=== PATIENT | male | born 1965 | race Caucasian/White ===

== ENCOUNTER → 2019-05-15 | Outpatient (CLI) | payer MEDICAID, SELFPAY ==
[2019-05-15 08:09] VITALS: BMI 19.3
[2019-05-15 12:27] LABS: Absolute Lymphocyte Count 0.98 X10^3/uL (0.83-4.51); Absolute Neutrophil Count 3.1 X10^3/uL (2.0-7.7); Basophil# 0.02 X10^3/uL; Basophil% 0.4 % (0-1); Eosinophil# 0.06 X10^3/uL; Eosinophils% 1.3 % (0-5); Hematocrit 39.9 % (40-54); Hemoglobin 13.2 g/dL (13.0-16.5); Lymphocyte # 0.98 X10^3/ul (4.0); Mean Corp Hgb Conc 33.1 g/dL (32-36); Mean Corpuscular Hgb 32.6 pg (27.0-32.0); Mean Corpuscular Volume 98.5 fL (80-94); Mean Platelet Vol. 10.6 fl (6.2-12.0); Monocyte# 0.28 X10^3/uL; Monocyte% 6.3 % (0-10); NRBC Flagged by Analyzer 0 % (0-5); Neutrophil % 69.6 % (47-70); Platelet Count 143 K/mm3 (150-450); RBC Distribution Width CV 13.3 % (11.6-14.6); RBC Distribution Width SD 48.8 fl (35.1-43.9); Red Blood Count 4.05 M/mm3 (4.6-6.2); White Blood Count 4.5 K/mm3 (4.4-11.0)
[2019-05-15 12:47] LABS: Vitamin B12 445 pg/mL (211-911)
[2019-05-15 12:49] LABS: ALB/GLOB Ratio 0.8 RATIO (0.9-2.4); AST(SGOT) 62 U/L (15-37); Alanine Aminotransfer ALT/SGPT 77 U/L (16-61); Alkaline Phosphatase 112 U/L (45-117); Anion Gap 9 (5-15); BUN 6 mg/dL (7-18); BUN/Creat Ratio 9.9 RATIO (10-20); Calcium,Total 9.3 mg/dL (8.5-10.1); Chloride 105 mmol/L (98-107); Cholesterol 208 mg/dL (200); EST Glomerular Filtration Rate 147 mL/min (>60); Est Glom Filt Rate - Afr Amer 178 mL/min (>60); Globulin 5.2 g/dL (2.2-4.2); Glucose 69 mg/dL (74-106); High Density Lipoprotein 79 mg/dL; PSA,Total - Annual Screen 1.07 ng/mL (0.00-4.00); Potassium 4.7 mmol/L (3.5-5.1); Protein, Total 9.2 g/dL (6.4-8.2); Sodium Level 138 mmol/L (136-145); Thyroid Stim Hormone (TSH) 2.61 uIU/mL (0.358-3.74); Triglycerides 89 mg/dL; Very Low Density Lipoprotein 18 mg/dL (5-40)
--- NOTE | 2019-05-15 13:59 | CT_ITS ---
STUDY: LOW DOSE CT LUNG CANCER SCREENING REASON FOR EXAM: Male, 54 years old. The patient smoked 2 packs per day for 43 years. RADIATION DOSAGE (If Supplied By Facility): CTDIvol = ( 2.01 ) mGy, DLP = ( 83.79 ) mGycm TECHNIQUE: No contrast was administered. Low dose technique was utilized (average mAS-38 and kVp 120). 1.25 mm axial source images with a slice interval of 1.25-mm were reconstructed in lung windows. 2.5 mm axial source images with a slice interval of 2.5-mm were reconstructed in lung windows. 5.0 mm axial source images with a slice interval of 5.0-mm were reconstructed in soft tissue windows. Nodule measured using lung windows on PACS and/or independent workstation with automated measurement of minimum and maximum diameter. Nodule measurement reported as average diameter rounded to the nearest whole number. Growth is defined as an increase ins size of greater than 1.5 mm. COMPARISON: None. NODULES: Calcified granuloma in the lateral aspect of the right lower lobe as seen on axial image #177. Blunting of the left costophrenic angle. Emphysema: Hyperinflation. Diffuse emphysematous changes worse in both upper lobes with areas of subpleural bullous changes more prominent in the right upper lobe. Endobronchial lesion: None Aorta: Atherosclerotic plaque formation of the descending thoracic aorta and aortic arch. Coronary arteries: Coronary artery calcification. Mediastinal nodes: Mildly enlarged mediastinal lymph nodes in the aortopulmonary window. Other chest and abdominal findings: Degenerative changes of the thoracic spine. CT/Low Dose CT Lung Screening IMPRESSION: Lung-RADS category 2 - Continue annual screening with LDCT in 12 months. IMPORTANT NOTES FOR USE: ACR Lung-RADS Version 1.0 Assessment Categories Release Date: November 26, 2013 Category: Coded 0-4 bases on nodule(s) with highest degree of suspicion. Negative screen is defined as categories 1 and 2; a positive screen is defined as categories 3 and 4. Category 3 and 4A nodules that are unchanged on interval CT should be coded as category 2, and individuals returned to screening in 12 months. Category 4X: Category 3 or 4 nodules with additional imaging findings that increase the suspicion of lung cancer, such as spiculation, GGN that doubles in size in 1 year, enlarged lymph notes, etc. Category Modifiers: S (significant finding unrelated to lung cancer) and C (prior history of treated lung cancer) may be added to the 0-4 Lung-RADS Electronically Signed: Esau Scott, at 14:55 EDT , Service support ,
== END | disposition home or self-care (01) ==
PROVIDERS: Family Provider Internal Medicine; PCP Internal Medicine; Referring Provider Nurse Practitioner Family; Visit Provider Nurse Practitioner Family
DX: Z00.00 Encounter for general adult medical examination without abnormal findings (principal); K70.9 Alcoholic liver disease, unspecified; F10.20 Alcohol dependence, uncomplicated; R00.0 Tachycardia, unspecified; F17.209 Nicotine dependence, unspecified, with unspecified nicotine-induced disorders; Z12.2 Encounter for screening for malignant neoplasm of respiratory organs
CPT/HCPCS: 36415; 80053; 80061; 82607; 84153; 84443; 85025; G0297; G0103

== ENCOUNTER → 2019-06-01 | Outpatient (CLI) | payer MEDICAID, SELFPAY ==
[2019-05-15 13:28] VITALS: BMI 19.2
--- NOTE | 2019-06-01 08:15 | US_ITS ---
STUDY: ABDOMINAL ULTRASOUND - RIGHT UPPER QUADRANT REASON FOR VISIT: Male, 54 years old elevated liver function tests. TECHNIQUE: Ultrasound evaluation of the right upper quadrant was performed with real-time and static martinez-scale imaging. TECHNICAL QUALITY: Adequate. COMPARISON: None. FINDINGS: Liver: The liver measures 15.8 cm. There is increased echogenicity consistent with fatty infiltration. The bile ducts are within normal limits. There is hepatic color flow. The direction of portal flow is hepatopetal. There is no demonstrated mass lesion. Gallbladder: Normal distended gallbladder. The gallbladder wall measures 2.4 mm. There is a negative sonographic Boyd's sign. There is no pericholecystic fluid. There are multiple echogenic structures within the gallbladder, consistent with multiple small gallstones. Sludge is also seen within the gallbladder lumen. Common Bile Duct (C.B.D.): The common bile duct measures 3.8 mm. Pancreas: Normal size of the head, body and tail of the pancreas. There is normal echogenicity of the pancreas. There is no demonstrated pancreatic mass or cyst. Right Kidney: Normal size of the right kidney. The right kidney measures 10.2 cm x 5.1 cm x 5.1 cm. Normal renal cortex. The right cortex measures 1.7 cm. There is no demonstrated renal mass or cyst. There is no right hydronephrosis. US/Abdomen Limited IMPRESSION: Fatty infiltration of the liver. Multiple tiny gallstones and sludge in the gallbladder lumen. Electronically Signed: Esau Scott, at 14:29 EDT , Service support ,
== END | disposition home or self-care (01) ==
LOC: US 08:13
PROVIDERS: Family Provider Internal Medicine; PCP Internal Medicine; Referring Provider Internal Medicine; Visit Provider Internal Medicine
DX: K70.9 Alcoholic liver disease, unspecified (principal); F10.20 Alcohol dependence, uncomplicated
CPT/HCPCS: 76705

== ENCOUNTER → 2020-01-02 | Outpatient (CLI) | payer MEDICAID, SELFPAY ==
[2020-01-02 14:44] VITALS: BMI 19.2
[2020-01-02 15:21] LABS: Bacteria 0 SEEN /hpf (None Seen); Mucous, Urine 0 SEEN /hpf (<or=2+); Squamous Epithelial Cells - UA 0 SEEN /hpf (0-5); White Blood Cells 0 SEEN /hpf (0-5)
[2020-01-02 16:49] LABS: Absolute Lymphocyte Count 0.53 X10^3/uL (0.83-4.51); Absolute Neutrophil Count 2.5 X10^3/uL (2.0-7.7); Basophil# 0.02 X10^3/uL; Basophil% 0.6 % (0-1); Eosinophil# 0.03 X10^3/uL; Eosinophils% 0.9 % (0-5); Hematocrit 29.1 % (40-54); Hemoglobin 9.3 g/dL (13.0-16.5); Lymphocyte # 0.53 X10^3/ul (4.0); Lymphocyte % 15.9 % (19-41); Mean Corpuscular Hgb 32.9 pg (27.0-32.0); Mean Corpuscular Volume 102.8 fL (80-94); Mean Platelet Vol. 9.6 fl (6.2-12.0); Monocyte# 0.24 X10^3/uL; Monocyte% 7.2 % (0-10); NRBC Flagged by Analyzer 0 % (0-5); Neutrophil # 2.46 X10^3/uL (2.7-7.7); Neutrophil % 73.9 % (47-70); POSITIVE DIFFERENTIAL YES; POSITIVE MORPHOLOGY YES; Platelet Count 164 K/mm3 (150-450); RBC Distribution Width CV 17.8 % (11.6-14.6); RBC Distribution Width SD 66.3 fl (35.1-43.9); Red Blood Count 2.83 M/mm3 (4.6-6.2); White Blood Count 3.3 K/mm3 (4.4-11.0)
[2020-01-02 16:54] LABS: Color, Urine Yellow (Yellow); Glucose, Dipstick Normal (Normal); Ketone-Dipstick Negative (Negative); Leukocyte Esterase-Dipstick Negative /ul (Negative); Nitrite-Dipstick Negative (Negative); Occult Blood-Urine Negative /ul (Negative); Protein-Dipstick 100 mg/dl (Negative); Specific Gravity, Urine 1.015 (1.002-1.030); Urine Bilirubin Dipstick Negative (Negative); Urine Clarity Clear (Clear); Urine Urobilinogen Normal (Normal)
[2020-01-02 17:00] LABS: ALB/GLOB Ratio 0.5 RATIO (0.9-2.4); AST(SGOT) 183 U/L (15-37); Alanine Aminotransfer ALT/SGPT 81 U/L (16-61); Albumin, Serum 2.9 g/dL (3.2-5.0); Alkaline Phosphatase 133 U/L (45-117); Anion Gap 9 (5-15); BUN 10 mg/dL (7-18); BUN/Creat Ratio 21.3 RATIO (10-20); Calcium,Total 8.6 mg/dL (8.5-10.1); Chloride 101 mmol/L (98-107); Creatinine, Serum 0.47 mg/dL (0.70-1.30); EST Glomerular Filtration Rate 197 mL/min (>60); Est Glom Filt Rate - Afr Amer 238 mL/min (>60); Globulin 5.4 g/dL (2.2-4.2); Glucose 79 mg/dL (74-106); Potassium 3.9 mmol/L (3.5-5.1); Protein, Total 8.3 g/dL (6.4-8.2); Sodium Level 137 mmol/L (136-145)
[2020-01-02 17:01] LABS: Differential Indicated SCAN CRITERIA MET
[2020-01-02 17:04] LABS: Red Blood Cells-Urine 0-5 SEEN /hpf (0-5)
[2020-01-02 17:24] LABS: BNP,B-Type NATRIURETIC PEPTIDE 12.5 pg/mL (0-100)
[2020-01-02 20:48] LABS: Anisocytosis 1+; Platelet Estimate ADEQUATE (ADEQ); Stomatocyte 1+; Target Cells RARE
[2020-01-03 12:21] LABS: Pathologist Review Reviewed
== END | disposition home or self-care (01) ==
LOC: BIMLAB 15:20
PROVIDERS: PCP Internal Medicine; Referring Provider Nurse Practitioner Family; Visit Provider Nurse Practitioner Family
DX: F10.20 Alcohol dependence, uncomplicated (principal); R06.01 Orthopnea; R60.0 Localized edema
CPT/HCPCS: 36415; 80053; 81001; 83880; 85025

== ENCOUNTER 2020-01-05 13:47 | Inpatient (IN) | payer MEDICAID, SELFPAY ==
[2020-01-02 14:44] VITALS: BMI 19.2
[2020-01-05] VITALS (7 sets, daily range): BP systolic 109–154; BP diastolic 80–88; PULSE 97–123; RESP 16–18; TEMP 36.5–37; O2SAT 93–98; BMI 20.2; BMI 19.3
--- NOTE | 2020-01-05 14:10 | EKG12_ITS ---
Test Reason : Blood Pressure : / mmHG Vent. Rate : 100 BPM Atrial Rate : 100 BPM P-R Int : 184 ms QRS Dur : 082 ms QT Int : 350 ms P-R-T Axes : 077 072 075 degrees QTc Int : 451 ms Normal sinus rhythm Septal infarct , age undetermined Abnormal ECG Confirmed by YESIKA REYES, GRISELDA ([id number]), movie editor ANI RUBIN ([id number]) on 01/07/2020 1:20:08 PM Referred By: LINDA Confirmed By:GRISELDA NAPOLES MD
--- NOTE | 2020-01-05 14:15 | ED.DCSUM_ITS ---
History of Present Illness <AbdiMarina cerna - Last Filed: 01/05/20 14:23> Informant: Patient Onset: Month(s) Context: Gradual Onset Timing: Continuous Current Severity: Severe Maximum Severity: Severe Worsened by: drinking Relieved by: nothing Associated Symptoms: none Narrative: 54-year-old male history of COPD and alcohol abuse presents to the emergency department requesting detox from alcohol. Patient drinks daily for the last 5 years. He normally drinks at least 525 ounce beers that are a percent alcohol. His last drink was about 2 hours ago. His last detox from alcohol was about 5 years ago. He denies drug use. He denies any chest pain or shortness of breath, he has been eating and drinking normally, no abdominal pain or vomiting, no melena or hematochezia or diarrhea. Prior similar symptoms: Yes Recent Illness/Hospitalization: No <Chapito Hooks - Last Filed: 01/05/20 15:54> Chief Complaint: Substance Abuse Past Medical History - Family History Maternal Family History: Family History (Last Reviewed 05/15/19 @ 13:24 by Sharon Lobato) Mother Cancer Alcohol abuse Father Alcohol abuse Paternal Family History: Family History (Last Reviewed 05/15/19 @ 13:24 by Sharon Lobato) Mother Cancer Alcohol abuse Father Alcohol abuse <AbdiMarina cerna - Last Filed: 01/05/20 14:23> Prior records reviewed: Yes Past Medical History: - - COPD, alcohol abuse Surgical History: no surgical history Lives: With Family Smoking Status: Current every day smoker Alcohol: Heavy Drugs: None - Family History Maternal Family History: Family History (Last Reviewed 05/15/19 @ 13:24 by Sharon Lobato) Mother Cancer Alcohol abuse Father Alcohol abuse Family History: Reports: Cancer Paternal Family History: Family History (Last Reviewed 05/15/19 @ 13:24 by Sharon Lobato) Mother Cancer Alcohol abuse Father Alcohol abuse Family History: Reports: No pertinent history <Chapito Hooks - Last Filed: 01/05/20 15:54> - Allergies and Home Meds Allergies/Adverse Reactions: Allergies erythromycin base Allergy (Unknown, Verified 01/05/20 13:48) Hives Primary Care Physician: Rickey Foley MD [Primary Care Provider] - Review of Systems All systems negative except as indicated General: Denies: Chills, Fever, Sweats Eyes: Denies: Visual changes - bilaterally, Diplopia ENT: Denies: Rhinorrhea, Sore throat Cardiovascular: Denies: Chest pain, Palpitations Respiratory: Reports: Dyspnea on exertion. Denies: Dyspnea, Cough, Sputum, Orthopnea, Paroxysmal nocturnal dyspnea Gastrointestinal: Denies: Abdominal pain, Nausea, Vomiting, Diarrhea, Melena, Hematochezia Genitourinary: Denies: Dysuria, Hematuria, Frequency Musculoskeletal: Denies: Back pain, Extremity Pain Skin: Denies: Rash, Wounds Neurological: Denies: Headache, Weakness, Numbness <Chapito Hooks - Last Filed: 01/05/20 15:54> Physical Exam Vital Signs/Narrative: Vital Signs Temp Pulse Resp BP Pulse Ox 01/05/20 13:48 98.1 F 123 H 16 154/88 H 95 <Marina Ross - Last Filed: 01/05/20 14:23> Vital Signs/Narrative: Vital Signs Temp Pulse Resp BP Pulse Ox 01/05/20 13:48 98.1 F 123 H 16 154/88 H 95 Inital Vital Signs reviewed: Yes General: Well nourished, Well developed, No Acute Distress Head: Normocephalic, Atraumatic Eyes: Perrl, EOMI ENT: Moist mucous membranes, No rhinorrhea Neck: Supple, Nontender Cardiovascular: Regular rhythm, No murmurs, Tachycardia Respiratory: No distress, Chest nontender, Diminished, Decreased Air Movement Abdomen: Soft, Nontender, Nondistended, Normal bowel sounds Back: Nontender, Normal Inspection Extremities: Nontender, No edema Skin: Normal color, No rash Neurological: Alert, Oriented x3, Cranial nerves II-XII grossly intact, Normal Strength, Normal Sensation Psychological: Normal affect, Normal Mood. Negative for: Depressed, Tearful, Agitated <Chapito Hooks - Last Filed: 01/05/20 15:54> Diagnostic/Tx/Re-eval - Medical Decision Making Dr. Ross dictating, patient seen with Chapito agree with history and physical as above patient is requesting detox for alcohol abuse just drank prior to arrival as he was going into what he describes withdrawal he has been detoxed before his other health conditions are stable no exposures to coronavirus head neck chest abdomen unremarkable he is awake alert willing all 4, we will obtain medical screening evaluation and discuss case with hospitalist to determine disposition see chart for full details <Marina Ross - Last Filed: 01/05/20 14:23> Chest X-Ray - ED: 1 View, Read by ED Physician, Read by Radiologist, No Acute Disease Laboratory Tests 01/05/20 01/05/20 01/05/20 Range/Units 15:05 15:05 14:30 WBC (4.4-11.0) K/mm3 RBC (4.6-6.2) M/mm3 Hgb (13.0-16.5) g/dL Hct (40-54) % MCV (80-94) fL MCH (27.0-32.0) pg MCHC (32-36) g/dL RDW Std Deviation (35.1-43.9) fl RDW Coeff of Violette (11.6-14.6) % Plt Count (150-450) K/mm3 MPV (6.2-12.0) fl PT (11.7-14.9) SECONDS INR Sodium (136-145) mmol/L Potassium (3.5-5.1) mmol/L Chloride (98-107) mmol/L Carbon Dioxide (21.0-32.0) mmol/L Anion Gap (5-15) BUN (7-18) mg/dL Creatinine (0.70-1.30) mg/dL Estim Creat Clear Calc ml/min Est GFR (MDRD) Af Amer (>60) mL/min Est GFR (MDRD) Non-Af (>60) mL/min BUN/Creatinine Ratio (10-20) RATIO Glucose (74-106) mg/dL Calcium (8.5-10.1) mg/dL Total Bilirubin (0.20-1.00) mg/dL Direct Bilirubin (0.00-0.30) mg/dL AST (15-37) U/L ALT (16-61) U/L Alkaline Phosphatase (45-117) U/L Troponin I (<0.045) ng/mL Total Protein (6.4-8.2) g/dL Albumin (3.2-5.0) g/dL Globulin (2.2-4.2) g/dL Urine Color Yellow (Yellow) Urine Clarity Sl. Cloudy (Clear) Urine pH 6.0 (5.0 - 8.0) Ur Specific [place] 1.010 (1.002-1.030) Urine Protein 30 H (Negative) mg/dl Urine Glucose (UA) Normal (Normal) mg/dl Urine Ketones Negative (Negative) mg/dl Urine Occult Blood Negative (Negative) /ul Urine Nitrite Negative (Negative) Urine Bilirubin Negative (Negative) mg/dL Urine Urobilinogen Normal (Normal) mg/dl Ur Leukocyte Esterase Negative (Negative) /ul Urine RBC 0 SEEN (0-5) /hpf Urine WBC 0 SEEN (0-5) /hpf Ur Squamous Epith Cells 0 SEEN (0-5) /hpf Urine Bacteria RARE (None Seen) /hpf Urine Mucus 0 SEEN (<or=2+) /hpf Urine Opiates Screen NEGATIVE (< 300 ng/mL) Urine Methadone Screen NEGATIVE (< 300 ng/mL) Ur Barbiturates Screen NEGATIVE (< 200 ng/mL) Ur Phencyclidine Scrn NEGATIVE (< 25 ng/mL) Ur Amphetamines Screen NEGATIVE (<1000 ng/mL) U Methamphetamin-MDMA NEGATIVE (< 500 ng/mL) U Benzodiazepines Scrn NEGATIVE (< 200 ng/mL) Urine Cocaine Screen NEGATIVE (< 300 ng/mL) U Cannabinoids Screen POSITIVE H (< 50 ng/mL) Ur Drug Screen Comment Ethyl Alcohol 327.0 H* mg/dL 01/05/20 01/05/20 01/05/20 Range/Units 14:30 14:30 14:30 WBC 6.4 (4.4-11.0) K/mm3 RBC 2.93 L (4.6-6.2) M/mm3 Hgb 9.6 L (13.0-16.5) g/dL Hct 29.6 L (40-54) % MCV 101.0 H (80-94) fL MCH 32.8 H (27.0-32.0) pg MCHC 32.4 (32-36) g/dL RDW Std Deviation 62.9 H (35.1-43.9) fl RDW Coeff of Violette 17.2 H (11.6-14.6) % Plt Count 130 L (150-450) K/mm3 MPV 9.7 (6.2-12.0) fl PT 12.8 (11.7-14.9) SECONDS INR 1.0 Sodium 136 (136-145) mmol/L Potassium 3.5 (3.5-5.1) mmol/L Chloride 102 (98-107) mmol/L Carbon Dioxide 23.0 (21.0-32.0) mmol/L Anion Gap 11 (5-15) BUN 6 L (7-18) mg/dL Creatinine 0.40 L (0.70-1.30) mg/dL Estim Creat Clear Calc 194.12 ml/min Est GFR (MDRD) Af Amer 289 (>60) mL/min Est GFR (MDRD) Non-Af 239 (>60) mL/min BUN/Creatinine Ratio 15.1 (10-20) RATIO Glucose 83 (74-106) mg/dL Calcium 8.4 L (8.5-10.1) mg/dL Total Bilirubin 0.40 (0.20-1.00) mg/dL Direct Bilirubin 0.20 (0.00-0.30) mg/dL AST 147 H (15-37) U/L ALT 79 H (16-61) U/L Alkaline Phosphatase 138 H (45-117) U/L Troponin I < 0.015 (<0.045) ng/mL Total Protein 8.1 (6.4-8.2) g/dL Albumin 2.9 L (3.2-5.0) g/dL Globulin 5.2 H (2.2-4.2) g/dL Urine Color (Yellow) Urine Clarity (Clear) Urine pH (5.0 - 8.0) Ur Specific [place] (1.002-1.030) Urine Protein (Negative) mg/dl Urine Glucose (UA) (Normal) mg/dl Urine Ketones (Negative) mg/dl Urine Occult Blood (Negative) /ul Urine Nitrite (Negative) Urine Bilirubin (Negative) mg/dL Urine Urobilinogen (Normal) mg/dl Ur Leukocyte Esterase (Negative) /ul Urine RBC (0-5) /hpf Urine WBC (0-5) /hpf Ur Squamous Epith Cells (0-5) /hpf Urine Bacteria (None Seen) /hpf Urine Mucus (<or=2+) /hpf Urine Opiates Screen (< 300 ng/mL) Urine Methadone Screen (< 300 ng/mL) Ur Barbiturates Screen (< 200 ng/mL) Ur Phencyclidine Scrn (< 25 ng/mL) Ur Amphetamines Screen (<1000 ng/mL) U Methamphetamin-MDMA (< 500 ng/mL) U Benzodiazepines Scrn (< 200 ng/mL) Urine Cocaine Screen (< 300 ng/mL) U Cannabinoids Screen (< 50 ng/mL) Ur Drug Screen Comment Ethyl Alcohol mg/dL - Rhythm Strip Rhythm Strip: Sinus Rhythm Rate: 100 Ectopy: None - EKG Initial EKG Interpretation: No Acute Injury Pattern, Sinus Tachycardia Prior: Unchanged - Medical Decision Making EKG was sinus tachycardia no signs of acute ischemia. Clinically the patient does not appear to be in acute withdrawal. His alcohol came back at 327. Drug screen positive for THC. CBC shows chronic anemia consistent with previous hemoglobin level. He remained stable at this time and is agreeable to detox admission. I spoke with the hospitalist Dr. Najera <Chapito Hooks - Last Filed: 01/05/20 15:54> ED Disposition <Marina Ross - Last Filed: 01/05/20 14:23> <Chapito Hooks - Last Filed: 01/05/20 15:54> - Plan for ED Patient: Disposition: Acute Care Hospital [facility] Diagnosis: Alcohol dependence, Chronic back pain, Tobacco abuse Referrals: Rickey Foley MD [Primary Care Provider] -
[2020-01-05] MEDS: 0.9% Normal Saline 1,000 ML 1000 ML IV (14:26)
--- NOTE | 2020-01-05 14:36 | RAD_ITS ---
STUDY: X-RAY CHEST REASON FOR EXAM: Male, 54 years old. PT PRESENTS FOR ALCOHOL DETOX. LAST DRINK and quot;5 MINUTES BEFORE I GOT HERE and quot;. TECHNIQUE: Single AP portable view of the chest. COMPARISON: 01/29/2014 FINDINGS: The lungs are clear and expanded. There is no demonstrated pleural abnormality. Normal size heart. Normal mediastinum and christi. Normal visualized pulmonary arteries. Normal visualized aortic arch and descending thoracic aorta. Normal visualized thoracic spine. Normal visualized ribs, clavicles, and shoulders. There is no demonstrated abnormality of the visualized soft tissue structures of the upper abdomen. RAD/Chest 1 View (Portable) IMPRESSION: Normal x-ray examination of the chest. Electronically Signed: Deandre Frazier MD at 15:42 EDT Tel , Service support ,
[2020-01-05 14:48] LABS: Hematocrit 29.6 % (40-54); Hemoglobin 9.6 g/dL (13.0-16.5); Mean Corp Hgb Conc 32.4 g/dL (32-36); Mean Corpuscular Hgb 32.8 pg (27.0-32.0); Mean Platelet Vol. 9.7 fl (6.2-12.0); Platelet Count 130 K/mm3 (150-450); RBC Distribution Width CV 17.2 % (11.6-14.6); RBC Distribution Width SD 62.9 fl (35.1-43.9); Red Blood Count 2.93 M/mm3 (4.6-6.2); White Blood Count 6.4 K/mm3 (4.4-11.0)
[2020-01-05 14:52] LABS: Prothrombin Time (Protime)PT. 12.8 SECONDS (11.7-14.9)
[2020-01-05 15:02] LABS: AST(SGOT) 147 U/L (15-37); Alanine Aminotransfer ALT/SGPT 79 U/L (16-61); Albumin, Serum 2.9 g/dL (3.2-5.0); Alkaline Phosphatase 138 U/L (45-117); Anion Gap 11 (5-15); BUN 6 mg/dL (7-18); BUN/Creat Ratio 15.1 RATIO (10-20); Calcium,Total 8.4 mg/dL (8.5-10.1); Chloride 102 mmol/L (98-107); EST Glomerular Filtration Rate 239 mL/min (>60); Est Glom Filt Rate - Afr Amer 289 mL/min (>60); Estimated Creatinine Clearance 194.12 ml/min; Globulin 5.2 g/dL (2.2-4.2); Glucose 83 mg/dL (74-106); Potassium 3.5 mmol/L (3.5-5.1); Protein, Total 8.1 g/dL (6.4-8.2); Sodium Level 136 mmol/L (136-145)
[2020-01-05 15:15] LABS: Mucous, Urine 0 SEEN /hpf (<or=2+); Red Blood Cells-Urine 0 SEEN /hpf (0-5); Squamous Epithelial Cells - UA 0 SEEN /hpf (0-5); White Blood Cells 0 SEEN /hpf (0-5)
[2020-01-05 15:20] LABS: Color, Urine Yellow (Yellow); Glucose, Dipstick Normal (Normal); Ketone-Dipstick Negative (Negative); Leukocyte Esterase-Dipstick Negative /ul (Negative); Nitrite-Dipstick Negative (Negative); Occult Blood-Urine Negative /ul (Negative); Protein-Dipstick 30 mg/dl (Negative); Urine Bilirubin Dipstick Negative (Negative); Urine Clarity Sl. Cloudy (Clear); Urine Urobilinogen Normal (Normal)
[2020-01-05 15:28] LABS: Bacteria RARE /hpf (None Seen)
[2020-01-05 15:36] LABS: Amphetamine Urine VISTA NEGATIVE (<1000 ng/mL); Barbiturate Urine VISTA NEGATIVE (< 200 ng/mL); Benzodiazepine Urine VISTA NEGATIVE (< 200 ng/mL); Cocaine Urine VISTA NEGATIVE (< 300 ng/mL); Ecstacy Urine VISTA NEGATIVE (< 500 ng/mL); Methadone Urine VISTA NEGATIVE (< 300 ng/mL); PCP Urine VISTA NEGATIVE (< 25 ng/mL); THC Urine VISTA POSITIVE (< 50 ng/mL); Vista UDS pH Range 7
--- NOTE | 2020-01-05 16:12 | HP.PCM_ITS ---
History of Present Illness Date of Admission: 01/05/20 The patient is a 54 year old M who presented to the ED with the request for EtOH detox. He states that he has been drinking since he was 12 yo and currently drinks about 5-6 24 oz beers a day that are 8%. His last drink was about 11-12 today. He states that he was trying to detox himself at home with Ultram but it has not been working. He has been to [facility] in the past and been detoxed with phenobarbital and that that worked well for him but admits that was several years ago. He also smokes 2 PPD. He states that his diet is overall poor and he has been drinking V8 and Ensure to try to improve his nutritional status. He states that he is starting to feel a bit shaky now. On exam B LE edema-mild was noted and Mr Isidoro admits that his legs have been swollen for a few weeks. He did see an [employer] with the last name Fantasma who, per the pt, told them that he may have had a mild heart attack. No w/u was performed per the pt. He is mildly tachycardic with a HR in the low 100 range, otherwise his VS are stable. He has a macrocytic anemia and mild thrombocytopenia (130). His LFT's are elevated as expected with AST 147 and ALT 79. Coags are WNL. Blood EtOH level is 327 and drug screen was + for THC. Past Medical History Past Medical History (Chronic Problems): Chronic Problems (Last Updated 05/15/19 @ 13:24 by Sharon Lobato) Tobacco abuse (Chronic) Chronic back pain (Chronic) History of traumatic head injury (Chronic) Vertigo (Chronic) Alcohol dependence (Chronic) Medical History: Medical History (Last Updated 05/15/19 @ 13:24 by Sharon Lobato) Alcohol abuse F10.10 Drug abuse F19.10 H/O: pneumonia Z87.01 History of fractured rib Z87.81 Liver disease K76.9 Neuropathy G62.9 Seasonal allergies J30.2 Allergies erythromycin base Allergy (Unknown, Verified 01/05/20 13:48) Hives Home Medications: Ambulatory Orders Medication Instructions Recorded thiamine HCl (vitamin B1) 100 mg 100 mg PO DAILY #90 tab 08/14/19 tablet albuterol sulfate 90 mcg/actuation 1 - 2 puff INHALATION Q6H PRN #8.5 01/02/20 aerosol inhaler g budesonide-formoterol HFA 160 2 puff INHALATION BID #10.2 g 01/02/20 mcg-4.5 mcg/actuation aerosol inhaler Surgical History: Surgical History (Last Reviewed 05/15/19 @ 13:24 by Sharon Lobato) H/O colonoscopy Z98.890 2017 Surgical History: no surgical history Psychiatric History: Anxiety Lives: With Family Smoking Status: Current every day smoker Alcohol: Heavy Drugs: None - *Family History Maternal Family History: Family History (Last Reviewed 05/15/19 @ 13:24 by Sharon oLbato) Mother Cancer Alcohol abuse Father Alcohol abuse History Items: Cancer Paternal Family History: Family History (Last Reviewed 05/15/19 @ 13:24 by Sharon Lobato) Mother Cancer Alcohol abuse Father Alcohol abuse History Items: No pertinent history Review of Systems Constitutional: Denies: Anorexia, Chills, Fever, Night Sweats, Malaise, Weakness, Weight Change, Fatigue Eyes: Denies: Blurred vision, Cataracts, Conjunctivae Inflammation, Double vision, Drainage, Eyelid Inflammation, Pain, Redness, Vision Change HEENT: Denies: Difficulty Hearing, Difficulty Swallowing, Dysphasia, Ear Pain, Eye Pain, Hard of Hearing, Head Aches, Hearing Changes, Nasal bleeding, Post Nasal Drip, Sinus Drainage, Sore Throat, Visual Changes Cardiovascular: Reports: Edema. Denies: Chest Pain, Chest Pressure, Chest Tightness, Heaviness, Light Headedness, Orthopnea, Palpitations, Paroxysmal Noc. Dyspnea, Syncope Respiratory: Reports: Shortness of Breath - intermittent and chronic for pt. Denies: Cough, Pleuritic Pain, Shortness of breath at rest, Shortness of breath upon exertion, Sputum production, Wheezing Gastrointestinal: Reports: Nausea - intermittent, Vomiting - intermittent. Denies: Abdominal Pain, Constipation, Diarrhea, Dyspepsia, Hematemesis, Hematochezia, Melena Genitourinary: Denies: Dysuria, Frequency, Hematuria, Hesitancy, Incontinence, Nocturia, Retention, Urgency Musculoskeletal: Denies: Arm Pain, Back Pain, Foot Pain, Hand Pain, Joint Pain, Joint stiffness, Joint swelling, Joint Tenderness, Leg Pain, Muscle pain, Neck Pain, Shoulder Pain Skin: Denies: Dryness, Jaundice, Lesions, Pruritis, Rash, Skin Changes, Wounds Neurological: Denies: Balance problems, Blurred vision, Double vision, Change in Speech, Slurred speech, Confusion, Difficulty swallowing, Focal weakness, Headaches, Incoordination, Numbness, Tingling, Tremor, Seizures Psychiatric: Reports: Anxiety. Denies: Depression, Homicidal Ideations, Suicidal Ideations Endocrine: Reports: Hx of Irradiation. Denies: Change in Body Habitus, Heat/ Cold Intolerance, Polydipsia, Polyuria, Hx of Thyroiditis Hematologic/ Lymphatic: Denies: Adenopathy, Anemia, Easy Bruising, Easy Bleeding, Petechiae, Purpura, Hx of blood clot, Hx of blood transfusion VTE Information - Inpt Only VTE Present on Admission: No VTE Mechan Device Prophylaxis: SCD's VTE Pharm Prophylaxis ordered?: No - Physical Exam Vitals/I&O's: Vital Signs Temp Pulse Resp BP Pulse Ox 97.8 F 97 18 114/80 97 01/05/20 16:05 01/05/20 16:05 01/05/20 16:05 01/05/20 16:05 01/05/20 16:05 Oxygen Delivery Method Room Air Weight: 65.771 kg Body Mass Index (BMI) 20.2 General: Alert, Oriented x3, Cooperative, No apparent distress, Well developed, - - very pleasant, thin WM who appears older than stated age, sitting up in bed HEENT: Atraumatic, PERRLA, EOMI, Normocephalic, EAC Clear Oral: Moist Mucosa, No Gingival or Mucosal Lesions/ Ulcerations, - - edentulous Neck: Supple, No JVD, Negative Carotid Bruits, Negative Hepatojugular Reflux, No Nodes, No Nuchal Rigidity, Trachea Midline, Thyroid Normal Size and Texture Lungs: Clear to auscultation, No rhonchi, No wheeze, No rales, - - diminished diffusely but CTA Cardiovascular: Regular Rhythm, Normal S1, Normal S2, No murmurs, No Ectopic Activity, No rub noted, No Gallop, Tachycardic - mild Abdomen: Bowel Sounds Present, Soft, Non Tender, Non-Distended, Hepatomegaly, Splenomegaly, No hernias noted Extremities: No clubbing, No cyanosis, Capillary Refill Less than 3 Seconds, Clubbing, Edema, - - varicosities B LE Skin: No rashes, No breakdown Musculoskeletal: No Tenderness to Palpation of Joints or Extremities, No Muscle Wasting, Arthritic Changes Lymphatic: No Cervical, Supraclavicular, or Inguinal Adenopathy Neurological: Cranial nerves II-XII grossly intact, Deep Tendon Reflexes 2+/4 and Symmetrical, Neuro grossly intact, Motor Exam 5/5 strength throughout Psych/Mental Status: Normal Affect, Appropriate, Alert and oriented to time, place, person, mood and affect Laboratory Results 01/05/20 14:30: WBC 6.4, RBC 2.93 L, Hgb 9.6 L, Hct 29.6 L, MCV 101.0 H, MCH 32.8 H, MCHC 32.4, RDW Std Deviation 62.9 H, RDW Coeff of Violette 17.2 H, Plt Count 130 L, MPV 9.7 01/05/20 14:30: PT 12.8, INR 1.0 01/05/20 14:30: Sodium 136, Potassium 3.5, Chloride 102, Carbon Dioxide 23.0, Anion Gap 11, BUN 6 L, Creatinine 0.40 L, Estim Creat Clear Calc 194.12, Est GFR (MDRD) Af Amer 289, Est GFR (MDRD) Non-Af 239, BUN/Creatinine Ratio 15.1, Glucose 83, Calcium 8.4 L, Total Bilirubin 0.40, Direct Bilirubin 0.20, AST 147 H, ALT 79 H, Alkaline Phosphatase 138 H, Troponin I < 0.015, Total Protein 8.1, Albumin 2.9 L, Globulin 5.2 H 01/05/20 14:30: Ethyl Alcohol 327.0 H* 01/05/20 15:05: Urine Color Yellow, Urine Clarity Sl. Cloudy, Urine pH 6.0, Ur Specific [place] 1.010, Urine Protein 30 H, Urine Glucose (UA) Normal, Urine Ketones Negative, Urine Occult Blood Negative, Urine Nitrite Negative, Urine Bilirubin Negative, Urine Urobilinogen Normal, Ur Leukocyte Esterase Negative, Urine RBC 0 SEEN, Urine WBC 0 SEEN, Ur Squamous Epith Cells 0 SEEN, Urine Bacteria RARE, Urine Mucus 0 SEEN 01/05/20 15:05: Urine Opiates Screen NEGATIVE, Urine Methadone Screen NEGATIVE, Ur Barbiturates Screen NEGATIVE, Ur Phencyclidine Scrn NEGATIVE, Ur Amphetamines Screen NEGATIVE, U Methamphetamin-MDMA NEGATIVE, U Benzodiazepines Scrn NEGATIVE, Urine Cocaine Screen NEGATIVE, U Cannabinoids Screen POSITIVE H, Ur Drug Screen Comment Assessment/Plan Acute EtOH Detox -Phenobarb taper with EtOH addiction order set -Thiamine 200mg/day x 3 days -folic acid -PRN ativan -monitor labs EtOH induced Hepatitis -mildly elevated LFT -monitor--> monica with the use of phenobarb B LE edema -no current CP or cardiac sx -EKG with no changes c/w old or new ischemia -check TSH -check ECHO Tobacco abuse -Nicotine Patch Macrocytic Anemia -supect related to EtOH tox to marrow -monitor for stability Thrombocytopenia -mild -suspect marrow toxicity -monitor for stability Malnutrition -reg diet -MVI -consult dietitian -supplements DVT prophylaxis -SCDs -pt allowed up ad [place] for now Inpatient E&M: [id number] Init Hosp L3
--- NOTE | 2020-01-05 16:52 | ECHOD_ITS ---
Reason For Study: SOB Procedure This was a 2D Doppler, Color Flow transthoracic echocardiogram. Exam performed portable in patient room. Left Ventricle Normal LV size. Left ventricular systolic function is normal. The estimated ejection fraction is 60 %. Normal diastology for age. No regional wall motion abnormalities noted. Right Ventricle Normal RV size. Normal systolic function. Atria Normal left atrium. Normal right atrium. Mitral Valve Normal mitral valve. Tricuspid Valve Normal tricuspid valve. Mild tricuspid valve insufficiency. Aortic Valve Normal aortic valve. Pulmonic Valve Normal pulmonic valve. Great Vessels Normal aortic root. The pulmonary artery is normal size. Normal inferior vena cava. Pericardium/Pleural No pericardial effusion. MMode/2D Measurements & Calculations LVIDd: 4.0 cm IVSd: 0.86 cm Ao root diam: 3.7 cm LVIDs: 2.5 cm LVPWd: 0.88 cm RVDd: 3.0 cm FS: 38.4 % LAV(MOD-bp): 46.4 ml LVAd ap4: 28.0 cm2 SV(MOD-sp4): 50.4 ml LAV(MOD-bp) Indexed: 25.5 ml/m2 EDV(MOD-sp4): 73.7 ml LAV(MOD-sp2): 53.5 ml EDV(sp4-el): 76.4 ml LAV(MOD-sp4): 39.3 ml LVAs ap4: 14.4 cm2 ESV(MOD-sp4): 23.2 ml ESV(sp4-el): 23.4 ml EF(MOD-sp4): 68.5 % EF(sp4-el): 69.4 % SV(sp4-el): 53.0 ml LA A4 area: 14.7 cm2 LA dimension(2D): 3.5 cm RA A4 area: 13.6 cm2 Doppler Measurements & Calculations MV E max godfrey: 83.9 cm/sec Lat Peak E' Godfrey: 13.7 cm/sec Med Peak E' Godfrey: 9.1 cm/sec MV A max godfrey: 72.5 cm/sec E/E' lat: 6.1 E/E' med: 9.2 MV E/A: 1.2 Ao V2 max: 133.8 cm/sec LV V1 max: 102.6 cm/sec PA V2 max: 110.6 cm/sec Ao max P.2 mmHg LV V1 max P.2 mmHg TR max godfrey: 233.5 cm/sec TR max P.8 mmHg Interpretation Summary Normal LV size. Left ventricular systolic function is normal. The estimated ejection fraction is 60 %. Normal diastology for age. Structurally normal valves. Ordering Physician: Sherry Najera Referring Physician: Rickey Foley Performed By: Lizette Magallon RDCS
[2020-01-05] MEDS: Phenobarbital 32.4 MG Tablet PO ×2 (17:32→20:24)
[2020-01-05] MEDS: Thiamine Hydrochloride 100 MG Tablet 200 MG PO (17:32)
[2020-01-05] MEDS: Folic Acid 1 MG Tablet PO (17:32)
[2020-01-05] MEDS: traZODone 100 MG Tablet PO (20:24)
[2020-01-05] MEDS: Gabapentin 300 MG Capsule PO (20:24)
[2020-01-05] MEDS: Ondansetron 8 MG Tablet PO (20:29)
[2020-01-06] VITALS (11 sets, daily range): BP systolic 114–142; BP diastolic 68–90; PULSE 74–109; RESP 16–18; TEMP 36.2–37.2; O2SAT 90–100
[2020-01-06] MEDS: Phenobarbital 32.4 MG Tablet PO ×6 (00:19→20:58)
[2020-01-06] MEDS: 0.9% Saline Lock 10 ML Syringe IV (04:17)
[2020-01-06 06:18] LABS: Absolute Lymphocyte Count 0.41 X10^3/uL (0.83-4.51); Absolute Neutrophil Count 3.7 X10^3/uL (2.0-7.7); Basophil# 0.01 X10^3/uL; Basophil% 0.2 % (0-1); Eosinophil# 0.01 X10^3/uL; Eosinophils% 0.2 % (0-5); Hemoglobin 9.2 g/dL (13.0-16.5); Lymphocyte # 0.41 X10^3/ul (4.0); Lymphocyte % 9.2 % (19-41); Mean Corp Hgb Conc 32.9 g/dL (32-36); Mean Corpuscular Hgb 33.1 pg (27.0-32.0); Mean Corpuscular Volume 100.7 fL (80-94); Monocyte# 0.33 X10^3/uL; Monocyte% 7.4 % (0-10); NRBC Flagged by Analyzer 0 % (0-5); Neutrophil # 3.67 X10^3/uL (2.7-7.7); Neutrophil % 81.9 % (47-70); POSITIVE DIFFERENTIAL YES; Platelet Count 126 K/mm3 (150-450); RBC Distribution Width CV 16.9 % (11.6-14.6); Red Blood Count 2.78 M/mm3 (4.6-6.2); White Blood Count 4.5 K/mm3 (4.4-11.0)
[2020-01-06 06:38] LABS: ALB/GLOB Ratio 0.6 RATIO (0.9-2.4); AST(SGOT) 106 U/L (15-37); Alanine Aminotransfer ALT/SGPT 61 U/L (16-61); Albumin, Serum 2.5 g/dL (3.2-5.0); Alkaline Phosphatase 121 U/L (45-117); Anion Gap 7 (5-15); BUN 7 mg/dL (7-18); BUN/Creat Ratio 15.4 RATIO (10-20); Calcium,Total 8.4 mg/dL (8.5-10.1); Chloride 100 mmol/L (98-107); Creatinine, Serum 0.46 mg/dL (0.70-1.30); EST Glomerular Filtration Rate 204 mL/min (>60); Est Glom Filt Rate - Afr Amer 247 mL/min (>60); Estimated Creatinine Clearance 166.47 ml/min; Globulin 4.5 g/dL (2.2-4.2); Glucose 105 mg/dL (74-106); Magnesium 1.5 mg/dL (1.6-2.6); Potassium 3.5 mmol/L (3.5-5.1); Sodium Level 135 mmol/L (136-145); Thyroid Stim Hormone (TSH) 2.86 uIU/mL (0.358-3.74)
[2020-01-06 06:41] LABS: Differential Indicated SCAN CRITERIA MET
[2020-01-06] MEDS: Ipratropium/Albuterol Sulfate 3 ML AMPUL.NEB INHALATION ×3 (06:43→19:34)
--- NOTE | 2020-01-06 07:23 | PN_ITS ---
Reason for Visit: Acute alcohol withdrawal Subjective: Patient is a 54-year-old gentleman with history of chronic alcohol use who pre sented to the emergency department intoxicated with request to undergo medical stabilization. Objective: GENERAL: cooperative HEENT: Atraumatic; EYES; Anicteric, Normal Conjunctiva NECK; supple, normal thyroid, RESPIRATORY: Diminished to auscultation CARDIOVASCULAR: Regular S1 S2, GI: soft, normoactive bowel sounds, : No Renal angle tenderness; EXTREMITIES: No edema, no clubbing, MUSCULOSKELETAL: no muscle waisting NEURO: Awake; no lateralizing signs. SKIN: No Rash PSYCH; Flat affect Vitals/I&O's: Vital Signs Temp Pulse Resp BP Pulse Ox 97.8 F 103 H 16 132/90 H 94 01/06/20 04:16 01/06/20 04:16 01/06/20 04:16 01/06/20 04:16 01/06/20 04:16 Oxygen Delivery Method Room Air Weight: 64.864 kg Body Mass Index (BMI) 19.3 Intake and Output for Last 24 Hours 01/04/20 01/05/20 01/06/20 23:59 23:59 23:59 Intake Total 1790 / 1790 350 / 350 Output Total 500 / 500 Balance 1290 / 1290 350 / 350 Laboratory Results 01/05/20 14:30: WBC 6.4, RBC 2.93 L, Hgb 9.6 L, Hct 29.6 L, MCV 101.0 H, MCH 32.8 H, MCHC 32.4, RDW Std Deviation 62.9 H, RDW Coeff of Violette 17.2 H, Plt Count 130 L, MPV 9.7 01/05/20 14:30: PT 12.8, INR 1.0 01/05/20 14:30: Sodium 136, Potassium 3.5, Chloride 102, Carbon Dioxide 23.0, Anion Gap 11, BUN 6 L, Creatinine 0.40 L, Estim Creat Clear Calc 194.12, Est GFR (MDRD) Af Amer 289, Est GFR (MDRD) Non-Af 239, BUN/Creatinine Ratio 15.1, Glucose 83, Calcium 8.4 L, Total Bilirubin 0.40, Direct Bilirubin 0.20, AST 147 H, ALT 79 H, Alkaline Phosphatase 138 H, Troponin I < 0.015, Total Protein 8.1, Albumin 2.9 L, Globulin 5.2 H 01/05/20 14:30: Ethyl Alcohol 327.0 H* 01/05/20 15:05: Urine Color Yellow, Urine Clarity Sl. Cloudy, Urine pH 6.0, Ur Specific [place] 1.010, Urine Protein 30 H, Urine Glucose (UA) Normal, Urine Ketones Negative, Urine Occult Blood Negative, Urine Nitrite Negative, Urine Bilirubin Negative, Urine Urobilinogen Normal, Ur Leukocyte Esterase Negative, Urine RBC 0 SEEN, Urine WBC 0 SEEN, Ur Squamous Epith Cells 0 SEEN, Urine Bacteria RARE, Urine Mucus 0 SEEN 01/05/20 15:05: Urine Opiates Screen NEGATIVE, Urine Methadone Screen NEGATIVE, Ur Barbiturates Screen NEGATIVE, Ur Phencyclidine Scrn NEGATIVE, Ur Amphetamines Screen NEGATIVE, U Methamphetamin-MDMA NEGATIVE, U Benzodiazepines Scrn NEGATIVE, Urine Cocaine Screen NEGATIVE, U Cannabinoids Screen POSITIVE H, Ur Drug Screen Comment 01/06/20 05:13: WBC 4.5, RBC 2.78 L, Hgb 9.2 L, Hct 28.0 L, MCV 100.7 H, MCH 33.1 H, MCHC 32.9, RDW Std Deviation 62.0 H, RDW Coeff of Violette 16.9 H, Plt Count 126 L, MPV 10.0, Immature Gran % (Auto) 1.100 H, Neut % (Auto) 81.9 H, Lymph % (Auto) 9.2 L, [place] % (Auto) 7.4, Eos % (Auto) 0.2, Baso % (Auto) 0.2, Absolute Neuts (auto) 3.7, Absolute Lymphs (auto) 0.41 L, Nucleated RBC % 0, Differential Comment COMMENT 01/06/20 05:13: Sodium 135 L, Potassium 3.5, Chloride 100, Carbon Dioxide 28.0, Anion Gap 7, BUN 7, Creatinine 0.46 L, Estim Creat Clear Calc 166.47, Est GFR (MDRD) Af Amer 247, Est GFR (MDRD) Non-Af 204, BUN/Creatinine Ratio 15.4, Glucose 105, Calcium 8.4 L, Magnesium 1.5 L, Total Bilirubin 0.70, AST 106 H, ALT 61, Alkaline Phosphatase 121 H, Total Protein 7.0, Albumin 2.5 L, Globulin 4.5 H, Albumin/Globulin Ratio 0.6 L, TSH 2.86 Current Medications Acetaminophen (Tylenol) 500 mg PO Q4H PRN PRN PRN Reason: Temp > 100.4 F Al Hydroxide/Mg Hydroxide (Mylanta Ii) 30 ml PO Q6H PRN PRN PRN Reason: dyspesia Albuterol Sulfate (Ventolin Aerosols) 2.5 mg INHALATION Q2H PRN PRN PRN Reason: dyspnea, wheezing Albuterol/Ipratropium (Duoneb) 3 ml INHALATION Q6HWA.RT [facility] Last Admin: 01/06/20 06:43 Dose: 3 ml Documented by: Bisacodyl (Dulcolax) 10 mg RECTAL DAILY PRN PRN Reason: Constipation Dextrose (D50w Syringe) 0 gm IV X1 PRN; Protocol PRN Reason: Hypoglycemia Dicyclomine HCl (Bentyl) 20 mg PO Q6H PRN PRN PRN Reason: abdominal discomfort Folic Acid (Folic Acid) 1 mg PO DAILY@0800 [facility] Last Admin: 01/05/20 17:32 Dose: 1 mg Documented by: Gabapentin (Neurontin) 300 mg PO Q8H PRN PRN PRN Reason: moderate to severe anxiety Last Admin: 01/05/20 20:24 Dose: 300 mg Documented by: Glucagon () 1 mg IM .X1 PRN PRN Reason: Hypoglycemia Hydroxyzine Pamoate (Vistaril Pamoate Capsule) 50 mg PO Q4H PRN PRN PRN Reason: mild anxiety Ibuprofen (Motrin) 600 mg PO Q8H PRN PRN PRN Reason: Pain Score 1-10/10 Loperamide HCl (Imodium) 2 mg PO Q4H PRN PRN PRN Reason: LOOSE STOOLS Lorazepam (Ativan) 2 mg PO Q2H PRN PRN; Protocol PRN Reason: CIWA score > 8 but <15 Lorazepam (Ativan) 2 mg PO UD PRN; Protocol PRN Reason: CIWA score >/=15. Lorazepam (Ativan) 2 mg IV Q2H PRN PRN; Protocol PRN Reason: CIWA score > 8 but <15 Lorazepam (Ativan) 2 mg IV UD PRN; Protocol PRN Reason: CIWA score >/=15. Methocarbamol (Methocarbamol) 750 mg PO 4X/DAY PRN PRN Reason: MUSCLE SPASM Nicotine (Nicoderm Cq (Pbkc)) 21 mg TRANSDERM. DAILY JIM Ondansetron HCl (Zofran) 8 mg PO Q8H PRN PRN PRN Reason: NAUSEA Last Admin: 01/05/20 20:29 Dose: 8 mg Documented by: Phenobarbital (Phenobarbital) 97.2 mg PO Q4H JIM; Taper Stop: 01/10/20 00:59 Last Admin: 01/06/20 04:17 Dose: 97.2 mg Documented by: Senna (Senokot) 2 tablet PO QHS PRN PRN PRN Reason: Constipation Sodium Chloride () 10 - 40 ml IV UD PRN PRN Reason: SALINE FLUSH Last Admin: 01/06/20 04:17 Dose: 10 ml Documented by: Thiamine HCl (Vitamin B1) 200 mg PO DAILYCM JIM Stop: 01/07/20 23:59 Last Admin: 01/05/20 17:32 Dose: 200 mg Documented by: Trazodone HCl (Desyrel) 100 mg PO QHS PRN PRN Reason: INSOMNIA Last Admin: 01/05/20 20:24 Dose: 100 mg Documented by: STROKE Vital Signs/Narrative: Vital Signs Temp Pulse Resp BP Pulse Ox 01/06/20 04:16 97.8 F 103 H 16 132/90 H 94 Medical Necessity - Tobacco Use Smoking Status: Current every day smoker Tobacco Use: Cigarettes Assessment/Plan Patient is a 54-year-old gentleman admitted with acute alcohol intoxication with request to undergo detox 1. Acute alcohol withdrawal ?Admitted to regular nursing floor currently being managed with medical stabilization/detox using phenobarbital 2. Alcohol induced hepatitis ?Monitoring hepatic function 3. Tobacco dependence - Counseled on cessation, offered nicotine patch for tobacco cravings 4. Anemia ?Macrocytic suspected to be secondary to patient alcohol use also requested for B12 levels 5. Mild thrombocytopenia -secondary to patient's alcohol use monitoring, 6. Mild malnutrition -consult dietitian -supplements 7. DVT prophylaxis -low risk Inpatient E&M: 80247 Subs Hosp L2
[2020-01-06] MEDS: Folic Acid 1 MG Tablet PO (08:17)
[2020-01-06] MEDS: Thiamine Hydrochloride 100 MG Tablet 200 MG PO (08:17)
--- NOTE | 2020-01-06 09:22 | PCM.CONS.GEN ---
Problem List (1) Tinea unguium Status: Chronic (2) Toe pain, right Status: Chronic (3) Toe pain, left Status: Chronic (4) Other hereditary and idiopathic neuropathies Status: Chronic Reason for Consult Date of Consultation: 01/06/20 Reason for Consultation: long thick toenails History of Present Illness: The patient is a 54 year old M was seen bedside. He was admitted for alcohol detox. He relates he has neuropathy with rest paresthesias, burning, tingling. He denies claudication. He denies history of ulcerations. I saw him for long thick toenails. He does not feel safe trimming these on his own and he asks for help today. His nail pain is rated as 7/10. He denies trauma. Past Medical History Past Medical History (Chronic Problems): Chronic Problems (Last Updated 05/15/19 @ 13:24 by Sharon Lobato) Tinea unguium (Chronic) Toe pain, right (Chronic) Toe pain, left (Chronic) Other hereditary and idiopathic neuropathies (Chronic) Tobacco abuse (Chronic) Chronic back pain (Chronic) History of traumatic head injury (Chronic) Vertigo (Chronic) Alcohol dependence (Chronic) Medical History: Medical History (Last Updated 05/15/19 @ 13:24 by Sharon Lobato) Alcohol abuse F10.10 Drug abuse F19.10 H/O: pneumonia Z87.01 History of fractured rib Z87.81 Liver disease K76.9 Neuropathy G62.9 Seasonal allergies J30.2 Allergies erythromycin base Allergy (Unknown, Verified 01/05/20 13:48) Hives Home Medications: Ambulatory Orders Medication Instructions Recorded albuterol sulfate 90 mcg/actuation 1 - 2 puff INHALATION Q6H PRN #8.5 01/02/20 aerosol inhaler g budesonide-formoterol HFA 160 2 puff INHALATION BID #10.2 g 01/02/20 mcg-4.5 mcg/actuation aerosol inhaler Thiamine HCl [Vitamin B-1] 100 mg PO DAILY 01/05/20 Surgical History: Surgical History (Last Reviewed 05/15/19 @ 13:24 by Sharon Lobato) H/O colonoscopy Z98.890 2017 Surgical History: no surgical history Psychiatric History: Anxiety Lives: With Family Smoking Status: Current every day smoker Tobacco Use: Cigarettes Alcohol: Heavy Drugs: None - *Family History Maternal Family History: Family History (Last Reviewed 05/15/19 @ 13:24 by Sharon Lobato) Mother Cancer Alcohol abuse Father Alcohol abuse History Items: Cancer Paternal Family History: Family History (Last Reviewed 05/15/19 @ 13:24 by Sharon Lobato) Mother Cancer Alcohol abuse Father Alcohol abuse History Items: No pertinent history Review of Systems Constitutional: Denies: Chills, Fever Cardiovascular: Denies: Claudication Respiratory: Denies: Shortness of Breath Musculoskeletal: Reports: Foot Pain - toenails. Denies: Leg Pain Skin: Reports: - - nail changes, chronic. Denies: Skin Changes, Wounds Neurological: Reports: Numbness - Physical Exam Vitals/I&O's: Vital Signs Temp Pulse Resp BP Pulse Ox 97.8 F 104 H 18 132/90 H 90 01/06/20 04:16 01/06/20 06:43 01/06/20 06:43 01/06/20 04:16 01/06/20 06:43 Oxygen Delivery Method Room Air Weight: 64.864 kg Body Mass Index (BMI) 19.3 Intake and Output for Last 24 Hours 01/04/20 01/05/20 01/06/20 23:59 23:59 23:59 Intake Total 1790 / 1790 350 / 350 Output Total 500 / 500 Balance 1290 / 1290 350 / 350 General: Alert, Oriented x3, Cooperative HEENT: Atraumatic Extremities: No cyanosis, Capillary Refill Less than 3 Seconds - All digits bilateral lower extremities, No Calf Tenderness - Negative Becca and Haney sign bilateral, Edema - Mild bilateral lower extremity, Peripheral Pulses Normal - 2 out of 4 PT AND DP pulses bilateral, - - Active range of motion digits and ankles normal bilateral lower extremities. Mild contraction of lesser digits bilateral Skin: - - No skin discontinuity, erythema, streaking, maceration, or signs of infection bilateral lower extremities. nails bilateral 1,2,3,4,5 long, thick, dystrophic with subungual debris with pain noted with compression Musculoskeletal: No Tenderness to Palpation of Joints or Extremities, Muscle Wasting Neurological: - - Epicritic sensation is intact to light touch to bilateral lower extremities equal to all dermatomes Psych/Mental Status: Normal Affect, Appropriate Laboratory Results 01/05/20 14:30: WBC 6.4, RBC 2.93 L, Hgb 9.6 L, Hct 29.6 L, MCV 101.0 H, MCH 32.8 H, MCHC 32.4, RDW Std Deviation 62.9 H, RDW Coeff of Violette 17.2 H, Plt Count 130 L, MPV 9.7 01/05/20 14:30: PT 12.8, INR 1.0 01/05/20 14:30: Sodium 136, Potassium 3.5, Chloride 102, Carbon Dioxide 23.0, Anion Gap 11, BUN 6 L, Creatinine 0.40 L, Estim Creat Clear Calc 194.12, Est GFR (MDRD) Af Amer 289, Est GFR (MDRD) Non-Af 239, BUN/Creatinine Ratio 15.1, Glucose 83, Calcium 8.4 L, Total Bilirubin 0.40, Direct Bilirubin 0.20, AST 147 H, ALT 79 H, Alkaline Phosphatase 138 H, Troponin I < 0.015, Total Protein 8.1, Albumin 2.9 L, Globulin 5.2 H 01/05/20 14:30: Ethyl Alcohol 327.0 H* 01/05/20 15:05: Urine Color Yellow, Urine Clarity Sl. Cloudy, Urine pH 6.0, Ur Specific [place] 1.010, Urine Protein 30 H, Urine Glucose (UA) Normal, Urine Ketones Negative, Urine Occult Blood Negative, Urine Nitrite Negative, Urine Bilirubin Negative, Urine Urobilinogen Normal, Ur Leukocyte Esterase Negative, Urine RBC 0 SEEN, Urine WBC 0 SEEN, Ur Squamous Epith Cells 0 SEEN, Urine Bacteria RARE, Urine Mucus 0 SEEN 01/05/20 15:05: Urine Opiates Screen NEGATIVE, Urine Methadone Screen NEGATIVE, Ur Barbiturates Screen NEGATIVE, Ur Phencyclidine Scrn NEGATIVE, Ur Amphetamines Screen NEGATIVE, U Methamphetamin-MDMA NEGATIVE, U Benzodiazepines Scrn NEGATIVE, Urine Cocaine Screen NEGATIVE, U Cannabinoids Screen POSITIVE H, Ur Drug Screen Comment 01/06/20 05:13: WBC 4.5, RBC 2.78 L, Hgb 9.2 L, Hct 28.0 L, MCV 100.7 H, MCH 33.1 H, MCHC 32.9, RDW Std Deviation 62.0 H, RDW Coeff of Violette 16.9 H, Plt Count 126 L, MPV 10.0, Immature Gran % (Auto) 1.100 H, Neut % (Auto) 81.9 H, Lymph % (Auto) 9.2 L, [place] % (Auto) 7.4, Eos % (Auto) 0.2, Baso % (Auto) 0.2, Absolute Neuts (auto) 3.7, Absolute Lymphs (auto) 0.41 L, Nucleated RBC % 0, Differential Comment COMMENT 01/06/20 05:13: Sodium 135 L, Potassium 3.5, Chloride 100, Carbon Dioxide 28.0, Anion Gap 7, BUN 7, Creatinine 0.46 L, Estim Creat Clear Calc 166.47, Est GFR (MDRD) Af Amer 247, Est GFR (MDRD) Non-Af 204, BUN/Creatinine Ratio 15.4, Glucose 105, Calcium 8.4 L, Magnesium 1.5 L, Total Bilirubin 0.70, AST 106 H, ALT 61, Alkaline Phosphatase 121 H, Total Protein 7.0, Albumin 2.5 L, Globulin 4.5 H, Albumin/Globulin Ratio 0.6 L, TSH 2.86 Current Medications Acetaminophen (Tylenol) 500 mg PO Q4H PRN PRN PRN Reason: Temp > 100.4 F Al Hydroxide/Mg Hydroxide (Mylanta Ii) 30 ml PO Q6H PRN PRN PRN Reason: dyspesia Albuterol Sulfate (Ventolin Aerosols) 2.5 mg INHALATION Q2H PRN PRN PRN Reason: dyspnea, wheezing Albuterol/Ipratropium (Duoneb) 3 ml INHALATION Q6HWA.RT [facility] Last Admin: 01/06/20 06:43 Dose: 3 ml Documented by: Bisacodyl (Dulcolax) 10 mg RECTAL DAILY PRN PRN Reason: Constipation Dextrose (D50w Syringe) 0 gm IV X1 PRN; Protocol PRN Reason: Hypoglycemia Dicyclomine HCl (Bentyl) 20 mg PO Q6H PRN PRN PRN Reason: abdominal discomfort Folic Acid (Folic Acid) 1 mg PO DAILY@0800 [facility] Last Admin: 01/06/20 08:17 Dose: 1 mg Documented by: Gabapentin (Neurontin) 300 mg PO Q8H PRN PRN PRN Reason: moderate to severe anxiety Last Admin: 01/05/20 20:24 Dose: 300 mg Documented by: Glucagon () 1 mg IM .X1 PRN PRN Reason: Hypoglycemia Hydroxyzine Pamoate (Vistaril Pamoate Capsule) 50 mg PO Q4H PRN PRN PRN Reason: mild anxiety Ibuprofen (Motrin) 600 mg PO Q8H PRN PRN PRN Reason: Pain Score 1-10/10 Loperamide HCl (Imodium) 2 mg PO Q4H PRN PRN PRN Reason: LOOSE STOOLS Lorazepam (Ativan) 2 mg PO Q2H PRN PRN; Protocol PRN Reason: CIWA score > 8 but <15 Lorazepam (Ativan) 2 mg PO UD PRN; Protocol PRN Reason: CIWA score >/=15. Lorazepam (Ativan) 2 mg IV Q2H PRN PRN; Protocol PRN Reason: CIWA score > 8 but <15 Lorazepam (Ativan) 2 mg IV UD PRN; Protocol PRN Reason: CIWA score >/=15. Methocarbamol (Methocarbamol) 750 mg PO 4X/DAY PRN PRN Reason: MUSCLE SPASM Nicotine (Nicoderm Cq (Pbkc)) 21 mg TRANSDERM. DAILY JIM Ondansetron HCl (Zofran) 8 mg PO Q8H PRN PRN PRN Reason: NAUSEA Last Admin: 01/05/20 20:29 Dose: 8 mg Documented by: Phenobarbital (Phenobarbital) 97.2 mg PO Q4H JIM; Taper Stop: 01/10/20 00:59 Last Admin: 01/06/20 08:25 Dose: 97.2 mg Documented by: Senna (Senokot) 2 tablet PO QHS PRN PRN PRN Reason: Constipation Sodium Chloride () 10 - 40 ml IV UD PRN PRN Reason: SALINE FLUSH Last Admin: 01/06/20 04:17 Dose: 10 ml Documented by: Thiamine HCl (Vitamin B1) 200 mg PO DAILYCM JIM Stop: 01/07/20 23:59 Last Admin: 01/06/20 08:17 Dose: 200 mg Documented by: Trazodone HCl (Desyrel) 100 mg PO QHS PRN PRN Reason: INSOMNIA Last Admin: 01/05/20 20:24 Dose: 100 mg Documented by: Assessment/Plan Tinea unguium Right and left toe pain neuropathy Admitted for alcohol detox I reviewed his case. He is afebrile, tachycardic, otherwise vital signs are stable. Nail nippers were used to debride the nails in length and thickness after verbal consent was obtained; 1, 2, 3, 4, 5 bilateral. This was performed without incident. Etiology of nail thickening was briefly reviewed and he elects proceed with palliative care only at this time. This was performed to reduce pressure or skin breakdown and to relieve pressure. He tolerated this well. He was reassured no wounds or signs of infection are noted. To elevate the limbs for his noted bilateral mild edema. He was advised to check his feet daily look for any openings, color changes, or drainage. He was advised to wear protective and supportive shoes. He was advised to maintain good foot hygiene. Medical management is noted. To follow-up with the foot and ankle center after discharge if needed. Thank you for the consultation. Please do not hesitate to call if you have any questions. Lamar Gann DPM, FACFAS [facility] [phone]
[2020-01-07] VITALS (10 sets, daily range): BP systolic 107–122; BP diastolic 72–83; PULSE 88–102; RESP 15–18; TEMP 36.5–36.7; O2SAT 94–99
[2020-01-07] MEDS: Phenobarbital 32.4 MG Tablet PO ×6 (01:02→21:14)
[2020-01-07] MEDS: Ondansetron 8 MG Tablet PO (01:15)
[2020-01-07] MEDS: Ipratropium/Albuterol Sulfate 3 ML AMPUL.NEB INHALATION ×3 (06:57→19:03)
--- NOTE | 2020-01-07 07:33 | PCM.PN.HOSP ---
Reason for Visit: Follow-up on acute alcohol withdrawal Subjective: Patient was seen and examined. He denied any new complains. No acute events. Vitals/I&O's: Vital Signs Temp Pulse Resp BP Pulse Ox 98.0 F 88 18 122/83 H 94 01/07/20 03:00 01/07/20 06:57 01/07/20 06:57 01/07/20 03:00 01/07/20 06:57 Oxygen Delivery Method Room Air Weight: 64.2 kg Body Mass Index (BMI) 19.3 Intake and Output for Last 24 Hours 01/05/20 01/06/20 01/07/20 23:59 23:59 23:59 Intake Total 1790 / 1790 2000 / 2000 300 / 300 Output Total 500 / 500 560 / 560 225 / 225 Balance 1290 / 1290 1440 / 1440 75 / 75 General: Alert, Oriented x3, Cooperative, No apparent distress HEENT: Atraumatic, PERRLA, EOMI, Normocephalic Oral: Moist Mucosa Neck: Supple Lungs: Clear to auscultation, Normal air movement Cardiovascular: Regular rate, Regular Rhythm, Normal S1, Normal S2, No murmurs Abdomen: Bowel Sounds Present, Soft, Non Tender, Non-Distended, No Hepato-splenomegaly Extremities: No edema Skin: No rashes Musculoskeletal: No Tenderness to Palpation of Joints or Extremities Lymphatic: No Cervical, Supraclavicular, or Inguinal Adenopathy Neurological: Cranial nerves II-XII grossly intact, Neuro grossly intact Psych/Mental Status: Normal Affect, Appropriate Current Medications Acetaminophen (Tylenol) 500 mg PO Q4H PRN PRN PRN Reason: Temp > 100.4 F Al Hydroxide/Mg Hydroxide (Mylanta Ii) 30 ml PO Q6H PRN PRN PRN Reason: dyspesia Albuterol Sulfate (Ventolin Aerosols) 2.5 mg INHALATION Q2H PRN PRN PRN Reason: dyspnea, wheezing Albuterol/Ipratropium (Duoneb) 3 ml INHALATION Q6HWA.RT JIM Last Admin: 01/07/20 06:57 Dose: 3 ml Documented by: Bisacodyl (Dulcolax) 10 mg RECTAL DAILY PRN PRN Reason: Constipation Dextrose (D50w Syringe) 0 gm IV X1 PRN; Protocol PRN Reason: Hypoglycemia Dicyclomine HCl (Bentyl) 20 mg PO Q6H PRN PRN PRN Reason: abdominal discomfort Folic Acid (Folic Acid) 1 mg PO DAILY@0800 [facility] Last Admin: 01/06/20 08:17 Dose: 1 mg Documented by: Gabapentin (Neurontin) 300 mg PO Q8H PRN PRN PRN Reason: moderate to severe anxiety Last Admin: 01/05/20 20:24 Dose: 300 mg Documented by: Glucagon () 1 mg IM .X1 PRN PRN Reason: Hypoglycemia Hydroxyzine Pamoate (Vistaril Pamoate Capsule) 50 mg PO Q4H PRN PRN PRN Reason: mild anxiety Ibuprofen (Motrin) 600 mg PO Q8H PRN PRN PRN Reason: Pain Score 1-10/10 Loperamide HCl (Imodium) 2 mg PO Q4H PRN PRN PRN Reason: LOOSE STOOLS Lorazepam (Ativan) 2 mg PO Q2H PRN PRN; Protocol PRN Reason: CIWA score > 8 but <15 Lorazepam (Ativan) 2 mg PO UD PRN; Protocol PRN Reason: CIWA score >/=15. Lorazepam (Ativan) 2 mg IV Q2H PRN PRN; Protocol PRN Reason: CIWA score > 8 but <15 Lorazepam (Ativan) 2 mg IV UD PRN; Protocol PRN Reason: CIWA score >/=15. Methocarbamol (Methocarbamol) 750 mg PO 4X/DAY PRN PRN Reason: MUSCLE SPASM Nicotine (Nicoderm Cq (Pbkc)) 21 mg TRANSDERM. DAILY [facility] Last Admin: 01/06/20 10:29 Dose: 21 mg Documented by: Ondansetron HCl (Zofran Odt) 8 mg PO Q8H PRN PRN PRN Reason: NAUSEA Phenobarbital (Phenobarbital) 64.8 mg PO Q4H [facility]; Taper Stop: 01/10/20 00:59 Last Admin: 01/07/20 05:08 Dose: 64.8 mg Documented by: Senna (Senokot) 2 tablet PO QHS PRN PRN PRN Reason: Constipation Sodium Chloride () 10 - 40 ml IV UD PRN PRN Reason: SALINE FLUSH Last Admin: 01/06/20 04:17 Dose: 10 ml Documented by: Thiamine HCl (Vitamin B1) 200 mg PO DAILYCM JIM Stop: 01/07/20 23:59 Last Admin: 01/06/20 08:17 Dose: 200 mg Documented by: Trazodone HCl (Desyrel) 100 mg PO QHS PRN PRN Reason: INSOMNIA Last Admin: 01/05/20 20:24 Dose: 100 mg Documented by: STROKE Vital Signs/Narrative: Vital Signs Pulse Resp Pulse Ox 01/07/20 06:57 88 18 94 Medical Necessity - Tobacco Use Smoking Status: Current every day smoker Tobacco Use: Cigarettes Assessment/Plan 1. Acute alcohol withdrawal, CIWA score this morning is 0 Continue on alcohol withdrawal protocol 2. Probable alcohol induced hepatitis, liver function tests appears improved Repeat blood work in a.m. 3. Macrocytic anemia, stable hemoglobin at 9.2 Repeat blood work in a.m., check vitamin B12 and folic acid levels 4. Nicotine dependence, on replacement 5. DVT PPx- low risk; early ambulation encouraged. Inpatient E&M: 19215 Subs Hosp L2
[2020-01-07] MEDS: Thiamine Hydrochloride 100 MG Tablet 200 MG PO (08:15)
[2020-01-07] MEDS: Folic Acid 1 MG Tablet PO (08:15)
--- NOTE | 2020-01-07 08:52 | CASEMGMT ---
Social Work Note Pt is RAMP pt. SW placed a call to Kate at [facility] and provided referral. Kate states she will be at [facility] today to meet with pt. Citlali De La Fuente [employer]GER [employer], [employer]
[2020-01-07] MEDS: Budesonide Respules 0.5 MG/2 ML AMPUL.NEB. INHALATION (19:03)
[2020-01-08] VITALS (8 sets, daily range): BP systolic 102–129; BP diastolic 60–87; PULSE 72–107; RESP 16; TEMP 36.4–36.7; O2SAT 96–99
[2020-01-08] MEDS: Phenobarbital 32.4 MG Tablet PO ×4 (01:05→18:29)
[2020-01-08] MEDS: traZODone 100 MG Tablet PO (01:05)
[2020-01-08 05:37] LABS: ALB/GLOB Ratio 0.5 RATIO (0.9-2.4); AST(SGOT) 123 U/L (15-37); Alanine Aminotransfer ALT/SGPT 74 U/L (16-61); Albumin, Serum 2.6 g/dL (3.2-5.0); Alkaline Phosphatase 130 U/L (45-117); Anion Gap 7 (5-15); BUN 7 mg/dL (7-18); BUN/Creat Ratio 19.7 RATIO (10-20); Calcium,Total 8.6 mg/dL (8.5-10.1); Chloride 99 mmol/L (98-107); Creatinine, Serum 0.36 mg/dL (0.70-1.30); EST Glomerular Filtration Rate 272 mL/min (>60); Est Glom Filt Rate - Afr Amer 329 mL/min (>60); Estimated Creatinine Clearance 208.89 ml/min; Globulin 4.9 g/dL (2.2-4.2); Glucose 84 mg/dL (74-106); Potassium 3.9 mmol/L (3.5-5.1); Protein, Total 7.5 g/dL (6.4-8.2); Sodium Level 133 mmol/L (136-145)
[2020-01-08] MEDS: Budesonide Respules 0.5 MG/2 ML AMPUL.NEB. INHALATION ×2 (06:52→19:12)
[2020-01-08] MEDS: Ipratropium/Albuterol Sulfate 3 ML AMPUL.NEB INHALATION ×3 (06:52→19:12)
--- NOTE | 2020-01-08 07:10 | PCM.PN.HOSP ---
Reason for Visit: Follow-up on acute alcohol withdrawal Subjective: Patient was seen and examined. He denied any complains. No events overnight. Objective: Physical exam: General: Alert, Oriented x3, Cooperative, No apparent distress HEENT: Atraumatic, PERRLA, EOMI, Normocephalic Oral: Moist Mucosa Neck: Supple Lungs: Clear to auscultation, Normal air movement Cardiovascular: Regular rate, Regular Rhythm, Normal S1, Normal S2, No murmurs Abdomen: Bowel Sounds Present, Soft, Non Tender, Non-Distended, No Hepato-splenomegaly Extremities: No edema Skin: No rashes Musculoskeletal: No Tenderness to Palpation of Joints or Extremities Lymphatic: No Cervical, Supraclavicular, or Inguinal Adenopathy Neurological: Cranial nerves II-XII grossly intact, Neuro grossly intact Psych/Mental Status: Normal Affect, Appropriate Vitals/I&O's: Vital Signs Temp Pulse Resp BP Pulse Ox 98.0 F 72 16 129/87 H 99 01/08/20 03:00 01/08/20 03:00 01/08/20 03:00 01/08/20 03:00 01/08/20 03:00 Oxygen Delivery Method Room Air Weight: 63.7 kg Body Mass Index (BMI) 19.3 Intake and Output for Last 24 Hours 01/06/20 01/07/20 01/08/20 23:59 23:59 23:59 Intake Total 1999 / 1999 740 / 740 240 / 240 Output Total 560 / 560 450 / 450 450 / 450 Balance 1440 / 1440 290 / 290 -210 / -210 Laboratory Results 01/08/20 04:50: Sodium 133 L, Potassium 3.9, Chloride 99, Carbon Dioxide 27.0, Anion Gap 7, BUN 7, Creatinine 0.36 L, Estim Creat Clear Calc 208.89, Est GFR (MDRD) Af Amer 329, Est GFR (MDRD) Non-Af 272, BUN/Creatinine Ratio 19.7, Glucose 84, Calcium 8.6, Total Bilirubin 0.60, AST 123 H, ALT 74 H, Alkaline Phosphatase 130 H, Total Protein 7.5, Albumin 2.6 L, Globulin 4.9 H, Albumin/Globulin Ratio 0.5 L, Folate 18.50 01/08/20 04:50: Vitamin B12 Pending Current Medications Acetaminophen (Tylenol) 500 mg PO Q6H PRN PRN PRN Reason: Temp > 100.4 F Al Hydroxide/Mg Hydroxide (Mylanta Ii) 30 ml PO Q6H PRN PRN PRN Reason: dyspesia Albuterol Sulfate (Ventolin Aerosols) 2.5 mg INHALATION Q2H PRN PRN PRN Reason: dyspnea, wheezing Albuterol/Ipratropium (Duoneb) 3 ml INHALATION Q6HWA.RT [facility] Last Admin: 01/08/20 06:52 Dose: 3 ml Documented by: Bisacodyl (Dulcolax) 10 mg RECTAL DAILY PRN PRN Reason: Constipation Budesonide (Pulmicort Aerosol) 0.5 mg INHALATION Q12H.RT [facility] Last Admin: 01/08/20 06:52 Dose: 0.5 mg Documented by: Dextrose (D50w Syringe) 0 gm IV X1 PRN; Protocol PRN Reason: Hypoglycemia Dicyclomine HCl (Bentyl) 20 mg PO Q6H PRN PRN PRN Reason: abdominal discomfort Folic Acid (Folic Acid) 1 mg PO DAILY@0800 [facility] Last Admin: 01/07/20 08:15 Dose: 1 mg Documented by: Gabapentin (Neurontin) 300 mg PO Q8H PRN PRN PRN Reason: moderate to severe anxiety Last Admin: 01/05/20 20:24 Dose: 300 mg Documented by: Glucagon () 1 mg IM .X1 PRN PRN Reason: Hypoglycemia Hydroxyzine Pamoate (Vistaril Pamoate Capsule) 50 mg PO Q4H PRN PRN PRN Reason: mild anxiety Ibuprofen (Motrin) 600 mg PO Q8H PRN PRN PRN Reason: Pain Score 1-10/10 Loperamide HCl (Imodium) 2 mg PO Q4H PRN PRN PRN Reason: LOOSE STOOLS Lorazepam (Ativan) 2 mg PO Q2H PRN PRN; Protocol PRN Reason: CIWA score > 8 but <15 Lorazepam (Ativan) 2 mg PO UD PRN; Protocol PRN Reason: CIWA score >/=15. Lorazepam (Ativan) 2 mg IV Q2H PRN PRN; Protocol PRN Reason: CIWA score > 8 but <15 Lorazepam (Ativan) 2 mg IV UD PRN; Protocol PRN Reason: CIWA score >/=15. Methocarbamol (Methocarbamol) 750 mg PO 4X/DAY PRN PRN Reason: MUSCLE SPASM Nicotine (Nicoderm Cq (Pbkc)) 21 mg TRANSDERM. DAILY [facility]IM Last Admin: 01/07/20 08:15 Dose: 21 mg Documented by: Ondansetron HCl (Zofran Odt) 8 mg PO Q8H PRN PRN PRN Reason: NAUSEA Phenobarbital (Phenobarbital) 64.8 mg PO Q6H JIM; Taper Stop: 01/10/20 00:59 Last Admin: 01/08/20 06:21 Dose: 64.8 mg Documented by: Senna (Senokot) 2 tablet PO QHS PRN PRN PRN Reason: Constipation Sodium Chloride () 10 - 40 ml IV UD PRN PRN Reason: SALINE FLUSH Last Admin: 01/06/20 04:17 Dose: 10 ml Documented by: Trazodone HCl (Desyrel) 100 mg PO QHS PRN PRN Reason: INSOMNIA Last Admin: 01/08/20 01:05 Dose: 100 mg Documented by: Medical Necessity - Tobacco Use Smoking Status: Current every day smoker Tobacco Use: Cigarettes Assessment/Plan 1. Acute alcohol withdrawal, CIWA score remains 0 Continue on alcohol withdrawal protocol 2. Probable alcohol induced hepatitis, liver function tests appears improved Repeat blood work shows stable but elevated liver enzymes CT scan of the abdomen and pelvis 2019 showed fatty liver. Patient needs to follow-up in the outpatient very closely for further work-up and management of liver cirrhosis Advised to quit alcohol. 3. Macrocytic anemia, stable hemoglobin at 9.2 Vitamin B12 and folic acid levels are normal, TSH is normal. 4. Nicotine dependence, on replacement 5. DVT PPx- low risk; early ambulation encouraged. Inpatient E&M: 38941 Subs Hosp L2
[2020-01-08] MEDS: Folic Acid 1 MG Tablet PO (08:12)
[2020-01-08 09:21] LABS: Vitamin B12 559 pg/mL (211-911)
--- NOTE | 2020-01-08 13:02 | CHAPLAIN ---
Type of Pastoral Visit _x__ Initial Visit ___ Follow-up Visit ___ On-call Visit ___ General Patient Visit ___ Spiritual Assessment ___ Family Conference ___ Bereavement ___ Rapid Response ___ Code Blue ___ Other (describe below) Pastoral Care Referral From _x__ Patient ___ Family ___ Nurse ___ Physician ___ Thermodynamics Professor ___ Biomathematician ___ Other (describe below) Sacrament/Intervention _x__ Active listening ___ Anointing ___ Caodaism ___ Bereavement ___ Communion ___ Shanna exploration ___ ___ Life review _x__ Prayer ___ Reconciliation ___ Sacrament of Sick _x__ Supportive presence ___ Wedding ___ Other (describe below) Pastoral Comments patient will not be discharged today and was disappointed; pt says that he will proceed with out-patient support from [facility] and does have friends that will support his sobriety; pt states he is not rastafari but asks for a small prayer for me; pt is talkative and he states he is bored with nothing to do; pt open to future visits
--- NOTE | 2020-01-08 15:05 | CASEMGMT ---
Social Work Note IDANIA placed a call to Kate at [facility] requesting documents be faxed. Kate state she faxed documents earlier. IDANIA updated Kate that no documents are on fax machine. Kate states she will re fax documents. Kate states pt has outpatient appointment scheduled for at 5:00pm. Citlali De La Fuente BUSINESS OWNER/ENGINEER, SOCIAL WELFARE RESEARCH WORKER
[2020-01-09] MEDS: Phenobarbital 32.4 MG Tablet PO ×3 (00:32→10:50)
[2020-01-09] MEDS: traZODone 100 MG Tablet PO (00:32)
[2020-01-09 00:36] VITALS: BP 116/80; PULSE 97; RESP 16; TEMP 36.8; O2SAT 99
[2020-01-09] MEDS: Budesonide Respules 0.5 MG/2 ML AMPUL.NEB. INHALATION (06:38)
[2020-01-09 06:39] VITALS: PULSE 85; RESP 16
[2020-01-09] MEDS: Ipratropium/Albuterol Sulfate 3 ML AMPUL.NEB INHALATION (06:39)
[2020-01-09 07:00] VITALS: BP 113/79; PULSE 103; RESP 18; TEMP 36.6; O2SAT 94
[2020-01-09] MEDS: Folic Acid 1 MG Tablet PO (08:02)
--- NOTE | 2020-01-09 08:11 | PCM.DC ---
- Discharge Diagnoses Current Active Problems: Current Active and Chronic Problems (Last Updated 05/15/19 @ 13:24 by Sharon Lobato) Tinea unguium (Chronic) Toe pain, right (Chronic) Toe pain, left (Chronic) Other hereditary and idiopathic neuropathies (Chronic) Tobacco abuse (Chronic) Chronic back pain (Chronic) Alcohol dependence (Chronic) Reason(s) for Visit for Discharge Instructions: Alcohol withdrawal You will use the following diet at home:: Regular Your food should be the consistency of: Regular Your liquids should be the consistency of: Regular/Thin Discharge Activity: Return to Normal Activity Additional Instructions: You are strongly advised to quit drinking alcohol and stop smoking. Follow-up with your primary care doctor within 2 weeks on your liver function. Allergies/Adverse Reactions: Allergies erythromycin base Allergy (Unknown, Verified 01/05/20 13:48) Hives Medications to take at Discharge albuterol sulfate 90 mcg/actuation aerosol inhaler 1 - 2 puff INHALATION Q6H PRN #8.5 g 01/02/20 budesonide-formoterol HFA 160 mcg-4.5 mcg/actuation aerosol inhaler 2 puff INHALATION BID #10.2 g 01/02/20 Thiamine HCl [Vitamin B-1] 100 mg PO DAILY 01/05/20 Folic Acid 1 mg PO DAILY@0800 30 Days #30 tab 01/09/20 Nicotine [Nicoderm Cq] 21 mg TRANSDERM. DAILY 30 Days #30 patch 01/09/20 The following prescriptions were given: Folic Acid 1 mg PO DAILY@0800 30 Days #30 tab Transmission Status: Pending to [facility]30 Nicotine [Nicoderm Cq] 21 mg TRANSDERM. DAILY 30 Days #30 patch Transmission Status: Pending to [facility] Primary Care Physician: Rickey Foley MD [Primary Care Provider] - Please follow up with your Primary Care Physician in: within 2 weeks Test Results: Test results from this visit will be discussed in further detail at your follow-up appointment, if applicable. Proposed Discharge Date: 01/09/20
--- NOTE | 2020-01-09 08:13 | DS.PCM_ITS ---
Discharge Date and Diagnosis Date of Admission: 01/05/20 Date of Discharge: 01/09/20 - Primary Discharge Diagnosis Acute Problems: Acute alcohol withdrawal Probable alcohol induced hepatitis Normocytic anemia Nicotine dependence - Secondary Discharge Diagnosis Chronic Problems: Chronic Problems (Last Updated 05/15/19 @ 13:24 by Sharon Lobato) Tinea unguium (Chronic) Toe pain, right (Chronic) Toe pain, left (Chronic) Other hereditary and idiopathic neuropathies (Chronic) Tobacco abuse (Chronic) Chronic back pain (Chronic) History of traumatic head injury (Chronic) Vertigo (Chronic) Alcohol dependence (Chronic) Hospital Course and Treatment Imaging Results: Clinical Impression(s) from Imaging Studies Chest X-Ray 01/05/20 14:36 IMPRESSION: Normal x-ray examination of the chest. Electronically Signed: Deandre Frazier MD at 15:42 EDT Tel , Service support , None Operations: None Procedures: None Summary of Care Provided: The patient is a 54 year old M past medical history of nicotine and alcohol dependence, presented for medical stabilization. Patient admits to drinking several beers a day. His last drink was on the day of admission. About 12 beers. His vitals were stable at admission. His liver enzyme was slightly elevated. He was admitted for medical stabilization with phenobarbital. Patient did well. He subsequently was discharged follow-up with [facility]. Subjective: On the day of admission, patient was seen and examined. He felt improved. Denied any new complaint. Objective: Physical exam: General: Alert, Oriented x3, Cooperative, No apparent distress HEENT: Atraumatic, PERRLA, EOMI, Normocephalic Oral: Moist Mucosa Neck: Supple Lungs: Clear to auscultation, Normal air movement Cardiovascular: Regular rate, Regular Rhythm, Normal S1, Normal S2, No murmurs Abdomen: Bowel Sounds Present, Soft, Non Tender, Non-Distended, No Hepato- splenomegaly Extremities: No edema Skin: No rashes Musculoskeletal: No Tenderness to Palpation of Joints or Extremities Lymphatic: No Cervical, Supraclavicular, or Inguinal Adenopathy Neurological: Cranial nerves II-XII grossly intact, Neuro grossly intact Psych/Mental Status: Normal Affect, Appropriate - Physical Exam Vitals/I&O's: Vital Signs Temp Pulse Resp BP Pulse Ox 98 F 103 H 18 113/79 94 01/09/20 07:00 01/09/20 07:00 01/09/20 07:00 01/09/20 07:00 01/09/20 07:00 Oxygen Delivery Method Room Air Weight: 64.1 kg Body Mass Index (BMI) 19.3 Intake and Output for Last 24 Hours 01/07/20 01/08/20 01/09/20 23:59 23:59 23:59 Intake Total 740 / 740 720 / 720 200 / 200 Output Total 450 / 450 450 / 450 225 / 225 Balance 290 / 290 270 / 270 -25 / -25 Laboratory Results 01/08/20 04:50: Vitamin B12 559 Current Medications Acetaminophen (Tylenol) 500 mg PO Q6H PRN PRN PRN Reason: Temp > 100.4 F Al Hydroxide/Mg Hydroxide (Mylanta Ii) 30 ml PO Q6H PRN PRN PRN Reason: dyspesia Albuterol Sulfate (Ventolin Aerosols) 2.5 mg INHALATION Q2H PRN PRN PRN Reason: dyspnea, wheezing Albuterol/Ipratropium (Duoneb) 3 ml INHALATION Q6HWA.RT [facility] Last Admin: 01/09/20 06:39 Dose: 3 ml Documented by: Bisacodyl (Dulcolax) 10 mg RECTAL DAILY PRN PRN Reason: Constipation Budesonide (Pulmicort Aerosol) 0.5 mg INHALATION Q12H.RT [facility] Last Admin: 01/09/20 06:38 Dose: 0.5 mg Documented by: Dextrose (D50w Syringe) 0 gm IV X1 PRN; Protocol PRN Reason: Hypoglycemia Dicyclomine HCl (Bentyl) 20 mg PO Q6H PRN PRN PRN Reason: abdominal discomfort Folic Acid (Folic Acid) 1 mg PO DAILY@0800 [facility] Last Admin: 01/09/20 08:02 Dose: 1 mg Documented by: Gabapentin (Neurontin) 300 mg PO Q8H PRN PRN PRN Reason: moderate to severe anxiety Last Admin: 01/05/20 20:24 Dose: 300 mg Documented by: Glucagon () 1 mg IM .X1 PRN PRN Reason: Hypoglycemia Hydroxyzine Pamoate (Vistaril Pamoate Capsule) 50 mg PO Q4H PRN PRN PRN Reason: mild anxiety Ibuprofen (Motrin) 600 mg PO Q8H PRN PRN PRN Reason: Pain Score 1-10/10 Loperamide HCl (Imodium) 2 mg PO Q4H PRN PRN PRN Reason: LOOSE STOOLS Lorazepam (Ativan) 2 mg PO Q2H PRN PRN; Protocol PRN Reason: CIWA score > 8 but <15 Lorazepam (Ativan) 2 mg PO UD PRN; Protocol PRN Reason: CIWA score >/=15. Lorazepam (Ativan) 2 mg IV Q2H PRN PRN; Protocol PRN Reason: CIWA score > 8 but <15 Lorazepam (Ativan) 2 mg IV UD PRN; Protocol PRN Reason: CIWA score >/=15. Methocarbamol (Methocarbamol) 750 mg PO 4X/DAY PRN PRN Reason: MUSCLE SPASM Nicotine (Nicoderm Cq (Pbkc)) 21 mg TRANSDERM. DAILY [facility] Last Admin: 01/09/20 08:02 Dose: 21 mg Documented by: Ondansetron HCl (Zofran Odt) 8 mg PO Q8H PRN PRN PRN Reason: NAUSEA Phenobarbital (Phenobarbital) 32.4 mg PO Q6H JIM; Taper Stop: 01/10/20 00:59 Last Admin: 01/09/20 06:58 Dose: 32.4 mg Documented by: Senna (Senokot) 2 tablet PO QHS PRN PRN PRN Reason: Constipation Sodium Chloride () 10 - 40 ml IV UD PRN PRN Reason: SALINE FLUSH Last Admin: 01/06/20 04:17 Dose: 10 ml Documented by: Trazodone HCl (Desyrel) 100 mg PO QHS PRN PRN Reason: INSOMNIA Last Admin: 01/09/20 00:32 Dose: 100 mg Documented by: Discharge Diet: No Restrictions Discharge Activity: Return to Normal Activity Home Medications: Medications to take at Discharge albuterol sulfate 90 mcg/actuation aerosol inhaler 1 - 2 puff INHALATION Q6H PRN #8.5 g 01/02/20 budesonide-formoterol HFA 160 mcg-4.5 mcg/actuation aerosol inhaler 2 puff INHALATION BID #10.2 g 06/03/20 Thiamine HCl [Vitamin B-1] 100 mg PO DAILY 01/05/20 Folic Acid 1 mg PO DAILY@0800 30 Days #30 tab 01/09/20 Nicotine [Nicoderm Cq] 21 mg TRANSDERM. DAILY 30 Days #30 patch 01/09/20 Following Prescrptions Were Given to Patient: Folic Acid 1 mg PO DAILY@0800 30 Days #30 tab Transmission Status: Received by [facility]30 Nicotine [Nicoderm Cq] 21 mg TRANSDERM. DAILY 30 Days #30 patch Transmission Status: Received by [facility] #30 Primary Care Physician: Rickey Foley MD [Primary Care Provider] - Please follow up with your Primary Care Physician in: within 2 weeks Disposition: Home Minutes spent on discharge:: 40 Patient Condition:: Stable Medical Necessity - Tobacco Use Smoking Status: Current every day smoker Tobacco Use: Cigarettes Meaningful Use Info Meaningful Use Diagnoses (Choose all that apply): None applicable Inpatient E&M: 85074 [facility] Hosp
--- NOTE | 2020-01-09 08:52 | CASEMGMT ---
Social Work Note SW received copies of pt's assessment completed by Adeline. Copies placed on pt's chart. Pt has outpatient appointment scheduled for tomorrow at 5:00pm with Adeline. Citlali De La Fuente MSW, CATH LAB TECHNOLOGIST
[2020-01-09 10:20] VITALS: BP 103/79; PULSE 105; RESP 16; TEMP 36.8; O2SAT 100
== END 2020-01-09 10:55 | disposition home or self-care (01) | DRG 775 ==
LOC: ED 15:54 → MS3 16:24
PROVIDERS: Admitting Provider Internal Medicine; Emergency Provider Physician Assistant Medical; PCP Internal Medicine; Visit Provider Internal Medicine
DX: F10.229 Alcohol dependence with intoxication, unspecified (principal); F10.239 Alcohol dependence with withdrawal, unspecified; Y90.8 Blood alcohol level of 240 mg/100 ml or more; K70.10 Alcoholic hepatitis without ascites; D53.9 Nutritional anemia, unspecified; E44.1 Mild protein-calorie malnutrition; Z68.1 Body mass index [BMI] 19.9 or less, adult; J44.9 Chronic obstructive pulmonary disease, unspecified; R60.0 Localized edema; B35.1 Tinea unguium; G62.9 Polyneuropathy, unspecified; M54.9 Dorsalgia, unspecified; G89.29 Other chronic pain; F17.210 Nicotine dependence, cigarettes, uncomplicated; Z79.899 Other long term (current) drug therapy; Z87.01 Personal history of pneumonia (recurrent)
CPT/HCPCS: 36415; 71045; 80048; 80053; 80076; 80307; 80320; 81001; 82607; 82746; 83735; 83880; 84443; 84484; 85025; 85027; 85610; 93005; 93306; 94640; 97110; 97162; 97530; 97802; 99251; 99285; J7030; A4216; G0463; G0480

== ENCOUNTER → 2020-01-18 09:57 | Outpatient (CLI) | payer MEDICAID, SELFPAY ==
[2020-01-18 09:30] VITALS: BMI 19.3
[2020-01-18 09:59] LABS: Bacteria 0 SEEN /hpf (None Seen); Mucous, Urine 0 SEEN /hpf (<or=2+); Red Blood Cells-Urine 0 SEEN /hpf (0-5); White Blood Cells 0 SEEN /hpf (0-5)
[2020-01-18 12:19] LABS: Color, Urine Yellow (Yellow); Glucose, Dipstick Normal (Normal); Ketone-Dipstick Negative (Negative); Leukocyte Esterase-Dipstick Negative /ul (Negative); Nitrite-Dipstick Negative (Negative); Occult Blood-Urine Negative /ul (Negative); Protein-Dipstick Negative (Negative); Specific Gravity, Urine 1.015 (1.002-1.030); Urine Bilirubin Dipstick Negative (Negative); Urine Clarity Sl. Cloudy (Clear); Urine Urobilinogen Normal (Normal); Urine pH 6.5 (5.0 - 8.0)
[2020-01-18 12:28] LABS: Squamous Epithelial Cells - UA 0-5 SEEN /hpf (0-5)
== END ==
LOC: BIMLAB 09:58 → LABSPEC 10:07
PROVIDERS: PCP Internal Medicine; Referring Provider Internal Medicine; Visit Provider Internal Medicine
DX: N40.0 Benign prostatic hyperplasia without lower urinary tract symptoms (principal)
CPT/HCPCS: 81001

== ENCOUNTER → 2020-02-11 | Outpatient (CLI) | payer MEDICAID, SELFPAY ==
[2020-01-18 09:30] VITALS: BMI 19.3
--- NOTE | 2020-02-12 13:58 | PFT ---
INTRODUCTION: The patient is a 54-year-old male that presents for pulmonary function studies secondary to a diagnosis of shortness of breath. Respiratory therapy reports good patient effort. Bronchodilators were used during testing. INTERPRETATION: Forced expiration spirometry demonstrates the presence of a mild large airways obstructive ventilatory defect. There was no significant response to aerosolized bronchodilators. Spirograms are of good quality and do not plateau indicating slow emptying of the lungs. Body plethysmography was performed and reveals an elevated TLC and RV, indicative of underlying hyperinflation and air trapping. Diffusing capacity by single breath CO is disproportionately reduced at 44% of predicted. IMPRESSION: Irreversible mild large airways obstructive ventilatory defect with associated hyperinflation, air trapping and disproportionate reduction in diffusing capacity.
== END | disposition home or self-care (01) ==
LOC: PSN 12:41
PROVIDERS: PCP Internal Medicine; Referring Provider Internal Medicine; Visit Provider Internal Medicine
DX: R06.02 Shortness of breath (principal)
CPT/HCPCS: 94060; 94726; 94729

== ENCOUNTER → 2020-05-16 | Outpatient (CLI) | payer MEDICAID, SELFPAY ==
[2020-05-16 10:03] VITALS: BMI 20.3
[2020-05-16 12:26] LABS: Absolute Lymphocyte Count 0.58 X10^3/uL (0.83-4.51); Absolute Neutrophil Count 3.1 X10^3/uL (2.0-7.7); Basophil# 0.01 X10^3/uL; Basophil% 0.2 % (0-1); Eosinophil# 0.02 X10^3/uL; Eosinophils% 0.5 % (0-5); Hematocrit 35.2 % (40-54); Hemoglobin 11.4 g/dL (13.0-16.5); Lymphocyte # 0.58 X10^3/ul (4.0); Lymphocyte % 13.9 % (19-41); Mean Corp Hgb Conc 32.4 g/dL (32-36); Mean Corpuscular Hgb 27.7 pg (27.0-32.0); Mean Corpuscular Volume 85.6 fL (80-94); Mean Platelet Vol. 10.1 fl (6.2-12.0); Monocyte# 0.44 X10^3/uL; Monocyte% 10.6 % (0-10); NRBC Flagged by Analyzer 0 % (0-5); Neutrophil # 3.09 X10^3/uL (2.7-7.7); Neutrophil % 74.1 % (47-70); POSITIVE DIFFERENTIAL YES; Platelet Count 101 K/mm3 (150-450); RBC Distribution Width SD 58.3 fl (35.1-43.9); Red Blood Count 4.11 M/mm3 (4.6-6.2); White Blood Count 4.2 K/mm3 (4.4-11.0)
[2020-05-16 12:30] LABS: Differential Indicated SCAN CRITERIA MET
[2020-05-16 12:50] LABS: Hypochromasia RARE; Platelet Estimate SLT DEC (ADEQ)
[2020-05-16 12:55] LABS: ALB/GLOB Ratio 0.7 RATIO (0.9-2.4); AST(SGOT) 96 U/L (15-37); Alanine Aminotransfer ALT/SGPT 45 U/L (16-61); Albumin, Serum 3.9 g/dL (3.2-5.0); Alkaline Phosphatase 107 U/L (45-117); Anion Gap 10 (5-15); BUN 4 mg/dL (7-18); BUN/Creat Ratio 4.7 RATIO (10-20); Calcium,Total 9.4 mg/dL (8.5-10.1); Chloride 98 mmol/L (98-107); Creatinine, Serum 0.85 mg/dL (0.70-1.30); EST Glomerular Filtration Rate 99 mL/min (>60); Est Glom Filt Rate - Afr Amer 120 mL/min (>60); Globulin 5.4 g/dL (2.2-4.2); Glucose 85 mg/dL (74-106); Magnesium 1.3 mg/dL (1.6-2.6); Potassium 3.9 mmol/L (3.5-5.1); Protein, Total 9.3 g/dL (6.4-8.2); Sodium Level 134 mmol/L (136-145)
[2020-05-19 14:20] LABS: Pathologist Review Reviewed
== END | disposition home or self-care (01) ==
LOC: BIMLAB 10:19
PROVIDERS: PCP Internal Medicine; Referring Provider Internal Medicine; Visit Provider Internal Medicine
DX: J44.9 Chronic obstructive pulmonary disease, unspecified (principal); F10.20 Alcohol dependence, uncomplicated
CPT/HCPCS: 36415; 80053; 83735; 85025

== ENCOUNTER → 2020-07-18 10:23 | Outpatient (CLI) | payer MEDICAID, SELFPAY ==
[2020-07-18 10:04] VITALS: BMI 21.2
[2020-07-18 12:44] LABS: ALB/GLOB Ratio 0.6 RATIO (0.9-2.4); AST(SGOT) 119 U/L (15-37); Alanine Aminotransfer ALT/SGPT 60 U/L (16-61); Albumin, Serum 3.2 g/dL (3.2-5.0); Alkaline Phosphatase 157 U/L (45-117); Anion Gap 5 (5-15); BUN 8 mg/dL (7-18); BUN/Creat Ratio 14.8 RATIO (10-20); Calcium,Total 8.5 mg/dL (8.5-10.1); Chloride 102 mmol/L (98-107); Creatinine, Serum 0.54 mg/dL (0.70-1.30); EST Glomerular Filtration Rate 167 mL/min (>60); Est Glom Filt Rate - Afr Amer 202 mL/min (>60); Globulin 5.1 g/dL (2.2-4.2); Glucose 78 mg/dL (74-106); Magnesium 1.7 mg/dL (1.6-2.6); Potassium 4.3 mmol/L (3.5-5.1); Protein, Total 8.3 g/dL (6.4-8.2); Sodium Level 135 mmol/L (136-145)
== END ==
PROVIDERS: PCP Internal Medicine; Referring Provider Internal Medicine; Visit Provider Internal Medicine
DX: I10 Essential (primary) hypertension (principal); F10.20 Alcohol dependence, uncomplicated
CPT/HCPCS: 36415; 80053; 83735

== ENCOUNTER → 2020-07-31 07:40 | Outpatient (CLI) | payer MEDICAID, SELFPAY ==
[2020-07-18 10:04] VITALS: BMI 21.2
--- NOTE | 2020-07-31 07:43 | VDLE_ITS ---
Reason For Study: Swelling Procedure LEFT This is a venous duplex using B-mode, color GSV is normal. flow and spectral Doppler. CFV is compressible, spontaneous, phasic, Exam performed in department. competent, and demonstrates normal A preliminary report was called and/or faxed augmentation. to [facility]. FV is compressible, spontaneous, phasic, competent and demonstrates normal augmentation. POP V is compressible, spontaneous, phasic, competent and demonstrates normal augmentation. T/P Trunk is compressible. PTV is compressible. LT PerV is compressible. Interpretation Summary There is no evidence of left lower extremity deep vein thrombosis. Left great saphenous vein appears patent and compressible segmentally. Ordering Physician: Rickey Foley Referring Physician: Rickey Foley Performed By: Citlali Aguilar RVT
== END ==
PROVIDERS: PCP Internal Medicine; Referring Provider Internal Medicine; Visit Provider Internal Medicine
DX: M79.89 Other specified soft tissue disorders (principal)
CPT/HCPCS: 93971

== ENCOUNTER 2020-08-12 20:51 | Emergency (ER) | payer MEDICAID, SELFPAY ==
[2020-07-18 10:04] VITALS: BMI 21.2
[2020-08-12 20:52] VITALS: BP 148/105; PULSE 126; RESP 18; TEMP 36.8; O2SAT 95; BMI 22.9
--- NOTE | 2020-08-12 21:13 | EKG12_ITS ---
Test Reason : DYSRHYTHMIA Blood Pressure : / mmHG Vent. Rate : 105 BPM Atrial Rate : 105 BPM P-R Int : 168 ms QRS Dur : 084 ms QT Int : 354 ms P-R-T Axes : 070 068 077 degrees QTc Int : 467 ms Sinus tachycardia Septal infarct (cited on or before 06-JUN-2012) Abnormal ECG Confirmed by DEANGELO REYES, GLEN ([id number]), web content editor DYLAN FARIAS ([id number]) on 08/18/2020 10:58:50 AM Referred By: Confirmed By:BONITA BRIGHT MD
[2020-08-12 21:27] LABS: Absolute Lymphocyte Count 0.74 X10^3/uL (0.83-4.51); Absolute Neutrophil Count 7.1 X10^3/uL (2.0-7.7); Basophil# 0.04 X10^3/uL; Basophil% 0.4 % (0-1); Eosinophils% 7.5 % (0-5); Hematocrit 30.5 % (40-54); Hemoglobin 9.6 g/dL (13.0-16.5); Lymphocyte # 0.74 X10^3/ul (4.0); Mean Corp Hgb Conc 31.5 g/dL (32-36); Mean Corpuscular Hgb 26.1 pg (27.0-32.0); Mean Corpuscular Volume 82.9 fL (80-94); Mean Platelet Vol. 9.8 fl (6.2-12.0); Monocyte# 0.66 X10^3/uL; Monocyte% 7.1 % (0-10); NRBC Flagged by Analyzer 0 % (0-5); Neutrophil # 7.09 X10^3/uL (2.7-7.7); Neutrophil % 76.2 % (47-70); POSITIVE MORPHOLOGY YES; Platelet Count 120 K/mm3 (150-450); RBC Distribution Width CV 21.2 % (11.6-14.6); RBC Distribution Width SD 63.5 fl (35.1-43.9); Red Blood Count 3.68 M/mm3 (4.6-6.2); White Blood Count 9.3 K/mm3 (4.4-11.0)
[2020-08-12 21:32] LABS: Differential Indicated SCAN CRITERIA MET
[2020-08-12 21:36] LABS: Prothrombin Time (Protime)PT. 12.5 SECONDS (11.7-14.9)
[2020-08-12 21:41] LABS: ALB/GLOB Ratio 0.6 RATIO (0.9-2.4); AST(SGOT) 88 U/L (15-37); Alanine Aminotransfer ALT/SGPT 41 U/L (16-61); Albumin, Serum 3.4 g/dL (3.2-5.0); Alkaline Phosphatase 130 U/L (45-117); Anion Gap 16 (5-15); BUN 6 mg/dL (7-18); BUN/Creat Ratio 9.5 RATIO (10-20); Calcium,Total 8.1 mg/dL (8.5-10.1); Chloride 99 mmol/L (98-107); Creatinine, Serum 0.63 mg/dL (0.70-1.30); EST Glomerular Filtration Rate 139 mL/min (>60); Est Glom Filt Rate - Afr Amer 168 mL/min (>60); Estimated Creatinine Clearance 142.22 ml/min; Globulin 5.4 g/dL (2.2-4.2); Glucose 88 mg/dL (74-106); Lipase 92 U/L (73-393); Potassium 3.6 mmol/L (3.5-5.1); Protein, Total 8.8 g/dL (6.4-8.2); Sodium Level 134 mmol/L (136-145)
--- NOTE | 2020-08-12 21:45 | RAD_ITS ---
STUDY: X-RAY CHEST REASON FOR EXAM: Male, 55 years old. CHEST PAIN FOR A COUPLE MONTHS, HX SMOKING, SUICIDAL. TECHNIQUE: PA and lateral views of the chest. COMPARISON: Chest x-ray dated JANUARY 05, 2020 FINDINGS: Small calcified granuloma reidentified in the right lower lobe. There is hyperinflation of the lungs consistent with chronic obstructive lung disease (COPD). No focal consolidation is seen. There is no demonstrated pleural abnormality. Normal size heart. Normal mediastinum and christi. Normal visualized pulmonary arteries. There is atherosclerotic calcification of the aortic arch with tortuosity. Stable visualized osseous structures. There is no demonstrated abnormality of the visualized soft tissue structures of the upper abdomen. RAD/Chest PA and Lateral IMPRESSION: COPD/emphysema Electronically Signed: Montana Chin MD at 22:38 EST , Service support ,
[2020-08-12 21:51] VITALS: BP 113/82; PULSE 104; RESP 21; O2SAT 94
[2020-08-12 21:56] LABS: Anisocytosis 1+; Differential Comment SCANNED
--- NOTE | 2020-08-12 22:17 | ED.VIS.GEN ---
History of Present Illness Chief Complaint: Suicidal Informant: Patient Onset: - - Patient states he felt depressed and spoke with youth care worker. He no longer has suicidal thoughts. He does admit to drinking heavily, 2/5 of whiskey. Context: Sudden Onset Timing: Intermittent Quality: Depression without suicidal ideation Location: Residents Current Severity: - - Complaints of shortness of breath and discomfort. Unable to quantitate. Worsened by: Nothing Relieved by: Nothing Associated Symptoms: No upper respiratory symptoms Narrative: Patient is a 55-year-old male who admits he is an alcoholic and drinks between 1/5 and a half a gallon of whiskey per day. He states he drank heavily this evening. He admits he is depressed. He states he thought of harming himself. He spoke to the crisis person. He states he feels better after speaking with that person. He presently has no suicidal thoughts or suicidal ideation. His only present complaint is shortness of breath. He also describes a vague discomfort which he cannot quantitate or qualitate or locate. He denies fever or chills. He denies ocular, visual or auditory symptoms. He denies rhinorrhea, congestion or postnasal drainage. He denies loss of taste or smell. He denies throat discomfort. He does admit to smoking 1 to 2 packs/day. He denies history of VTE. He denies black or maroon-colored stool. He denies change in color of his urine. Prior similar symptoms: Yes Recent Illness/Hospitalization: No - Past Medical History (1) Alcohol dependence Status: Chronic (2) COPD (chronic obstructive pulmonary disease) Status: Chronic (3) Chronic back pain Status: Chronic (4) History of traumatic head injury Status: Chronic (5) Hypertension Status: Chronic (6) Tobacco abuse Status: Chronic Past Medical History - Allergies and Home Meds Allergies/Adverse Reactions: Allergies erythromycin base Allergy (Unknown, Verified 08/12/20 20:56) Hives Primary Care Physician: Rickey Foley MD [Primary Care Provider] - Prior records reviewed: Yes Surgical History: no surgical history Lives: Alone Smoking Status: Current every day smoker Alcohol: Heavy Drugs: None - Family History Maternal Family History: Family History (Last Reviewed 07/18/20 @ 10:03 by Deana Garcia) Mother Cancer Alcohol abuse Father Alcohol abuse Family History: Reports: Cancer Paternal Family History: Family History (Last Reviewed 07/18/20 @ 10:03 by Deana Garcia) Mother Cancer Alcohol abuse Father Alcohol abuse Family History: Reports: No pertinent history Review of Systems General: Denies: Chills, Fever, Malaise, Subjective, Sweats Eyes: Denies: Visual changes - bilaterally, Blurred Vision - bilaterally ENT: Denies: Bilateral ear pain, Rhinorrhea, Sore throat Cardiovascular: Reports: Chest pain - Patient states he has discomfort and makes a [id number] over his lower chest and upper abdomen.. Denies: Palpitations, Heart racing Respiratory: Reports: Dyspnea, Cough - Patient reports she has a chronic cough due to smoking.. Denies: Sputum, Dyspnea on exertion, Orthopnea, Paroxysmal nocturnal dyspnea Gastrointestinal: Reports: Abdominal pain, Nausea. Denies: Vomiting, Diarrhea, Constipation, Melena, Hematochezia Genitourinary: Denies: Dysuria, Hematuria, Frequency Musculoskeletal: Denies: Myalgias, Arthralgias, Neck pain, Back pain Skin: Denies: Rash, Wounds Neurological: Denies: Headache, Weakness Psych: Reports: Depression Endocrine: Denies: Polyuria, Polydipsia Hematologic: Denies: Easy bruising, Easy bleeding Allergy: Denies: Uticaria Physical Exam Vital Signs/Narrative: Vital Signs Temp Pulse Resp BP Pulse Ox 08/12/20 20:52 98.2 F 126 H 18 148/105 H 95 Inital Vital Signs reviewed: Yes General: Well nourished, Well developed Head: Normocephalic, Atraumatic. Negative for: Trauma, Tenderness Eyes: Perrl, EOMI. Negative for: Pale conjunctiva, Scleral icterus ENT: No rhinorrhea, TM's clear Neck: Supple, Nontender, No lymphadenopathy, No JVD Cardiovascular: Regular rhythm, No murmurs, Normal S1, Normal S2, Tachycardia Respiratory: No distress, CTA bilaterally, Chest nontender Abdomen: Soft, Nondistended, Normal bowel sounds, No masses, Tender - Patient has mild discomfort epigastric area.. Negative for: Nontender, Hepatomegaly, Splenomegaly Rectal: Deferred Back: Nontender, Normal Inspection Extremities: Nontender, No edema, - - Patient has significant clubbing of his fingers. Skin: Normal color, No rash Neurological: Oriented x3, Cranial nerves II-XII grossly intact, Normal Strength, Normal Sensation, Normal DTR - There is no clonus or Babinski sign., Normal Gait - His gait was not assessed because clinically he is inebriated.. Negative for: Alert - Patient is awake but not alert. He is slow with regards to mentation. Suspect this is due to alcohol intoxication. Psychological: Depressed Diagnostic/Tx/Re-eval Chest X-Ray - ED: 2 View, Normal, Heart, Mediastinum, Bony Structures, No Acute Disease, Chronic Changes 08/12/20 21:45 Chest PA and Lateral [RAD] Stat Laboratory Results 08/12/20 08/12/20 08/12/20 21:00 21:00 21:00 WBC 9.3 RBC 3.68 L Hgb 9.6 L Hct 30.5 L MCV 82.9 MCH 26.1 L MCHC 31.5 L RDW Std Deviation 63.5 H RDW Coeff of Violette 21.2 H Plt Count 120 L MPV 9.8 Immature Gran % (Auto) 0.800 Neut % (Auto) 76.2 H Lymph % (Auto) 8.0 L Ripley % (Auto) 7.1 Eos % (Auto) 7.5 H Baso % (Auto) 0.4 Absolute Neuts (auto) 7.1 Absolute Lymphs (auto) 0.74 L Nucleated RBC % 0 Differential Comment SCANNED Anisocytosis 1+ PT 12.5 INR 1.0 Sodium 134 L Potassium 3.6 Chloride 99 Carbon Dioxide 19.0 L Anion Gap 16 H BUN 6 L Creatinine 0.63 L Estim Creat Clear Calc 142.22 Est GFR (MDRD) Af Amer 168 Est GFR (MDRD) Non-Af 139 BUN/Creatinine Ratio 9.5 L Glucose 88 Calcium 8.1 L Total Bilirubin 0.60 AST 88 H ALT 41 Alkaline Phosphatase 130 H Troponin I < 0.015 Total Protein 8.8 H Albumin 3.4 Globulin 5.4 H Albumin/Globulin Ratio 0.6 L Lipase 92 Ethyl Alcohol 08/12/20 21:00 WBC RBC Hgb Hct MCV MCH MCHC RDW Std Deviation RDW Coeff of Violette Plt Count MPV Immature Gran % (Auto) Neut % (Auto) Lymph % (Auto) Ripley % (Auto) Eos % (Auto) Baso % (Auto) Absolute Neuts (auto) Absolute Lymphs (auto) Nucleated RBC % Differential Comment Anisocytosis PT INR Sodium Potassium Chloride Carbon Dioxide Anion Gap BUN Creatinine Estim Creat Clear Calc Est GFR (MDRD) Af Amer Est GFR (MDRD) Non-Af BUN/Creatinine Ratio Glucose Calcium Total Bilirubin AST ALT Alkaline Phosphatase Troponin I Total Protein Albumin Globulin Albumin/Globulin Ratio Lipase Ethyl Alcohol 432.0 H* Patient is intoxicated with an alcohol level of 432. Blood work is remarkable for mild anemia. He does not have liver dysfunction i.e. INR is normal. Electrolytes are unremarkable. Chest x-ray was interpreted by me as negative for any acute findings. Suspect his clubbing is due to chronic lung condition. Since patient does not have a reliable friend and is clinically intoxicated and legally intoxicated he will be observed overnight. ED Disposition - Plan for ED Patient: Disposition: Home or Assisted Living Diagnosis: Depression, Alcohol intoxication in alcoholism with blood level over 0.3, Altered mental status, Clubbing of nails, Tobacco abuse, COPD (chronic obstructive pulmonary disease) Instructions: ED Depression, ED Alcohol Intoxication Referrals: Rickey Foley MD [Primary Care Provider] - 3-5 Days
[2020-08-12 23:00] VITALS: RESP 16
[2020-08-13] VITALS: RESP 16
[2020-08-13 02:00] VITALS: RESP 14
[2020-08-13 04:00] VITALS: BP 131/82; PULSE 109; RESP 18; O2SAT 97
[2020-08-13] MEDS: Ondansetron ODT 4 MG Tablet 8 MG PO (04:51)
[2020-08-13 05:00] VITALS: RESP 16
[2020-08-13 06:00] VITALS: RESP 17
[2020-08-13 06:31] VITALS: PULSE 99; RESP 17; O2SAT 97
== END 2020-08-13 07:06 | disposition home or self-care (01) ==
PROVIDERS: Emergency Provider Emergency Medicine; PCP Internal Medicine
DX: F32.9 Major depressive disorder, single episode, unspecified (principal); F10.229 Alcohol dependence with intoxication, unspecified; J44.9 Chronic obstructive pulmonary disease, unspecified; R41.82 Altered mental status, unspecified; R68.3 Clubbing of fingers; F17.210 Nicotine dependence, cigarettes, uncomplicated; I10 Essential (primary) hypertension; Z79.899 Other long term (current) drug therapy; Z79.51 Long term (current) use of inhaled steroids; Y90.8 Blood alcohol level of 240 mg/100 ml or more
CPT/HCPCS: 71046; 80053; 82077; 83690; 84484; 85025; 85610; 93005; 99285

== ENCOUNTER → 2020-08-19 12:19 | Outpatient (CLI) | payer MEDICAID, SELFPAY ==
[2020-05-16 10:03] VITALS: BMI 20.3
[2020-08-12 20:52] VITALS: BMI 22.9
--- NOTE | 2020-08-19 12:20 | CT_ITS ---
STUDY: LOW DOSE CT LUNG CANCER SCREENING REASON FOR EXAM: Male, 55 years old. LUNG CANCER SCREENING -- 2PPD X43 YEARS -- SHORT OF BREATH,COPD,EMPHYSEMA RADIATION DOSAGE (If Supplied By Facility): CTDIvol = ( 2.55 ) mGy, DLP = ( 90.60 ) mGycm TECHNIQUE: No contrast was administered. Low dose technique was utilized (average mAS-38 and kVp 120). 1.25 mm axial source images with a slice interval of 1.25-mm were reconstructed in lung windows. 2.5 mm axial source images with a slice interval of 2.5-mm were reconstructed in lung windows. 5.0 mm axial source images with a slice interval of 5.0-mm were reconstructed in soft tissue windows. Nodule measured using lung windows on PACS and/or independent workstation with automated measurement of minimum and maximum diameter. Nodule measurement reported as average diameter rounded to the nearest whole number. Growth is defined as an increase ins size of greater than 1.5 mm. COMPARISON: Comparison is made with prior study dated 05/15/2019. NODULES: No suspicious nodules are seen. Emphysema: Hyperinflation. Diffuse emphysematous changes worse in the upper lobes with areas of subpleural bullous changes more prominent in the right upper lobe. Stable minimal scarring in the midportion of the right upper lobe. Stable calcified granuloma in the lateral aspect of the right lower lobe. Endobronchial lesion: None Aorta: Atherosclerotic plaque of the aortic arch and descending thoracic aorta. Coronary arteries: Coronary artery calcification. Mediastinal nodes: Stable benign-appearing mediastinal lymph nodes. Other chest and abdominal findings: CT/Low Dose CT Lung Screening IMPRESSION: Lung-RADS category 2 - Continue annual screening with LDCT in 12 months. IMPORTANT NOTES FOR USE: ACR Lung-RADS Version 1.0 Assessment Categories Release Date: November 26, 2013 Category: Coded 0-4 bases on nodule(s) with highest degree of suspicion. Negative screen is defined as categories 1 and 2; a positive screen is defined as categories 3 and 4. Category 3 and 4A nodules that are unchanged on interval CT should be coded as category 2, and individuals returned to screening in 12 months. Category 4X: Category 3 or 4 nodules with additional imaging findings that increase the suspicion of lung cancer, such as spiculation, GGN that doubles in size in 1 year, enlarged lymph notes, etc. Category Modifiers: S (significant finding unrelated to lung cancer) and C (prior history of treated lung cancer) may be added to the 0-4 Lung-RADS Electronically Signed: Esau Scott MD at 12:56 EST , Service support ,
== END ==
PROVIDERS: PCP Internal Medicine; Referring Provider Nurse Practitioner Family; Visit Provider Nurse Practitioner Family
DX: F17.200 Nicotine dependence, unspecified, uncomplicated (principal); Z12.2 Encounter for screening for malignant neoplasm of respiratory organs
CPT/HCPCS: 71271

== ENCOUNTER 2020-10-30 13:13 | Inpatient (IN) | payer MEDICAID, SELFPAY ==
[2020-10-30] VITALS (16 sets, daily range): BP systolic 96–116; BP diastolic 62–82; PULSE 98–124; RESP 15–28; TEMP 36.2–37.3; O2SAT 87–100; BMI 20.3; BMI 23.8
--- NOTE | 2020-10-30 13:33 | EKG12_ITS ---
Test Reason : DETOX Blood Pressure : / mmHG Vent. Rate : 118 BPM Atrial Rate : 118 BPM P-R Int : 170 ms QRS Dur : 070 ms QT Int : 336 ms P-R-T Axes : 073 065 082 degrees QTc Int : 470 ms Sinus tachycardia Septal infarct , age undetermined Nonspecific ST abnormality Abnormal ECG Confirmed by PRISCA REYES, MARY ([id number]), tape editor ANI RUBIN ([id number]) on 10/31/2020 12:52:50 PM Referred By: JENIFER Confirmed By:MARY COPE MD
--- NOTE | 2020-10-30 13:55 | RAD_ITS ---
STUDY: X-RAY CHEST REASON FOR EXAM: Male, 55 years old. Cough, SOB TECHNIQUE: Single AP portable view of the chest. COMPARISON: Comparison is made with prior study dated 04/12/2021. FINDINGS: The lungs are clear and expanded. There is no demonstrated pleural abnormality. Normal size heart. Normal mediastinum and christi. Normal visualized pulmonary arteries. Normal visualized aortic arch and descending thoracic aorta. There are diffuse degenerative changes of the visualized thoracic spine. Normal visualized ribs, clavicles, and shoulders. There is no demonstrated abnormality of the visualized soft tissue structures of the upper abdomen. RAD/Chest 1 View (Portable) IMPRESSION: Normal x-ray examination of the chest. Electronically Signed: Esau Scott MD at 14:48 EDT , Service support ,
--- NOTE | 2020-10-30 14:00 | ED.DCSUM_ITS ---
History of Present Illness Chief Complaint: Substance Abuse Informant: Patient Narrative: Patient is a 55-year-old male with a past medical history of hypertension and alcoholism. He has been drinking half a gallon of vodka per day for the past few years. He is requesting to detox from this. Last time he drank was this morning. He has gone through withdrawal before in the past. Typically gets shaking, nausea when he goes through withdrawal. Denies any previous seizures with this. He denies any substance abuse with this except for marijuana. He does smoke 3 packs of cigarettes per day. Patient also complaining of bilateral lower extremity edema. This is been going on for the past 3 months. He does not ever lie down because his legs hurt too much and cannot get back up. He does use a scooter to get around because of the pain. He does have shortness of breath and occasional cough. He denies any chest pain currently but does sometimes get chest pains. No abdominal pain. No nausea/vomiting. No change in bowel movements. Patient also complaining of suicidal ideation. This been going on for the past 6 months. He does have a plan with overdosing on sleeping pills. He has never acted on this. He denies any ingestion. He was just evicted from his house and they have been throwing away all of his possessions. He feels like he is losing everything. Past Medical History - Allergies and Home Meds Allergies/Adverse Reactions: Allergies erythromycin base Allergy (Unknown, Verified 10/30/20 13:17) Hives Prior records reviewed: Yes Surgical History: no surgical history Smoking Status: Current every day smoker - Family History Maternal Family History: Family History (Last Reviewed 08/19/20 @ 12:07 by Yen Hart NP, [employer] SPECIALIST-C) Mother Cancer Alcohol abuse Father Alcohol abuse Family History: Reports: Cancer Paternal Family History: Family History (Last Reviewed 08/19/20 @ 12:07 by Yen Hart NP, [employer] SPECIALIST-C) Mother Cancer Alcohol abuse Father Alcohol abuse Family History: Reports: No pertinent history Review of Systems All systems negative except as indicated General: Denies: Chills, Fever, Sweats Eyes: Denies: Visual changes - bilaterally, Diplopia ENT: Denies: Rhinorrhea, Sore throat Cardiovascular: Reports: Chest pain. Denies: Palpitations Respiratory: Reports: Dyspnea, Cough Gastrointestinal: Reports: Melena. Denies: Abdominal pain, Nausea, Vomiting, Diarrhea Genitourinary: Denies: Dysuria, Hematuria, Frequency Musculoskeletal: Reports: Swelling, Extremity Pain. Denies: Back pain Skin: Reports: Wounds. Denies: Rash Neurological: Denies: Headache, Weakness, Numbness Physical Exam Vital Signs/Narrative: Vital Signs Temp Pulse Resp BP Pulse Ox 10/30/20 13:13 99 F 119 H 18 115/78 99 Inital Vital Signs reviewed: Yes General: Well nourished, Well developed, Unkempt, No Acute Distress Head: Normocephalic, Atraumatic Eyes: Perrl, EOMI ENT: Moist mucous membranes, No rhinorrhea Neck: Supple, Nontender Cardiovascular: Regular rhythm, No murmurs, Tachycardia Respiratory: No distress, CTA bilaterally, Chest nontender Abdomen: Soft, Nontender, Nondistended, Normal bowel sounds Back: Nontender, Normal Inspection Extremities: Nontender, Edema - 3+ pitting edema bilateral up to knees., Calf Tenderness - Bilateral Skin: Normal color, No rash Neurological: Alert, Oriented x3, Cranial nerves II-XII grossly intact, Normal Strength, Normal Sensation Psychological: Normal affect, Normal Mood Diagnostic/Tx/Re-eval Chest X-Ray - ED: 1 View - Single view portable x-ray interpreted by myself. Clear lung farias bilaterally. Normal mediastinum. Normal cardiac silhouette. No acute cardiopulmonary abnormality. Agree with radiologist interpretation. - EKG Initial EKG Interpretation: - - Rate of 118 bpm in sinus tachycardia. Normal intervals. Normal axis. Nonspecific ST changes but no significant ST elevations or depressions. No T wave abnormalities. - Medical Decision Making Patient presents to the ED to request to detox from alcohol as well as suicidal ideations. He is complaining of lower extremity swelling. He does have significant lower extremity pitting edema bilaterally. He has never had this worked up before. On arrival to the ED is mildly tachycardic but otherwise normal vital signs. Not hypoxic on room air. Will do cardiac work-up as well as substance abuse work-up. Patient was found to be severely anemic and will be transfused 2 units of packed red blood cells. He is given a dose of IV Protonix. General surgery did come down to the bedside and evaluated the patient does feel comfortable admitting him to this hospital. His potassium and magnesium replaced. He is given a dose of thiamine as well as a multivitamin. General surgery requested that the patient be on clear liquids and remain on Protonix. He was found to be intoxicated at this time. Will bring into the hospital for further evaluation of his multiple issues including his suicidal ideation, GI bleed, lower extremity edema, anemia, and electrolyte abnormalities. Patient is agreeable with staying in the hospital at this time. - Critical Care Time Critical care time (excluding procedures): 30-74 minutes, Discussing w/Patient &/or Family/Sleeping Car Conductor, Discussing w/Consultants, Arranging Admission or Transfer, Performing Direct Patient Care at Bedside ED Disposition - Plan for ED Patient: Disposition: Acute Care Hospital [facility] Diagnosis: Alcohol intoxication, Hypokalemia, Tobacco abuse, GI bleed, Blood loss anemia, Suicidal ideations
[2020-10-30 14:17] LABS: Absolute Lymphocyte Count 0.48 X10^3/uL (0.83-4.51); Absolute Neutrophil Count 6.2 X10^3/uL (2.0-7.7); Basophil# 0.02 X10^3/uL; Basophil% 0.3 % (0-1); Eosinophil# 0.01 X10^3/uL; Eosinophils% 0.1 % (0-5); Hematocrit 18.3 % (40-54); Lymphocyte # 0.48 X10^3/ul (4.0); Lymphocyte % 6.8 % (19-41); Mean Corp Hgb Conc 27.9 g/dL (32-36); Mean Corpuscular Hgb 28.3 pg (27.0-32.0); Mean Corpuscular Volume 101.7 fL (80-94); Mean Platelet Vol. 9.7 fl (6.2-12.0); Monocyte# 0.33 X10^3/uL; Monocyte% 4.6 % (0-10); NRBC Flagged by Analyzer 0 % (0-5); Neutrophil # 6.16 X10^3/uL (2.7-7.7); Neutrophil % 86.8 % (47-70); POSITIVE COUNT YES; POSITIVE DIFFERENTIAL YES; POSITIVE MORPHOLOGY YES; Platelet Count 112 K/mm3 (150-450); RBC Distribution Width CV 18.8 % (11.6-14.6); RBC Distribution Width SD 69.1 fl (35.1-43.9); White Blood Count 7.1 K/mm3 (4.4-11.0)
[2020-10-30 14:20] LABS: Differential Indicated SCAN CRITERIA MET; Hemoglobin 5.1 g/dL (13.0-16.5)
[2020-10-30 14:33] LABS: ALB/GLOB Ratio 0.5 RATIO (0.9-2.4); AST(SGOT) 164 U/L (15-37); Alanine Aminotransfer ALT/SGPT 38 U/L (16-61); Albumin, Serum 2.6 g/dL (3.2-5.0); Alkaline Phosphatase 180 U/L (45-117); Anion Gap 12 (5-15); BUN 5 mg/dL (7-18); BUN/Creat Ratio 11.4 RATIO (10-20); Calcium,Total 7.4 mg/dL (8.5-10.1); Chloride 99 mmol/L (98-107); Creatinine, Serum 0.44 mg/dL (0.70-1.30); EST Glomerular Filtration Rate 212 mL/min (>60); Est Glom Filt Rate - Afr Amer 256 mL/min (>60); Estimated Creatinine Clearance 180.41 ml/min; Globulin 5.3 g/dL (2.2-4.2); Glucose 90 mg/dL (74-106); Potassium 2.9 mmol/L (3.5-5.1); Protein, Total 7.9 g/dL (6.4-8.2); Sodium Level 135 mmol/L (136-145)
[2020-10-30 14:40] LABS: BNP,B-Type NATRIURETIC PEPTIDE 102.2 pg/mL (0-100)
[2020-10-30 14:52] LABS: International Normalized Ratio 1.1
[2020-10-30 14:53] LABS: Partial Thromboplast Time 31.8 Seconds (24.1-36.2)
[2020-10-30 14:58] LABS: Anisocytosis 1+
[2020-10-30 15:04] LABS: Magnesium 1.1 mg/dL (1.6-2.6)
[2020-10-30 15:05] LABS: Phosphorus 3.1 mg/dL (2.5-4.9)
[2020-10-30] MEDS: Potassium Chloride Oral Tablet 20 MEQ 40 MEQ PO (15:41)
--- NOTE | 2020-10-30 16:01 | NURSING ---
PCU ETOH, GI BLEED ASHELFAH
--- NOTE | 2020-10-30 16:13 | PCM.HP.STD ---
Problem List (1) Suicide ideation Status: Acute (2) Impending alcohol withdrawal Status: Acute (3) Alcohol intoxication Status: Acute (4) Hypokalemia Status: Acute (5) Acute on chronic blood loss anemia Status: Chronic (6) Hypertension Status: Chronic (7) Tachycardia Status: Chronic (8) COPD (chronic obstructive pulmonary disease) Status: Chronic (9) Chronic back pain Status: Chronic (10) Alcohol dependence Status: Chronic History of Present Illness Date of Admission: 10/30/20 Chief Complaint: Weakness, alcoholism. The patient is a 55 year old M with past medical history as mentioned above presented to the emergency room because of weakness and alcoholism and requesting medical stabilization. Patient complained of weakness mainly on both legs associated with difficulty ambulating and he mentioned that lately, he has not been able even to stand up. He reported exertional shortness of breath, aggravated by activity and relieved with rest. He denied chest pain, palpitation, dizziness or lightheadedness. He denied syncope or presyncope. He mentioned that he has been drinking half a gallon of vodka every day for several years. He went into detox program around 1 year ago but he relapsed after 3 months. He did admit smoking marijuana occasionally. He reported black stool that has been going on for several months. He mentioned that his urine also looks black according to the patient. Denied abdominal pain, heartburn, nausea or vomiting. He denied hemoptysis, hematemesis, hematochezia. Currently, he has no place to live. He stated that he has been thinking about suicide over the last several months. Mentioned that he was planning on overdosing on sleeping pills. He had a history of hypertension and he is supposed to be on propanolol but he is not taking it. He had a history of COPD, has been on albuterol and Symbicort. In the emergency department, patient was afebrile, slightly tachycardic, blood pressure stable, pulse ox was 99% on room air. Routine blood work was remarkable for hemoglobin of 5.1 g/dL, platelet count of 112,000, potassium was 2.9, magnesium is 1.1. LFT revealed bilirubin of 1.1, AST of 164, ALT of 38 and alk phos is 180. Troponin was negative. EKG revealed sinus tachycardia, otherwise unremarkable. Blood alcohol level was 382. Chest x-ray showed no acute findings. Patient is being admitted for acute on chronic blood loss anemia, electrolyte abnormalities, alcohol intoxication with impending withdrawal and suicidal ideations. Past Medical History Past Medical History (Chronic Problems): Chronic Problems (Last Reviewed 08/19/20 @ 12:07 by Yen Hart NP, [employer] G[employer] SUPERVISOR-C) Acute on chronic blood loss anemia (Chronic) Tinea unguium (Chronic) Other hereditary and idiopathic neuropathies (Chronic) Hypertension (Chronic) Tachycardia (Chronic) COPD (chronic obstructive pulmonary disease) (Chronic) Tobacco abuse (Chronic) Chronic back pain (Chronic) History of traumatic head injury (Chronic) Alcohol dependence (Chronic) Medical History: Medical History (Last Reviewed 08/19/20 @ 12:07 by Yen Hart NP, [employer] SUPERVISOR-C) Alcohol abuse F10.10 Drug abuse F19.10 H/O: pneumonia Z87.01 History of fractured rib Z87.81 Liver disease K76.9 Neuropathy G62.9 Seasonal allergies J30.2 Allergies erythromycin base Allergy (Unknown, Verified 10/30/20 13:17) Hives Home Medications: Ambulatory Orders Medication Instructions Recorded albuterol sulfate 90 mcg/actuation 1 - 2 puff INHALATION Q6H PRN #8.5 07/18/20 aerosol inhaler g melatonin 5 mg capsule 5 mg PO QHS #90 cap 07/18/20 gabapentin 100 mg capsule 100 mg PO TID PRN #90 cap 09/19/20 Budesonide/Formoterol Fumarate 6 gm IH DAILY 10/30/20 [Symbicort 160-4.5 Mcg Inhaler] Propranolol HCl [Propranolol HCl 20 mg PO BID 10/30/20 ER] Surgical History: Surgical History (Last Reviewed 08/19/20 @ 12:07 by Yen Hart NP, [employer] SUPERVISOR-C) H/O colonoscopy Z98.890 2016 Surgical History: no surgical history Psychiatric History: No pertinent psych hx Lives: Homeless Smoking Status: Current every day smoker Tobacco Use: Cigarettes Alcohol: Heavy Drugs: Marijuana - *Family History Maternal Family History: Family History (Last Reviewed 08/19/20 @ 12:07 by Yen Hart NP, [employer] SUPERVISOR-C) Mother Cancer Alcohol abuse Father Alcohol abuse History Items: Cancer Paternal Family History: Family History (Last Reviewed 08/19/20 @ 12:07 by Yen Hart NP, [employer] SUPERVISOR-C) Mother Cancer Alcohol abuse Father Alcohol abuse History Items: No pertinent history Review of Systems Constitutional: Reports: Weakness, Fatigue. Denies: Anorexia, Chills, Fever Eyes: Denies: Blurred vision, Double vision, Drainage HEENT: Denies: Difficulty Hearing, Ear Pain, Eye Pain, Nasal Congestion, Sore Throat Cardiovascular: Denies: Chest Pain, Chest Pressure, Edema, Heaviness, Light Headedness, Palpitations, Syncope Respiratory: Reports: Shortness of breath upon exertion. Denies: Cough, Pleuritic Pain, Sputum production, Wheezing Gastrointestinal: Reports: Melena. Denies: Abdominal Pain, Constipation, Diarrhea, Hematochezia, Nausea, Vomiting Genitourinary: Reports: - - Dark-colored urine.. Denies: Dysuria, Frequency Musculoskeletal: Denies: Arm Pain, Back Pain, Foot Pain Skin: Denies: Dryness, Rash Neurological: Denies: Balance problems, Double vision, Slurred speech, Confusion, Focal weakness, Headaches Psychiatric: Denies: Anxiety, Depression Endocrine: Denies: Change in Body Habitus, Polydipsia, Polyuria VTE Information - Inpt Only VTE Present on Admission: No VTE Mechan Device Prophylaxis: SCD's VTE Pharm Prophylaxis ordered?: No Patient Problems: Active and Suspected Problems (Last Reviewed 08/19/20 @ 12:07 by Yen Hart NP, [employer] SUPERVISOR-C) Suicide ideation (Acute) Impending alcohol withdrawal (Acute) Alcohol intoxication (Acute) Hypokalemia (Acute) - Physical Exam Vitals/I&O's: Vital Signs Temp Pulse Resp BP Pulse Ox 97.9 F 112 H 15 100/73 100 10/30/20 15:54 10/30/20 15:54 10/30/20 15:54 10/30/20 15:54 10/30/20 15:54 Oxygen Delivery Method Room Air Weight: 150 lb Body Mass Index (BMI) 20.3 Intake and Output for Last 24 Hours 10/28/20 10/29/20 10/30/20 23:59 23:59 23:59 Intake Total Balance General: Alert, Oriented x3, Cooperative, No apparent distress HEENT: Atraumatic, PERRLA, EOMI Oral: Moist Mucosa, No Gingival or Mucosal Lesions/ Ulcerations Neck: Supple, No JVD, Negative Carotid Bruits, Trachea Midline, Thyroid Normal Size and Texture Lungs: Clear to auscultation, No rhonchi, No wheeze, No rales, Diminished Cardiovascular: Regular rate, Regular Rhythm, Normal S1, Normal S2, PMI Normal, Tachycardic Abdomen: Bowel Sounds Present, Soft, Non Tender, Non-Distended, No Hepato-splenomegaly Extremities: No clubbing, No cyanosis, Edema - ++ Edema. Skin: No rashes, No breakdown Lymphatic: No Cervical, Supraclavicular, or Inguinal Adenopathy Neurological: Cranial nerves II-XII grossly intact, Motor Exam 5/5 strength throughout Psych/Mental Status: Normal Affect, Appropriate, Suicidal, Alert and oriented to time, place, person, mood and affect Microbiology Past 72 Hours 10/30/20 14:17 Mucosa - Nose SARS-CoV-2 Antigen (Rapid) - Final Laboratory Results 10/30/20 14:05: WBC 7.1, RBC 1.80 L, Hgb 5.1 L*, Hct 18.3 L, MCV 101.7 H, MCH 28.3, MCHC 27.9 L, RDW Std Deviation 69.1 H, RDW Coeff of [place]te 18.8 H, Plt Count 112 L, MPV 9.7, Immature Gran % (Auto) 1.400 H, Neut % (Auto) 86.8 H, Lymph % (Auto) 6.8 L, [place] % (Auto) 4.6, Eos % (Auto) 0.1, Baso % (Auto) 0.3, Absolute Neuts (auto) 6.2, Absolute Lymphs (auto) 0.48 L, Nucleated RBC % 0, Differential Comment COMMENT, Diff Path Review May foll, Anisocytosis 1+ 10/30/20 14:05: Sodium 135 L, Potassium 2.9 L, Chloride 99, Carbon Dioxide 24.0, Anion Gap 12, BUN 5 L, Creatinine 0.44 L, Estim Creat Clear Calc 180.41, Est GFR (MDRD) Af Amer 256, Est GFR (MDRD) Non-Af 212, BUN/Creatinine Ratio 11.4, Glucose 90, Calcium 7.4 L, Total Bilirubin 1.10 H, AST 164 H, ALT 38, Alkaline Phosphatase 180 H, Troponin I < 0.015, Total Protein 7.9, Albumin 2.6 L, Globulin 5.3 H, Albumin/Globulin Ratio 0.5 L 10/30/20 14:05: Ethyl Alcohol 382.0 H* 10/30/20 14:05: B-Natriuretic Peptide 102.2 H 10/30/20 14:05: PT 14.0, INR 1.1, APTT 31.8 10/30/20 14:05: Magnesium 1.1 L 10/30/20 14:05: Phosphorus 3.1 10/30/20 14:30: Blood Type O POSITIVE, Antibody Screen NEGATIVE, Crossmatch See Detail Clinical Impression(s) from Imaging Studies Chest X-Ray 10/30/20 13:55 IMPRESSION: Normal x-ray examination of the chest. Electronically Signed: Esau Scott MD at 14:48 EDT , Service support , Current Medications Magnesium Sulfate 2 gm/ Sodium (Chloride) 104 mls @ 52 mls/hr IV X1 ONE Stop: 10/30/20 17:39 Assessment/Plan All Active Problems (Last Reviewed 08/19/20 @ 12:07 by Yen Hart PIPEL[employer] GANG SUPERVISOR, [employer] SUPERVISOR-C) Suicide ideation (Acute) Impending alcohol withdrawal (Acute) Alcohol intoxication (Acute) Hypokalemia (Acute) This is a 55 years old male patient presented to the emergency room because of weakness and difficulty ambulating as well as alcoholism requesting medical stabilization, found to have acute on chronic blood loss anemia, hypokalemia, hypomagnesemia and he had suicidal ideations. #1 acute on chronic blood loss anemia: Likely due to GI bleed, patient is having melena. Other differential diagnosis may include esophageal varices. Patient had upper EGD on September, that showed erosive esophagitis, no evidence of varices and antral ulcerations. Patient denied hemoptysis or hematemesis, no hematochezia. His baseline hemoglobin has been around 9 to 11 g/dL recently, admission hemoglobin is 5.1 g/dL. He does have chronic thrombocytopenia, platelet count is at baseline. INR and pro time are normal. Plan: Admit to PCU, cardiac monitoring, transfused total of 2 units of packed RBCs, repeat H&H 1 hour after blood transfusion, general surgery consult, IV Protonix drip, repeat CBC and CMP tomorrow morning, PT OT evaluation and treatment. #2 acute alcohol desiccation/impending withdrawal: Patient has been drinking half of a gallon of vodka every day. He is afraid of severe withdrawal symptoms, he had a history of admission to ICU because of severe withdrawal from alcohol. Plan: Initiate alcohol withdrawal protocol with tapering Ativan, folic acid and thiamine supplements, as needed Bentyl, Neurontin, Vistaril, Imodium, Zofran and trazodone. #3 hypokalemia/hypomagnesemia: Likely due to chronic liver disease. Plan to replace potassium with IV potassium chloride and magnesium with IV magnesium sulfate. Repeat BMP and serum magnesium tomorrow morning. Serum phosphorus was normal. #4 suicidal ideations: Patient admitted having suicidal ideations, was planning to overdose on sleeping pills. Plan for suicide precautions, mental health crisis consult. #5 elevated LFT: Likely due to chronic liver disease. Plan as above. #6 COPD: Stable, on room air. Chest x-ray without acute findings. Plan for DuoNeb every 6 hours. #7 hypertension/chronic tachycardia: Patient supposed to be on propanolol but he is not taking it. Plan to resume propranolol twice daily. #8 alcohol abuse: Plan as above. #9 tobacco abuse: NicoDerm patch. #10 DVT prophylaxis: SCDs. This note was generated with [employer] dictation software. It may contain incorrect words, spelling, and punctuation that were not noted in checking the note before signing. Inpatient E&M: 87063 Init Hosp L3
--- NOTE | 2020-10-30 16:48 | CON.PCM_ITS ---
Problem List (1) Alcohol intoxication Status: Acute Qualifiers: Complication of substance-induced condition: uncomplicated Qualified Code(s): F10.920 - Alcohol use, unspecified with intoxication, uncomplicated (2) Acute on chronic blood loss anemia Status: Chronic Reason for Consult Date of Consultation: 10/30/20 History of Present Illness: The patient is a 55 year old M here with alcohol intoxication as well as suicidal ideation. The patient reports for the last week he has been having melanotic stools. This happened once in the past and he had an EGD in 2014 which showed 2 antral ulcers. The patient notes no nausea or vomiting or abdominal pain. The patient has been drinking heavily as well as smoking. Past Medical History Past Medical History (Chronic Problems): Chronic Problems (Last Reviewed 08/19/20 @ 12:07 by Yen Hart NP, [employer] FAB-C) Acute on chronic blood loss anemia (Chronic) Tinea unguium (Chronic) Other hereditary and idiopathic neuropathies (Chronic) Hypertension (Chronic) Tachycardia (Chronic) COPD (chronic obstructive pulmonary disease) (Chronic) Tobacco abuse (Chronic) Chronic back pain (Chronic) History of traumatic head injury (Chronic) Alcohol dependence (Chronic) Medical History: Medical History (Last Reviewed 08/19/20 @ 12:07 by Yen Hart NP, [employer] FAB-C) Alcohol abuse F10.10 Drug abuse F19.10 H/O: pneumonia Z87.01 History of fractured rib Z87.81 Liver disease K76.9 Neuropathy G62.9 Seasonal allergies J30.2 Allergies erythromycin base Allergy (Unknown, Verified 10/30/20 13:17) Hives Home Medications: Ambulatory Orders Medication Instructions Recorded albuterol sulfate 90 mcg/actuation 1 - 2 puff INHALATION Q6H PRN #8.5 07/18/20 aerosol inhaler g melatonin 5 mg capsule 5 mg PO QHS #90 cap 07/18/20 gabapentin 100 mg capsule 100 mg PO TID PRN #90 cap 09/19/20 Budesonide/Formoterol Fumarate 6 gm IH DAILY 10/30/20 [Symbicort 160-4.5 Mcg Inhaler] Propranolol HCl [Propranolol HCl 20 mg PO BID 10/30/20 ER] Surgical History: Surgical History (Last Reviewed 08/19/20 @ 12:07 by Yen Hart NP, [employer] F[employer]-C) H/O colonoscopy Z98.890 2016 Surgical History: no surgical history Psychiatric History: No pertinent psych hx Lives: Homeless Smoking Status: Current every day smoker Tobacco Use: Cigarettes Alcohol: Heavy Drugs: Marijuana - *Family History Maternal Family History: Family History (Last Reviewed 08/19/20 @ 12:07 by Yen Hart NP, [employer] F[employer]-C) Mother Cancer Alcohol abuse Father Alcohol abuse History Items: Cancer Paternal Family History: Family History (Last Reviewed 08/19/20 @ 12:07 by Yen Hart NP, [employer] F[employer]-C) Mother Cancer Alcohol abuse Father Alcohol abuse History Items: No pertinent history Review of Systems Constitutional: Denies: Anorexia, Fever HEENT: Denies: Difficulty Swallowing Cardiovascular: Denies: Chest Pain Respiratory: Denies: Cough, Shortness of Breath Gastrointestinal: Reports: Melena. Denies: Abdominal Pain, Hematemesis, Hematochezia, Nausea, Vomiting Genitourinary: Denies: Dysuria Musculoskeletal: Reports: Leg Pain Skin: Denies: Jaundice Psychiatric: Reports: Depression, Suicidal Ideations Hematologic/ Lymphatic: Reports: Anemia Patient Problems: Active and Suspected Problems (Last Reviewed 08/19/20 @ 12:07 by Yen Hart NP, [employer]-C) Suicide ideation (Acute) Impending alcohol withdrawal (Acute) Alcohol intoxication (Acute) Hypokalemia (Acute) - Physical Exam Vitals/I&O's: Vital Signs Temp Pulse Resp BP Pulse Ox 97.2 F L 108 H 18 97/69 97 10/30/20 16:29 10/30/20 16:29 10/30/20 16:29 10/30/20 16:29 10/30/20 16:29 Oxygen Delivery Method Room Air Weight: 150 lb Body Mass Index (BMI) 20.3 Intake and Output for Last 24 Hours 10/28/20 10/29/20 10/30/20 23:59 23:59 23:59 Intake Total / Balance 86 General: Alert, Oriented x3 Neck: No JVD Lungs: Normal air movement Cardiovascular: Regular rate, Regular Rhythm Abdomen: Soft, Non Tender, Non-Distended Extremities: No clubbing Musculoskeletal: No Muscle Wasting Neurological: Cranial nerves II-XII grossly intact Microbiology Past 72 Hours 10/30/20 14:17 Mucosa - Nose SARS-CoV-2 Antigen (Rapid) - Final Laboratory Results 10/30/20 14:05: WBC 7.1, RBC 1.80 L, Hgb 5.1 L*, Hct 18.3 L, MCV 101.7 H, MCH 28.3, MCHC 27.9 L, RDW Std Deviation 69.1 H, RDW Coeff of [place] 18.8 H, Plt Count 112 L, MPV 9.7, Immature Gran % (Auto) 1.400 H, Neut % (Auto) 86.8 H, Lymph % (Auto) 6.8 L, [place] % (Auto) 4.6, Eos % (Auto) 0.1, Baso % (Auto) 0.3, Absolute Neuts (auto) 6.2, Absolute Lymphs (auto) 0.48 L, Nucleated RBC % 0, Differential Comment COMMENT, Diff Path Review May foll, Anisocytosis 1+ 10/30/20 14:05: Sodium 135 L, Potassium 2.9 L, Chloride 99, Carbon Dioxide 24.0, Anion Gap 12, BUN 5 L, Creatinine 0.44 L, Estim Creat Clear Calc 180.41, Est GFR (MDRD) Af Amer 256, Est GFR (MDRD) Non-Af 212, BUN/Creatinine Ratio 11.4, Glucose 90, Calcium 7.4 L, Total Bilirubin 1.10 H, AST 164 H, ALT 38, Alkaline Phosphatase 180 H, Troponin I < 0.015, Total Protein 7.9, Albumin 2.6 L, Nimo bulin 5.3 H, Albumin/Globulin Ratio 0.5 L 10/30/20 14:05: Ethyl Alcohol 382.0 H* 10/30/20 14:05: B-Natriuretic Peptide 102.2 H 10/30/20 14:05: PT 14.0, INR 1.1, APTT 31.8 10/30/20 14:05: Magnesium 1.1 L 10/30/20 14:05: Phosphorus 3.1 10/30/20 14:30: Blood Type O POSITIVE, Antibody Screen NEGATIVE, Crossmatch See Detail Current Medications Magnesium Sulfate 2 gm/ Sodium (Chloride) 104 mls @ 52 mls/hr IV X1 ONE Stop: 10/30/20 17:39 Last Admin: 10/30/20 16:34 Dose: 52 mls/hr Documented by: Assessment/Plan All Active Problems (Last Reviewed 08/19/20 @ 12:07 by Yen Hart NP, [employer] F[employer]-C) Suicide ideation (Acute) Impending alcohol withdrawal (Acute) Alcohol intoxication (Acute) Hypokalemia (Acute) 55-year-old male with anemia and possible upper GI bleed 1. Patient is being admitted for alcohol withdrawal as well as GI bleed. He has been transfused. Recheck hemoglobin as well as other labs in the morning. I recommend keeping him on clears in case an urgent EGD as needed. The patient's coagulation panel is normal and his liver enzymes are only slightly elevated so I do not believe he has cirrhosis. If the patient stabilizes by tomorrow I may perform an EGD or he may have to wait until next week once withdrawal symptoms dissipate. Patient has been started on a PPI. Chapito Kim MD Pager: [facility] [address] [place] [address], [address] [place] [address] Office:
[2020-10-30] MEDS: Lactated Ringers 1,000 ML 75 ML IV (18:04)
[2020-10-30] MEDS: Multivitamins,Therapeutic Tablet 1 TABLET PO (18:25)
[2020-10-30] MEDS: LORazepam 1 MG Tablet 0.5 MG PO ×2 (18:25→22:06)
[2020-10-30] MEDS: Potassium Chloride 10mEq/100mL 10 MEQ/100 ML IV.SOLN. 100 MEQ IV BOLUS ×3 (18:53→22:06)
[2020-10-30 19:04] LABS: Bacteria 0 SEEN /hpf (None Seen); Mucous, Urine 0 SEEN /hpf (<or=2+); Red Blood Cells-Urine 0 SEEN /hpf (0-5); Squamous Epithelial Cells - UA 0 SEEN /hpf (0-5); White Blood Cells 0 SEEN /hpf (0-5)
[2020-10-30 19:06] LABS: Color, Urine Yellow (Yellow); Glucose, Dipstick Normal (Normal); Ketone-Dipstick 5 mg/dl (Negative); Leukocyte Esterase-Dipstick 25 /ul (Negative); Nitrite-Dipstick Negative (Negative); Occult Blood-Urine Negative /ul (Negative); Protein-Dipstick 30 mg/dl (Negative); Specific Gravity, Urine 1.015 (1.002-1.030); Urine Urobilinogen 12 mg/dl (Normal); Urine pH 6.5 (5.0 - 8.0)
[2020-10-30 19:08] LABS: Urine Bilirubin Dipstick 3 mg/dL (Negative)
[2020-10-30 19:13] LABS: Urine Clarity Clear (Clear)
[2020-10-30] MEDS: Ipratropium/Albuterol Sulfate 3 ML AMPUL.NEB INHALATION (19:40)
--- NOTE | 2020-10-30 19:40 | CPS ---
Added Oxygen at 2 lpm via nasal cannula
[2020-10-30 19:53] LABS: Amphetamine Urine VISTA NEGATIVE (<1000 ng/mL); Barbiturate Urine VISTA NEGATIVE (< 200 ng/mL); Benzodiazepine Urine VISTA NEGATIVE (< 200 ng/mL); Cocaine Urine VISTA NEGATIVE (< 300 ng/mL); Ecstacy Urine VISTA NEGATIVE (< 500 ng/mL); Methadone Urine VISTA NEGATIVE (< 300 ng/mL); PCP Urine VISTA NEGATIVE (< 25 ng/mL); THC Urine VISTA POSITIVE (< 50 ng/mL); Vista UDS pH Range 6
[2020-10-30] MEDS: Propranolol LA 60 MG Capsule 20 MG PO (22:06)
[2020-10-31] VITALS (34 sets, daily range): BP systolic 102–128; BP diastolic 64–82; PULSE 88–106; RESP 18–40; TEMP 36.6–37.8; O2SAT 92–98
[2020-10-31] MEDS: Ipratropium/Albuterol Sulfate 3 ML AMPUL.NEB INHALATION ×3 (01:14→19:15)
[2020-10-31] MEDS: LORazepam 1 MG Tablet 0.5 MG PO ×5 (02:04→21:44)
[2020-10-31 06:10] LABS: Absolute Lymphocyte Count 0.38 X10^3/uL (0.83-4.51); Absolute Neutrophil Count 4.7 X10^3/uL (2.0-7.7); Basophil# 0.01 X10^3/uL; Basophil% 0.2 % (0-1); Eosinophil# 0.03 X10^3/uL; Eosinophils% 0.5 % (0-5); Hematocrit 22.3 % (40-54); Hemoglobin 6.8 g/dL (13.0-16.5); Lymphocyte # 0.38 X10^3/ul (4.0); Mean Corp Hgb Conc 30.5 g/dL (32-36); Mean Corpuscular Hgb 29.1 pg (27.0-32.0); Mean Corpuscular Volume 95.3 fL (80-94); Mean Platelet Vol. 10.1 fl (6.2-12.0); Monocyte# 0.28 X10^3/uL; Monocyte% 5.1 % (0-10); NRBC Flagged by Analyzer 0 % (0-5); Neutrophil # 4.71 X10^3/uL (2.7-7.7); Neutrophil % 86.3 % (47-70); POSITIVE COUNT YES; POSITIVE DIFFERENTIAL YES; Platelet Count 81 K/mm3 (150-450); RBC Distribution Width CV 18.2 % (11.6-14.6); RBC Distribution Width SD 62.1 fl (35.1-43.9); Red Blood Count 2.34 M/mm3 (4.6-6.2); White Blood Count 5.5 K/mm3 (4.4-11.0)
[2020-10-31 06:14] LABS: Differential Indicated SCAN CRITERIA MET
[2020-10-31 06:35] LABS: Anisocytosis 1+; Differential Comment SCANNED
[2020-10-31 06:37] LABS: Hypochromasia 1+; Platelet Estimate SLT DEC (ADEQ)
--- NOTE | 2020-10-31 06:38 | PN.SURG_ITS ---
Patient Problems: Active and Suspected Problems (Last Reviewed 08/19/20 @ 12:07 by Yen Hart EDITORIAL CLERK, EDITORIAL CLERK-C) Alcohol intoxication (Acute) Hypokalemia (Acute) Tobacco abuse (Acute) GI bleed (Acute) Blood loss anemia (Acute) Suicidal ideations (Acute) Suicide ideation (Acute) Impending alcohol withdrawal (Acute) Alcohol intoxication (Acute) Hypokalemia (Acute) Subjective: Patient had 2 black bowel movements overnight. He denies any abdominal pain or nausea or vomiting. - Physical Exam Vitals/I&O's: Vital Signs Temp Pulse Resp BP Pulse Ox 98.3 F 104 H 25 H 119/82 H 94 10/31/20 06:00 10/31/20 06:00 10/31/20 06:00 10/31/20 06:00 10/31/20 06:00 Oxygen Flow Rate (L/min) 4 Oxygen Delivery Method Nasal Cannula Weight: 170 lb 10.205 oz Body Mass Index (BMI) 23.8 Intake and Output for Last 24 Hours 10/29/20 10/30/20 10/31/20 23:59 23:59 23:59 Intake Total 894.67 / 1294.67 488.33 / 488.33 Output Total 800 / 800 Balance 94.67 / 494.67 488.33 / 488.33 General: Alert, Oriented x3 Neck: No JVD Lungs: Normal air movement Abdomen: Soft, Non Tender Microbiology Past 72 Hours 10/30/20 14:17 Mucosa - Nose SARS-CoV-2 Antigen (Rapid) - Final Laboratory Results 10/30/20 14:05: WBC 7.1, RBC 1.80 L, Hgb 5.1 L*, Hct 18.3 L, MCV 101.7 H, MCH 28.3, MCHC 27.9 L, RDW Std Deviation 69.1 H, RDW Coeff of [place] 18.8 H, Plt Count 112 L, MPV 9.7, Immature Gran % (Auto) 1.400 H, Neut % (Auto) 86.8 H, Lymph % (Auto) 6.8 L, [place] % (Auto) 4.6, Eos % (Auto) 0.1, Baso % (Auto) 0.3, Absolute Neuts (auto) 6.2, Absolute Lymphs (auto) 0.48 L, Nucleated RBC % 0, Differential Comment COMMENT, Diff Path Review May foll, Anisocytosis 1+ 10/30/20 14:05: Sodium 135 L, Potassium 2.9 L, Chloride 99, Carbon Dioxide 24.0, Anion Gap 12, BUN 5 L, Creatinine 0.44 L, Estim Creat Clear Calc 180.41, Est GFR (MDRD) Af Amer 256, Est GFR (MDRD) Non-Af 212, BUN/Creatinine Ratio 11.4, Glucose 90, Calcium 7.4 L, Total Bilirubin 1.10 H, AST 164 H, ALT 38, Alkaline Phosphatase 180 H, Troponin I < 0.015, Total Protein 7.9, Albumin 2.6 L, Globulin 5.3 H, Albumin/Globulin Ratio 0.5 L 10/30/20 14:05: Ethyl Alcohol 382.0 H* 10/30/20 14:05: B-Natriuretic Peptide 102.2 H 10/30/20 14:05: PT 14.0, INR 1.1, APTT 31.8 10/30/20 14:05: Magnesium 1.1 L 10/30/20 14:05: Phosphorus 3.1 10/30/20 14:30: Blood Type O POSITIVE, Antibody Screen NEGATIVE, Crossmatch See Detail 10/30/20 14:30: Crossmatch See Detail 10/30/20 18:45: Urine Opiates Screen NEGATIVE, Urine Methadone Screen NEGATIVE, Ur Barbiturates Screen NEGATIVE, Ur Phencyclidine Scrn NEGATIVE, Ur Amphetamines Screen NEGATIVE, U Methamphetamin-MDMA NEGATIVE, U Benzodiazepines Scrn NE GATIVE, Urine Cocaine Screen NEGATIVE, U Cannabinoids Screen POSITIVE H, Ur Drug Screen Comment 10/30/20 18:45: Urine Color Yellow, Urine Clarity Clear, Urine pH 6.5, Ur Specific [place] 1.015, Urine Protein 30 H, Urine Glucose (UA) Normal, Urine Ketones 5 H, Urine Occult Blood Negative, Urine Nitrite Negative, Urine Bilirubin 3 H, Urine Urobilinogen 12 H, Ur Leukocyte Esterase 25 H, Urine RBC 0 SEEN, Urine WBC 0 SEEN, Ur Squamous Epith Cells 0 SEEN, Urine Bacteria 0 SEEN, Urine Mucus 0 SEEN 10/31/20 05:20: WBC 5.5, RBC 2.34 L, Hgb 6.8 L, Hct 22.3 L, MCV 95.3 H D, MCH 29.1, MCHC 30.5 L D, RDW Std Deviation 62.1 H, RDW Coeff of [place] 18.2 H, Plt Count 81 L, MPV 10.1, Immature Gran % (Auto) 0.900, Neut % (Auto) 86.3 H, Lymph % (Auto) 7.0 L, [place] % (Auto) 5.1, Eos % (Auto) 0.5, Baso % (Auto) 0.2, Absolute Neuts (auto) 4.7, Absolute Lymphs (auto) 0.38 L, Nucleated RBC % 0, Differential Comment SCANNED, Platelet Estimate SLT DEC, Hypochromasia 1+, Anisocytosis 1+ 10/31/20 05:20: Sodium Pending, Potassium Pending, Chloride Pending, Carbon Dioxide Pending, Anion Gap Pending, BUN Pending, Creatinine Pending, Est GFR (MDRD) Af Amer Pending, Est GFR (MDRD) Non-Af Pending, BUN/Creatinine Ratio Pending, Glucose Pending, Calcium Pending, Magnesium Pending, Total Bilirubin Pending, AST Pending, ALT Pending, Alkaline Phosphatase Pending, Total Protein Pending, Albumin Pending Current Medications Acetaminophen (Acetaminophen 325 Mg Tablet) 650 mg PO Q6H PRN PRN PRN Reason: Pain Score 1-10/Temp > 100.7 F Albuterol/Ipratropium (Ipratropium/Albuterol Sulfate 3 Ml Ampul.Neb) 3 ml INHALATION Q6H.RT [facility] Last Admin: 10/31/20 01:14 Dose: 3 ml Documented by: Dicyclomine HCl (Dicyclomine 10 Mg Capsule) 20 mg PO Q6H PRN PRN PRN Reason: abdominal discomfort Folic Acid (Folic Acid 1 Mg Tablet) 1 mg PO DAILY@0800 [facility] Gabapentin (Gabapentin 300 Mg Capsule) 300 mg PO Q8H PRN PRN PRN Reason: moderate to severe anxiety Hydroxyzine Pamoate (Hydroxyzine Aditi 25 Mg Capsule) 50 mg PO Q4H PRN PRN PRN Reason: mild anxiety Pantoprazole Sodium 80 mg/ (Sodium Chloride) 100 mls @ 10 mls/hr CONT INF Q10H [facility] Last Admin: 10/31/20 03:46 Dose: 10 mls/hr Documented by: Sodium Chloride () 500 mls @ 15 mls/hr IV PRN PRN PRN Reason: Blood Transfusion Sodium Chloride () 250 mls @ 15 mls/hr IV .[id number] PRN PRN Reason: Saline Flush Last Infusion: 10/30/20 18:51 Dose: 0 mls/hr Documented by: Sodium Chloride () 250 mls @ 15 mls/hr IV .[id number] PRN PRN Reason: Additional IVPB Infusion Loperamide HCl (Loperamide 2 Mg Capsule) 2 mg PO Q4H PRN PRN PRN Reason: LOOSE STOOLS Lorazepam (Lorazepam 1 Mg Tablet) 2 mg PO Q4H [facility]; Taper Stop: 11/04/20 01:59 Last Admin: 10/31/20 06:30 Dose: 2 mg Documented by: Nicotine (Nicotine 21 Mg Patch) 21 mg TD DAILY [facility] Nutritional Formula (Lactose Free) (Ensure Clear 120 Ml Liquid) 120 ml PO TIDCM [facility] Ondansetron HCl (Ondansetron 4 Mg/2 Ml Vial) 4 mg IV Q8H PRN PRN PRN Reason: NAUSEA/VOMITING Ondansetron HCl (Ondansetron 8 Mg Tablet) 8 mg PO Q8H PRN PRN PRN Reason: NAUSEA Propranolol HCl (Propranolol La 60 Mg Capsule) 20 mg PO BID [facility] Last Admin: 10/30/20 22:06 Dose: 20 mg Documented by: Sodium Chloride (0.9% Saline Lock 10 Ml Syringe) 10 - 40 ml IV UD PRN PRN Reason: SALINE FLUSH Thiamine HCl (Thiamine Hydrochloride 100 Mg Tablet) 100 mg PO DAILYCM [facility] Trazodone HCl (Trazodone 100 Mg Tablet) 100 mg PO QHS PRN PRN Reason: INSOMNIA Zolpidem Tartrate (Zolpidem Tartrate 5 Mg Tablet) 5 mg PO QHS PRN PRN PRN Reason: INSOMNIA Medical Necessity - Tobacco Use Smoking Status: Current every day smoker Tobacco Use: Cigarettes Assessment/Plan All Active Problems (Last Reviewed 08/19/20 @ 12:07 by Yen Hart EDITORIAL CLERK, EDITORIAL CLERK-C) Alcohol intoxication (Acute) Hypokalemia (Acute) Tobacco abuse (Acute) GI bleed (Acute) Blood loss anemia (Acute) Suicidal ideations (Acute) Suicide ideation (Acute) Impending alcohol withdrawal (Acute) Alcohol intoxication (Acute) Hypokalemia (Acute) 55-year-old male with GI bleeding 1. Patient had 2 melanotic stools overnight and after receiving 3 units of blood his hemoglobin only went up by 1 g. I will plan for EGD today. The patient appears calm despite alcohol dependence treatment. The scope was discussed with him in detail and he agreed to proceed. I explained endoscopy in detail to the patient. I explained the risks including but not limited to stroke or heart attack with anesthesia, perforation of the GI tract, bleeding, infection. I explained that any of these could necessitate further emergency surgery. The patient understands and all questions were answered sufficiently. The patient wishes to proceed with procedure. Chapito Kim MD Pager: [facility] [address] [place] [address] [address] [place] [address] Office:
[2020-10-31 06:49] LABS: ALB/GLOB Ratio 0.5 RATIO (0.9-2.4); AST(SGOT) 128 U/L (15-37); Alanine Aminotransfer ALT/SGPT 29 U/L (16-61); Alkaline Phosphatase 146 U/L (45-117); Anion Gap 16 (5-15); BUN 3 mg/dL (7-18); BUN/Creat Ratio 9.7 RATIO (10-20); Chloride 103 mmol/L (98-107); Creatinine, Serum 0.31 mg/dL (0.70-1.30); EST Glomerular Filtration Rate 319 mL/min (>60); Est Glom Filt Rate - Afr Amer 386 mL/min (>60); Estimated Creatinine Clearance 283.39 ml/min; Globulin 4.2 g/dL (2.2-4.2); Glucose 65 mg/dL (74-106); Magnesium 1.1 mg/dL (1.6-2.6); Potassium 3.4 mmol/L (3.5-5.1); Protein, Total 6.2 g/dL (6.4-8.2); Sodium Level 136 mmol/L (136-145)
--- NOTE | 2020-10-31 09:59 | PN_ITS ---
Patient Problems: Active and Suspected Problems (Last Reviewed 08/19/20 @ 12:07 by Yen Hart SIDE SHOW ENTERTAINER, SIDE SHOW ENTERTAINER-C) Alcohol intoxication (Acute) Hypokalemia (Acute) Tobacco abuse (Acute) GI bleed (Acute) Blood loss anemia (Acute) Suicidal ideations (Acute) Suicide ideation (Acute) Impending alcohol withdrawal (Acute) Alcohol intoxication (Acute) Hypokalemia (Acute) Subjective: Was transfused 3 units and his hemoglobin went from 5.1-6.8, continues to have melanotic stools Vitals/I&O's: Vital Signs Temp Pulse Resp BP Pulse Ox 98.1 F 101 H 24 H 113/76 95 10/31/20 09:54 10/31/20 09:54 10/31/20 09:54 10/31/20 09:54 10/31/20 09:54 Oxygen Flow Rate (L/min) 4 Oxygen Delivery Method Nasal Cannula Weight: 170 lb 10.205 oz Body Mass Index (BMI) 23.8 Intake and Output for Last 24 Hours 10/29/20 10/30/20 10/31/20 23:59 23:59 23:59 Intake Total 894.67 / 1294.67 608.33 / 608.33 Output Total 800 / 800 100 / 100 Balance 94.67 / 494.67 508.33 / 508.33 General: Alert, Oriented x3, Cooperative, No apparent distress HEENT: Atraumatic, PERRLA, EOMI, Normocephalic Oral: Dry Mucosa Neck: Supple, No JVD Lungs: Clear to auscultation, Normal air movement, No rhonchi, No wheeze, No rales Cardiovascular: Regular rate, Regular Rhythm, Normal S1, Normal S2, No murmurs Abdomen: Soft, Non Tender, Non-Distended, No Hepato-splenomegaly Extremities: Capillary Refill Less than 3 Seconds, Edema Skin: No rashes, No breakdown Neurological: Neuro grossly intact, Sensory exam intact to light touch and pain Psych/Mental Status: Normal Affect, Appropriate Microbiology Past 72 Hours 10/30/20 14:17 Mucosa - Nose SARS-CoV-2 Antigen (Rapid) - Final Laboratory Results 10/30/20 14:05: WBC 7.1, RBC 1.80 L, Hgb 5.1 L*, Hct 18.3 L, MCV 101.7 H, MCH 28.3, MCHC 27.9 L, RDW Std Deviation 69.1 H, RDW Coeff of [place] 18.8 H, Plt Count 112 L, MPV 9.7, Immature Gran % (Auto) 1.400 H, Neut % (Auto) 86.8 H, Lymph % (Auto) 6.8 L, [place] % (Auto) 4.6, Eos % (Auto) 0.1, Baso % (Auto) 0.3, Absolute Neuts (auto) 6.2, Absolute Lymphs (auto) 0.48 L, Nucleated RBC % 0, Differential Comment COMMENT, Diff Path Review May foll, Anisocytosis 1+ 10/30/20 14:05: Sodium 135 L, Potassium 2.9 L, Chloride 99, Carbon Dioxide 24.0, Anion Gap 12, BUN 5 L, Creatinine 0.44 L, Estim Creat Clear Calc 180.41, Est GFR (MDRD) Af Amer 256, Est GFR (MDRD) Non-Af 212, BUN/Creatinine Ratio 11.4, Glucose 90, Calcium 7.4 L, Total Bilirubin 1.10 H, AST 164 H, ALT 38, Alkaline Phosphatase 180 H, Troponin I < 0.015, Total Protein 7.9, Albumin 2.6 L, Globulin 5.3 H, Albumin/Globulin Ratio 0.5 L 10/30/20 14:05: Ethyl Alcohol 382.0 H* 10/30/20 14:05: B-Natriuretic Peptide 102.2 H 10/30/20 14:05: PT 14.0, INR 1.1, APTT 31.8 10/30/20 14:05: Magnesium 1.1 L 10/30/20 14:05: Phosphorus 3.1 10/30/20 14:30: Blood Type O POSITIVE, Antibody Screen NEGATIVE, Crossmatch See Detail 10/30/20 14:30: Crossmatch See Detail 10/30/20 14:30: Crossmatch See Detail 10/30/20 18:45: Urine Opiates Screen NEGATIVE, Urine Methadone Screen NEGATIVE, Ur Barbiturates Screen NEGATIVE, Ur Phencyclidine Scrn NEGATIVE, Ur Amphetamines Screen NEGATIVE, U Methamphetamin-MDMA NEGATIVE, U Benzodiazepines Scrn NEGATIVE, Urine Cocaine Screen NEGATIVE, U Cannabinoids Screen POSITIVE H, Ur Drug Screen Comment 10/30/20 18:45: Urine Color Yellow, Urine Clarity Clear, Urine pH 6.5, Ur Specific [place] 1.015, Urine Protein 30 H, Urine Glucose (UA) Normal, Urine Ketones 5 H, Urine Occult Blood Negative, Urine Nitrite Negative, Urine Bilirubin 3 H, Urine Urobilinogen 12 H, Ur Leukocyte Esterase 25 H, Urine RBC 0 SEEN, Urine WBC 0 SEEN, Ur Squamous Epith Cells 0 SEEN, Urine Bacteria 0 SEEN, Urine Mucus 0 SEEN 10/31/20 05:20: WBC 5.5, RBC 2.34 L, Hgb 6.8 L, Hct 22.3 L, MCV 95.3 H D, MCH 29.1, MCHC 30.5 L D, RDW Std Deviation 62.1 H, RDW Coeff of [place] 18.2 H, Plt Count 81 L, MPV 10.1, Immature Gran % (Auto) 0.900, Neut % (Auto) 86.3 H, Lymph % (Auto) 7.0 L, [place] % (Auto) 5.1, Eos % (Auto) 0.5, Baso % (Auto) 0.2, Absolute Neuts (auto) 4.7, Absolute Lymphs (auto) 0.38 L, Nucleated RBC % 0, Differential Comment SCANNED, Platelet Estimate SLT DEC, Hypochromasia 1+, Anisocytosis 1+ 10/31/20 05:20: Sodium 136, Potassium 3.4 L, Chloride 103, Carbon Dioxide 17.0 L , Anion Gap 16 H, BUN 3 L, Creatinine 0.31 L, Estim Creat Clear Calc 283.39, Est GFR (MDRD) Af Amer 386, Est GFR (MDRD) Non-Af 319, BUN/Creatinine Ratio 9.7 L, Glucose 65 L, Calcium 7.0 L, Magnesium 1.1 L, Total Bilirubin 1.50 H, AST 128 H, ALT 29, Alkaline Phosphatase 146 H, Total Protein 6.2 L, Albumin 2.0 L, Globulin 4.2, Albumin/Globulin Ratio 0.5 L Current Medications Acetaminophen (Acetaminophen 325 Mg Tablet) 650 mg PO Q6H PRN PRN PRN Reason: Pain Score 1-10/Temp > 100.7 F Albuterol/Ipratropium (Ipratropium/Albuterol Sulfate 3 Ml Ampul.Neb) 3 ml INHALATION Q6H.RT [facility] Last Admin: 10/31/20 06:53 Dose: 3 ml Documented by: Dicyclomine HCl (Dicyclomine 10 Mg Capsule) 20 mg PO Q6H PRN PRN PRN Reason: abdominal discomfort Folic Acid (Folic Acid 1 Mg Tablet) 1 mg PO DAILY@0800 [facility] Gabapentin (Gabapentin 300 Mg Capsule) 300 mg PO Q8H PRN PRN PRN Reason: moderate to severe anxiety Hydroxyzine Pamoate (Hydroxyzine Aditi 25 Mg Capsule) 50 mg PO Q4H PRN PRN PRN Reason: mild anxiety Pantoprazole Sodium 80 mg/ (Sodium Chloride) 100 mls @ 10 mls/hr CONT INF Q10H [facility] Last Admin: 10/31/20 03:46 Dose: 10 mls/hr Documented by: Sodium Chloride () 500 mls @ 15 mls/hr IV PRN PRN PRN Reason: Blood Transfusion Sodium Chloride () 250 mls @ 15 mls/hr IV .[id number] PRN PRN Reason: Saline Flush Last Infusion: 10/30/20 18:51 Dose: 0 mls/hr Documented by: Sodium Chloride () 250 mls @ 15 mls/hr IV .[id number] PRN PRN Reason: Additional IVPB Infusion Loperamide HCl (Loperamide 2 Mg Capsule) 2 mg PO Q4H PRN PRN PRN Reason: LOOSE STOOLS Lorazepam (Lorazepam 1 Mg Tablet) 2 mg PO Q4H [facility]; Taper Stop: 11/04/20 01:59 Last Admin: 10/31/20 06:30 Dose: 2 mg Documented by: Nicotine (Nicotine 21 Mg Patch) 21 mg TD DAILY [facility] Nutritional Formula (Lactose Free) (Ensure Clear 120 Ml Liquid) 120 ml PO TIDCM [facility] Ondansetron HCl (Ondansetron 4 Mg/2 Ml Vial) 4 mg IV Q8H PRN PRN PRN Reason: NAUSEA/VOMITING Ondansetron HCl (Ondansetron 8 Mg Tablet) 8 mg PO Q8H PRN PRN PRN Reason: NAUSEA Propranolol HCl (Propranolol La 60 Mg Capsule) 20 mg PO BID [facility] Last Admin: 10/30/20 22:06 Dose: 20 mg Documented by: Sodium Chloride (0.9% Saline Lock 10 Ml Syringe) 10 - 40 ml IV UD PRN PRN Reason: SALINE FLUSH Thiamine HCl (Thiamine Hydrochloride 100 Mg Tablet) 100 mg PO DAILYCM [facility] Trazodone HCl (Trazodone 100 Mg Tablet) 100 mg PO QHS PRN PRN Reason: INSOMNIA Zolpidem Tartrate (Zolpidem Tartrate 5 Mg Tablet) 5 mg PO QHS PRN PRN PRN Reason: INSOMNIA STROKE Vital Signs/Narrative: Vital Signs Temp Pulse Resp BP Pulse Ox 10/31/20 09:54 98.1 F 101 H 24 H 113/76 95 10/31/20 09:11 98.7 F 98 18 104/70 96 10/31/20 08:56 98.1 F 96 24 H 113/75 98 10/31/20 06:58 102 H 23 H 96 10/31/20 06:33 100 10/31/20 06:00 98.3 F 104 H 25 H 119/82 H 94 Medical Necessity - Tobacco Use Smoking Status: Current every day smoker Tobacco Use: Cigarettes Assessment/Plan All Active Problems (Last Reviewed 08/19/20 @ 12:07 by Yen Hart SIDE SHOW ENTERTAINER, SIDE SHOW ENTERTAINER-C) Alcohol intoxication (Acute) Hypokalemia (Acute) Tobacco abuse (Acute) GI bleed (Acute) Blood loss anemia (Acute) Suicidal ideations (Acute) Suicide ideation (Acute) Impending alcohol withdrawal (Acute) Alcohol intoxication (Acute) Hypokalemia (Acute) 1. Acute on chronic blood loss anemia secondary to likely upper GI bleed -He is having melanotic stools overnight and his hemoglobin increased from 5.1- 6.8 after 3 units -We will give another 2 units today daily -Appreciate general surgery assistance 2. Alcohol withdrawal/suicidal ideation/elevated LFTs -Continue with alcohol withdrawal protocol -The 180 as an outpatient -On admission he was having suicidal ideation with a plan to overdose on sleeping pills, crisis for possible inpatient management -We will monitor his liver function, do appear to be improving likely secondary to alcohol use 3. HTN/chronic tachycardia -He is supposed to be on propranolol twice a day but he has not really been taking it -We will resume 4. Hypokalemia and severe hypomagnesemia -Potassium has improved to 3.3 however magnesium is still at 1.1, will 5. COPD/tobacco abuse -Not currently in exacerbation -Plan for DuoNebs every 6 hours as needed -Continue with nicotine patch, discussed cessation DVT: SCDs Inpatient E&M: 28967 Subs Hosp L2
--- NOTE | 2020-10-31 10:14 | NURSING ---
CIWA 0 at this time pt very drowsy. pt currently NPO for EGD pt will be leaving unit at 1100. Will hold Ativan at this time and reassess after EGD completed. Sitter at bedside. Will continue to monitor.
--- NOTE | 2020-10-31 11:23 | NURSING ---
transferred pt off unit to .
[2020-10-31 11:24] LABS: Pathologist Review Reviewed
--- NOTE | 2020-10-31 11:59 | OP.CCLET_ITS ---
10/31/2020 Rickey Foley MD [address] [place] [address] [place] [address] Re : Upper GI endoscopy procedure for Efrain Quiñonez Dear Dr. Foley This procedure was performed on Saturday, October 31, 2020. My impressions and recommendations are as follows: Impressions : - Normal esophagus. - Normal stomach. No blood or stigmata of bleeding. No verices. - Normal examined duodenum. - No specimens collected. Recommendations : - Return patient to hospital [facility] for ongoing care. - Clear liquid diet. - Continue present medications. My findings are described in the full procedure note, which is enclosed. If I can be of further assistance, please feel free to contact me at Doctor phone number(s): , Work: . Sincerely, Chapito Kim MD 10/31/2020 11:58:51 AM This report has been signed electronically.
--- NOTE | 2020-10-31 11:59 | OP.EGD_ITS ---
Patient Name: Efrain Quiñonez Procedure Date: 10/31/2020 10:53 AM Date of : 1965 Age: 55 Procedure: Upper GI endoscopy Indications: Iron deficiency anemia secondary to chronic blood loss, Melena Providers: Chapito Kim MD Medicines: Monitored Anesthesia Care Patient Profile: This is a 55 year old male. Refer to note in patient chart for documentation of history and physical. Complications: No immediate complications. Estimated blood loss: None. Procedure: Pre-Anesthesia Assessment: - Prior to the procedure, a History and Physical was performed, and patient medications and allergies were reviewed. The patient's tolerance of previous anesthesia was also reviewed. The risks and benefits of the procedure and the sedation options and risks were discussed with the patient. All questions were answered, and informed consent was obtained. Prior Anticoagulants: The patient has taken no previous anticoagulant or antiplatelet agents. After reviewing the risks and benefits, the patient was deemed in satisfactory condition to undergo the procedure. After obtaining informed consent, the endoscope was passed under direct vision. Throughout the procedure, the patient's blood pressure, pulse, and oxygen saturations were monitored continuously. The gastroscope was introduced through the mouth, and advanced to the fourth part of duodenum. The upper GI endoscopy was accomplished without difficulty. The patient tolerated the procedure well. Scope In: 11:51:08 AM Scope Out: 11:54:49 AM Total Procedure Duration Time 0 hours 3 minutes 41 seconds Findings: The esophagus was normal. The stomach was normal. The examined duodenum was normal. Impression: - Normal esophagus. - Normal stomach. No blood or stigmata of bleeding. No verices. - Normal examined duodenum. - No specimens collected. Recommendation: - Return patient to hospital [facility] for ongoing care. - Clear liquid diet. - Continue present medications. Procedure Code(s): --- Professional --- 21471, Esophagogastroduodenoscopy, flexible, transoral; diagnostic, including collection of specimen(s) by brushing or washing, when performed (separate procedure) Diagnosis Code(s): --- Professional --- D50.0, Iron deficiency anemia secondary to blood loss (chronic) K92.1, Melena (includes Hematochezia) CPT copyright 2017 [employer]. All rights reserved. The codes documented in this report are preliminary and upon cable installation manager review may be revised to meet current compliance requirements. Chapito Kim MD 10/31/2020 11:58:51 AM This report has been signed electronically. Number of Addenda: 0 Note Initiated On: 10/31/2020 10:53 AM
[2020-10-31] MEDS: Magnesium Sulfate 4gm/100mL 4 GM/100 ML IV.SOLN. IV (13:22)
[2020-10-31] MEDS: Folic Acid 1 MG Tablet PO (13:23)
[2020-10-31] MEDS: Thiamine Hydrochloride 100 MG Tablet PO (13:23)
[2020-10-31] MEDS: Ensure Clear 120 ML Liquid PO ×2 (13:28→17:15)
--- NOTE | 2020-10-31 13:30 | PCM.PN.BLA ---
Progress Note discussed EGD results with hospitalist and patient. plan for colonoscopy tuesday. Bowel prep Tuesday. Chapito Kim MD STROKE Vital Signs/Narrative: Vital Signs Temp Pulse Resp BP Pulse Ox 10/31/20 12:30 98.7 F 106 H 24 H 121/73 H 93 10/31/20 12:27 98.2 F 91 26 H 116/75 97 10/31/20 12:20 98 36 H 102/64 97 10/31/20 12:15 99 30 H 113/66 96 10/31/20 12:10 102 H 40 H 107/69 97 10/31/20 12:03 100.1 F H 101 H 38 H 124/81 H 94 10/31/20 11:31 97.8 F 101 H 18 115/76 94 10/31/20 11:10 98.3 F 102 H 26 H 109/73 97 10/31/20 09:54 98.1 F 101 H 24 H 113/76 95
--- NOTE | 2020-10-31 15:45 | NURSING ---
Bedside report received from Linda Diamond RN. This RN is taking over pt care at this time.
--- NOTE | 2020-10-31 16:39 | CASEMGMT ---
Social Work Received referral for pt having sitter due to suicidal ideations and if pt remains harm to self or others. Reviewed chart. Met with patient. Introduced self and role. Explained this worker here to learn more about pt. Offered for pt to tell this worker about self. Pt immediately very open about alcohol and drug use. Explained he has been using for many years - had his first drink at 12 years old. He graduated from strong beer to vodka and drinks 1/2 gallon of vodka/day, smokes 3 packs of cigarettes/day, and smokes marijuana daily. Inquired about daily routine. Pt reports waking up at 3 am, takes a few shots, naps from 8-10 am. I've always had trouble sleeping. Inquired about taking anything to help him sleep. Pt reports taking Melatonin 5 mg and takes about 5 pills with vodka, but doesn't help sleep. No other prescription sleeping meds. Inquired about home environment, job, living arrangements, transportation, income, social support. 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 Pat hired another live-in caregiver who drove, since the two of them did not. He would assist with cleaning, cooking, and doing errands. Pt primarily got around on a motorized scooter. He stated he lives two blocks away from a store which is where he got his alcohol and Pat supplied the marijuana. Pt stated he had some friends that would stop by to socialize, smoke weed and drink - but didn't drink nearly as much as him. He receives $300/mo in food stamps. However, pt states his food intake was very slim. 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 Completed [place] Suicide Assessment. Discussed goals with pt. Pt reports to seeing himself live another 10 years, wanting to change his lifestyle, get healthier, and walk again. Pt states he went to [facility] prior and could walk but has since declined. His goal is to live - he is done with his lifestyle, but wants to live. He has had thoughts of taking sleeping pills to overdose, but does not have access to sleeping pills, has not sought any out, nor has acted on that plan or any other plan to harm self. Discussed alcohol/drug rehab and therapy rehab. Pt states he would like to detox in an inpatient tx center, and agreeable to SNF stay after to get stronger. Discussed housing options. Pt stated he applied to [facility] about 3 years ago and recently followed up. [facility] stated they would be mailing him a housing voucher, but the mail goes to his caregiver's residence. He stated the landlord is nice and will keep his mail for him. Explained if he goes to a SNF, the SW can follow up with [facility] and assist him with getting housing at [place]. Pt agreeable to referral to [facility]. Pt agreeable to all goals and very appreciative of this worker's assistance. Pt denies any current thoughts of suicide or self harm. SW assessment concludes pt is no longer a harm to self or others and 1:1 sitter can be discontinued. Nursing updated. Referral made to Treatment Navigator at [facility]. Racquel Fowler, LAVERNE AGUILAR
[2020-10-31] MEDS: Propranolol 10 MG Tablet 20 MG PO (21:43)
[2020-10-31] MEDS: Menthol/Lanolin/Calamine/Znox 113 GM Tube 1 APPLIC TOPICAL (21:43)
[2020-10-31] MEDS: Ondansetron 4 MG/2 ML Vial IV (21:44)
[2020-10-31] MEDS: 0.9% Saline Lock 10 ML Syringe IV (21:45)
[2020-11-01] VITALS (21 sets, daily range): BP systolic 95–125; BP diastolic 64–94; PULSE 11–112; RESP 17–28; TEMP 36.2–38.1; O2SAT 82–100
[2020-11-01] MEDS: Ipratropium/Albuterol Sulfate 3 ML AMPUL.NEB INHALATION ×5 (01:20→23:44)
[2020-11-01] MEDS: LORazepam 1 MG Tablet 0.5 MG PO ×6 (02:18→21:08)
[2020-11-01 05:56] LABS: Absolute Lymphocyte Count 0.42 X10^3/uL (0.83-4.51); Absolute Neutrophil Count 5.1 X10^3/uL (2.0-7.7); Basophil# 0.02 X10^3/uL; Basophil% 0.3 % (0-1); Eosinophil# 0.08 X10^3/uL; Eosinophils% 1.3 % (0-5); Hematocrit 27.9 % (40-54); Hemoglobin 8.8 g/dL (13.0-16.5); Lymphocyte # 0.42 X10^3/ul (4.0); Mean Corp Hgb Conc 31.5 g/dL (32-36); Mean Corpuscular Hgb 29.8 pg (27.0-32.0); Mean Corpuscular Volume 94.6 fL (80-94); Mean Platelet Vol. 10.3 fl (6.2-12.0); Monocyte# 0.35 X10^3/uL; Monocyte% 5.8 % (0-10); NRBC Flagged by Analyzer 0.3 % (0-5); Neutrophil # 5.08 X10^3/uL (2.7-7.7); Neutrophil % 84.8 % (47-70); POSITIVE COUNT YES; POSITIVE DIFFERENTIAL YES; Platelet Count 76 K/mm3 (150-450); RBC Distribution Width CV 18.2 % (11.6-14.6); RBC Distribution Width SD 60.6 fl (35.1-43.9); Red Blood Count 2.95 M/mm3 (4.6-6.2)
[2020-11-01 06:00] LABS: Differential Indicated SCAN CRITERIA MET
[2020-11-01 06:29] LABS: ALB/GLOB Ratio 0.5 RATIO (0.9-2.4); AST(SGOT) 137 U/L (15-37); Alanine Aminotransfer ALT/SGPT 27 U/L (16-61); Albumin, Serum 2.1 g/dL (3.2-5.0); Alkaline Phosphatase 152 U/L (45-117); Anion Gap 8 (5-15); BUN 5 mg/dL (7-18); BUN/Creat Ratio 14.1 RATIO (10-20); Calcium,Total 7.4 mg/dL (8.5-10.1); Chloride 100 mmol/L (98-107); Creatinine, Serum 0.36 mg/dL (0.70-1.30); EST Glomerular Filtration Rate 271 mL/min (>60); Est Glom Filt Rate - Afr Amer 328 mL/min (>60); Estimated Creatinine Clearance 244.03 ml/min; Globulin 4.4 g/dL (2.2-4.2); Glucose 76 mg/dL (74-106); Potassium 3.1 mmol/L (3.5-5.1); Protein, Total 6.5 g/dL (6.4-8.2); Sodium Level 134 mmol/L (136-145)
[2020-11-01] MEDS: Menthol/Lanolin/Calamine/Znox 113 GM Tube 1 APPLIC TOPICAL ×3 (06:31→21:08)
[2020-11-01 06:37] LABS: Differential Comment SCANNED; Platelet Estimate MOD DEC (ADEQ)
[2020-11-01 08:21] LABS: Magnesium 1.2 mg/dL (1.6-2.6)
[2020-11-01] MEDS: 0.9% Saline Lock 10 ML Syringe IV ×2 (08:34→20:17)
[2020-11-01] MEDS: Thiamine Hydrochloride 100 MG Tablet PO (08:34)
[2020-11-01] MEDS: Folic Acid 1 MG Tablet PO (08:34)
[2020-11-01] MEDS: Pantoprazole Sodium 40 MG Tablet PO (08:34)
[2020-11-01] MEDS: Propranolol 10 MG Tablet 20 MG PO ×2 (08:34→21:08)
--- NOTE | 2020-11-01 08:41 | PN.SURG_ITS ---
Patient Problems: Active and Suspected Problems (Last Reviewed 08/19/20 @ 12:07 by Yen Hart BOTTOM FINISHER, BOTTOM FINISHER-C) Alcohol intoxication (Acute) Hypokalemia (Acute) Tobacco abuse (Acute) GI bleed (Acute) Blood loss anemia (Acute) Suicidal ideations (Acute) Suicide ideation (Acute) Impending alcohol withdrawal (Acute) Alcohol intoxication (Acute) Hypokalemia (Acute) Subjective: Patient's hemoglobin is 8.8. Patient denies any bowel movement since coming into the hospital. Patient's EGD was negative planning for colonoscopy on Tuesday. Patient will prep on Tuesday. - Physical Exam Vitals/I&O's: Vital Signs Temp Pulse Resp BP Pulse Ox 97.8 F 97 20 H 120/81 H 93 11/01/20 08:00 11/01/20 08:00 11/01/20 08:00 11/01/20 08:00 11/01/20 08:00 Oxygen Flow Rate (L/min) 4 Oxygen Delivery Method Nasal Cannula Weight: 170 lb 10.205 oz Body Mass Index (BMI) 23.8 Intake and Output for Last 24 Hours 10/30/20 10/31/20 11/01/20 23:59 23:59 23:59 Intake Total 894.67 / 1294.67 2183.66 / 2183.66 Output Total 800 / 800 102 / 102 Balance 94.67 / 494.67 2081.66 / 2081.66 General: Alert, Oriented x3, Cooperative, No apparent distress Lungs: Normal air movement Cardiovascular: Regular rate Abdomen: Soft Extremities: No clubbing, No cyanosis, No edema Neurological: Cranial nerves II-XII grossly intact Psych/Mental Status: Normal Affect Microbiology Past 72 Hours 10/30/20 14:17 Mucosa - Nose SARS-CoV-2 Antigen (Rapid) - Final Laboratory Results 10/30/20 14:05: Diff Path Review Reviewed 10/30/20 14:30: Crossmatch See Detail 11/01/20 05:24: WBC 6.0, RBC 2.95 L, Hgb 8.8 L, Hct 27.9 L, MCV 94.6 H, MCH 29.8, MCHC 31.5 L, RDW Std Deviation 60.6 H, RDW Coeff of Violette 18.2 H, Plt Count 76 L, MPV 10.3, Immature Gran % (Auto) 0.800, Neut % (Auto) 84.8 H, Lymph % (Auto) 7.0 L, [place] % (Auto) 5.8, Eos % (Auto) 1.3, Baso % (Auto) 0.3, Absolute Neuts (auto) 5.1, Absolute Lymphs (auto) 0.42 L, Nucleated RBC % 0.3, Differential Comment SCANNED, Platelet Estimate MOD 11/01/20 05:24: Sodium 134 L, Potassium 3.1 L, Chloride 100, Carbon Dioxide 26.0, Anion Gap 8, BUN 5 L, Creatinine 0.36 L, Estim Creat Clear Calc 244.03, Est GFR (MDRD) Af Amer 328, Est GFR (MDRD) Non-Af 271, BUN/Creatinine Ratio 14.1, Glucose 76, Calcium 7.4 L, Total Bilirubin 1.80 H, AST 137 H, ALT 27, Alkaline Phosphatase 152 H, Total Protein 6.5, Albumin 2.1 L, Globulin 4.4 H, Albumin/Globulin Ratio 0.5 L 11/01/20 05:24: Magnesium 1.2 L Current Medications Acetaminophen (Acetaminophen 325 Mg Tablet) 650 mg PO Q6H PRN PRN PRN Reason: Pain Score 1-10/Temp > 100.7 F Albuterol/Ipratropium (Ipratropium/Albuterol Sulfate 3 Ml Ampul.Neb) 3 ml INHALATION Q6H.RT [facility] Last Admin: 11/01/20 07:14 Dose: 3 ml Documented by: Bisacodyl (Bisacodyl 5 Mg Tablet) 20 mg PO 1400 ONE Stop: 11/02/20 14:01 Calamine/Phenol (Menthol/Lanolin/Calamine/Znox 113 Gm Tube) 1 applic TOPICAL TID [facility]; Protocol Last Admin: 11/01/20 06:31 Dose: 1 applic Documented by: Dicyclomine HCl (Dicyclomine 10 Mg Capsule) 20 mg PO Q6H PRN PRN PRN Reason: abdominal discomfort Folic Acid (Folic Acid 1 Mg Tablet) 1 mg PO DAILY@0800 [facility] Last Admin: 11/01/20 08:34 Dose: 1 mg Documented by: Gabapentin (Gabapentin 300 Mg Capsule) 300 mg PO Q8H PRN PRN PRN Reason: moderate to severe anxiety Hydroxyzine Pamoate (Hydroxyzine Aditi 25 Mg Capsule) 50 mg PO Q4H PRN PRN PRN Reason: mild anxiety Sodium Chloride () 500 mls @ 15 mls/hr IV PRN PRN PRN Reason: Blood Transfusion Sodium Chloride () 250 mls @ 15 mls/hr IV .[id number] PRN PRN Reason: Saline Flush Last Infusion: 10/30/20 18:51 Dose: 0 mls/hr Documented by: Sodium Chloride () 250 mls @ 15 mls/hr IV .[id number] PRN PRN Reason: Additional IVPB Infusion Loperamide HCl (Loperamide 2 Mg Capsule) 2 mg PO Q4H PRN PRN PRN Reason: LOOSE STOOLS Lorazepam (Lorazepam 1 Mg Tablet) 1 mg PO Q4H [facility]; Taper Stop: 11/04/20 01:59 Last Admin: 11/01/20 06:30 Dose: 1 mg Documented by: Nicotine (Nicotine 21 Mg Patch) 21 mg TD DAILY [facility] Last Admin: 11/01/20 08:35 Dose: 21 mg Documented by: Nutritional Formula (Lactose Free) (Ensure Clear 120 Ml Liquid) 120 ml PO TIDCM [facility] Last Admin: 10/31/20 17:15 Dose: 120 ml Documented by: Ondansetron HCl (Ondansetron 4 Mg/2 Ml Vial) 4 mg IV Q8H PRN PRN PRN Reason: NAUSEA/VOMITING Last Admin: 10/31/20 21:44 Dose: 4 mg Documented by: Ondansetron HCl (Ondansetron 8 Mg Tablet) 8 mg PO Q8H PRN PRN PRN Reason: NAUSEA Pantoprazole Sodium (Pantoprazole Sodium 40 Mg Tablet) 40 mg PO DAILY [facility] Last Admin: 11/01/20 08:34 Dose: 40 mg Documented by: Polyethylene Glycol (Polyethylene Glycol 3350 Bowel Prep) 0 bottle PO D AILY@1600 ONE Stop: 11/02/20 16:01 Propranolol HCl (Propranolol 10 Mg Tablet) 20 mg PO BID [facility] Last Admin: 11/01/20 08:34 Dose: 20 mg Documented by: Sodium Chloride (0.9% Saline Lock 10 Ml Syringe) 10 - 40 ml IV UD PRN PRN Reason: SALINE FLUSH Last Admin: 11/01/20 08:34 Dose: 20 ml Documented by: Thiamine HCl (Thiamine Hydrochloride 100 Mg Tablet) [facility] Last Admin: 11/01/20 08:34 Dose: 100 mg Documented by: Trazodone HCl (Trazodone 100 Mg Tablet) 100 mg PO QHS PRN PRN Reason: INSOMNIA Zolpidem Tartrate (Zolpidem Tartrate 5 Mg Tablet) 5 mg PO QHS PRN PRN PRN Reason: INSOMNIA Medical Necessity - Tobacco Use Smoking Status: Current every day smoker Tobacco Use: Cigarettes Assessment/Plan All Active Problems (Last Reviewed 08/19/20 @ 12:07 by Yen Hart BOTTOM FINISHER, BOTTOM FINISHER-C) Alcohol intoxication (Acute) Hypokalemia (Acute) Tobacco abuse (Acute) GI bleed (Acute) Blood loss anemia (Acute) Suicidal ideations (Acute) Suicide ideation (Acute) Impending alcohol withdrawal (Acute) Alcohol intoxication (Acute) Hypokalemia (Acute) 55-year-old male with anemia and melena, status post EGD?negative, plan colonoscopy Tuesday. Patient on clear on Tuesday for bowel prep. Patient is scheduled for colonoscopy with Dr. Kmi on Tuesday at noon. Mecca hWite M.D. Pager: [phone] [facility] [address] [place] [address], [facility], [address] [place] [address] Office: [phone] Inpatient E&M: [id number] [facility] L2
[2020-11-01] MEDS: Potassium Chloride Oral Tablet 20 MEQ 60 MEQ PO (10:14)
--- NOTE | 2020-11-01 11:02 | PN_ITS ---
Patient Problems: Active and Suspected Problems (Last Reviewed 08/19/20 @ 12:07 by Yen Hart DIRECTOR OF KNOWLEDGE MANAGEMENT, DIRECTOR OF KNOWLEDGE MANAGEMENT-C) Alcohol intoxication (Acute) Hypokalemia (Acute) Tobacco abuse (Acute) GI bleed (Acute) Blood loss anemia (Acute) Suicidal ideations (Acute) Suicide ideation (Acute) Impending alcohol withdrawal (Acute) Alcohol intoxication (Acute) Hypokalemia (Acute) Subjective: Feeling better today after the transfusions. His hemoglobin is stable at 8.8, will recheck in the morning. No issues overnight. Vitals/I&O's: Vital Signs Temp Pulse Resp BP Pulse Ox 97.8 F 97 20 H 120/81 H 93 11/01/20 08:00 11/01/20 08:00 11/01/20 08:00 11/01/20 08:00 11/01/20 08:00 Oxygen Flow Rate (L/min) 4 Oxygen Delivery Method Nasal Cannula Weight: 170 lb 10.205 oz Body Mass Index (BMI) 23.8 Intake and Output for Last 24 Hours 10/30/20 10/31/20 11/01/20 23:59 23:59 23:59 Intake Total 894.67 / 1294.67 2183.66 / 2183.66 Output Total 800 / 800 102 / 102 Balance 94.67 / 494.67 2081.66 / 2081.66 General: Alert, Oriented x3, Cooperative, No apparent distress HEENT: Atraumatic, PERRLA, EOMI, Normocephalic Oral: Dry Mucosa Neck: Supple, No JVD Lungs: Clear to auscultation, Normal air movement, No rhonchi, No wheeze, No rales Cardiovascular: Regular rate, Regular Rhythm, Normal S1, Normal S2, No murmurs Abdomen: Soft, Non Tender, Non-Distended, No Hepato-splenomegaly Extremities: Capillary Refill Less than 3 Seconds, Edema Skin: No rashes, No breakdown Neurological: Neuro grossly intact, Sensory exam intact to light touch and pain Psych/Mental Status: Normal Affect, Appropriate Microbiology Past 72 Hours 10/30/20 14:17 Mucosa - Nose SARS-CoV-2 Antigen (Rapid) - Final Laboratory Results 10/30/20 14:05: Diff Path Review Reviewed 10/30/20 14:30: Crossmatch See Detail 11/01/20 05:24: WBC 6.0, RBC 2.95 L, Hgb 8.8 L, Hct 27.9 L, MCV 94.6 H, MCH 29.8, MCHC 31.5 L, RDW Std Deviation 60.6 H, RDW Coeff of Violette 18.2 H, Plt Count 76 L, MPV 10.3, Immature Gran % (Auto) 0.800, Neut % (Auto) 84.8 H, Lymph % (Auto) 7.0 L, [place] % (Auto) 5.8, Eos % (Auto) 1.3, Baso % (Auto) 0.3, Absolute Neuts (auto) 5.1, Absolute Lymphs (auto) 0.42 L, Nucleated RBC % 0.3, Differential Comment SCANNED, Platelet Estimate MOD 11/01/20 05:24: Sodium 134 L, Potassium 3.1 L, Chloride 100, Carbon Dioxide 26.0, Anion Gap 8, BUN 5 L, Creatinine 0.36 L, Estim Creat Clear Calc 244.03, Est GFR (MDRD) Af Amer 328, Est GFR (MDRD) Non-Af 271, BUN/Creatinine Ratio 14.1, Glucose 76, Calcium 7.4 L, Total Bilirubin 1.80 H, AST 137 H, ALT 27, Alkaline Phosphatase 152 H, Total Protein 6.5, Albumin 2.1 L, Globulin 4.4 H, Albumin/Globulin Ratio 0.5 L 11/01/20 05:24: Magnesium 1.2 L Current Medications Acetaminophen (Acetaminophen 325 Mg Tablet) 650 mg PO Q6H PRN PRN PRN Reason: Pain Score 1-10/Temp > 100.7 F Albuterol/Ipratropium (Ipratropium/Albuterol Sulfate 3 Ml Ampul.Neb) 3 ml INHALATION Q6H.RT [facility] Last Admin: 11/01/20 07:14 Dose: 3 ml Documented by: Bisacodyl (Bisacodyl 5 Mg Tablet) 20 mg PO 1400 ONE Stop: 11/02/20 14:01 Calamine/Phenol (Menthol/Lanolin/Calamine/Znox 113 Gm Tube) 1 applic TOPICAL TID [facility]; Protocol Last Admin: 11/01/20 06:31 Dose: 1 applic Documented by: Dicyclomine HCl (Dicyclomine 10 Mg Capsule) 20 mg PO Q6H PRN PRN PRN Reason: abdominal discomfort Folic Acid (Folic Acid 1 Mg Tablet) 1 mg PO DAILY@0800 [facility] Last Admin: 11/01/20 08:34 Dose: 1 mg Documented by: Gabapentin (Gabapentin 300 Mg Capsule) 300 mg PO Q8H PRN PRN PRN Reason: moderate to severe anxiety Hydroxyzine Pamoate (Hydroxyzine Aditi 25 Mg Capsule) 50 mg PO Q4H PRN PRN PRN Reason: mild anxiety Sodium Chloride () 500 mls @ 15 mls/hr IV PRN PRN PRN Reason: Blood Transfusion Sodium Chloride () 250 mls @ 15 mls/hr IV .[id number] PRN PRN Reason: Saline Flush Last Infusion: 10/30/20 18:51 Dose: 0 mls/hr Documented by: Sodium Chloride () 250 mls @ 15 mls/hr IV .[id number] PRN PRN Reason: Additional IVPB Infusion Magnesium Sulfate () 4 gm in 100 mls @ 25 mls/hr IV X1 ONE Stop: 11/01/20 14:29 Loperamide HCl (Loperamide 2 Mg Capsule) 2 mg PO Q4H PRN PRN PRN Reason: LOOSE STOOLS Lorazepam (Lorazepam 1 Mg Tablet) 1 mg PO Q4H [facility]; Taper Stop: 11/04/20 01:59 Last Admin: 11/01/20 10:13 Dose: 1 mg Documented by: Nicotine (Nicotine 21 Mg Patch) 21 mg TD DAILY [facility] Last Admin: 11/01/20 08:35 Dose: 21 mg Documented by: Nutritional Formula (Lactose Free) (Ensure Clear 120 Ml Liquid) 120 ml PO TIDCM [facility] Last Admin: 11/01/20 08:42 Dose: Not Given Documented by: Ondansetron HCl (Ondansetron 4 Mg/2 Ml Vial) 4 mg IV Q8H PRN PRN PRN Reason: NAUSEA/VOMITING Last Admin: 10/31/20 21:44 Dose: 4 mg Documented by: Ondansetron HCl (Ondansetron 8 Mg Tablet) 8 mg PO Q8H PRN PRN PRN Reason: NAUSEA Pantoprazole Sodium (Pantoprazole Sodium 40 Mg Tablet) 40 mg PO DAILY [facility] Last Admin: 11/01/20 08:34 Dose: 40 mg Documented by: Polyethylene Glycol (Polyethylene Glycol 3350 Bowel Prep) 0 bottle PO DAILY@1600 ONE Stop: 11/02/20 16:01 Propranolol HCl (Propranolol 10 Mg Tablet) 20 mg PO BID [facility] Last Admin: 11/01/20 08:34 Dose: 20 mg Documented by: Sodium Chloride (0.9% Saline Lock 10 Ml Syringe) 10 - 40 ml IV UD PRN PRN Reason: SALINE FLUSH Last Admin: 11/01/20 08:34 Dose: 20 ml Documented by: Thiamine HCl (Thiamine Hydrochloride 100 Mg Tablet) 100 mg PO DAILYCM [facility] Last Admin: 11/01/20 08:34 Dose: 100 mg Documented by: Trazodone HCl (Trazodone 100 Mg Tablet) 100 mg PO QHS PRN PRN Reason: INSOMNIA Zolpidem Tartrate (Zolpidem Tartrate 5 Mg Tablet) 5 mg PO QHS PRN PRN PRN Reason: INSOMNIA STROKE Vital Signs/Narrative: Vital Signs Temp Pulse Resp BP Pulse Ox 11/01/20 08:00 97.8 F 97 20 H 120/81 H 93 11/01/20 07:14 101 H 18 95 Medical Necessity - Tobacco Use Smoking Status: Current every day smoker Tobacco Use: Cigarettes Assessment/Plan All Active Problems (Last Reviewed 08/19/20 @ 12:07 by Yen Hart DIRECTOR OF KNOWLEDGE MANAGEMENT, DIRECTOR OF KNOWLEDGE MANAGEMENT-C) Alcohol intoxication (Acute) Hypokalemia (Acute) Tobacco abuse (Acute) GI bleed (Acute) Blood loss anemia (Acute) Suicidal ideations (Acute) Suicide ideation (Acute) Impending alcohol withdrawal (Acute) Alcohol intoxication (Acute) Hypokalemia (Acute) 1. Acute on chronic blood loss anemia secondary to likely upper GI bleed -EGD was unremarkable we will plan for colonoscopy on Tuesday -He was transfused a total of 5 units PRBCs and is currently 8.8 -Appreciate general surgery assistance 2. Alcohol withdrawal/suicidal ideation/elevated LFTs -Continue with alcohol withdrawal protocol -The 180 as an outpatient -On admission he was having suicidal ideation with a plan to overdose on sleeping pills, however now that his withdrawal has improved crisis felt that he was safe as he is now denying any suicidal ideation -We will monitor his liver function, do appear to be improving likely secondary to alcohol use 3. HTN/chronic tachycardia -He is supposed to be on propranolol twice a day but he has not really been taking it -We will resume 4. Hypokalemia and severe hypomagnesemia -We will continue to monitor and replace as necessary 5. COPD/tobacco abuse -Not currently in exacerbation -Plan for DuoNebs every 6 hours as needed -Continue with nicotine patch, discussed cessation DVT: SCDs Inpatient E&M: [id number] Subs Hosp L2
[2020-11-01] MEDS: Magnesium Sulfate 4gm/100mL 4 GM/100 ML IV.SOLN. IV (11:32)
[2020-11-01] MEDS: Acetaminophen 325 MG Tablet 650 MG PO (19:46)
--- NOTE | 2020-11-01 19:58 | PCM.HOSP.N ---
Hospitalist Note I was called for the patient being hypoxic sats were 82% on room air. The patient also had a low-grade temp at 100.6 and was tachypneic. Chest x-ray was ordered. He was started on Unasyn. Per the nurse he smokes 3 packs/day and has been given scheduled aerosols. We will continue those. He was given 120 mg of Solu-Medrol IV push and started on 40 mg every 8 hours starting tomorrow morning. Sats were 97% on 6 L. Wean oxygen to keep sats greater than 92%.
[2020-11-01] MEDS: MethylPREDNISolone 125 MG/2 ML Vial IV (20:15)
[2020-11-02] VITALS (14 sets, daily range): BP systolic 115–122; BP diastolic 84–94; PULSE 86–104; RESP 18–25; TEMP 36.3–36.8; O2SAT 92–99
[2020-11-02] MEDS: LORazepam 1 MG Tablet 0.5 MG PO ×4 (02:17→19:56)
--- NOTE | 2020-11-02 05:05 | RAD_ITS ---
HISTORY: SOB EXAM: XR Chest 1 View: COMPARISON: October 30, 2020 FINDINGS: # of images incl. paperwork: 2 Multifocal bilateral airspace disease with some interstitial thickening is more severe. Benign calcified granuloma within the right lower hemithorax is unchanged. Heart is not enlarged. No acute osseous pathology perceived. Pulmonary vascularity is slightly indistinct. Likely left pleural effusion. RAD/Chest 1 View (Portable) IMPRESSION: Bilateral airspace disease consistent with pneumonia. Left pleural effusion and likely some minimal left basilar atelectasis is new or greater. In the setting of a global pandemic of Covid 19, this may represent Covid 19 pneumonia.. at 0659 Reported and signed by: Hira Mata MD Electronically Signed: Hira Mata MD at 6:58 EDT Tel , Service support ,
[2020-11-02 05:14] LABS: Absolute Lymphocyte Count 0.21 X10^3/uL (0.83-4.51); Absolute Neutrophil Count 5.7 X10^3/uL (2.0-7.7); Basophil# 0.01 X10^3/uL; Basophil% 0.2 % (0-1); Hemoglobin 9.8 g/dL (13.0-16.5); Lymphocyte # 0.21 X10^3/ul (4.0); Lymphocyte % 3.5 % (19-41); Mean Corp Hgb Conc 31.6 g/dL (32-36); Mean Corpuscular Volume 94.8 fL (80-94); Mean Platelet Vol. 11.6 fl (6.2-12.0); Monocyte# 0.07 X10^3/uL; Monocyte% 1.2 % (0-10); NRBC Flagged by Analyzer 0 % (0-5); Neutrophil # 5.69 X10^3/uL (2.7-7.7); Neutrophil % 94.3 % (47-70); POSITIVE COUNT YES; POSITIVE DIFFERENTIAL YES; Platelet Count 84 K/mm3 (150-450); RBC Distribution Width CV 17.8 % (11.6-14.6); RBC Distribution Width SD 59.7 fl (35.1-43.9); Red Blood Count 3.27 M/mm3 (4.6-6.2)
[2020-11-02 05:16] LABS: Differential Indicated SCAN CRITERIA MET
[2020-11-02 05:30] LABS: Anion Gap 11 (5-15); BUN 6 mg/dL (7-18); BUN/Creat Ratio 20.1 RATIO (10-20); Calcium,Total 7.7 mg/dL (8.5-10.1); Chloride 99 mmol/L (98-107); EST Glomerular Filtration Rate 332 mL/min (>60); Est Glom Filt Rate - Afr Amer 401 mL/min (>60); Estimated Creatinine Clearance 292.83 ml/min; Glucose 142 mg/dL (74-106); Magnesium 1.4 mg/dL (1.6-2.6); Phosphorus 4.2 mg/dL (2.5-4.9); Potassium 3.5 mmol/L (3.5-5.1); Sodium Level 133 mmol/L (136-145)
[2020-11-02] MEDS: 0.9% Saline Lock 10 ML Syringe IV (06:19)
[2020-11-02] MEDS: Ipratropium/Albuterol Sulfate 3 ML AMPUL.NEB INHALATION ×3 (07:22→19:21)
--- NOTE | 2020-11-02 08:42 | PCM.PN.SRG ---
Patient Problems: Active and Suspected Problems (Last Reviewed 08/19/20 @ 12:07 by Yen Hart TYING IN MACHINE OPERATOR, TYING IN MACHINE OPERATOR-C) Alcohol intoxication (Acute) Hypokalemia (Acute) Tobacco abuse (Acute) GI bleed (Acute) Blood loss anemia (Acute) Suicidal ideations (Acute) Suicide ideation (Acute) Impending alcohol withdrawal (Acute) Alcohol intoxication (Acute) Hypokalemia (Acute) Subjective: Patient had a ingram bowel movement, hemoglobins stable actually higher. Plan for colonoscopy tomorrow - Physical Exam Vitals/I&O's: Vital Signs Temp Pulse Resp BP Pulse Ox 98.2 F 94 22 H 118/85 H 92 11/02/20 06:00 11/02/20 07:22 11/02/20 07:22 11/02/20 06:00 11/02/20 07:22 Oxygen Flow Rate (L/min) 2 Oxygen Delivery Method Nasal Cannula Weight: 170 lb 10.205 oz Body Mass Index (BMI) 23.8 Intake and Output for Last 24 Hours 10/31/20 11/01/20 11/02/20 23:59 23:59 23:59 Intake Total 2183.66 / 2183.66 770 / 770 Output Total 102 / 102 450 / 450 Balance 2081.66 / 2081.66 320 / 320 General: Alert, Oriented x3, Cooperative, No apparent distress HEENT: Atraumatic Lungs: Normal air movement Cardiovascular: Regular rate Abdomen: Soft Microbiology Past 72 Hours 11/01/20 21:15 Urine, Clean Catch Legionella Antigen - Final 11/01/20 21:15 Urine, Random Streptococcus pneumoniae Antigen (M - Final 10/30/20 14:17 Mucosa - Nose SARS-CoV-2 Antigen (Rapid) - Final Laboratory Results 11/02/20 04:53: WBC 6.0, RBC 3.27 L, Hgb 9.8 L, Hct 31.0 L, MCV 94.8 H, MCH 30.0, MCHC 31.6 L, RDW Std Deviation 59.7 H, RDW Coeff of Violette 17.8 H, Plt Count 84 L, MPV 11.6, Immature Gran % (Auto) 0.800, Neut % (Auto) 94.3 H, Lymph % (Auto) 3.5 L, Mineral % (Auto) 1.2, Eos % (Auto) 0.0, Baso % (Auto) 0.2, Absolute Neuts (auto) 5.7, Absolute Lymphs (auto) 0.21 L, Nucleated RBC % 0 11/02/20 04:53: Sodium 133 L, Potassium 3.5, Chloride 99, Carbon Dioxide 23.0, Anion Gap 11, BUN 6 L, Creatinine 0.30 L, Estim Creat Clear Calc 292.83, Est GFR (MDRD) Af Amer 401, Est GFR (MDRD) Non-Af 332, BUN/Creatinine Ratio 20.1 H, Glucose 142 H, Calcium 7.7 L, Phosphorus 4.2, Magnesium 1.4 L Current Medications Acetaminophen (Acetaminophen 325 Mg Tablet) 650 mg PO Q6H PRN PRN PRN Reason: Pain Score 1-10/Temp > 100.7 F Last Admin: 11/01/20 19:46 Dose: 650 mg Documented by: Albuterol/Ipratropium (Ipratropium/Albuterol Sulfate 3 Ml Ampul.Neb) 3 ml INHALATION Q6H.RT REPLACED BY [facility] Last Admin: 11/01/20 23:44 Dose: 3 ml Documented by: Bisacodyl (Bisacodyl 5 Mg Tablet) 20 mg PO 1400 ONE Stop: 11/02/20 14:01 Calamine/Phenol (Menthol/Lanolin/Calamine/Znox 113 Gm Tube) 1 applic TOPICAL TID REPLACED BY [facility]; Protocol Last Admin: 11/02/20 06:36 Dose: Not Given Documented by: Dicyclomine HCl (Dicyclomine 10 Mg Capsule) 20 mg PO Q6H PRN PRN PRN Reason: abdominal discomfort Folic Acid (Folic Acid 1 Mg Tablet) 1 mg PO DAILY@0800 REPLACED BY [facility] Last Admin: 11/01/20 08:34 Dose: 1 mg Documented by: Gabapentin (Gabapentin 300 Mg Capsule) 300 mg PO Q8H PRN PRN PRN Reason: moderate to severe anxiety Hydroxyzine Pamoate (Hydroxyzine Aditi 25 Mg Capsule) 50 mg PO Q4H PRN PRN PRN Reason: mild anxiety Sodium Chloride () 500 mls @ 15 mls/hr IV PRN PRN PRN Reason: Blood Transfusion Sodium Chloride () 250 mls @ 15 mls/hr IV .[id number] PRN PRN Reason: Saline Flush Last Infusion: 10/30/20 18:51 Dose: 0 mls/hr Documented by: Sodium Chloride () 250 mls @ 15 mls/hr IV .[id number] PRN PRN Reason: Additional IVPB Infusion Magnesium Sulfate () 4 gm in 100 mls @ 25 mls/hr IV X1 ONE Stop: 11/02/20 11:59 Loperamide HCl (Loperamide 2 Mg Capsule) 2 mg PO Q4H PRN PRN PRN Reason: LOOSE STOOLS Lorazepam (Lorazepam 1 Mg Tablet) 1 mg PO Q6H REPLACED BY [facility]; Taper Stop: 11/04/20 01:59 Last Admin: 11/02/20 02:17 Dose: 1 mg Documented by: Methylprednisolone (Methylprednisolone 40 Mg/Ml Vial) 40 mg IV Q8 REPLACED BY [facility] Last Admin: 11/02/20 06:19 Dose: 40 mg Documented by: Nicotine (Nicotine 21 Mg Patch) 21 mg TD DAILY REPLACED BY [facility] Last Admin: 11/01/20 08:35 Dose: 21 mg Documented by: Nutritional Formula (Lactose Free) (Ensure Clear 120 Ml Liquid) 120 ml PO TIDCM REPLACED BY [facility] Last Admin: 11/01/20 16:31 Dose: Not Given Documented by: Ondansetron HCl (Ondansetron 4 Mg/2 Ml Vial) 4 mg IV Q8H PRN PRN PRN Reason: NAUSEA/VOMITING Last Admin: 10/31/20 21:44 Dose: 4 mg Documented by: Ondansetron HCl (Ondansetron 8 Mg Tablet) 8 mg PO Q8H PRN PRN PRN Reason: NAUSEA Pantoprazole Sodium (Pantoprazole Sodium 40 Mg Tablet) 40 mg PO DAILY REPLACED BY [facility] Last Admin: 11/01/20 08:34 Dose: 40 mg Documented by: Polyethylene Glycol (Polyethylene Glycol 3350 Bowel Prep) 0 bottle PO DAILY@1600 ONE Stop: 11/02/20 16:01 Propranolol HCl (Propranolol 10 Mg Tablet) 20 mg PO BID REPLACED BY [facility] Last Admin: 11/01/20 21:08 Dose: 20 mg Documented by: Sodium Chloride (0.9% Saline Lock 10 Ml Syringe) 10 - 40 ml IV UD PRN PRN Reason: SALINE FLUSH Last Admin: 11/02/20 06:19 Dose: 10 ml Documented by: Thiamine HCl (Thiamine Hydrochloride 100 Mg Tablet) 100 mg PO DAILYCM REPLACED BY [facility] Last Admin: 11/01/20 08:34 Dose: 100 mg Documented by: Trazodone HCl (Trazodone 100 Mg Tablet) 100 mg PO QHS PRN PRN Reason: INSOMNIA Zolpidem Tartrate (Zolpidem Tartrate 5 Mg Tablet) 5 mg PO QHS PRN PRN PRN Reason: INSOMNIA Medical Necessity - Tobacco Use Smoking Status: Current every day smoker Tobacco Use: Cigarettes Assessment/Plan All Active Problems (Last Reviewed 08/19/20 @ 12:07 by Yen Hart TYING IN MACHINE OPERATOR, TYING IN MACHINE OPERATOR-C) Alcohol intoxication (Acute) Hypokalemia (Acute) Tobacco abuse (Acute) GI bleed (Acute) Blood loss anemia (Acute) Suicidal ideations (Acute) Suicide ideation (Acute) Impending alcohol withdrawal (Acute) Alcohol intoxication (Acute) Hypokalemia (Acute) 55-year-old male with anemia and melena, status post EGD?negative, plan colonoscopy Tuesday. Bowel prep today. Patient is scheduled for colonoscopy with Dr. Kim on Tuesday at noon. Mecca White M.D. Pager: [phone] [facility] [address] [place] [address], [facility], [address] [place] [address] Office: [phone] Inpatient E&M: [id number] [facility] Hosp L2
--- NOTE | 2020-11-02 09:08 | PN_ITS ---
Patient Problems: Active and Suspected Problems (Last Reviewed 08/19/20 @ 12:07 by Yen Hart WOOD BOATBUILDER APPRENTICE, WOOD BOATBUILDER APPRENTICE-C) Alcohol intoxication (Acute) Hypokalemia (Acute) Tobacco abuse (Acute) GI bleed (Acute) Blood loss anemia (Acute) Suicidal ideations (Acute) Suicide ideation (Acute) Impending alcohol withdrawal (Acute) Alcohol intoxication (Acute) Hypokalemia (Acute) Subjective: Had an episode of hypoxia last night that was felt to be a COPD issue versus possible aspiration. Chest x-ray did not demonstrate a consolidation and he was started on steroids. He is back down to 2 L nasal cannula this morning. Vitals/I&O's: Vital Signs Temp Pulse Resp BP Pulse Ox 98.2 F 94 22 H 118/85 H 95 11/02/20 06:00 11/02/20 07:22 11/02/20 07:22 11/02/20 06:00 11/02/20 07:57 Oxygen Flow Rate (L/min) 2 Oxygen Delivery Method Nasal Cannula Weight: 170 lb 10.205 oz Body Mass Index (BMI) 23.8 Intake and Output for Last 24 Hours 10/31/20 11/01/20 11/02/20 23:59 23:59 23:59 Intake Total 2183.66 / 2183.66 770 / 770 / Output Total 102 / 102 450 / 450 Balance 2081.66 / 2081.66 320 / 320 General: Alert, Oriented x3, Cooperative, No apparent distress HEENT: Atraumatic, PERRLA, EOMI, Normocephalic Oral: Dry Mucosa Neck: Supple, No JVD Lungs: Clear to auscultation, Normal air movement, No rhonchi, No wheeze, No rales Cardiovascular: Regular rate, Regular Rhythm, Normal S1, Normal S2, No murmurs Abdomen: Soft, Non Tender, Non-Distended, No Hepato-splenomegaly Extremities: Capillary Refill Less than 3 Seconds, Edema Skin: No rashes, No breakdown Neurological: Neuro grossly intact, Sensory exam intact to light touch and pain Psych/Mental Status: Normal Affect, Appropriate Microbiology Past 72 Hours 11/01/20 21:15 Urine, Clean Catch Legionella Antigen - Final 11/01/20 21:15 Urine, Random Streptococcus pneumoniae Antigen (M - Final 10/30/20 14:17 Mucosa - Nose SARS-CoV-2 Antigen (Rapid) - Final Laboratory Results 11/02/20 04:53: WBC 6.0, RBC 3.27 L, Hgb 9.8 L, Hct 31.0 L, MCV 94.8 H, MCH 30.0, MCHC 31.6 L, RDW Std Deviation 59.7 H, RDW Coeff of Violette 17.8 H, Plt Count 84 L, MPV 11.6, Immature Gran % (Auto) 0.800, Neut % (Auto) 94.3 H, Lymph % (Auto) 3.5 L, Baxter % (Auto) 1.2, Eos % (Auto) 0.0, Baso % (Auto) 0.2, Absolute Neuts (auto) 5.7, Absolute Lymphs (auto) 0.21 L, Nucleated RBC % 0 11/02/20 04:53: Sodium 133 L, Potassium 3.5, Chloride 99, Carbon Dioxide 23.0, Anion Gap 11, BUN 6 L, Creatinine 0.30 L, Estim Creat Clear Calc 292.83, Est GFR (MDRD) Af Amer 401, Est GFR (MDRD) Non-Af 332, BUN/Creatinine Ratio 20.1 H, Glucose 142 H, Calcium 7.7 L, Phosphorus 4.2, Magnesium 1.4 L Current Medications Acetaminophen (Acetaminophen 325 Mg Tablet) 650 mg PO Q6H PRN PRN PRN Reason: Pain Score 1-10/Temp > 100.7 F Last Admin: 11/01/20 19:46 Dose: 650 mg Documented by: Albuterol/Ipratropium (Ipratropium/Albuterol Sulfate 3 Ml Ampul.Neb) 3 ml INHALATION Q6H.RT JIM Last Admin: 11/02/20 07:22 Dose: 3 ml Documented by: Bisacodyl (Bisacodyl 5 Mg Tablet) 20 mg PO 1400 ONE Stop: 11/02/20 14:01 Calamine/Phenol (Menthol/Lanolin/Calamine/Znox 113 Gm Tube) 1 applic TOPICAL TID JIM; Protocol Last Admin: 11/02/20 06:36 Dose: Not Given Documented by: Dicyclomine HCl (Dicyclomine 10 Mg Capsule) 20 mg PO Q6H PRN PRN PRN Reason: abdominal discomfort Folic Acid (Folic Acid 1 Mg Tablet) 1 mg PO DAILY@0800 [facility] Last Admin: 11/01/20 08:34 Dose: 1 mg Documented by: Gabapentin (Gabapentin 300 Mg Capsule) 300 mg PO Q8H PRN PRN PRN Reason: moderate to severe anxiety Hydroxyzine Pamoate (Hydroxyzine Aditi 25 Mg Capsule) 50 mg PO Q4H PRN PRN PRN Reason: mild anxiety Sodium Chloride () 500 mls @ 15 mls/hr IV PRN PRN PRN Reason: Blood Transfusion Sodium Chloride () 250 mls @ 15 mls/hr IV .[id number] PRN PRN Reason: Saline Flush Last Infusion: 10/30/20 18:51 Dose: 0 mls/hr Documented by: Sodium Chloride () 250 mls @ 15 mls/hr IV .[id number] PRN PRN Reason: Additional IVPB Infusion Magnesium Sulfate () 4 gm in 100 mls @ 25 mls/hr IV X1 ONE Stop: 11/02/20 11:59 Loperamide HCl (Loperamide 2 Mg Capsule) 2 mg PO Q4H PRN PRN PRN Reason: LOOSE STOOLS Lorazepam (Lorazepam 1 Mg Tablet) 1 mg PO Q6H [facility]; Taper Stop: 11/04/20 01:59 Last Admin: 11/02/20 02:17 Dose: 1 mg Documented by: Methylprednisolone (Methylprednisolone 40 Mg/Ml Vial) 40 mg IV Q8 [facility] Last Admin: 11/02/20 06:19 Dose: 40 mg Documented by: Nicotine (Nicotine 21 Mg Patch) 21 mg TD DAILY [facility] Last Admin: 11/01/20 08:35 Dose: 21 mg Documented by: Nutritional Formula (Lactose Free) (Ensure Clear 120 Ml Liquid) 120 ml PO TIDCM [facility] Last Admin: 11/01/20 16:31 Dose: Not Given Documented by: Ondansetron HCl (Ondansetron 4 Mg/2 Ml Vial) 4 mg IV Q8H PRN PRN PRN Reason: NAUSEA/VOMITING Last Admin: 10/31/20 21:44 Dose: 4 mg Documented by: Ondansetron HCl (Ondansetron 8 Mg Tablet) 8 mg PO Q8H PRN PRN PRN Reason: NAUSEA Pantoprazole Sodium (Pantoprazole Sodium 40 Mg Tablet) 40 mg PO DAILY [facility] Last Admin: 11/01/20 08:34 Dose: 40 mg Documented by: Polyethylene Glycol (Polyethylene Glycol 3350 Bowel Prep) 0 bottle PO DAILY@1600 ONE Stop: 11/02/20 16:01 Propranolol HCl (Propranolol 10 Mg Tablet) 20 mg PO BID [facility] Last Admin: 11/01/20 21:08 Dose: 20 mg Documented by: Sodium Chloride (0.9% Saline Lock 10 Ml Syringe) 10 - 40 ml IV UD PRN PRN Reason: SALINE FLUSH Last Admin: 11/02/20 06:19 Dose: 10 ml Documented by: Thiamine HCl (Thiamine Hydrochloride 100 Mg Tablet) 100 mg PO DAILYCM [facility] Last Admin: 11/01/20 08:34 Dose: 100 mg Documented by: Trazodone HCl (Trazodone 100 Mg Tablet) 100 mg PO QHS PRN PRN Reason: INSOMNIA Zolpidem Tartrate (Zolpidem Tartrate 5 Mg Tablet) 5 mg PO QHS PRN PRN PRN Reason: INSOMNIA STROKE Vital Signs/Narrative: Vital Signs Temp Pulse Resp BP Pulse Ox 11/02/20 07:57 95 11/02/20 07:22 94 22 H 92 11/02/20 07:00 87 11/02/20 06:00 98.2 F 86 24 H 118/85 H 97 Medical Necessity - Tobacco Use Smoking Status: Current every day smoker Tobacco Use: Cigarettes Assessment/Plan All Active Problems (Last Reviewed 08/19/20 @ 12:07 by Yen Hart WOOD BOATBUILDER APPRENTICE, WOOD BOATBUILDER APPRENTICE-C) Alcohol intoxication (Acute) Hypokalemia (Acute) Tobacco abuse (Acute) GI bleed (Acute) Blood loss anemia (Acute) Suicidal ideations (Acute) Suicide ideation (Acute) Impending alcohol withdrawal (Acute) Alcohol intoxication (Acute) Hypokalemia (Acute) 1. Acute on chronic blood loss anemia secondary to likely upper GI bleed -EGD was unremarkable we will plan for colonoscopy on Tuesday -He was transfused a total of 5 units PRBCs and is currently 9.8 -Appreciate general surgery assistance -He had a ingram stool today 2. Alcohol withdrawal/suicidal ideation/elevated LFTs -Continue with alcohol withdrawal protocol -The 180 as an outpatient -On admission he was having suicidal ideation with a plan to overdose on sleeping pills, however now that his withdrawal has improved crisis felt that he was safe as he is now denying any suicidal ideation -We will monitor his liver function, do appear to be improving likely secondary to alcohol use 3. HTN/chronic tachycardia -He is supposed to be on propranolol twice a day but he has not really been taking it -We will resume 4. Hypokalemia and severe hypomagnesemia -We will continue to monitor and replace as necessary 5. COPD/tobacco abuse -He did have an episode of acute worsening hypoxia yesterday thought to be either aspiration or the onset of COPD exacerbation. He was given a dose of high-dose steroids and today he is back to 2 L nasal cannula. Will place him on prednisone 40 mg p.o. daily -Plan for DuoNebs every 6 hours as needed -Continue with nicotine patch, discussed cessation DVT: SCDs Inpatient E&M: [id number] Subs Hosp L2
[2020-11-02] MEDS: Propranolol 10 MG Tablet 20 MG PO ×2 (09:48→21:29)
[2020-11-02] MEDS: Magnesium Sulfate 4gm/100mL 4 GM/100 ML IV.SOLN. IV (09:48)
[2020-11-02] MEDS: Folic Acid 1 MG Tablet PO (09:48)
[2020-11-02] MEDS: Pantoprazole Sodium 40 MG Tablet PO (09:48)
[2020-11-02] MEDS: Thiamine Hydrochloride 100 MG Tablet PO (09:48)
[2020-11-02] MEDS: Acetaminophen 325 MG Tablet 650 MG PO (09:49)
[2020-11-02] MEDS: Bisacodyl 5 MG Tablet 20 MG PO (14:23)
[2020-11-02] MEDS: Menthol/Lanolin/Calamine/Znox 113 GM Tube 1 APPLIC TOPICAL (14:23)
[2020-11-02] MEDS: Polyethylene Glycol 3350 BOWEL PREP PO (16:03)
[2020-11-03] VITALS (21 sets, daily range): BP systolic 100–123; BP diastolic 76–92; PULSE 88–109; RESP 16–20; TEMP 36.2–37.1; O2SAT 88–98; BMI 23.8
--- NOTE | 2020-11-03 | COLBX_PTH ---
PATIENT: MATTY WAGNER LOC: [facility] U#:[id number] AGE/SX: 55/M ROOM: [facility] RE10/30/[address]: Dr. Olu Esteban MD : [id number] BED: 1 DIS: 11/05/2020 SPEC #: [id number] RECD: 11/03/20 12:56 STATUS: RK WILLIS #: [id number] ELKE: 11/03/20 00:[address]: Chapito Kim DEPT: SURGICAL PATHOLOGY RECD BY: José Miguel Hopkins ENTERED: 11/04/20 07:47 SP TYPE: COLON BX OTHR DR: MD Dr. Rickey Patricia MD Dr. Ghasem E Ashelfah, MD Dr. Prakash Chand, MD Tissues: Sigmoid colon biopsy Procedures: Surgery Specimen Level IV Comments: @ Ordering doctor for SUIV edited from to @ toro QUIROGA at 11/04/20928 @ Submitting doctor edited from to @ by KIMBER at 11/04/20928 HEADER OPERATION: Colonoscopy (MAC) PRE-OP DIAGNOSIS: GI bleed, anemia TISSUE SUBMITTED: Sigmoid colon polyps x2 MICROSCOPIC DIAGNOSIS Sigmoid colon polyps, biopsy: Fragments of hyperplastic polyp. AM:[email or web address] 11/05/2020 MICROSCOPIC DESCRIPTION Slides are reviewed. GROSS DESCRIPTION Received in fixative is one container labeled with the patient's name and designated sigmoid colon polyp x2. The specimen consists of a piece of ingram-pink polyp measuring 0.5 x 0.4 x 0.3 cm. The specimen is totally submitted in one cassette. Only one polyp is noted in the specimen. / SJ:katarzyna 11/04/20 TC:5 [facility]: [id number]
[2020-11-03] MEDS: Ipratropium/Albuterol Sulfate 3 ML AMPUL.NEB INHALATION ×3 (00:31→19:29)
[2020-11-03] MEDS: LORazepam 1 MG Tablet 0.5 MG PO ×4 (02:40→20:02)
--- NOTE | 2020-11-03 05:55 | EKG12_ITS ---
Test Reason : PRE-OP Blood Pressure : / mmHG Vent. Rate : 104 BPM Atrial Rate : 104 BPM P-R Int : 154 ms QRS Dur : 080 ms QT Int : 402 ms P-R-T Axes : 061 049 083 degrees QTc Int : 528 ms Sinus tachycardia with Premature atrial complexes Septal infarct (cited on or before 06-JUN-2012) T wave abnormality, consider anterior ischemia Prolonged QT Abnormal ECG When compared with ECG of 30-OCT-2020 13:44, Premature atrial complexes are now Present T wave inversion now evident in Anterior leads Nonspecific T wave abnormality, improved in Lateral leads Confirmed by YESIKA REYES, GRISELDA ([id number]), publication editor DYLAN FARIAS ([id number]) on 11/07/2020 3:07:33 PM Referred By: DIETER Confirmed By:GRISELDA NAPOLES MD
[2020-11-03 06:10] LABS: Absolute Lymphocyte Count 0.46 X10^3/uL (0.83-4.51); Absolute Neutrophil Count 5.1 X10^3/uL (2.0-7.7); Basophil# 0.01 X10^3/uL; Basophil% 0.2 % (0-1); Eosinophil# 0.02 X10^3/uL; Eosinophils% 0.3 % (0-5); Hematocrit 29.3 % (40-54); Hemoglobin 9.3 g/dL (13.0-16.5); Lymphocyte # 0.46 X10^3/ul (4.0); Lymphocyte % 7.6 % (19-41); Mean Corp Hgb Conc 31.7 g/dL (32-36); Mean Corpuscular Volume 94.5 fL (80-94); Mean Platelet Vol. 11.2 fl (6.2-12.0); Monocyte# 0.39 X10^3/uL; Monocyte% 6.5 % (0-10); NRBC Flagged by Analyzer 0 % (0-5); Neutrophil # 5.11 X10^3/uL (2.7-7.7); Neutrophil % 84.9 % (47-70); POSITIVE DIFFERENTIAL YES; Platelet Count 102 K/mm3 (150-450); RBC Distribution Width CV 18.2 % (11.6-14.6); RBC Distribution Width SD 59.4 fl (35.1-43.9)
[2020-11-03 06:12] LABS: Differential Indicated SCAN CRITERIA MET
[2020-11-03 06:18] LABS: International Normalized Ratio 1.2; Prothrombin Time (Protime)PT. 14.7 SECONDS (11.7-14.9)
[2020-11-03 06:19] LABS: Partial Thromboplast Time 30.3 Seconds (24.1-36.2)
[2020-11-03 06:48] LABS: ALB/GLOB Ratio 0.5 RATIO (0.9-2.4); AST(SGOT) 84 U/L (15-37); Alanine Aminotransfer ALT/SGPT 26 U/L (16-61); Albumin, Serum 2.1 g/dL (3.2-5.0); Alkaline Phosphatase 130 U/L (45-117); Anion Gap 9 (5-15); BUN 5 mg/dL (7-18); BUN/Creat Ratio 13.4 RATIO (10-20); Bilirubin, Direct 0.87 mg/dL (0.00-0.30); Calcium,Total 7.8 mg/dL (8.5-10.1); Chloride 101 mmol/L (98-107); Creatinine, Serum 0.37 mg/dL (0.70-1.30); EST Glomerular Filtration Rate 256 mL/min (>60); Est Glom Filt Rate - Afr Amer 310 mL/min (>60); Estimated Creatinine Clearance 237.43 ml/min; Globulin 4.3 g/dL (2.2-4.2); Glucose 94 mg/dL (74-106); Potassium 2.7 mmol/L (3.5-5.1); Protein, Total 6.4 g/dL (6.4-8.2); Sodium Level 135 mmol/L (136-145)
[2020-11-03 07:18] LABS: Magnesium 1.1 mg/dL (1.6-2.6)
--- NOTE | 2020-11-03 07:53 | PN_ITS ---
Patient Problems: Active and Suspected Problems (Last Reviewed 08/19/20 @ 12:07 by Yen Hart HUMAN FACTORS ADVISOR LEAD, HUMAN FACTORS ADVISOR LEAD-C) Alcohol intoxication (Acute) Hypokalemia (Acute) Tobacco abuse (Acute) GI bleed (Acute) Blood loss anemia (Acute) Suicidal ideations (Acute) Suicide ideation (Acute) Impending alcohol withdrawal (Acute) Alcohol intoxication (Acute) Hypokalemia (Acute) Reason for Visit: Patient admitted for anemia. Plan for colonoscopy today Objective: History of chronic alcohol use with alcoholic hepatitis. Patient had one-time black tarry stool but he stopped after that. H&H 9.3. K2.7.. EGD reported normal therefore colonoscopy is scheduled. General: Alert, Oriented x3, Cooperative HEENT: Atraumatic, PERRLA, EOMI, Normocephalic Oral: No Gingival or Mucosal Lesions/ Ulcerations Neck: Supple, No JVD, Negative Carotid Bruits Lungs: Air entry diminished in bilateral lung bases. No crepitation/rhonchi Cardiovascular: Regular rate, Regular Rhythm, Normal S1, Normal S2, No murmurs Abdomen: Scaphoid abdomen. Bowel Sounds Present, Soft, Non Tender, Non- Distended : No renal angle tenderness. No suprapubic tenderness. Extremities: No edema, Capillary Refill Less than 3 Seconds Skin: No rashes, No breakdown Musculoskeletal: Moderate muscle atrophy of extremities. No Tenderness to Palpation of Joints or Extremities Neurological: Cranial nerves II-XII grossly intact, Deep Tendon Reflexes 2+/4 and Symmetrical, Neuro grossly intact Psych/Mental Status: Normal Affect, Appropriate. Vitals/I&O's: Vital Signs Temp Pulse Resp BP Pulse Ox 97.7 F L 100 18 112/81 H 95 11/03/20 04:16 11/03/20 07:00 11/03/20 04:16 11/03/20 04:16 11/03/20 04:16 Oxygen Flow Rate (L/min) 2 Oxygen Delivery Method Nasal Cannula Weight: 170 lb 10.205 oz Body Mass Index (BMI) 23.8 Intake and Output for Last 24 Hours 11/01/20 11/02/20 11/03/20 23:59 23:59 23:59 Intake Total 770 / 770 1625 / 1625 0 / 0 Output Total 450 / 450 200 / 200 350 / 350 Balance 320 / 320 1425 / 1425 -350 / -350 Microbiology Past 72 Hours 11/01/20 21:02 Sputum, Expectorated/Coughed Gram Stain - Final 11/01/20 21:15 Urine, Clean Catch Legionella Antigen - Final 11/01/20 21:15 Urine, Random Streptococcus pneumoniae Antigen (M - Final Laboratory Results 11/03/20 05:56: WBC 6.0, RBC 3.10 L, Hgb 9.3 L, Hct 29.3 L, MCV 94.5 H, MCH 30.0, MCHC 31.7 L, RDW Std Deviation 59.4 H, RDW Coeff of Violette 18.2 H, Plt Count 102 L, MPV 11.2, Immature Gran % (Auto) 0.500, Neut % (Auto) 84.9 H, Lymph % (Auto) 7.6 L, Towner % (Auto) 6.5, Eos % (Auto) 0.3, Baso % (Auto) 0.2, Absolute Neuts (auto) 5.1, Absolute Lymphs (auto) 0.46 L, Nucleated RBC % 0 11/03/20 05:56: Sodium 135 L, Potassium 2.7 L*, Chloride 101, Carbon Dioxide 25.0, Anion Gap 9, BUN 5 L, Creatinine 0.37 L, Estim Creat Clear Calc 237.43, Est GFR (MDRD) Af Amer 310, Est GFR (MDRD) Non-Af 256, BUN/Creatinine Ratio 13.4, Glucose 94, Calcium 7.8 L, Total Bilirubin 1.30 H, Direct Bilirubin 0.87 H , AST 84 H, ALT 26, Alkaline Phosphatase 130 H, Total Protein 6.4, Albumin 2.1 L , Globulin 4.3 H, Albumin/Globulin Ratio 0.5 L 11/03/20 05:56: PT 14.7, INR 1.2, APTT 30.3 11/03/20 05:56: Magnesium 1.1 L Current Medications Acetaminophen (Acetaminophen 325 Mg Tablet) 650 mg PO Q6H PRN PRN PRN Reason: Pain Score 1-10/Temp > 100.7 F Last Admin: 11/02/20 09:49 Dose: 650 mg Documented by: Albuterol/Ipratropium (Ipratropium/Albuterol Sulfate 3 Ml Ampul.Neb) 3 ml INHALATION Q6H.RT JIM Last Admin: 11/03/20 06:49 Dose: 3 ml Documented by: Calamine/Phenol (Menthol/Lanolin/Calamine/Znox 113 Gm Tube) 1 applic TOPICAL TID [facility]; Protocol Last Admin: 11/03/20 05:01 Dose: Not Given Documented by: Dicyclomine HCl (Dicyclomine 10 Mg Capsule) 20 mg PO Q6H PRN PRN PRN Reason: abdominal discomfort Folic Acid (Folic Acid 1 Mg Tablet) 1 mg PO DAILY@0800 [facility] Last Admin: 11/02/20 09:48 Dose: 1 mg Documented by: Gabapentin (Gabapentin 300 Mg Capsule) 300 mg PO Q8H PRN PRN PRN Reason: moderate to severe anxiety Hydroxyzine Pamoate (Hydroxyzine Aditi 25 Mg Capsule) 50 mg PO Q4H PRN PRN PRN Reason: mild anxiety Sodium Chloride () 500 mls @ 15 mls/hr IV PRN PRN PRN Reason: Blood Transfusion Sodium Chloride () 250 mls @ 15 mls/hr IV .[id number] PRN PRN Reason: Saline Flush Last Infusion: 10/30/20 18:51 Dose: 0 mls/hr Documented by: Sodium Chloride () 250 mls @ 15 mls/hr IV .[id number] PRN PRN Reason: Additional IVPB Infusion Potassium Chloride () 10 meq in 100 mls @ 100 mls/hr IV BOLUS Q1H [facility] Stop: 11/03/20 11:59 Potassium Chloride 40 meq/ (Sodium Chloride) 1,020 mls @ 75 mls/hr IV .[id number] [facility] Magnesium Sulfate () 4 gm in 100 mls @ 25 mls/hr IV X1 ONE Stop: 11/03/20 11:51 Loperamide HCl (Loperamide 2 Mg Capsule) 2 mg PO Q4H PRN PRN PRN Reason: LOOSE STOOLS Lorazepam (Lorazepam 1 Mg Tablet) 0.5 mg PO Q6H [facility]; Taper Stop: 11/04/20 01:59 Last Admin: 11/03/20 02:40 Dose: 0.5 mg Documented by: Nicotine (Nicotine 21 Mg Patch) 21 mg TD DAILY [facility] Last Admin: 11/02/20 09:49 Dose: 21 mg Documented by: Nutritional Formula (Lactose Free) (Ensure Clear 120 Ml Liquid) 120 ml PO TIDCM [facility] Last Admin: 11/02/20 16:12 Dose: Not Given Documented by: Ondansetron HCl (Ondansetron 4 Mg/2 Ml Vial) 4 mg IV Q8H PRN PRN PRN Reason: NAUSEA/VOMITING Last Admin: 10/31/20 21:44 Dose: 4 mg Documented by: Ondansetron HCl (Ondansetron 8 Mg Tablet) 8 mg PO Q8H PRN PRN PRN Reason: NAUSEA Pantoprazole Sodium (Pantoprazole Sodium 40 Mg Tablet) 40 mg PO DAILY [facility] Last Admin: 11/02/20 09:48 Dose: 40 mg Documented by: Prednisone (Prednisone 20 Mg Tablet) 40 mg PO DAILY@0800 [facility] Propranolol HCl (Propranolol 10 Mg Tablet) 20 mg PO BID [facility] Last Admin: 11/02/20 21:29 Dose: 20 mg Documented by: Sodium Chloride (0.9% Saline Lock 10 Ml Syringe) 10 - 40 ml IV UD PRN PRN Reason: SALINE FLUSH Last Admin: 11/02/20 06:19 Dose: 10 ml Documented by: Thiamine HCl ([facility] Hydrochloride 100 Mg Tablet) [facility] Last Admin: 11/02/20 09:48 Dose: 100 mg Documented by: Trazodone HCl (Trazodone 100 Mg Tablet) 100 mg PO QHS PRN PRN Reason: INSOMNIA Zolpidem Tartrate (Zolpidem Tartrate 5 Mg Tablet) 5 mg PO QHS PRN PRN PRN Reason: INSOMNIA STROKE Vital Signs/Narrative: Vital Signs Temp Pulse Resp BP Pulse Ox 11/03/20 07:00 100 11/03/20 04:16 97.7 F L 100 18 112/81 H 95 Medical Necessity - Tobacco Use Smoking Status: Current every day smoker Tobacco Use: Cigarettes Assessment/Plan All Active Problems (Last Reviewed 08/19/20 @ 12:07 by Yen Hart HUMAN FACTORS ADVISOR LEAD, HUMAN FACTORS ADVISOR LEAD-C) Alcohol intoxication (Acute) Hypokalemia (Acute) Tobacco abuse (Acute) GI bleed (Acute) Blood loss anemia (Acute) Suicidal ideations (Acute) Suicide ideation (Acute) Impending alcohol withdrawal (Acute) Alcohol intoxication (Acute) Hypokalemia (Acute) 1. Acute on chronic blood loss anemia secondary to likely transient upper GI bleed which might have been stopped: EGD unremarkable. Colonoscopy reported 3 small polyps in the rectum and in the sigmoid colon removed. Exam was normal otherwise. -He was transfused a total of 5 units PRBCs and is currently 9.8. Discussed with the surgeon. At one time black tarry stool before admission and 1 probably yesterday as per documentation. 2. Acute alcohol withdrawal/suicidal ideation with history of chronic alcohol use and dependence and tolerance: Patient on alcohol withdrawal protocol. Follow-up on ADD as an outpatient. Patient denies any suicidal ideation although he had at time of admission. Patient had history of alcoholic fatty liver which is progressed to alcoholic hepatitis. AST 84, ALT 26, improving. Total bili improved from 1.8-1.3. Alkaline phosphatase 130. Right upper quadrant sonogram ordered. Last abdominal ultrasound in June 2019 reported as fatty infiltration of liver with multiple tiny gallstones and sludge in the gallbladder lumen. 3. Hypertension and chronic tachycardia is due to chronic alcohol use: Pressure and heart rate are better controlled although heart rate is still in the low 1 00s. Propranolol was increased to 40 mg twice daily with holding parameters 4. Severe hypokalemia and severe hypomagnesemia: Potassium 2.7 and magnesium 1.3: Getting replaced. 5. COPD exacerbation most probably due to gram-negative rods, possible Haemophilus and alpha hemolytic Streptococcus bilateral lateral pneumonia left pleural effusion: Started on IV ceftriaxone. Patient had chest x-ray shows bilateral infiltrates individually reviewed which has worsened since previous chest x-ray on 10/30. On bronchodilator and prednisone. Nicotine patch. Sputum culture shows alpha hemolytic Streptococcus and gram-negative dmitriy possible Haemophilus species. Rapid antigen SARS-CoV-2 and urinary antigens are negative. DVT: SCDs Total time of the visit including total time spent in counseling or coordination of care, (more than 50% of the total time, spent in obtaining medical information from nurses and other ancillary care providers,explaining to the patient about labs, imaging, diagnosis and management), question with consultants, review of labs and imaging is 30 minutes. Microbiology Past 72 Hours 11/01/20 21:02 Sputum, Expectorated/Coughed Gram Stain - Final 11/01/20 21:02 Sputum, Expectorated/Coughed Respiratory Culture - Preliminary Alpha Hemolytic Streptococcus GNR PossibleHaemophilus sp. 11/01/20 21:15 Urine, Clean Catch Legionella Antigen - Final 11/01/20 21:15 Urine, Random Streptococcus pneumoniae Antigen (M - Final Laboratory Results 11/03/20 05:56: WBC 6.0, RBC 3.10 L, Hgb 9.3 L, Hct 29.3 L, MCV 94.5 H, MCH 30.0, MCHC 31.7 L, RDW Std Deviation 59.4 H, RDW Coeff of Violette 18.2 H, Plt Count 102 L, MPV 11.2, Immature Gran % (Auto) 0.500, Neut % (Auto) 84.9 H, Lymph % (Auto) 7.6 L, Towner % (Auto) 6.5, Eos % (Auto) 0.3, Baso % (Auto) 0.2, Absolute Neuts (auto) 5.1, Absolute Lymphs (auto) 0.46 L, Nucleated RBC % 0 11/03/20 05:56: Sodium 135 L, Potassium 2.7 L*, Chloride 101, Carbon Dioxide 25.0, Anion Gap 9, BUN 5 L, Creatinine 0.37 L, Estim Creat Clear Calc 237.43, Est GFR (MDRD) Af Amer 310, Est GFR (MDRD) Non-Af 256, BUN/Creatinine Ratio 13.4, Glucose 94, Calcium 7.8 L, Total Bilirubin 1.30 H, Direct Bilirubin 0.87 H , AST 84 H, ALT 26, Alkaline Phosphatase 130 H, Total Protein 6.4, Albumin 2.1 L , Globulin 4.3 H, Albumin/Globulin Ratio 0.5 L 11/03/20 05:56: PT 14.7, INR 1.2, APTT 30.3 11/03/20 05:56: Magnesium 1.1 L Inpatient E&M: [id number] Subs Hosp L3
[2020-11-03] MEDS: Potassium Chloride 10mEq/100mL 10 MEQ/100 ML IV.SOLN. 100 MEQ IV BOLUS ×4 (08:00→13:13)
[2020-11-03] MEDS: Potassium Chloride 40 MEQ in 0.9% Normal Saline 1,000 ML 75 MEQ IV ×2 (08:44→22:55)
[2020-11-03] MEDS: Magnesium Sulfate 4gm/100mL 4 GM/100 ML IV.SOLN. IV (08:54)
--- NOTE | 2020-11-03 09:49 | CASEMGMT ---
SW met with patient. Introduced self and role at [facility]. SW asked patient if he was still considering going to a retirement facility. He said he does because he wants to learn to walk again. SW provided a list of SNF providers including quality and resource use data and consistent with the patient?s preferred geographic region, medical needs, and insurance network. SW explained to him that he needs to pick at least 3 choices. SW told him SW will then make referrals. Drea MAE
--- NOTE | 2020-11-03 12:20 | OP.CCLET_ITS ---
11/03/2020 Rickey Foley MD [address] [place] [address] [place] [address] Re : Colonoscopy procedure for Efrain Quiñonez Dear Dr. Foley This procedure was performed on Tuesday, November 03, 2020. My impressions and recommendations are as follows: Impressions : - Three small polyps in the rectum and in the sigmoid colon, removed with a hot snare. Resected and retrieved. - The examination was otherwise normal on direct and retroflexion views. Recommendations : - [facility]. - Resume previous diet. - Continue present medications. - Await pathology results. - Repeat colonoscopy in 5 years for surveillance of multiple polyps. My findings are described in the full procedure note, which is enclosed. If I can be of further assistance, please feel free to contact me at Doctor phone number(s): , Work: . Sincerely, Chapito Kim MD 11/03/2020 12:20:12 PM This report has been signed electronically.
--- NOTE | 2020-11-03 12:20 | OP.COLON_ITS ---
Patient Name: Efrain Quiñonez Procedure Date: 11/03/2020 11:33 AM Date of : 1965 Age: 55 Procedure: Colonoscopy Indications: Acute post hemorrhagic anemia Providers: Chapito Kim MD Medicines: Monitored Anesthesia Care Patient Profile: This is a 55 year old male. Refer to note in patient chart for documentation of history and physical. Last Colonoscopy: several years ago. Complications: No immediate complications. Procedure: Pre-Anesthesia Assessment: - Prior to the procedure, a History and Physical was performed, and patient medications and allergies were reviewed. The patient's tolerance of previous anesthesia was also reviewed. The risks and benefits of the procedure and the sedation options and risks were discussed with the patient. All questions were answered, and informed consent was obtained. Prior Anticoagulants: The patient has taken no previous anticoagulant or antiplatelet agents. After reviewing the risks and benefits, the patient was deemed in satisfactory condition to undergo the procedure. After I obtained informed consent, the scope was passed under direct vision. Throughout the procedure, the patient's blood pressure, pulse, and oxygen saturations were monitored continuously. The Colonoscope was introduced through the anus and advanced to the cecum, identified by appendiceal orifice and ileocecal valve. The colonoscopy was performed without difficulty. The patient tolerated the procedure well. The quality of the bowel preparation was good. Scope In: 11:56:56 AM Scope Withdrawal Time 0 hours 14 minutes 37 seconds Scope Out: 12:17:45 PM Total Procedure Duration Time 0 hours 20 minutes 49 seconds Findings: Three polyps were found in the rectum and sigmoid colon. The polyps were small in size. These polyps were removed with a hot snare. Resection and retrieval were complete. The exam was otherwise without abnormality on direct and retroflexion views. Impression: - Three small polyps in the rectum and in the sigmoid colon, removed with a hot snare. Resected and retrieved. - The examination was otherwise normal on direct and retroflexion views. Recommendation: - Return patient to [facility] for ongoing care. - Resume previous diet. - Continue present medications. - Await pathology results. - Repeat colonoscopy in 5 years for surveillance of multiple polyps. Procedure Code(s): --- Professional --- 43374, Colonoscopy, flexible; with removal of tumor(s), polyp(s), or other lesion(s) by snare technique Diagnosis Code(s): --- Professional --- K62.1, Rectal polyp D12.5, Benign neoplasm of sigmoid colon D62, Acute posthemorrhagic anemia CPT copyright 2017 [employer] [place] [employer]. All rights reserved. The codes documented in this report are preliminary and upon financial counselor review may be revised to meet current compliance requirements. Chapito Kim MD 11/03/2020 12:20:12 PM This report has been signed electronically. Number of Addenda: 0 Note Initiated On: 11/03/2020 11:33 AM
--- NOTE | 2020-11-03 12:23 | PN_ITS ---
Progress Note I performed a colonoscopy on the patient this morning. There is no stigmata of bleeding or old blood. There were no large masses. The patient did have 3 very small polyps which were removed. I will resume regular diet for the patient. Chapito Kim MD Pager: [facility] [address] [place] [address], [address] [place] [address] Office: [facility] Vital Signs/Narrative: Vital Signs Pulse 11/03/20 11:00 109 H
--- NOTE | 2020-11-03 12:23 | PCM.PN.BLA ---
Progress Note I performed a colonoscopy on the patient this morning. There is no stigmata of bleeding or old blood. There were no large masses. The patient did have 3 very small polyps which were removed. I will resume regular diet for the patient. Chapito Kim MD Pager: [facility] [address] [place] [address], [address] [place] [address] Office: [facility] Vital Signs/Narrative: Vital Signs Pulse 11/03/20 11:00 109 H
[2020-11-03] MEDS: Folic Acid 1 MG Tablet PO (13:23)
[2020-11-03] MEDS: Thiamine Hydrochloride 100 MG Tablet PO (13:23)
[2020-11-03] MEDS: Propranolol 10 MG Tablet 20 MG PO (13:23)
[2020-11-03] MEDS: Pantoprazole Sodium 40 MG Tablet PO (13:24)
[2020-11-03] MEDS: predniSONE 20 MG Tablet 40 MG PO (13:24)
[2020-11-03] MEDS: Gabapentin 300 MG Capsule PO ×2 (13:24→17:15)
[2020-11-03] MEDS: Ceftriaxone 1 GM/50 ML BAG IV (14:42)
[2020-11-03] MEDS: Acetaminophen 325 MG Tablet 650 MG PO (14:50)
[2020-11-03] MEDS: Menthol/Lanolin/Calamine/Znox 113 GM Tube 1 APPLIC TOPICAL (14:51)
[2020-11-03] MEDS: 0.9% Saline Lock 10 ML Syringe IV (21:58)
[2020-11-03] MEDS: Propranolol 40 MG Tablet PO (22:02)
[2020-11-04] VITALS (16 sets, daily range): BP systolic 108–124; BP diastolic 73–87; PULSE 79–97; RESP 15–20; TEMP 36.6–36.9; O2SAT 94–98
[2020-11-04] MEDS: Ipratropium/Albuterol Sulfate 3 ML AMPUL.NEB INHALATION ×4 (00:30→19:12)
--- NOTE | 2020-11-04 07:00 | US_ITS ---
STUDY: ABDOMINAL ULTRASOUND - RIGHT UPPER QUADRANT REASON FOR VISIT: Male, 55 years old abnormal LFTs, alcoholic hepatitis TECHNIQUE: Ultrasound evaluation of the right upper quadrant was performed with real-time and static martinez-scale imaging. TECHNICAL QUALITY: Adequate. COMPARISON: None. FINDINGS: Liver: The liver measures 19.4 cm. There is increased echogenicity consistent with fatty infiltration. The bile ducts are within normal limits. There is hepatic color flow. The direction of portal flow is hepatopetal. There is no demonstrated mass lesion. Gallbladder: There is a contracted gallbladder. The gallbladder wall measures 4.0 mm. There is a negative sonographic Boyd''s sign. There is no pericholecystic fluid. There are multiple echogenic structures within the gallbladder, consistent with multiple gallstones. Common Bile Duct (C.B.D.): The common bile duct measures 2.9 mm. Pancreas: Normal size of the head, body and tail of the pancreas. There is increased echogenicity of the pancreas. There is no demonstrated pancreatic mass or cyst. Right Kidney: Normal size of the right kidney. The right kidney measures 10.7 x 4.8 x 5.5 cm. Normal renal cortex. The right cortex measures 1.8 cm. There is no demonstrated renal mass or cyst. There is no right hydronephrosis. US/Abdomen Limited IMPRESSION: Hepatomegaly with diffuse fatty infiltration of the liver, no discrete lesion Cholelithiasis with a contracted thickened gallbladder wall. However, there is no biliary dilatation, pericholecystic fluid, and the tearer notes a negative BOYD sign. Findings are equivocal for cholecystitis, consider HIDA scan for further evaluation if the lab results and clinical exam are not also suggestive of cholecystitis Electronically Signed: Raj Cruz MD at 8:08 EDT , Service support ,
[2020-11-04] MEDS: 0.9% Saline Lock 10 ML Syringe IV (07:06)
[2020-11-04 07:10] LABS: Anion Gap 7 (5-15); BUN 6 mg/dL (7-18); BUN/Creat Ratio 17.8 RATIO (10-20); Calcium,Total 7.9 mg/dL (8.5-10.1); Chloride 105 mmol/L (98-107); Creatinine, Serum 0.34 mg/dL (0.70-1.30); EST Glomerular Filtration Rate 288 mL/min (>60); Est Glom Filt Rate - Afr Amer 348 mL/min (>60); Estimated Creatinine Clearance 258.38 ml/min; Glucose 90 mg/dL (74-106); Potassium 3.7 mmol/L (3.5-5.1); Sodium Level 135 mmol/L (136-145)
[2020-11-04] MEDS: Propranolol 40 MG Tablet PO ×2 (07:55→21:04)
[2020-11-04] MEDS: Thiamine Hydrochloride 100 MG Tablet PO (07:55)
[2020-11-04] MEDS: Folic Acid 1 MG Tablet PO (07:55)
[2020-11-04] MEDS: predniSONE 20 MG Tablet 40 MG PO (07:56)
[2020-11-04] MEDS: Gabapentin 300 MG Capsule PO ×3 (07:56→16:40)
[2020-11-04] MEDS: Pantoprazole Sodium 40 MG Tablet PO (07:56)
--- NOTE | 2020-11-04 08:25 | NURSING ---
[facility] elke [facility] left her contact information for patient for when he is ready to be involved with their program.
[2020-11-04] MEDS: Ceftriaxone 1 GM/50 ML BAG IV (09:47)
--- NOTE | 2020-11-04 10:02 | CASEMGMT ---
IDANIA spoke with patient this am. He marked his top 3 choices on the list of SNFs SW gave him. His choices in order of preference are: [facility], [facility], and [facility]. SW asked him what his plans were for when he leaves the assisted. He said he would like to go to inpatient substance abuse treatment and he was talking with [facility]. IDANIA told him DIANIA will work on referrals and let him know. IDANIA faxed referrals to [facility] and [facility]. IDANIA left a message for [facility] and spoke with Amanda at [facility]. Await return calls. Drea Horne CLINICAL LABORATORY SCIENTIST CARMELITA
--- NOTE | 2020-11-04 11:24 | CASEMGMT ---
SW spoke with Amanda from [facility] and they can accept patient. Awaiting to see if [place] can take patient as this was patient's first choice. Drea Horne MAT WORKER CARMELITA
[2020-11-04 11:43] LABS: M R Staph aureus DNA By PCR Negative (Negative); Probe Check PASS; Specimen Processing Control PASS
--- NOTE | 2020-11-04 13:03 | CASEMGMT ---
[facility] called and said they are not able to accept patient. IDANIA spoke with Amanda at [facility] and she will start the pre-cert. IDANIA let patient know above. IDANIA told him he will stay in the hospital until his insurance approves. Plan: d/c to [facility] pending pre-cert. Drea MAE
[2020-11-04] MEDS: Potassium Chloride 40 MEQ in 0.9% Normal Saline 1,000 ML 75 MEQ IV (13:34)
--- NOTE | 2020-11-04 15:22 | PCM.PN.HOSP ---
Patient Problems: Active and Suspected Problems (Last Reviewed 08/19/20 @ 12:[address] JUVENILE COURT JUDGE, JUVENILE COURT JUDGE-C) Alcohol intoxication (Acute) Hypokalemia (Acute) Tobacco abuse (Acute) GI bleed (Acute) Blood loss anemia (Acute) Suicidal ideations (Acute) Suicide ideation (Acute) Impending alcohol withdrawal (Acute) Alcohol intoxication (Acute) Hypokalemia (Acute) Reason for Visit: Follow-up for anemia, alcoholic hepatitis and COPD exacerbation from pneumonia. Objective: Seen and examined. No fever. Patient does not have any particular complaint feels weak. Shortness of breath improving. General: Alert, Oriented x3, Cooperative HEENT: Atraumatic, PERRLA, EOMI, Normocephalic Oral: No Gingival or Mucosal Lesions/ Ulcerations Neck: Supple, No JVD, Negative Carotid Bruits Lungs: Air entry diminished in bilateral lung bases. Occasional right basal crepitation. Cardiovascular: Regular rate, Regular Rhythm, Normal S1, Normal S2, No murmurs Abdomen: Scaphoid abdomen. Bowel Sounds Present, Soft, Non Tender, Non-Distended : No renal angle tenderness. No suprapubic tenderness. Extremities: No edema, Capillary Refill Less than 3 Seconds Skin: No rashes, No breakdown Musculoskeletal: Moderate muscle atrophy of extremities. No Tenderness to Palpation of Joints or Extremities Neurological: Cranial nerves II-XII grossly intact, Deep Tendon Reflexes 2+/4 and Symmetrical, Neuro grossly intact Psych/Mental Status: Normal Affect, Appropriate. Vitals/I&O's: Vital Signs Temp Pulse Resp BP Pulse Ox 98.4 F 91 18 122/79 H 96 11/04/20 14:25 11/04/20 14:25 11/04/20 14:25 11/04/20 14:25 11/04/20 14:25 Oxygen Flow Rate (L/min) 1 Oxygen Delivery Method Room Air Weight: 170 lb 10.205 oz Body Mass Index (BMI) 23.8 Intake and Output for Last 24 Hours 11/02/20 11/03/20 11/04/20 23:59 23:59 23:59 Intake Total 1625 / 1625 1997.33 / 1997.33 1070 / 1070 Output Total 200 / 200 800 / 800 700 / 700 Balance 1425 / 1425 1198.33 / 1198.33 370 / 370 Microbiology Past 72 Hours 11/01/20 21:02 Sputum, Expectorated/Coughed Gram Stain - Final 11/01/20 21:02 Sputum, Expectorated/Coughed Respiratory Culture - Preliminary Streptococcus pneumoniae Haemophilus influenzae Staphylococcus aureus Presumptive C albicans 11/01/20 21:15 Urine, Clean Catch Legionella Antigen - Final 11/01/20 21:15 Urine, Random Streptococcus pneumoniae Antigen (M - Final Laboratory Results 11/04/20 06:20: Sodium 135 L, Potassium 3.7, Chloride 105, Carbon Dioxide 23.0, Anion Gap 7, BUN 6 L, Creatinine 0.34 L, Estim Creat Clear Calc 258.38, Est GFR (MDRD) Af Amer 348, Est GFR (MDRD) Non-Af 288, BUN/Creatinine Ratio 17.8, Glucose 90, Calcium 7.9 L 11/04/20 10:10: MRSA (PCR) Negative Current Medications Acetaminophen (Acetaminophen 325 Mg Tablet) 650 mg PO Q6H PRN PRN PRN Reason: Pain Score 1-10/Temp > 100.7 F Last Admin: 11/03/20 14:50 Dose: 650 mg Documented by: Albuterol/Ipratropium (Ipratropium/Albuterol Sulfate 3 Ml Ampul.Neb) 3 ml INHALATION Q6H.RT [facility] Last Admin: 11/04/20 14:05 Dose: 3 ml Documented by: Calamine/Phenol (Menthol/Lanolin/Calamine/Znox 113 Gm Tube) 1 applic TOPICAL TID [facility]; Protocol Last Admin: 11/04/20 13:29 Dose: Not Given Documented by: Dicyclomine HCl (Dicyclomine 10 Mg Capsule) 20 mg PO Q6H PRN PRN PRN Reason: abdominal discomfort Folic Acid (Folic Acid 1 Mg Tablet) 1 mg PO DAILY@0800 [facility] Last Admin: 11/04/20 07:55 Dose: 1 mg Documented by: Gabapentin (Gabapentin 300 Mg Capsule) 300 mg PO TIDCM [facility] Last Admin: 11/04/20 12:46 Dose: 300 mg Documented by: Hydroxyzine Pamoate (Hydroxyzine Aditi 25 Mg Capsule) 50 mg PO Q4H PRN PRN PRN Reason: mild anxiety Sodium Chloride () 500 mls @ 15 mls/hr IV PRN PRN PRN Reason: Blood Transfusion Sodium Chloride () 250 mls @ 15 mls/hr IV .[id number] PRN PRN Reason: Saline Flush Last Infusion: 10/30/20 18:51 Dose: 0 mls/hr Documented by: Sodium Chloride () 250 mls @ 15 mls/hr IV .[id number] PRN PRN Reason: Additional IVPB Infusion Potassium Chloride 40 meq/ (Sodium Chloride) 1,020 mls @ 75 mls/hr IV .[id number] [facility] Last Admin: 11/04/20 13:34 Dose: 75 mls/hr Documented by: Ceftriaxone Sodium (Rocephin) 1 gm in 50 mls @ 100 mls/hr IV Q24 [facility] Last Infusion: 11/04/20 10:20 Dose: Infused Documented by: Loperamide HCl (Loperamide 2 Mg Capsule) 2 mg PO Q4H PRN PRN PRN Reason: LOOSE STOOLS Nicotine (Nicotine 21 Mg Patch) 21 mg TD DAILY [facility] Last Admin: 11/04/20 07:57 Dose: 21 mg Documented by: Nutritional Formula (Lactose Free) (Ensure Clear 120 Ml Liquid) 120 ml PO TIDCM [facility] Last Admin: 11/04/20 12:46 Dose: Not Given Documented by: Ondansetron HCl (Ondansetron 4 Mg/2 Ml Vial) 4 mg IV Q8H PRN PRN PRN Reason: NAUSEA/VOMITING Last Admin: 10/31/20 21:44 Dose: 4 mg Documented by: Ondansetron HCl (Ondansetron 8 Mg Tablet) 8 mg PO Q8H PRN PRN PRN Reason: NAUSEA Pantoprazole Sodium (Pantoprazole Sodium 40 Mg Tablet) 40 mg PO DAILY [facility] Last Admin: 11/04/20 07:56 Dose: 40 mg Documented by: Prednisone (Prednisone 20 Mg Tablet) 40 mg PO DAILY@0800 [facility] Last Admin: 11/04/20 07:56 Dose: 40 mg Documented by: Propranolol HCl (Propranolol 40 Mg Tablet) 40 mg PO BID [facility] Last Admin: 11/04/20 07:55 Dose: 40 mg Documented by: Sodium Chloride (0.9% Saline Lock 10 Ml Syringe) 10 - 40 ml IV UD PRN PRN Reason: SALINE FLUSH Last Admin: 11/04/20 07:06 Dose: 10 ml Documented by: Thiamine HCl (Thiamine Hydrochloride 100 Mg Tablet) [facility] Last Admin: 11/04/20 07:55 Dose: 100 mg Documented by: Trazodone HCl (Trazodone 100 Mg Tablet) 100 mg PO QHS PRN PRN Reason: INSOMNIA Zolpidem Tartrate (Zolpidem Tartrate 5 Mg Tablet) 5 mg PO QHS PRN PRN PRN Reason: INSOMNIA STROKE Vital Signs/Narrative: Vital Signs Temp Pulse Resp BP Pulse Ox 11/04/20 14:25 98.4 F 91 18 122/79 H 96 11/04/20 14:03 82 19 H 11/04/20 12:00 92 Medical Necessity - Tobacco Use Smoking Status: Current every day smoker Tobacco Use: Cigarettes Assessment/Plan All Active Problems (Last Reviewed 08/19/20 @ 12:07 by Yen Hart NP, JUVENILE COURT JUDGE-C) Alcohol intoxication (Acute) Hypokalemia (Acute) Tobacco abuse (Acute) GI bleed (Acute) Blood loss anemia (Acute) Suicidal ideations (Acute) Suicide ideation (Acute) Impending alcohol withdrawal (Acute) Alcohol intoxication (Acute) Hypokalemia (Acute) 1. Acute on chronic blood loss anemia secondary to likely transient upper GI bleed which might have been stopped: EGD unremarkable. Colonoscopy reported 3 small polyps in the rectum and in the sigmoid colon removed. Exam was normal otherwise. -He was transfused a total of 5 units PRBCs and is currently 9.8. Discussed with the surgeon. At one time black tarry stool before admission and 1 probably yesterday as per documentation. H&H is stable. Monitor CBC daily. 2. Acute alcohol withdrawal/suicidal ideation with history of chronic alcohol use and dependence and tolerance: Patient on alcohol withdrawal protocol. Follow-up on ADD as an outpatient. Patient denies any suicidal ideation although he had at time of admission. Patient had history of alcoholic fatty liver which is progressed to alcoholic hepatitis. AST 84, ALT 26, improving. Total bili improved from 1.8-1.3. Alkaline phosphatase 130. Right upper quadrant sonogram ordered. Last abdominal ultrasound in June 2019 reported as fatty infiltration of liver with multiple tiny gallstones and sludge in the gallbladder lumen. Right upper quadrant sonogram was done report was similar to June 2019 with additional findings of contracted thickened GB wall with no biliary dilatation, PC fluid or CBD dilatation. Patient does not have fever/right upper quadrant pain. Gallbladder sludge and multiple stones may be from alcoholic hepatitis. 3. Hypertension and chronic tachycardia is due to chronic alcohol use: Pressure and heart rate are better controlled although heart rate is still in the low 100s. Heart rate is controlled with increased propranolol 40 mg twice daily. 4. Severe hypokalemia and severe hypomagnesemia: Potassium 2.7 and magnesium 1.3: Getting replaced. 5. COPD exacerbation most probably due to Haemophilus and Streptococcus pneumoniae bilateral lateral pneumonia left pleural effusion: Started on IV ceftriaxone. Patient had chest x-ray shows bilateral infiltrates individually reviewed which has worsened since previous chest x-ray on 10/30. On bronchodilator and prednisone. Nicotine patch. His sputum culture shows 3+ strep pneumoniae, 3+ Haemophilus influenzae,, rare staph aureus and rare present to current albicans. MRSA nasal screen is negative. rapid antigen SARS-CoV-2 and urinary antigens are negative. As there is rare growth of staph and patient does not have fever chills or leukocytosis, MRSA nasal screen negative and seems to be improving ceftriaxone, therefore will not add extra staph coverage to increase antibiotic burden. DVT: SCDs Waiting for precertification. Microbiology Past 72 Hours 11/01/20 21:02 Sputum, Expectorated/Coughed Gram Stain - Final 11/01/20 21:02 Sputum, Expectorated/Coughed Respiratory Culture - Preliminary Alpha Hemolytic Streptococcus GNR PossibleHaemophilus sp. 11/01/20 21:15 Urine, Clean Catch Legionella Antigen - Final 11/01/20 21:15 Urine, Random Streptococcus pneumoniae Antigen (M - Final Laboratory Results 11/03/20 05:56: WBC 6.0, RBC 3.10 L, Hgb 9.3 L, Hct 29.3 L, MCV 94.5 H, MCH 30.0, MCHC 31.7 L, RDW Std Deviation 59.4 H, RDW Coeff of Violette 18.2 H, Plt Count 102 L, MPV 11.2, Immature Gran % (Auto) 0.500, Neut % (Auto) 84.9 H, Lymph % (Auto) 7.6 L, Isabela % (Auto) 6.5, Eos % (Auto) 0.3, Baso % (Auto) 0.2, Absolute Neuts (auto) 5.1, Absolute Lymphs (auto) 0.46 L, Nucleated RBC % 0 11/03/20 05:56: Sodium 135 L, Potassium 2.7 L*, Chloride 101, Carbon Dioxide 25.0, Anion Gap 9, BUN 5 L, Creatinine 0.37 L, Estim Creat Clear Calc 237.43, Est GFR (MDRD) Af Amer 310, Est GFR (MDRD) Non-Af 256, BUN/Creatinine Ratio 13.4, Glucose 94, Calcium 7.8 L, Total Bilirubin 1.30 H, Direct Bilirubin 0.87 H, AST 84 H, ALT 26, Alkaline Phosphatase 130 H, Total Protein 6.4, Albumin 2.1 L, Globulin 4.3 H, Albumin/Globulin Ratio 0.5 L 11/03/20 05:56: PT 14.7, INR 1.2, APTT 30.3 11/03/20 05:56: Magnesium 1.1 L Clinical Impression(s) from Imaging Studies Chest X-Ray 10/30/20 13:55 IMPRESSION: Normal x-ray examination of the chest. Electronically Signed: Esau Scott MD at 14:48 EDT , Service support , Chest X-Ray 11/02/20 05:05 IMPRESSION: Bilateral airspace disease consistent with pneumonia. Left pleural effusion and likely some minimal left basilar atelectasis is new or greater. In the setting of a global pandemic of Covid 19, this may represent Covid 19 pneumonia.. at 0659 Reported and signed by: Hira Mata MD Electronically Signed: Hira Mata MD at 6:58 EDT Tel , Service support , Abdomen Ultrasound 11/04/20 07:00 IMPRESSION: Hepatomegaly with diffuse fatty infiltration of the liver, no discrete lesion Cholelithiasis with a contracted thickened gallbladder wall. However, there is no biliary dilatation, pericholecystic fluid, and the senior product designer notes a negative PATRICK sign. Findings are equivocal for cholecystitis, consider HIDA scan for further evaluation if the lab results and clinical exam are not also suggestive of cholecystitis Inpatient E&M: 36851 Subs Hosp L2
--- NOTE | 2020-11-04 15:49 | NURSING ---
Student nurse documentation reviewed.
[2020-11-04] MEDS: Potassium Chloride Oral Tablet 20 MEQ 40 MEQ PO (16:40)
[2020-11-05] VITALS (11 sets, daily range): BP systolic 118–123; BP diastolic 83–85; PULSE 88–104; RESP 16–18; TEMP 36.8–37; O2SAT 92–99
[2020-11-05] MEDS: Ipratropium/Albuterol Sulfate 3 ML AMPUL.NEB INHALATION ×3 (00:16→13:30)
[2020-11-05 05:20] LABS: Absolute Lymphocyte Count 0.55 X10^3/uL (0.83-4.51); Absolute Neutrophil Count 5.8 X10^3/uL (2.0-7.7); Basophil# 0.02 X10^3/uL; Basophil% 0.3 % (0-1); Eosinophil# 0.02 X10^3/uL; Eosinophils% 0.3 % (0-5); Hematocrit 32.1 % (40-54); Hemoglobin 9.8 g/dL (13.0-16.5); Lymphocyte # 0.55 X10^3/ul (4.0); Lymphocyte % 7.9 % (19-41); Mean Corp Hgb Conc 30.5 g/dL (32-36); Mean Corpuscular Volume 98.2 fL (80-94); Mean Platelet Vol. 10.7 fl (6.2-12.0); Monocyte# 0.56 X10^3/uL; NRBC Flagged by Analyzer 0 % (0-5); Neutrophil # 5.78 X10^3/uL (2.7-7.7); Neutrophil % 82.5 % (47-70); POSITIVE DIFFERENTIAL YES; POSITIVE MORPHOLOGY YES; Platelet Count 143 K/mm3 (150-450); RBC Distribution Width CV 18.8 % (11.6-14.6); RBC Distribution Width SD 66.4 fl (35.1-43.9); Red Blood Count 3.27 M/mm3 (4.6-6.2)
[2020-11-05 05:23] LABS: Differential Indicated SCAN CRITERIA MET
[2020-11-05 05:35] LABS: Anion Gap 5 (5-15); BUN 8 mg/dL (7-18); BUN/Creat Ratio 17.1 RATIO (10-20); Calcium,Total 8.2 mg/dL (8.5-10.1); Chloride 103 mmol/L (98-107); Creatinine, Serum 0.47 mg/dL (0.70-1.30); EST Glomerular Filtration Rate 197 mL/min (>60); Est Glom Filt Rate - Afr Amer 238 mL/min (>60); Estimated Creatinine Clearance 186.91 ml/min; Glucose 98 mg/dL (74-106); Magnesium 1.1 mg/dL (1.6-2.6); Potassium 3.9 mmol/L (3.5-5.1); Sodium Level 134 mmol/L (136-145)
[2020-11-05] MEDS: Gabapentin 300 MG Capsule PO ×2 (08:29→11:40)
[2020-11-05] MEDS: Folic Acid 1 MG Tablet PO (08:29)
[2020-11-05] MEDS: predniSONE 20 MG Tablet 40 MG PO (08:29)
[2020-11-05] MEDS: Thiamine Hydrochloride 100 MG Tablet PO (08:29)
[2020-11-05] MEDS: Propranolol 40 MG Tablet PO (08:30)
[2020-11-05] MEDS: Pantoprazole Sodium 40 MG Tablet PO (08:31)
[2020-11-05] MEDS: Potassium Chloride Oral Tablet 20 MEQ 40 MEQ PO (08:33)
--- NOTE | 2020-11-05 09:40 | TREXTCAR_ITS ---
- Diet 11/04/20 10:47 Diet: Regular - No Added Salt Is pt able to select menu?: Yes - Routine Orders/Code Status Suppository Type: Dulcolax 10mg Suppository Frequency: Daily PRN Routine Lab Work: CBC - CBC in 1 week, BMP - In 1 week, - - Magnesium in 1 week - Wound(s) BLE Wound Type: Scratches and scabs - Therapies Weight Bearing: Weight bearing as tolerated Extremity Affected:: Bilateral Lower Physical Therapy: Eval and Treat Occupational Therapy: Eval and Treat - Allergies/Procedures Done in Hospital Allergies/Adverse Reactions: Allergies erythromycin base Allergy (Unknown, Verified 10/30/20 13:17) Hives - Type of Care/Length of Stay Estimated LOS: Convalescent Care Less Than 30 days Type of Care Needed: Skilled Rehab Potential: Good Prognosis: Good - Additional Orders/Day of Discharge Day of Discharge: 11/05/20 - Dietary and Speech Recommendations Dietitian Recommendations/Changes: Advance diet as medically able to Transitional with goal diet of regular as tolerated. Will continue ensure clear w/ medpass as ordered for now and adjust as diet advanced to solids post- colonoscopy. - Follow Up Care Primary Care Physician: Rickey Foley MD [Primary Care Provider] - Please follow up with your Primary Care Physician in: In 2 weeks Please Follow Up With: Deniz Alvarado, DO When: in 4 weeks for COPD?
--- NOTE | 2020-11-05 09:42 | DS.PCM_ITS ---
Discharge Date and Diagnosis - Problem List Patient Problems: Active and Suspected Problems (Last Reviewed 08/19/20 @ 12:07 by Yen Hart NP, [employer]) Alcohol intoxication (Acute) Hypokalemia (Acute) Tobacco abuse (Acute) GI bleed (Acute) Blood loss anemia (Acute) Suicidal ideations (Acute) Suicide ideation (Acute) Impending alcohol withdrawal (Acute) Alcohol intoxication (Acute) Hypokalemia (Acute) Date of Admission: 10/30/20 - Primary Discharge Diagnosis Acute Problems: Active Problems (Last Reviewed 08/19/20 @ 12:07 by Yen Hart NP, [employer]) Alcohol intoxication (Acute) Hypokalemia (Acute) Tobacco abuse (Acute) GI bleed (Acute) Blood loss anemia (Acute) Suicidal ideations (Acute) Suicide ideation (Acute) Impending alcohol withdrawal (Acute) Alcohol intoxication (Acute) Hypokalemia (Acute) - Secondary Discharge Diagnosis Chronic Problems: Chronic Problems (Last Reviewed 08/19/20 @ 12:07 by Yen Hart NP, [employer]) Acute on chronic blood loss anemia (Chronic) Tinea unguium (Chronic) Other hereditary and idiopathic neuropathies (Chronic) Hypertension (Chronic) Tachycardia (Chronic) COPD (chronic obstructive pulmonary disease) (Chronic) Tobacco abuse (Chronic) Chronic back pain (Chronic) History of traumatic head injury (Chronic) Alcohol dependence (Chronic) Hospital Course and Treatment Operations: None Summary of Care Provided: The patient is a 55 year old M admitted with weakness, acute alcohol withdrawal with history of chronic alcohol use for medical stabilization. 1. Acute on chronic blood loss anemia secondary to likely transient upper GI bleed which might have been stopped: EGD unremarkable. Colonoscopy reported 3 small polyps in the rectum and in the sigmoid colon removed. Exam was normal otherwise. -He was transfused a total of 5 units PRBCs and is currently 9.8. Discussed with the surgeon. At one time black tarry stool before admission and 1 probably yesterday as per documentation. H&H is stable. 2. Acute alcohol withdrawal/suicidal ideation with history of chronic alcohol use and dependence and tolerance: Patient on alcohol withdrawal protocol. Follow-up on ADD as an outpatient. Patient denies any suicidal ideation although he had at time of admission. Patient had history of alcoholic fatty liver which is progressed to alcoholic hepatitis. AST 84, ALT 26, improving. Total bili improved from 1.8-1.3. Alkaline phosphatase 130. Right upper quadrant sonogram ordered. Last abdominal ultrasound in June 2019 reported as fatty infiltration of liver with multiple tiny gallstones and sludge in the gallbladder lumen. Right upper quadrant sonogram was done report was similar to June 2019 with additional findings of contracted thickened GB wall with no biliary dilatation, PC fluid or CBD dilatation. Patient does not have fever/right upper quadrant pain. Gallbladder sludge and multiple stones may be from alcoholic hepatitis. 3. Hypertension and chronic tachycardia is due to chronic alcohol use: Pressure and heart rate are better controlled although heart rate is still in the low 100s. Heart rate is controlled with increased propranolol 40 mg twice daily. 4. Severe hypokalemia and severe hypomagnesemia: Potassium 2.7 and magnesium 1.3: Patient discharged home magnesium oxide and potassium supplement. 5. COPD exacerbation most probably due to Haemophilus and Streptococcus pneumoniae bilateral lateral pneumonia left pleural effusion: Started on IV ceftriaxone. Patient had chest x-ray shows bilateral infiltrates individually reviewed which has worsened since previous chest x-ray on 10/30. On bronchodilator and prednisone. Nicotine patch. His sputum culture shows 3+ strep pneumoniae, 3+ Haemophilus influenzae,, rare staph aureus and rare present to current albicans. MRSA nasal screen is negative. rapid antigen SARS-CoV-2 and urinary antigens are negative. As there is rare growth of staph and patient does not have fever chills or leukocytosis, MRSA nasal screen negative and seems to be improving ceftriaxone, therefore will not add extra staph coverage to increase antibiotic burden. Patient is discharged on Levaquin to complete a total of 7 days of antibiotic DVT: SCDs Discharge medication reconciliation done. Discharge follow-up instructions completed. Discharge process discussed with the patient and all questions were answered to patient's satisfaction. Dictation sent to the patient's pharmacy. Total time spent, exact 35 minutes on discharge meds reconciliation, examination, coordination of care with nurses and ancillary staff, review of imaging and blood test and discussion with the patient on follow-up instructions Patient Problems: Active and Suspected Problems (Last Reviewed 08/19/20 @ 12:07 by Yen Hart NP, [employer]) Alcohol intoxication (Acute) Hypokalemia (Acute) Tobacco abuse (Acute) GI bleed (Acute) Blood loss anemia (Acute) Suicidal ideations (Acute) Suicide ideation (Acute) Impending alcohol withdrawal (Acute) Alcohol intoxication (Acute) Hypokalemia (Acute) Objective: Shortness of breath improved. Patient is still is low magnesium. Sodium improved. No acute symptoms of withdrawal. General: Alert, Oriented x3, Cooperative HEENT: Atraumatic, PERRLA, EOMI, Normocephalic Oral: No Gingival or Mucosal Lesions/ Ulcerations Neck: Supple, No JVD, Negative Carotid Bruits Lungs: Air entry diminished in bilateral lung bases. Occasional right basal crepitation. Cardiovascular: Regular rate, Regular Rhythm, Normal S1, Normal S2, No murmurs Abdomen: Scaphoid abdomen. Bowel Sounds Present, Soft, Non Tender, Non- Distended : No renal angle tenderness. No suprapubic tenderness. Extremities: No edema, Capillary Refill Less than 3 Seconds Skin: No rashes, No breakdown Musculoskeletal: Moderate muscle atrophy of extremities. No Tenderness to Palpation of Joints or Extremities Neurological: Cranial nerves II-XII grossly intact, Deep Tendon Reflexes 2+/4 and Symmetrical, Neuro grossly intact Psych/Mental Status: Normal Affect, Appropriate. - Physical Exam Vitals/I&O's: Vital Signs Temp Pulse Resp BP Pulse Ox 98.6 F 104 H 18 118/83 H 92 11/05/20 08:30 11/05/20 08:30 11/05/20 08:30 11/05/20 08:30 11/05/20 08:30 Oxygen Flow Rate (L/min) 2 Oxygen Delivery Method Nasal Cannula Weight: 170 lb 10.205 oz Body Mass Index (BMI) 23.8 Intake and Output for Last 24 Hours 11/03/20 11/04/20 11/05/20 23:59 23:59 23:59 Intake Total 1997.33 / 1997.33 1070 / 1470 1420 / 1420 Output Total 800 / 800 700 / 925 475 / 475 Balance 1198.33 / 1198.33 370 / 545 945 / 945 Microbiology Past 72 Hours 11/01/20 21:02 Sputum, Expectorated/Coughed Gram Stain - Final 11/01/20 21:02 Sputum, Expectorated/Coughed Respiratory Culture - Final Streptococcus pneumoniae Haemophilus influenzae Staphylococcus aureus Presumptive C albicans Laboratory Results 11/04/20 10:10: MRSA (PCR) Negative 11/05/20 05:04: WBC 7.0, RBC 3.27 L, Hgb 9.8 L, Hct 32.1 L, MCV 98.2 H, MCH 30.0, MCHC 30.5 L, RDW Std Deviation 66.4 H, RDW Coeff of Violette 18.8 H, Plt Count 143 L, MPV 10.7, Immature Gran % (Auto) 1.000 H, Neut % (Auto) 82.5 H, Lymph % (Auto) 7.9 L, [place] % (Auto) 8.0, Eos % (Auto) 0.3, Baso % (Auto) 0.3, Absolute Neuts (auto) 5.8, Absolute Lymphs (auto) 0.55 L, Nucleated RBC % 0 11/05/20 05:04: Sodium 134 L, Potassium 3.9, Chloride 103, Carbon Dioxide 26.0, Anion Gap 5, BUN 8, Creatinine 0.47 L, Estim Creat Clear Calc 186.91, Est GFR (MDRD) Af Amer 238, Est GFR (MDRD) Non-Af 197, BUN/Creatinine Ratio 17.1, Glucose 98, Calcium 8.2 L, Magnesium 1.1 L Current Medications Acetaminophen (Acetaminophen 325 Mg Tablet) 650 mg PO Q6H PRN PRN PRN Reason: Pain Score 1-10/Temp > 100.7 F Last Admin: 11/03/20 14:50 Dose: 650 mg Documented by: Albuterol/Ipratropium (Ipratropium/Albuterol Sulfate 3 Ml Ampul.Neb) 3 ml INHALATION Q6H.RT [facility] Last Admin: 11/05/20 07:36 Dose: 3 ml Documented by: Calamine/Phenol (Menthol/Lanolin/Calamine/Znox 113 Gm Tube) 1 applic TOPICAL TI D [facility]; Protocol Last Admin: 11/05/20 04:59 Dose: Not Given Documented by: Dicyclomine HCl (Dicyclomine 10 Mg Capsule) 20 mg PO Q6H PRN PRN PRN Reason: abdominal discomfort Folic Acid (Folic Acid 1 Mg Tablet) 1 mg PO DAILY@0800 [facility] Last Admin: 11/05/20 08:29 Dose: 1 mg Documented by: Gabapentin (Gabapentin 300 Mg Capsule) 300 mg PO TIDCM [facility] Last Admin: 11/05/20 08:29 Dose: 300 mg Documented by: Hydroxyzine Pamoate (Hydroxyzine Aditi 25 Mg Capsule) 50 mg PO Q4H PRN PRN PRN Reason: mild anxiety Sodium Chloride () 250 mls @ 15 mls/hr IV .[id number] PRN PRN Reason: Additional IVPB Infusion Ceftriaxone Sodium (Rocephin) 1 gm in 50 mls @ 100 mls/hr IV Q24 [facility] Last Infusion: 11/04/20 10:20 Dose: Infused Documented by: Magnesium Sulfate () 4 gm in 100 mls @ 25 mls/hr IV X1 ONE Stop: 11/05/20 12:59 Loperamide HCl (Loperamide 2 Mg Capsule) 2 mg PO Q4H PRN PRN PRN Reason: LOOSE STOOLS Nicotine (Nicotine 21 Mg Patch) 21 mg TD DAILY [facility] Last Admin: 11/05/20 08:30 Dose: 21 mg Documented by: Nutritional Formula (Lactose Free) (Ensure Clear 120 Ml Liquid) 120 ml PO TIDCM [facility] Last Admin: 11/05/20 08:29 Dose: Not Given Documented by: Ondansetron HCl (Ondansetron 4 Mg/2 Ml Vial) 4 mg IV Q8H PRN PRN PRN Reason: NAUSEA/VOMITING Last Admin: 10/31/20 21:44 Dose: 4 mg Documented by: Ondansetron HCl (Ondansetron 8 Mg Tablet) 8 mg PO Q8H PRN PRN PRN Reason: NAUSEA Pantoprazole Sodium (Pantoprazole Sodium 40 Mg Tablet) 40 mg PO DAILY [facility] Last Admin: 11/05/20 08:31 Dose: 40 mg Documented by: Potassium Chloride (Potassium Chloride Oral Tablet 20 Meq) [facility] Stop: 11/06/20 15:32 Last Admin: 11/05/20 08:33 Dose: 40 meq Documented by: Propranolol HCl (Propranolol 40 Mg Tablet) 40 mg PO BID [facility] Last Admin: 11/05/20 08:30 Dose: 40 mg Documented by: Sodium Chloride (0.9% Saline Lock 10 Ml Syringe) 10 - 40 ml IV UD PRN PRN Reason: SALINE FLUSH Last Admin: 11/04/20 07:06 Dose: 10 ml Documented by: Thiamine HCl (Thiamine Hydrochloride 100 Mg Tablet) [facility] Last Admin: 11/05/20 08:29 Dose: 100 mg Documented by: Trazodone HCl (Trazodone 100 Mg Tablet) 100 mg PO QHS PRN PRN Reason: INSOMNIA Zolpidem Tartrate (Zolpidem Tartrate 5 Mg Tablet) 5 mg PO QHS PRN PRN PRN Reason: INSOMNIA Home Medications: Medications to take at Discharge albuterol sulfate 90 mcg/actuation aerosol inhaler 1 - 2 puff INHALATION Q6H PRN #8.5 g 07/18/20 melatonin 5 mg capsule 5 mg PO QHS #90 cap 07/18/20 gabapentin 100 mg capsule 100 mg PO TID PRN #90 cap 09/19/20 Budesonide/Formoterol Fumarate [Symbicort 160-4.5 Mcg Inhaler] 6 gm IH DAILY 10/30/20 Folic Acid 1 mg PO DAILY@0800 #0 tablet 11/05/20 Levofloxacin [Levaquin] 500 mg PO DAILY #5 tablet 11/05/20 Magnesium Oxide 400 mg PO TID #30 tablet 11/05/20 Nicotine [Nicoderm Cq] 21 mg TD DAILY patch 11/05/20 Pantoprazole Sodium [Protonix] 40 mg PO DAILY tablet 11/05/20 Propranolol HCl [Inderal (Beta Mariluz)] 40 mg PO BID tablet 11/05/20 Thiamine Hydrochloride [Vitamin B1] 100 mg PO DAILYCM tablet 11/05/20 Following Prescriptions Were Given to Patient: Levofloxacin [Levaquin] 500 mg PO DAILY #5 tablet Transmission Status: Received by [email or web address] #[email or web address] Magnesium Oxide 400 mg PO TID #30 tablet Transmission Status: Received by [email or web address] #[id number] Primary Care Physician: Rickey Foley MD [Primary Care Provider] - Please follow up with your Primary Care Physician in: In 2 weeks Medical Necessity - Tobacco Use Smoking Status: Current every day smoker Tobacco Use: Cigarettes Meaningful Use Info Meaningful Use Diagnoses (Choose all that apply): None applicable Inpatient E&M: 28813 [facility]
[2020-11-05] MEDS: Ceftriaxone 1 GM/50 ML BAG IV (09:49)
[2020-11-05] MEDS: Magnesium Sulfate 4gm/100mL 4 GM/100 ML IV.SOLN. IV (10:48)
--- NOTE | 2020-11-05 13:02 | CASEMGMT ---
IDANIA received a call from Amanda with [facility] and she received pre-cert. IDANIA notified RN, patient, and medical office secretary. Patient has Magnesium hanging so he cannot go until at least 330p. IDANIA called [facility] and asked if they could transport patient using his motorized wheelchair. IDANIA was told they cannot do this. IDANIA called Amanda and asked if they could either fruit or nut picker patient around 330/4 or if they could at some point come and fruit or nut picker his power wheelchair. She said she would check on this and get back with Social Work. Drea Horne ASSISTANT DIRECTOR OF SECURITY CARMELITA
--- NOTE | 2020-11-05 13:46 | CASEMGMT ---
Amanda from [facility] called back and said they can spanish moss picker patient's wheelchair in the next 15-20 min. However, the meals on wheels driver will not be able to transport patient as she has other appts. SW let charge aide know this and a staff member will take his wheelchair to the main entrance. SW also spoke with patient and let him know that [facility] is picking up his wheelchair and SW will arrange transportation for him to get to [facility]. SW arranged for patient to get picked up at 1600 via wc van. SW notified patient, RN, medical secretary, and Amanda at [facility]. Convalescent was completed on . Orders were faxed to [facility]. Plan: d/c to [facility] under skilled level of care on a convalescent stay. [facility] transported patient's power wheelchair to [facility]. [facility]icians then transported patient via wc to [facility]. (Physicians said they could not transport patient via his power wheelchair). Drea MAE
--- NOTE | 2020-11-05 15:36 | NURSING ---
tracey from [facility] called and report given with no questions. pt dc'd via wc with all belongings
== END 2020-11-05 15:31 | disposition skilled nursing facility (03) | DRG 663 ==
LOC: ED 14:07 → PCU 16:20
PROVIDERS: Anesthesiology; Family Medicine; Hospitalist; Surgery; Admitting Provider Hospitalist; Emergency Provider Emergency Medicine; PCP Internal Medicine; Visit Provider Internal Medicine
PROC: 0DJ08ZZ Inspection of Upper Intestinal Tract, Via Natural or Artificial Opening Endoscopic (ICD-10-PCS; CPT 43235; principal; 2020-10-31 11:55)
PROC: 0DJD8ZZ Inspection of Lower Intestinal Tract, Via Natural or Artificial Opening Endoscopic (ICD-10-PCS; CPT 45378; principal; 2020-11-03 11:55)
DX: D62 Acute posthemorrhagic anemia (principal); F10.239 Alcohol dependence with withdrawal, unspecified; R45.851 Suicidal ideations; J44.0 Chronic obstructive pulmonary disease with (acute) lower respiratory infection; J44.1 Chronic obstructive pulmonary disease with (acute) exacerbation; J15.4 Pneumonia due to other streptococci; J15.8 Pneumonia due to other specified bacteria; K92.2 Gastrointestinal hemorrhage, unspecified; E83.42 Hypomagnesemia; E87.6 Hypokalemia; I10 Essential (primary) hypertension; R00.0 Tachycardia, unspecified; F17.210 Nicotine dependence, cigarettes, uncomplicated; Z79.51 Long term (current) use of inhaled steroids; Z79.899 Other long term (current) drug therapy; Y90.8 Blood alcohol level of 240 mg/100 ml or more; F10.229 Alcohol dependence with intoxication, unspecified; Z59.0 Homelessness; R09.02 Hypoxemia; K70.10 Alcoholic hepatitis without ascites; K70.0 Alcoholic fatty liver
CPT/HCPCS: 36415; 71045; 76705; 80048; 80053; 80307; 81001; 82077; 82248; 83735; 83880; 84100; 84484; 85025; 85610; 85730; 86850; 86900; 86901; 86920; 86922; 87070; 87077; 87186; 87205; 87426; 87449; 87641; 88305; 93005; 94640; 97110; 97162; 97166; 97530; 97535; 97802; 99285; 99406; J7030; J7040; J7050; J7120; P9016; A4216; J2405; J3475; J3490

== ENCOUNTER → 2021-01-19 15:20 | Outpatient (CLI) | payer MEDICAID, SELFPAY ==
[2021-01-19 14:57] VITALS: BMI 23.8
[2021-01-19 17:16] LABS: Absolute Lymphocyte Count 0.97 X10^3/uL (0.83-4.51); Absolute Neutrophil Count 3.3 X10^3/uL (2.0-7.7); Basophil# 0.01 X10^3/uL; Basophil% 0.2 % (0-1); Eosinophil# 0.04 X10^3/uL; Eosinophils% 0.8 % (0-5); Hematocrit 30.5 % (40-54); Hemoglobin 9.3 g/dL (13.0-16.5); Lymphocyte # 0.97 X10^3/ul (0.83-4.51); Lymphocyte % 20.2 % (19-41); Mean Corp Hgb Conc 30.5 g/dL (32-36); Mean Corpuscular Hgb 26.1 pg (27.0-32.0); Mean Corpuscular Volume 85.4 fL (80-94); Mean Platelet Vol. 11.6 fl (6.2-12.0); Monocyte# 0.45 X10^3/uL; Monocyte% 9.4 % (0-10); NRBC Flagged by Analyzer 0 % (0-5); Neutrophil # 3.31 X10^3/uL (2.7-7.7); Platelet Count 202 K/mm3 (150-450); RBC Distribution Width CV 14.6 % (11.6-14.6); RBC Distribution Width SD 45.4 fl (35.1-43.9); Red Blood Count 3.57 M/mm3 (4.6-6.2); White Blood Count 4.8 K/mm3 (4.4-11.0)
[2021-01-19 17:33] LABS: ALB/GLOB Ratio 0.7 RATIO (0.9-2.4); AST(SGOT) 23 U/L (15-37); Alanine Aminotransfer ALT/SGPT 24 U/L (16-61); Albumin, Serum 3.4 g/dL (3.2-5.0); Alkaline Phosphatase 104 U/L (45-117); Anion Gap 8 (5-15); BUN 10 mg/dL (7-18); BUN/Creat Ratio 13.3 RATIO (10-20); Chloride 107 mmol/L (98-107); Creatinine, Serum 0.75 mg/dL (0.70-1.30); EST Glomerular Filtration Rate 114 mL/min (>60); Est Glom Filt Rate - Afr Amer 137 mL/min (>60); Globulin 4.8 g/dL (2.2-4.2); Glucose 92 mg/dL (74-106); Potassium 3.7 mmol/L (3.5-5.1); Protein, Total 8.2 g/dL (6.4-8.2); Sodium Level 140 mmol/L (136-145)
[2021-01-19 17:36] LABS: Vitamin B12 382 pg/mL (211-911)
[2021-01-20 09:54] LABS: Ferritin 11 ng/mL (26-388); Iron 31 ug/dL (65-175); Iron Binding Capacity,Total 460 ug/dL (250-450); Magnesium 1.3 mg/dL (1.6-2.6)
== END ==
PROVIDERS: PCP Internal Medicine; Visit Provider Internal Medicine
DX: I10 Essential (primary) hypertension (principal); D64.9 Anemia, unspecified; F10.10 Alcohol abuse, uncomplicated; G62.9 Polyneuropathy, unspecified
CPT/HCPCS: 36415; 80053; 82607; 82728; 83540; 83550; 83735; 85025

== ENCOUNTER → 2021-03-13 | Outpatient (CLI) | payer MEDICAID, SELFPAY ==
[2021-03-13 13:56] VITALS: BMI 22.4
[2021-03-13 15:16] LABS: Absolute Lymphocyte Count 0.98 X10^3/uL (0.83-4.51); Basophil# 0.01 X10^3/uL; Basophil% 0.3 % (0-1); Eosinophil# 0.02 X10^3/uL; Eosinophils% 0.6 % (0-5); Hematocrit 36.7 % (40-54); Hemoglobin 11.6 g/dL (13.0-16.5); Lymphocyte # 0.98 X10^3/ul (0.83-4.51); Lymphocyte % 28.9 % (19-41); Mean Corp Hgb Conc 31.6 g/dL (32-36); Mean Corpuscular Hgb 26.6 pg (27.0-32.0); Mean Corpuscular Volume 84.2 fL (80-94); Mean Platelet Vol. 10.8 fl (6.2-12.0); Monocyte# 0.34 X10^3/uL; NRBC Flagged by Analyzer 0 % (0-5); Neutrophil # 2.03 X10^3/uL (2.7-7.7); Neutrophil % 59.9 % (47-70); Platelet Count 179 K/mm3 (150-450); RBC Distribution Width CV 18.7 % (11.6-14.6); RBC Distribution Width SD 57.2 fl (35.1-43.9); Red Blood Count 4.36 M/mm3 (4.6-6.2); White Blood Count 3.4 K/mm3 (4.4-11.0)
[2021-03-13 16:05] LABS: ALB/GLOB Ratio 0.7 RATIO (0.9-2.4); AST(SGOT) 15 U/L (15-37); Alanine Aminotransfer ALT/SGPT 16 U/L (16-61); Albumin, Serum 3.5 g/dL (3.2-5.0); Alkaline Phosphatase 111 U/L (45-117); Anion Gap 6 (5-15); BUN 6 mg/dL (7-18); BUN/Creat Ratio 9.7 RATIO (10-20); Calcium,Total 9.2 mg/dL (8.5-10.1); Chloride 102 mmol/L (98-107); Creatinine, Serum 0.62 mg/dL (0.70-1.30); EST Glomerular Filtration Rate 142 mL/min (>60); Est Glom Filt Rate - Afr Amer 172 mL/min (>60); Ferritin 39 ng/mL (26-388); Globulin 4.8 g/dL (2.2-4.2); Glucose 72 mg/dL (74-106); Iron 58 ug/dL (65-175); Iron Binding Capacity,Total 346 ug/dL (250-450); Magnesium 1.7 mg/dL (1.6-2.6); PERCENT IRON SATURATION 16.8 % (15.0-55.0); Potassium 3.6 mmol/L (3.5-5.1); Protein, Total 8.3 g/dL (6.4-8.2); Sodium Level 136 mmol/L (136-145)
[2021-03-13 16:07] LABS: Vitamin B12 238 pg/mL (211-911)
[2021-03-21 15:29] LABS: Vitamin B1, Thiamine 98.5 nmol/L (66.5-200.0)
== END | disposition home or self-care (01) ==
LOC: BIMLAB 14:29
PROVIDERS: PCP Internal Medicine; Referring Provider Physician Assistant; Visit Provider Physician Assistant
DX: D64.9 Anemia, unspecified (principal); E87.6 Hypokalemia; F10.10 Alcohol abuse, uncomplicated; G62.9 Polyneuropathy, unspecified; R29.898 Other symptoms and signs involving the musculoskeletal system
CPT/HCPCS: 36415; 80053; 82607; 82728; 83540; 83550; 83735; 84425; 85025

== ENCOUNTER → 2021-03-16 13:43 | Outpatient (CLI) | payer MEDICAID, SELFPAY ==
[2021-03-13 13:56] VITALS: BMI 22.4
--- NOTE | 2021-03-16 13:45 | RAD_ITS ---
STUDY: X-RAY - LUMBAR SPINE REASON FOR EXAM: Male, 55 years old. Radiating low back pain TECHNIQUE: 5 view(s) of the lumbar spine were obtained. COMPARISON: None FINDINGS: There is straightening of the normal lumbar lordosis. There is no substantial scoliosis. There is a normal alignment of the vertebrae. There is multilevel endplate spondylosis of the lumbar vertebrae. There is multi-level degenerative disc disease with multi-level disc space narrowing. There is no demonstrated fracture. There is atherosclerotic calcification of the abdominal aorta without a demonstrated aneurysm. RAD/L/S Spine Min 4 Views IMPRESSION: Degenerative changes of the spine, as detailed above. Electronically Signed: Raj Cruz MD at 14:40 EDT , Service support ,
== END ==
PROVIDERS: PCP Internal Medicine; Referring Provider Chiropractor; Visit Provider Chiropractor
DX: M54.16 Radiculopathy, lumbar region (principal)
CPT/HCPCS: 72110

== ENCOUNTER → 2021-04-30 14:14 | Outpatient (CLI) | payer MEDICAID, SELFPAY ==
--- NOTE | 2021-04-30 14:16 | RAD_ITS ---
STUDY: X-RAY - LEFT SHOULDER REASON FOR EXAM: Male, 56 years old. Left shoulder pain for 2 months. Pain on internal rotation and extension. TECHNIQUE: 4 view(s) of the shoulder. COMPARISON: None. FINDINGS: Normal glenohumeral articulation. There is minimal degenerative arthrosis of the acromioclavicular joint without inferior osseous spur formation. There is a curved undersurface of the acromion consistent with a Type II morphology. There is no acute fracture, dislocation or destructive osseous pathology. Normal humeral head and visualized proximal humerus. The soft tissue structures are unremarkable. Normal visualized pulmonary apex. RAD/Shoulder min 2 Views IMPRESSION: Minimal degenerative changes of the acromioclavicular joint. Electronically Signed: Triston Landa DO at 17:00 EDT Tel [phone], Service support ,
== END ==
PROVIDERS: PCP Internal Medicine; Referring Provider Internal Medicine; Visit Provider Internal Medicine
DX: M25.512 Pain in left shoulder (principal)
CPT/HCPCS: 73030

== ENCOUNTER 2021-06-29 15:00 | Outpatient (RCR) | payer MEDICAID, SELFPAY ==
--- NOTE | 2021-05-14 15:13 | HP.PTEVAL_ITS ---
Patient's Visit Information MATTY WAGNER is a 56 year old M referred to Physical Therapy by ALYSSA Chavez with a diagnosis of Pain in unspecified knee, M25.569; Pain in left shoulder, M25.512. Date of Evaluation: 05/14/21 Physical Therapist: Dayne London - Visit Plan Frequency: 2x /Week Duration: 4 Weeks Plan: Focus on LE strengthening and balance exercises. Also add some left shoulder AAROM, AROM, and RTC/scapular strengthening. - Subjective Pt. is a 56 y.o. male who has been having bilateral knee pain for about 4 months with no specific injury that he is aware of. He is also having some left shoulder pain which has been going on for 3 months with no specific injury as well. Pt. PLOF includes no history of knee or shoulder pain in the past. Pt. has had x-ray of his left shoulder which showed arthritis. Pt. has not had any imaging of his knees. Pt. denies any chest pain or neck pain. He has not had any falls but has had some close falls. Pt. has constant tingling in both of his feet. He has difficulty with walking 3-4 blocks, ascending/descending stairs, squatting, turning his head while walking, walking on uneven ground, reaching overhead, reaching behind his back, housework, yard work, and work activity. 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 His goal with physical therapy is to improve his walking endurance. Pt. has had previous physical therapy at nursing from October to December for being unable to walk. Pt. denies any pain currently, at worst 8/10 in his knees, and describes the pain as sharp. He will take Gabapentin and Advil. Pt. PMH includes smoker 1.5 to 2 packs a day for 48 years and collapsed lung. Pt. lives alone in an apartment with one step to enter. His hobbies include researching current events. - Objective Palpation- Mild tenderness over anterior left shoulder. AROM left shoulder flexion 140 degrees, abduction 85 degrees, ER 65 degrees, IR 50 degrees. AROM right shoulder flexion 172 degrees, abduction 170 degrees, ER 90 degrees, IR 68 degrees. PROM left shoulder flexion 160 degrees, abduction 166 degrees, ER 75 degrees, IR 60 degrees. PROM right shoulder WNL for all motions. Left shoulder strength flexion 3-/5, abduction 3-/5, ER 3-/5, IR 4+/5, elbow flexion 5/5, extension 5/5. Right shoulder strength flexion 5/5, abduction 5/5, ER 5/5, IR 5/5, elbow flexion 5/5, extension 5/5. Shoulder special test- Hawkin's Dilip [+], Painful arc [+], Drop arm [-], Lift off [+], Infraspinatus test [-], Full can/Empty can [+]. AROM left knee flexion 126 degrees, extension 0 degrees. AROM right knee flexion 130 degrees, extension 0 degrees. Left LE strength hip flexion 5/5, abduction 5/5, adduction 5/5, extension 5/5, knee flexion 4+/5, knee extension 4+/5, ankle DF 5/5, ankle PF 5/5. Right LE strength hip flexion 5/5, abduction 5/5, adduction 5/5, extension 5/5, knee flexion 4+/5, knee extension 4+/5, ankle DF 5/5, ankle PF 5/5. Moderate tight hamstrings bilaterally. Special tests- Karel's [-], Anterior drawer [-], Posterior drawer [-], Varus [-], Valgus [-], Burch's [-]. Tandem stance on left 3 secs, right 3 secs. SLS left 1 sec, right 1 sec. Gait- Pt. ambulates with wider base of support and occasional swaying. - Balance/Special Test Scores Lower Extremity Functional Score: 24 - Goals Goal 1:: Pt. will improve left shoulder AROM flexion and abduction > 160 degrees and ER > 70 degrees in order to improve reaching overhead. Goal Time Frame: 4-6 Weeks Goal 2:: Pt. will improve left shoulder strength to 4+/5 for all motions in order to complete ADL's. Goal Time Frame: 4-6 Weeks Goal 3:: Pt. will be able to stand/walk for at least 20 minutes with no rest break in order to improve endurance. Goal Time Frame: 4-6 Weeks Goal 4:: Pt. will be able to ascend/descend a flight of stairs with alternating step pattern and unilateral handrail. Goal Time Frame: 4-6 Weeks Goal 5:: Pt. will improve tandem stance > 15 secs in order to improve stability and balance. Goal Time Frame: 4-6 Weeks Goal 6:: Pt. will rate bilateral knee and left shoulder pain at worst at 3/10 with ADL's. Goal Time Frame: 4-6 Weeks - Rehabilitation Potential Physical Therapy Diagnosis: Decreased bilateral LE strength, flexibility, balance, pain, and decreased left shoulder ROM and strength Rehabilitation Potential: Good - Anticipated Interventions Patient/Client Instruction: Educate patient on: Condition, Plan of Care For the Purpose of:: To decrease pain, To decrease swelling/inflammation, To improve ability to perform ADL's, To improve performance and independence with ADL's, To assume or resume ADL's, To improve tolerance to ADL's Therapeutic Exercise to Include: Strength training, Balance training, Flexibilty training, Gait and locomotor training, Passive ROM, Active ROM, Scapular Strength/Stabilization Comment: Focus on LE strengthening and balance exercises. Also add left shoulder AAROM, AROM, and RTC/scapular strengthening. For the Purpose of:: To decrease pain, To increase ROM, To improve ability to perform ADL's, To improve performance and independence with ADL's, To increase flexibility/ROM, To improve balance, To improve safety with gait, To assume or resume ADL's, To improve safety, To improve tolerance to ADL's Manual Therapy Techniques to Include: Mobilization, Passive ROM, Soft tissue mobilization Comment: PROM and manual therapy for left shoulder as needed. For the Purpose of:: To decrease pain, To increase ROM, To improve ability to perform ADL's, To improve performance and independence with ADL's, To increase flexibility/ROM, To assume or resume ADL's, To improve tolerance to ADL's Thank you for the opportunity to evaluate your patient. For Medicare and Medicare HMO plans, please review the plan of care and approve it. It will need to be FAXED BACK to us at [phone] for Medicare purposes. For Medicare only, by signing this I certify the plan of care. Please let me know if there are questions or concerns regarding this plan of care. Physician Signature: Date:
--- NOTE | 2021-07-20 07:49 | HP.PT.NRP ---
MATTY WAGNER was seen in my office for initial evaluation on 05/14/21. The following Plan of Care was established for this patient: Initial Frequency: 2x /Week Initial Duration: 4 Weeks Patient/Client Instruction: Educate patient on: Condition, Plan of Care For the Purpose of:: To decrease pain, To decrease swelling/inflammation, To improve ability to perform ADL's, To improve performance and independence with ADL's, To assume or resume ADL's, To improve tolerance to ADL's Therapeutic Exercise to Include: Strength training, Balance training, Flexibilty training, Gait and locomotor training, Passive ROM, Active ROM, Scapular Strength/Stabilization For the Purpose of:: To decrease pain, To increase ROM, To improve ability to perform ADL's, To improve performance and independence with ADL's, To increase flexibility/ROM, To improve balance, To improve safety with gait, To assume or resume ADL's, To improve safety, To improve tolerance to ADL's Manual Therapy Techniques to Include: Mobilization, Passive ROM, Soft tissue mobilization Comment: PROM and manual therapy for left shoulder as needed. For the Purpose of:: To decrease pain, To increase ROM, To improve ability to perform ADL's, To improve performance and independence with ADL's, To increase flexibility/ROM, To assume or resume ADL's, To improve tolerance to ADL's This patient was last seen in our office . Pertinent comments regarding their Physical therapy will appear below: Patient attended PT but was non compliant with home exercise program- has stopped attending PT and is appropriate for d/c At this point I will be discontinuing this patient from physical therapy. I would be happy to see this patient again in the future if found appropriate by the physician. Thank you! Jessie Arguelles, DPT Balance/Gait/Functional tests - Balance/Special Test Scores Lower Extremity Functional Score: 24
== END 2021-06-29 19:00 | disposition home or self-care (01) ==
LOC: PT 15:00
PROVIDERS: PCP Internal Medicine; Referring Provider Physician Assistant; Visit Provider Physician Assistant
DX: M25.569 Pain in unspecified knee (principal); M25.512 Pain in left shoulder; R29.898 Other symptoms and signs involving the musculoskeletal system
CPT/HCPCS: 97110; 97162

== ENCOUNTER 2021-09-01 10:16 | Outpatient (CLI) | payer MEDICAID, SELFPAY ==
[2021-09-01 12:46] LABS: Absolute Neutrophil Count 3.6 X10^3/uL (2.0-7.7); Basophil# 0.03 X10^3/uL; Basophil% 0.6 % (0-1); Eosinophil# 0.08 X10^3/uL; Eosinophils% 1.5 % (0-5); Hematocrit 35.7 % (40-54); Hemoglobin 11.6 g/dL (13.0-16.5); Lymphocyte % 19.1 % (19-41); Mean Corp Hgb Conc 32.5 g/dL (32-36); Mean Corpuscular Hgb 31.8 pg (27.0-32.0); Mean Corpuscular Volume 97.8 fL (80-94); Mean Platelet Vol. 10.5 fl (6.2-12.0); Monocyte# 0.48 X10^3/uL; Monocyte% 9.2 % (0-10); NRBC Flagged by Analyzer 0 % (0-5); Neutrophil # 3.63 X10^3/uL (2.7-7.7); Neutrophil % 69.2 % (47-70); Platelet Count 299 K/mm3 (150-450); RBC Distribution Width CV 15.9 % (11.6-14.6); RBC Distribution Width SD 57.3 fl (35.1-43.9); Red Blood Count 3.65 M/mm3 (4.6-6.2); White Blood Count 5.2 K/mm3 (4.4-11.0)
[2021-09-01 13:13] LABS: ALB/GLOB Ratio 0.7 RATIO (0.9-2.4); AST(SGOT) 39 U/L (15-37); Alanine Aminotransfer ALT/SGPT 46 U/L (16-61); Albumin, Serum 3.5 g/dL (3.2-5.0); Alkaline Phosphatase 131 U/L (45-117); Anion Gap 4 (5-15); BUN 8 mg/dL (7-18); BUN/Creat Ratio 12.8 RATIO (10-20); Chloride 105 mmol/L (98-107); Cholesterol 160 mg/dL (200); Creatinine, Serum 0.63 mg/dL (0.70-1.30); EST Glomerular Filtration Rate 140 mL/min (>60); Est Glom Filt Rate - Afr Amer 170 mL/min (>60); Globulin 4.7 g/dL (2.2-4.2); Glucose 88 mg/dL (74-106); High Density Lipoprotein 60 mg/dL; Potassium 4.1 mmol/L (3.5-5.1); Protein, Total 8.2 g/dL (6.4-8.2); Sodium Level 137 mmol/L (136-145); Thyroid Stim Hormone (TSH) 5.36 uIU/mL (0.358-3.74); Triglycerides 58 mg/dL; Very Low Density Lipoprotein 12 mg/dL (5-40)
[2021-09-01 14:40] LABS: PSA,Total - Annual Screen 0.85 ng/mL (0.00-4.00); T4 Free Direct 0.93 ng/dL (0.76-1.46)
== END 2021-09-01 23:59 | disposition short-term general hospital (02) ==
LOC: BIMLAB 10:17
PROVIDERS: PCP Internal Medicine; Referring Provider Nurse Practitioner Family; Visit Provider Nurse Practitioner Family
DX: Z12.5 Encounter for screening for malignant neoplasm of prostate (principal); G62.9 Polyneuropathy, unspecified; F10.10 Alcohol abuse, uncomplicated; I10 Essential (primary) hypertension; R79.89 Other specified abnormal findings of blood chemistry
CPT/HCPCS: 84153; 36415; 80053; 80061; 84439; 84443; 85025; G0103

== ENCOUNTER 2021-10-16 18:32 | Emergency (ER) | payer MEDICAID, SELFPAY ==
[2021-10-16 18:33] VITALS: BP 154/104; PULSE 94; RESP 14; TEMP 36.6; O2SAT 98; BMI 20.9
--- NOTE | 2021-10-16 19:26 | EDS_ITS ---
HPI History of Present Illness Chief Complaint: Head Injury Narrative Narrative: Patient with past medical history of neuropathy, fatty liver, chronic back pain presents status post fall. He sustained a laceration to the back of his head. He states he was at his apartment complex and fell backwards on his walkway. He is unsure if he had loss of consciousness. He denies any neck pain. He sustained a laceration to the back of his head and states he has a headache, but denies any paresthesias. No prodromal symptoms prior to his fall such as chest pain or shortness of breath. He denies taking any blood thinners. He is unsure of his last tetanus immunization. He denies other injury. [facility] Medical History Alcohol abuse Anemia Drug abuse Flu vaccine need H/O: pneumonia History of fractured rib Left shoulder pain Liver disease Lower extremity weakness Neuropathy Neuropathy Seasonal allergies Venous insufficiency Home Medications albuterol sulfate 90 mcg/actuation aerosol inhaler 1 - 2 puff INHALATION Q6H PRN #8.5 g 07/18/20 [Rx Last Taken Unknown] mecobalamin (vitamin B12) 1,000 mcg disintegrating tablet,sublingual 2,000 mcg SUBLINGUAL DAILY #180 tab 01/22/21 [Rx Last Taken Unknown] diclofenac sodium 1 % topical gel 4 g TOPICAL ONCE PRN #100 g MDD 16g/day 03/13/21 [Rx Last Taken Unknown] ferrous sulfate 325 mg (65 mg iron) tablet 325 mg PO DAILY #90 tab 08/21/21 [Rx Last Taken Unknown] gabapentin 300 mg capsule 300 mg PO BID PRN #60 cap 08/21/21 [Rx Last Taken Unknown] magnesium oxide 400 mg (241.3 mg magnesium) tablet 400 mg PO TID #360 tab 08/21/21 [Rx Last Taken Unknown] melatonin 5 mg capsule 5 mg PO QHS #90 cap 08/21/21 [Rx Last Taken Unknown] thiamine HCl (vitamin B1) 100 mg tablet 100 mg PO DAILYCM #90 tab 08/21/21 [Rx Last Taken Unknown] Symbicort 160 mcg-4.5 mcg/actuation HFA aerosol inhaler 2 puff INHALATION Q12H #10.2 g NS 08/24/21 [Rx Last Taken Unknown] bupropion HCl 150 mg tablet,12 hr sustained-release 150 mg PO BID #60 ea 09/01/21 [Rx Last Taken Unknown] compress.stocking,knee,reg,med #2 ea 09/01/21 [Rx Last Taken Unknown] lanolin-mineral oil lotion 1 applic TOPICAL BID-TID PRN #500 ml 09/01/21 [Rx Last Taken Unknown] propranolol 40 mg tablet 40 mg PO BID #180 tab 09/01/21 [Rx Last Taken Unknown] Allergy/AdvReac Type Severity Reaction Status Date / Time erythromycin base Allergy Unknown Hives Verified 10/16/21 18:35 Family History Mother Cancer lung/brain Alcohol abuse Father Alcohol abuse Surgical History H/O colonoscopy Social History Smoking Status: Current every day smoker tobacco type: cigarettes Tobacco: How many years used: 43 second hand exposure: Yes quit status: has quit before counseling given: provider counseling alcohol intake: former substance use type: marijuana what type of physical activity do you participate in: none ROS ROS ED ROS Narrative Constitutional: No fever, no chills. HEENT: No sore throat. No neck pain. No loss of vision. No rhinorrhea. Laceration to back of head. Cardiovascular: No chest pain. No palpitations. No pedal edema. Respiratory: No cough, no shortness of breath. Abdominal: No abdominal pain. No nausea. No vomiting. Genitourinary: No dysuria. No hematuria. Musculoskeletal: No myalgias. No arthralgias. Neurologic: Positive headache. No dizziness. No lightheadedness. Skin: No rash. No change in color. Psychiatric: No depression. No anxiety. EXAM Physical Exam Narrative Exam Narrative: Afebrile. Vital signs noted. HEENT: Normocephalic. Mild tenderness occiput with dried blood PERRL, EOMI. Neck soft and supple. No point tenderness or step off. Full range of motion without pain. Cardiovascular: Regular rate and rhythm. No murmurs, rubs, or gallops appreciated. Respiratory: No tachypnea. Lungs clear to auscultation bilaterally. Gastrointestinal: Abdomen soft, nontender, with normoactive bowel sounds. No rebound or guarding. Neurological: Awake. Alert. Oriented to person, place, and time nonfocal, nonlateralizing. Able to raise arms above head without difficulty. Skin: No rash. Normal color. No pallor. Musculoskeletal: No pedal edema. Full range of motion extremities. Const Vital Signs: 10/16/21 18:33 Temperature 97.8 F Temperature Source Temporal Pulse Rate 94 Respiratory Rate 14 Blood Pressure 154/104 H Blood Pressure Mean 120 Pulse Ox 98 Oxygen Delivery Method Room Air PROC Procedures Lacerations Occipital scalp laceration: Length: 1.57 in Depth: Skin Shape: Linear Prep: Chlorhexadine (Wound cleansed by RN) Number of Sutures/Neela: 6 Comment: [place]co inserted by Ana Banks PA-C MDM MDM MDM Narrative Medical decision making narrative: Given his history and questionable loss of consciousness I will obtain a CT of the brain and of the C-spine. Additionally, he did admit to drinking alcohol this evening. He will be given an Adacel shot. His wound will be cleansed. CT the brain shows no acute intracranial findings, no underlying fracture. There is noted soft tissue swelling of the scalp posteriorly. CT of the C-spine shows degenerative changes but no acute fracture. 6 surgical neela were inserted for wound closure by KOFI. Please see procedure note for details. He will have the neela removed in 10 to 14 days by his primary care physician. I feel he can be discharged safely home with follow-up. Return instructions were reviewed. Disposition is discharged home in stable condition. Radiography Diagnostic Testing: Clinical Impression(s) from Imaging Studies Brain CT 10/16/21 19:35 IMPRESSION: There are no acute intracranial findings. There is no underlying fracture. Soft tissue swelling of the scalp- posteriorly. Electronically Signed: Blaise Pace MD at 19:49 EDT , Cervical Spine CT 10/16/21 19:35 IMPRESSION: Degenerative changes of the cervical spine. There are no acute findings. Electronically Signed: Blaise Pace MD at 19:56 EDT , Discharge Plan Triage Chief Complaint: Head Injury ED Provider: Gabriel Weiner Dx/Rx/DC Orders Clinical Impression: Fall, Occipital scalp laceration Instructions: ED Scalp Contusion, ED Head Injury (Adult), ED Laceration: All Closures Prescriptions: No Action albuterol sulfate [ProAir HFA] 90 mcg/actuation HFA aerosol inhaler 1 - 2 puff INHALATION Q6H PRN (Reason: shortness of breath or wheezing) Qty: 8.5 RF: 3 diclofenac sodium 1 % gel 4 g topical ONCE MDD 16g/day PRN (Reason: joint pain) Qty: 100 RF: 1 Eucerin Original Lotion 1 applic topical BID-TID PRN (Reason: dry skin) Qty: 500 RF: 1 propranolol 40 mg tablet 40 mg PO BID Qty: 180 RF: 3 bupropion HCl [Wellbutrin SR] 150 mg tablet sustained-release 12 hr 150 mg PO BID Qty: 60 RF: 1 (DME) compress.stocking,knee,reg,med Misc See Rx Instructions .ROUTE .MEDSUPPLY Qty: 2 RF: 1 mecobalamin (vitamin B12) 1,000 mcg tablet,disintegrating 2,000 mcg sublingual DAILY Qty: 180 RF: 3 ferrous sulfate 325 mg (65 mg iron) tablet 325 mg PO DAILY Qty: 90 RF: 3 gabapentin 300 mg capsule 300 mg PO BID PRN (Reason: pain) Qty: 60 RF: 0 magnesium oxide 400 mg (241.3 mg magnesium) tablet 400 mg PO TID Qty: 360 RF: 2 melatonin 5 mg capsule 5 mg PO QHS Qty: 90 RF: 1 thiamine HCl (vitamin B1) 100 mg tablet 100 mg PO DAILYCM Qty: 90 RF: 2 budesonide-formoterol [Symbicort] 160-4.5 mcg/actuation HFA aerosol inhaler 2 puff inhalation Q12H Qty: 10.2 RF: 2 Primary Care Provider: Rickey Foley Referrals: Rickey Foley MD [Primary Care Provider] - 10 Day for suture removal Disposition Disposition: Home, Self Care
[2021-10-16] MEDS: Diphth,Pertuss(Acell),Tet Vac 0.5 ML Vial IM (19:31)
--- NOTE | 2021-10-16 19:35 | CT_ITS ---
STUDY: CT BRAIN WITHOUT CONTRAST REASON FOR EXAM: Male, 56 years old. HEADACHE Head Injury TECHNIQUE: Transaxial CT imaging of the brain was performed without administration of intravenous contrast material. Individualized dose optimization techniques were used for this CT. COMPARISON: None FINDINGS: Normal calvarium. There is no underlying fracture. Soft tissue swelling of the scalp- posteriorly. Normal size ventricles and extra-axial spaces for the patient''s age. There are areas of decreased attenuation within the white matter tracts of the supratentorial brain, consistent with microvascular disease changes. Normal basal ganglia and thalami. Normal brainstem. Normal cerebellum. There is no intracranial hemorrhage. There are no findings of an acute ischemic infarction. Normal visualized paranasal sinuses. ASPECTS 10 CT/Brain/Head without Contrast IMPRESSION: There are no acute intracranial findings. There is no underlying fracture. Soft tissue swelling of the scalp- posteriorly. Electronically Signed: Blaise Pace MD at 19:49 EDT ,
--- NOTE | 2021-10-16 19:35 | CT_ITS ---
EXAM: CT SPINE - CERVICAL WITHOUT IV REASON FOR EXAM: Male, 56 years old. NECK PAIN head injury Individualized dose optimization techniques were used for this CT. TECHNIQUE: Multiplanar images were obtained of the cervical spine. IV contrast was not utilized. COMPARISON: None. FINDINGS: The vertebral bodies do maintain their height. The odontoid process is intact. There is no anterolisthesis or fracture. No pre-vertebral soft tissue swelling is seen. The intravertebral disc height is lost. There are scattered lymph nodes in the neck. There are degenerative changes of the osseous structures. There is bilateral facet arthropathy. There are scattered levels of foraminal stenosis. There are vascular calcifications. CT/Spine Cervical without Contras IMPRESSION: Degenerative changes of the cervical spine. There are no acute findings. Electronically Signed: Blaise Pace MD at 19:56 EDT ,
== END 2021-10-16 20:36 | disposition home or self-care (01) ==
PROVIDERS: Emergency Provider Emergency Medicine; PCP Internal Medicine; Visit Provider Emergency Medicine
DX: S01.01XA Laceration without foreign body of scalp, initial encounter (principal); W01.0XXA Fall on same level from slipping, tripping and stumbling without subsequent striking against object, initial encounter; Y92.038 Other place in apartment as the place of occurrence of the external cause; D64.9 Anemia, unspecified; G62.9 Polyneuropathy, unspecified; F17.210 Nicotine dependence, cigarettes, uncomplicated; Z79.899 Other long term (current) drug therapy
CPT/HCPCS: 12002; 70450; 72125; 90715; 99283

== ENCOUNTER 2021-11-13 13:56 | Inpatient (IN) | payer MEDICAID, SELFPAY ==
[2021-11-13 13:57] VITALS: BP 137/103; PULSE 118; RESP 20; TEMP 36.5; O2SAT 96; BMI 20.3
[2021-11-13 14:38] LABS: Absolute Lymphocyte Count 0.66 X10^3/uL (0.83-4.51); Absolute Neutrophil Count 3.1 X10^3/uL (2.0-7.7); Basophil# 0.02 X10^3/uL; Basophil% 0.5 % (0-1); Eosinophil# 0.04 X10^3/uL; Hematocrit 36.6 % (40-54); Hemoglobin 12.4 g/dL (13.0-16.5); Lymphocyte # 0.66 X10^3/ul (0.83-4.51); Lymphocyte % 15.7 % (19-41); Mean Corp Hgb Conc 33.9 g/dL (32-36); Mean Corpuscular Hgb 32.3 pg (27.0-32.0); Mean Corpuscular Volume 95.3 fL (80-94); Mean Platelet Vol. 9.9 fl (6.2-12.0); Monocyte# 0.32 X10^3/uL; Monocyte% 7.6 % (0-10); NRBC Flagged by Analyzer 0 % (0-5); Neutrophil # 3.14 X10^3/uL (2.7-7.7); Neutrophil % 74.5 % (47-70); POSITIVE COUNT YES; Platelet Count 97 K/mm3 (150-450); RBC Distribution Width CV 16.5 % (11.6-14.6); Red Blood Count 3.84 M/mm3 (4.6-6.2); White Blood Count 4.2 K/mm3 (4.4-11.0)
--- NOTE | 2021-11-13 14:40 | EDS_ITS ---
HPI History of Present Illness Chief Complaint: Substance Abuse Informant: patient Narrative Narrative: 56-year-old male who is an exceedingly poor historian presents to the emergency room stating that he would like help with alcohol abuse. He states that he has tried to detox many times in the past. He states that he does get withdrawal symptoms but has not had a seizure. He states that nothing in particular is caused him to hit rock bottom to seek detox other than he is tired of living his life the way he is. He cannot tell me any medical problems that he has. He tablets that he drinks beer and vodka last drink was 11:00 this morning so that I would not have to go through withdrawal. He states he does not have any pending legal issues. [facility] Medical History Alcohol abuse Anemia Drug abuse Flu vaccine need H/O: pneumonia History of fractured rib Left shoulder pain Liver disease Lower extremity weakness Neuropathy Neuropathy Seasonal allergies Venous insufficiency Home Medications albuterol sulfate 90 mcg/actuation aerosol inhaler 1 - 2 puff INHALATION Q6H PRN #8.5 g 07/18/20 [Rx Last Taken Unknown] ferrous sulfate 325 mg (65 mg iron) tablet 325 mg PO DAILY #90 tab 08/21/21 [Rx Last Taken Unknown] magnesium oxide 400 mg (241.3 mg magnesium) tablet 400 mg PO TID #360 tab 08/21/21 [Rx Last Taken Unknown] thiamine HCl (vitamin B1) 100 mg tablet 100 mg PO DAILYCM #90 tab 08/21/21 [Rx Last Taken Unknown] bupropion HCl 150 mg tablet,12 hr sustained-release 150 mg PO BID #60 ea 09/01/21 [Rx Last Taken Unknown] compress.stocking,knee,reg,med #2 ea 09/01/21 [Rx Last Taken Unknown] propranolol 40 mg tablet 40 mg PO BID #180 tab 09/01/21 [Rx Last Taken Unknown] gabapentin 300 mg capsule 300 mg PO BID PRN #90 cap 10/26/21 [Rx Last Taken Unknown] melatonin 5 mg capsule 5 mg PO QHS #90 cap 10/26/21 [Rx Last Taken Unknown] fluticasone propionate 230 mcg-salmeterol 21 mcg/actuation HFA inhaler 2 puff INHALATION Q12H #12 g 10/28/21 [Rx Last Taken Unknown] Allergy/AdvReac Type Severity Reaction Status Date / Time erythromycin base Allergy Unknown Hives Verified 10/26/21 08:40 Family History Mother Cancer lung/brain Alcohol abuse Father Alcohol abuse Surgical History H/O colonoscopy Social History Smoking Status: Current every day smoker tobacco type: cigarettes Tobacco: How many years used: 43 second hand exposure: Yes quit status: has quit before counseling given: provider counseling alcohol intake: former substance use type: marijuana what type of physical activity do you participate in: none ROS ROS ED Constitutional Constitutional ED: Denies chills or weight loss Eyes Eyes: Denies change in vision or diplopia ENT ENT ED: Denies ear pain, rhinorrhea or sore throat Cardiovascular Cardiovascular: Denies chest pain, orthopnea, palpitations or racing heartbeat Respiratory/Chest Respiratory/Chest: Denies cough, dyspnea or orthopnea Gastrointestinal Gastrointestinal: Denies abdominal pain, diarrhea, nausea or vomiting Genitourinary Genitourinary ED: Denies dysuria, hematuria or urinary frequency Musculoskeletal Musculoskeletal: Denies arthralgias or myalgias Integumentary Denies abscess or rash Neurologic Neurologic: Denies headache(s) or weakness Psychiatric Psychiatric: Reports anxiety and depression; Denies suicidal ideation or suicidal thoughts Endocrine Endocrinology: Denies polydipsia, polyphagia or polyuria Allergic/Immunologic Allergic/Immunologic ED: Denies mouth swelling, tongue swelling or urticaria EXAM Physical Exam Const Vital Signs: 11/13/21 13:57 Temperature 97.7 F L Temperature Source Temporal Pulse Rate 118 H Respiratory Rate 20 H Blood Pressure 137/103 H Blood Pressure Mean 114 Pulse Ox 96 Oxygen Delivery Method Room Air Positive well nourished and well developed General Appearance ED: well developed HEENT Reports normocephalic, head/scalp atraumatic, TM's clear and moist mucous membranes Negative for trauma Tympanic Membrane ED: Yes TM's clear Eyes PERRL and EOMs intact bilaterally Neck no lymphadenopathy, supple and no JVD Resp normal respiratory effort and clear to auscultation bilaterally Cardio regular rate, regular rhythm and no murmurs GI normal to inspection, nondistended, normoactive bowel sounds and non-tender Palpation: soft Back/Spine no CVA tenderness and normal ROM Extremity normal to inspection General Extremety ED: Negative for edema General Extremity: Negative for edema Neuro oriented x3 and CN's II-XII intact bilaterally Sensorium / Orientation: alert Motor Exam: strength 5/5 throughout Psych mental status grossly normal Mood & Affect: Negative for depressed or tearful Skin no rashes or lesions noted and no wounds MDM MDM MDM Narrative Medical decision making narrative: Patient has white count of 4.2 hemoglobin 12.4 and a platelet count of 97. MCV noted to be 95.3. Patient will have his case discussed with the hospitalist for possible admission Lab Data Labs: Laboratory Results - last 24 hr 11/13/21 14:18 WBC 4.2 L RBC 3.84 L Hgb 12.4 L Hct 36.6 L MCV 95.3 H MCH 32.3 H MCHC 33.9 RDW Std Deviation 58.0 H RDW Coeff of [place] 16.5 H Plt Count 97 L MPV 9.9 Immature Gran % (Auto) 0.700 Neut % (Auto) 74.5 H Lymph % (Auto) 15.7 L [place] % (Auto) 7.6 Eos % (Auto) 1.0 Baso % (Auto) 0.5 Absolute Neuts (auto) 3.1 Absolute Lymphs (auto) 0.66 L Nucleated RBC % 0 Discharge Plan Triage Chief Complaint: Substance Abuse ED Provider: Jacobo Gutierrez Dx/Rx/DC Orders Clinical Impression: Alcohol intoxication, Neuropathy, COPD (chronic obstructive pulmonary disease), Alcohol dependence Prescriptions: No Action albuterol sulfate [ProAir HFA] 90 mcg/actuation HFA aerosol inhaler 1 - 2 puff INHALATION Q6H PRN (Reason: shortness of breath or wheezing) Qty: 8.5 RF: 3 propranolol 40 mg tablet 40 mg PO BID Qty: 180 RF: 3 bupropion HCl [Wellbutrin SR] 150 mg tablet sustained-release 12 hr 150 mg PO BID Qty: 60 RF: 1 (DME) compress.stocking,knee,reg,med Misc See Rx Instructions .ROUTE .MEDSUPPLY Qty: 2 RF: 1 melatonin 5 mg capsule 5 mg PO QHS Qty: 90 RF: 1 gabapentin 300 mg capsule 300 mg PO BID PRN (Reason: pain) Qty: 90 RF: 0 fluticasone propion-salmeterol 230-21 mcg/actuation HFA aerosol inhaler 2 puff inhalation Q12H Qty: 12 RF: 2 ferrous sulfate 325 mg (65 mg iron) tablet 325 mg PO DAILY Qty: 90 RF: 3 magnesium oxide 400 mg (241.3 mg magnesium) tablet 400 mg PO TID Qty: 360 RF: 2 thiamine HCl (vitamin B1) 100 mg tablet 100 mg PO DAILYCM Qty: 90 RF: 2 Primary Care Provider: Rickey Foley Referrals: Rickey Foley MD [Primary Care Provider] - Disposition Disposition: Acute Care Hospital [facility]
[2021-11-13 14:42] LABS: International Normalized Ratio 0.9; Prothrombin Time (Protime)PT. 12.3 SECONDS (11.7-14.9)
[2021-11-13 14:51] LABS: ALB/GLOB Ratio 0.6 RATIO (0.9-2.4); AST(SGOT) 260 U/L (15-37); Alanine Aminotransfer ALT/SGPT 102 U/L (16-61); Albumin, Serum 3.3 g/dL (3.2-5.0); Alkaline Phosphatase 149 U/L (45-117); Anion Gap 8 (5-15); BUN 7 mg/dL (7-18); BUN/Creat Ratio 10.6 RATIO (10-20); Calcium,Total 8.5 mg/dL (8.5-10.1); Chloride 100 mmol/L (98-107); Creatinine, Serum 0.66 mg/dL (0.70-1.30); EST Glomerular Filtration Rate 132 mL/min (>60); Est Glom Filt Rate - Afr Amer 160 mL/min (>60); Estimated Creatinine Clearance 118.84 ml/min; Globulin 5.3 g/dL (2.2-4.2); Glucose 104 mg/dL (74-106); Potassium 3.3 mmol/L (3.5-5.1); Protein, Total 8.6 g/dL (6.4-8.2); Sodium Level 137 mmol/L (136-145)
[2021-11-13 15:29] VITALS: BP 134/86; PULSE 88; RESP 18; TEMP 36.6; O2SAT 95
--- NOTE | 2021-11-13 15:45 | HP.PCM.HOS_ITS ---
Documented by User: Raghav SHAH 11/13/21 15:59 HPI - General HPI Narrative MATTY WAGNER is a 56-year-old male who presents to the ED at [facility] on 11/13/2021 requesting medical stabilization for alcohol detox. Patient reports that for the past 4 months he has been drinking at least a 12 pack of beer and 1/5 of vodka daily. He denies any triggers to his drinking, reports that he initially drinks because something celebratory happens in his life, but then he continues to drink until he needs to drink to function. Patient reports that his last drink was about 10 AM this morning, and reports drinking 1/5 of vodka. Patient has had multiple prior attempts at alcohol detox, but does not currently follow with [facility] services here in [place]. Patient denies any current withdrawal symptoms, but reports that he has shaking, diaphoresis and N/V/D as well as seizure activity. Patient denies any visual/auditory hallucinations when he goes into withdrawal. [facility] Medical History Alcohol abuse Anemia Drug abuse Flu vaccine need H/O: pneumonia History of fractured rib Left shoulder pain Liver disease Lower extremity weakness Neuropathy Neuropathy Seasonal allergies Venous insufficiency Home Medications albuterol sulfate 90 mcg/actuation aerosol inhaler 1 - 2 puff INHALATION Q6H PRN #8.5 g 07/18/20 [Rx Last Taken 11/12/21] compress.stocking,knee,reg,med #2 ea 09/01/21 [Rx Last Taken Unknown] gabapentin 300 mg capsule 300 mg PO BID PRN #90 cap 10/26/21 [Rx Last Taken 11/12/21] bupropion HCl [Wellbutrin SR] 150 mg PO BID 11/13/21 [History Last Taken 11/12/21] ferrous sulfate 325 mg PO DAILY 11/13/21 [History Last Taken Unknown] magnesium oxide 400 mg PO TID 11/13/21 [History Last Taken 11/12/21] melatonin 5 mg PO QHS 11/13/21 [History Last Taken 11/10/21] propranolol 40 mg PO BID 11/13/21 [History Last Taken 11/10/21] thiamine HCl (vitamin B1) 100 mg PO DAILYCM 11/13/21 [History Last Taken 11/12/21] Allergy/AdvReac Type Severity Reaction Status Date / Time erythromycin base Allergy Unknown Hives Verified 10/26/21 08:40 Family History Mother Cancer lung/brain Alcohol abuse Father Alcohol abuse Surgical History H/O colonoscopy Social History Smoking Status: Current every day smoker tobacco type: cigarettes Tobacco: How many years used: 43 second hand exposure: Yes quit status: has quit before counseling given: provider counseling alcohol intake: former substance use type: marijuana what type of physical activity do you participate in: none ROS Review of Systems ROS Unobtainable: Denies due to encephalopathy, due to endotracheal tube, due to mental condition, due to mental status or other Constitutional Constitutional: Denies anorexia, change in weight, chills, fatigue, fever(s), malaise, night sweats, weakness or other Eyes Eyes: Denies blurry vision, change in eye color, change in vision, discharge from eye(s), double vision, erythema, eye pain, loss of vision or other ENT HEENT: Denies abnormal hearing, dysphagia, ear pain, epistaxis, headache(s), hearing loss, nasal congestion, nasal discharge, post nasal drip, sinus pressure, sore throat or other Cardiovascular Cardiovascular: Denies chest pain, claudication, dyspnea on exertion, edema, lightheadedness, orthopnea, palpitations, paroxysmal nocturnal dyspnea, rapid heart rate, syncope or other Respiratory/Chest Respiratory/Chest: Denies cough, dyspnea, excessive phlegm production, hemopt ysis, productive cough, shortness of breath at rest, shortness of breath with exertion, wheezing or other Gastrointestinal Gastrointestinal: Denies abdominal pain, coffee ground emesis, constipation, diarrhea, dyspepsia, hematemesis, hematochezia, loose stools, melena, nausea, vomiting or other Genitourinary Genitourinary: Denies burning urination, difficulty urinating, dysuria, hematuria, nocturia, urinary frequency, urinary hesitancy, urinary incontinence, urinary urgency or other Musculoskeletal Musculoskeletal: Denies arthralgias, back pain, joint pain, joint stiffness, joint swelling, myalgias, neck pain or other Neurologic Neurologic: Denies abnormal gait, abnormal speech, confusion, disequilibrium, dizziness, focal weakness, headache(s), numbness, paresthesias, seizure-like activity, seizures, syncope, tingling, tremor(s) or other Psychiatric Psychiatric: Denies anxiety, depression, homicidal ideation, suicidal ideation or other Endocrine Endocrinology: Denies change in body appearance, cold intolerance, excessive sweating, heat intolerance, polydipsia, polyuria or other Hematologic/Lymphatic Hematologic/Lymphatic: Denies anemia, easy bleeding, easy bruising, lymp hadenopathy or other Allergic/Immunologic Allergic/Immunologic: Denies rhinitis, hives, eczemia, asthma or other Vital Signs Vital Signs Vital Signs: 11/13/21 13:57 11/13/21 15:29 Temperature 97.7 F L 97.9 F Temperature Source Temporal Temporal Pulse Rate 118 H 88 Respiratory Rate 20 H 18 Blood Pressure 137/103 H 134/86 H Blood Pressure Mean 114 102 Pulse Ox 96 95 Oxygen Delivery Method Room Air Room Air Weight Weight: 150 lb Body Mass Index (BMI) 20.3 Physical Exam Const alert and oriented x3 General Appearance: cooperative HEENT normocephalic, head/scalp atraumatic and hearing grossly normal bilaterally Eyes PERRL, EOMs intact bilaterally and conjunctivae normal Neck no lymphadenopathy, supple and no JVD Resp normal respiratory effort, no retractions and no use of accessory muscles Cardio regular rate, regular rhythm and no JVD GI normal to inspection, nondistended, normoactive bowel sounds Extremity Extremity Narrative: 1+ edema about the lower extremities bilaterally. Skin Skin Narrative: Patient with yellow-brown ulcerations about the fingers Neuro CN's II-XII intact bilaterally Psych Mood & Affect: anxious Results Lab / Micro Data Result Diagrams: 11/13/21 14:18 11/13/21 14:18 Labs: Laboratory Results - last 24 hr 11/13/21 14:18: WBC 4.2 L, RBC 3.84 L, Hgb 12.4 L, Hct 36.6 L, MCV 95.3 H, MCH 32.3 H, MCHC 33.9, RDW Std Deviation 58.0 H, RDW Coeff of [place] 16.5 H, Plt Count 97 L, MPV 9.9, Immature Gran % (Auto) 0.700, Neut % (Auto) 74.5 H, Lymph % (Auto) 15.7 L, [place] % (Auto) 7.6, Eos % (Auto) 1.0, Baso % (Auto) 0.5, Absolute Neuts (auto) 3.1, Absolute Lymphs (auto) 0.66 L, Nucleated RBC % 0 11/13/21 14:18: PT 12.3, INR 0.9 11/13/21 14:18: Sodium 137, Potassium 3.3 L, Chloride 100, Carbon Dioxide 29.0, Anion Gap 8, BUN 7, Creatinine 0.66 L, Estim Creat Clear Calc 118.84, Est GFR (MDRD) Af Amer 160, Est GFR (MDRD) Non-Af 132, BUN/Creatinine Ratio 10.6, Glucose 104, Calcium 8.5, Total Bilirubin 0.40, AST 260 H, ALT 102 H, Alkaline Phosphatase 149 H, Total Protein 8.6 H, Albumin 3.3, Globulin 5.3 H, Albumin/Globulin Ratio 0.6 L 11/13/21 14:18: Ethyl Alcohol 301.0 H* 11/13/21 15:30: Ur Drug Screen Comment Assessment & Plan Assessment/Plan (1) Alcohol abuse: (2) Venous insufficiency: (3) Impending alcohol withdrawal: (4) Alcohol intoxication: QUALIFIERS: Complication of substance-induced condition: uncomplicated Qualified Code(s): F10.920 - Alcohol use, unspecified with intoxication, uncomplicated PLAN: Patient is a 56-year-old male who presents to the ED at [facility] on 11/13/2021 requesting medical stabilization for alcohol detox. 1) alcohol abuse/impending withdrawal Patient reports a 4-month history of drinking at least a 12 pack of beer and 1/5 of vodka daily. Patient reports that his last drink was 1/5 of vodka at 10 AM this morning. Patient denies any current withdrawal symptoms. Plan; admit to MedSurg, initiate phenobarbital taper, initiate thiamine and folic acid supplementation, as needed medications ordered, monitor CINA scores. 2) nondiabetic peripheral neuropathy Continue gabapentin. 3) tobacco abuse Cessation encouraged, nicotine patch ordered. 4) iron deficiency anemia Stable at baseline, continue oral iron supplementation. DVT prophylaxis - low risk, not indicated. Patient seen by Raghav Rangel, PA-C, under the supervision of Dr. Lui. Time spent on patient care: 25 minutes. Documented by User: Dr. Dayne Lui MD 11/13/21 16:38 HPI - General General Date of Admission: 11/13/21 [facility] Medical History Alcohol abuse Anemia Drug abuse Flu vaccine need H/O: pneumonia History of fractured rib Left shoulder pain Liver disease Lower extremity weakness Neuropathy Neuropathy Seasonal allergies Venous insufficiency Home Medications albuterol sulfate 90 mcg/actuation aerosol inhaler 1 - 2 puff INHALATION Q6H PRN #8.5 g 07/18/20 [Rx Last Taken 11/12/21] compress.stocking,knee,reg,med #2 ea 09/01/21 [Rx Last Taken Unknown] gabapentin 300 mg capsule 300 mg PO BID PRN #90 cap 10/26/21 [Rx Last Taken 11/12/21] bupropion HCl [Wellbutrin SR] 150 mg PO BID 11/13/21 [History Last Taken 11/12/21] ferrous sulfate 325 mg PO DAILY 11/13/21 [History Last Taken Unknown] magnesium oxide 400 mg PO TID 11/13/21 [History Last Taken 11/12/21] melatonin 5 mg PO QHS 11/13/21 [History Last Taken 11/10/21] propranolol 40 mg PO BID 11/13/21 [History Last Taken 11/10/21] thiamine HCl (vitamin B1) 100 mg PO DAILYCM 11/13/21 [History Last Taken 11/12/21] Allergy/AdvReac Type Severity Reaction Status Date / Time erythromycin base Allergy Unknown Hives Verified 10/26/21 08:40 Family History Mother Cancer lung/brain Alcohol abuse Father Alcohol abuse Surgical History H/O colonoscopy Social History Smoking Status: Current every day smoker tobacco type: cigarettes Tobacco: How many years used: 43 second hand exposure: Yes quit status: has quit before counseling given: provider counseling alcohol intake: former substance use type: marijuana what type of physical activity do you participate in: none Results Lab / Micro Data Result Diagrams: 11/13/21 14:18 11/13/21 14:18 Charges/Coding Addendum Addendum: Dr. Lui: I personally reviewed the chart and examined the patient, and agree with the above findings. 56-year-old male presents to the hospital requesting detox from alcohol. His last drink was this morning and around 10AM and he drinks fairly heavily mixing both beer and liquor. Unsure as to what his medical history is and he is not sure the last time he took any of his medications. We will plan to admit for alcohol detox with phenobarbital. Also discussed the need to f ollow-up with [facility] as an outpatient. Clinical time spent in all aspects of patient care: 35 minutes Visit Charges Inpatient E&M: 20822 Init Hosp L2
--- NOTE | 2021-11-13 15:46 | CM.ED ---
IDANIA Note Referral Source: JANELLE Referral Reason: Janelle EMERSON met with patient. He reports he is at the ED for detox. He reports that he was previously here for detox 2 years ago. Patient reports he drinks as much as I can and when asked what that was patient said there is no fixed amount.. that question pisses me off. Patient voiced that he is aware of the [facility] contract which includes no phones, personal items locked and no visitors. Patient apologized for his behavior. IDANIA called [employer], Addiction Therapist, and updated her that patient was being admitted. She said that patient had called her and advised that he was coming to the hospital. Plan: JANELLE SPARROW
[2021-11-13 16:00] VITALS: RESP 17
[2021-11-13 16:14] LABS: Amphetamine Urine VISTA NEGATIVE (<1000 ng/mL); Barbiturate Urine VISTA NEGATIVE (< 200 ng/mL); Benzodiazepine Urine VISTA NEGATIVE (< 200 ng/mL); Cocaine Urine VISTA NEGATIVE (< 300 ng/mL); Ecstacy Urine VISTA NEGATIVE (< 500 ng/mL); Methadone Urine VISTA NEGATIVE (< 300 ng/mL); PCP Urine VISTA NEGATIVE (< 25 ng/mL); THC Urine VISTA POSITIVE (< 50 ng/mL); Vista UDS pH Range 6
[2021-11-13 16:26] VITALS: BMI 20.6
[2021-11-13 16:30] VITALS: BP 148/88; PULSE 97; RESP 16; TEMP 36.7; O2SAT 95
[2021-11-13] MEDS: Potassium Chloride Oral Tablet 20 MEQ 40 MEQ PO (17:03)
[2021-11-13] MEDS: Phenobarbital 32.4 MG Tablet PO ×2 (17:03→21:50)
[2021-11-13] MEDS: Ondansetron 8 MG Tablet PO (18:06)
--- NOTE | 2021-11-13 21:20 | NURSING ---
Pt C/O nausea with emesis - Dr Gu notified.
[2021-11-13] MEDS: traZODone 100 MG Tablet PO (21:49)
[2021-11-13] MEDS: Propranolol 40 MG Tablet PO (21:49)
[2021-11-13] MEDS: MELATONIN 10 MG TABLET 5 MG PO (21:50)
[2021-11-13 22:00] VITALS: BP 142/86; PULSE 95; RESP 18; TEMP 37; O2SAT 96
[2021-11-13] MEDS: buPROPion (SR) 150 MG Tablet.SA PO (22:12)
[2021-11-14] MEDS: Phenobarbital 32.4 MG Tablet PO ×6 (01:15→19:41)
[2021-11-14 01:25] VITALS: BP 141/83; PULSE 70; RESP 16; TEMP 36.8; O2SAT 96
[2021-11-14 05:17] VITALS: BP 113/77; PULSE 69; RESP 18; TEMP 36.6; O2SAT 95
[2021-11-14 06:55] LABS: Anion Gap 8 (5-15); BUN 9 mg/dL (7-18); BUN/Creat Ratio 17.2 RATIO (10-20); Calcium,Total 8.2 mg/dL (8.5-10.1); Chloride 98 mmol/L (98-107); Creatinine, Serum 0.52 mg/dL (0.70-1.30); EST Glomerular Filtration Rate 173 mL/min (>60); Est Glom Filt Rate - Afr Amer 209 mL/min (>60); Estimated Creatinine Clearance 152.74 ml/min; Glucose 122 mg/dL (74-106); Potassium 3.6 mmol/L (3.5-5.1); Sodium Level 134 mmol/L (136-145)
[2021-11-14 08:01] VITALS: BP 113/71; PULSE 65; RESP 16; TEMP 36.8; O2SAT 95
[2021-11-14] MEDS: hydrOXYzine PAM 25 MG Capsule 50 MG PO (08:07)
[2021-11-14] MEDS: Ondansetron 8 MG Tablet PO (08:07)
[2021-11-14] MEDS: Thiamine Hydrochloride 100 MG Tablet PO (09:32)
[2021-11-14] MEDS: Propranolol 40 MG Tablet PO ×2 (09:32→22:04)
[2021-11-14] MEDS: Folic Acid 1 MG Tablet PO (09:33)
[2021-11-14] MEDS: buPROPion (SR) 150 MG Tablet.SA PO ×2 (09:33→22:04)
--- NOTE | 2021-11-14 10:17 | PCM.PN.HOSP ---
Documented by User: Raghav SHAH 11/14/21 10:25 Subjective Subjective Patient is a 56-year-old male comfortably resting in bed, alert and orient x3. Patient comfortably resting in bed on my evaluation, does not interact much but denies having any withdrawal-like symptoms. Does not appear in acute distress. Objective Data Objective Data Vital Signs: Vital Signs Temp Pulse Resp BP Pulse Ox 98.3 F 65 16 113/71 95 11/14/21 08:01 11/14/21 08:01 11/14/21 08:01 11/14/21 08:01 11/14/21 08:01 Oxygen Delivery Method Room Air Weight: 151 lb 14.376 oz Body Mass Index (BMI) 20.6 Intake & Output: Intake and Output for Last 24 Hours 11/12/21 11/13/21 11/14/21 23:59 23:59 23:59 Intake Total 480 / 480 Output Total 300 / 550 700 / 700 Balance -300 / -550 -220 / -220 Lab / Micro Data Result Diagrams: 11/13/21 14:18 11/14/21 05:44 Labs: Laboratory Results - last 24 hr 11/13/21 14:18: WBC 4.2 L, RBC 3.84 L, Hgb 12.4 L, Hct 36.6 L, MCV 95.3 H, MCH 32.3 H, MCHC 33.9, RDW Std Deviation 58.0 H, RDW Coeff of [place] 16.5 H, Plt Count 97 L, MPV 9.9, Immature Gran % (Auto) 0.700, Neut % (Auto) 74.5 H, Lymph % (Auto) 15.7 L, [place] % (Auto) 7.6, Eos % (Auto) 1.0, Baso % (Auto) 0.5, Absolute Neuts (auto) 3.1, Absolute Lymphs (auto) 0.66 L, Nucleated RBC % 0 11/13/21 14:18: PT 12.3, INR 0.9 11/13/21 14:18: Sodium 137, Potassium 3.3 L, Chloride 100, Carbon Dioxide 29.0, Anion Gap 8, BUN 7, Creatinine 0.66 L, Estim Creat Clear Calc 118.84, Est GFR (MDRD) Af Amer 160, Est GFR (MDRD) Non-Af 132, BUN/Creatinine Ratio 10.6, Glucose 104, Calcium 8.5, Total Bilirubin 0.40, AST 260 H, ALT 102 H, Alkaline Phosphatase 149 H, Total Protein 8.6 H, Albumin 3.3, Globulin 5.3 H, Albumin/Globulin Ratio 0.6 L 11/13/21 14:18: Ethyl Alcohol 301.0 H* 11/13/21 15:30: Urine Opiates Screen NEGATIVE, Urine Methadone Screen NEGATIVE, Ur Barbiturates Screen NEGATIVE, Ur Phencyclidine Scrn NEGATIVE, Ur Amphetamines Screen NEGATIVE, MDMA (Ecstasy) Screen NEGATIVE, U Benzodiazepines Scrn NEGATIVE, Urine Cocaine Screen NEGATIVE, U Cannabinoids Screen POSITIVE H, Ur Drug Screen Comment 11/14/21 05:44: Sodium 134 L, Potassium 3.6, Chloride 98, Carbon Dioxide 28.0, Anion Gap 8, BUN 9, Creatinine 0.52 L, Estim Creat Clear Calc 152.74, Est GFR (MDRD) Af Amer 209, Est GFR (MDRD) Non-Af 173, BUN/Creatinine Ratio 17.2, Glucose 122 H, Calcium 8.2 L Physical Exam Const alert, oriented x3 and no apparent distress HEENT head/scalp atraumatic and moist oral mucous membranes Head and Scalp: normocephalic Eyes PERRL and conjunctivae normal Neck no lymphadenopathy, supple and no JVD Resp normal respiratory effort, no retractions and no use of accessory muscles Cardio regular rate, regular rhythm and no JVD GI normal to inspection, nondistended, normoactive bowel sounds Extremity normal to inspection Skin no rashes or lesions noted Neuro CN's II-XII intact bilaterally Psych affect normal Assessment & Plan Assessment/Plan (1) Alcohol dependence: (2) Tobacco abuse: (3) Impending alcohol withdrawal: (4) Alcohol intoxication: QUALIFIERS: Complication of substance-induced condition: uncomplicated Qualified Code(s): F10.920 - Alcohol use, unspecified with intoxication, uncomplicated PLAN: Day 1 Discharge planning: Current plan is for patient to discharge home when medically ready. 1) alcohol abuse/impending withdrawal Ethyl alcohol 301 on admission. CIWA-AR scores are 3. Patient comfortably resting in bed on my evaluation, denies any current withdrawal-like symptoms. We will continue phenobarbital taper, thiamine and folic acid supplementation, as needed medications and will continue to monitor CIWA scores. 2) polysubstance abuse Urine tox screen positive for cannabinoids, cessation encouraged. 3) nondiabetic peripheral neuropathy Continue gabapentin. 4) tobacco abuse Cessation encouraged, nicotine patch ordered. 5) iron deficiency anemia Stable at baseline, continue oral iron supplementation. DVT prophylaxis - low risk, not indicated. Patient seen by Raghav Rangel PA-C, under the supervision of Dr. Najera. Time spent on patient care: 10 minutes. Documented by User: Dr. Sherry Najera DO 11/14/21 12:32 Subjective Subjective This patient was seen in conjunction with ALYSSA Spicer. The following represents my independent history and for examination. Please see below for addendum above. Patient indicates he is feeling much better than yesterday. He states his appetite still poor however this usually improves with detox. No nausea or vomiting at this time. Mild loose stool this morning. Mild anxiety but no tremor noted. Patient would like to follow-up as an outpatient for recovery. Objective Data Lab / Micro Data Result Diagrams: 11/13/21 14:18 11/14/21 05:44 Physical Exam Const alert, oriented x3, no apparent distress and average body habitus Constitutional Narrative: Upper middle-aged white male sitting up in bed, appears comfortable nontoxic, watching television Exam Limitations: no limitations HEENT head/scalp atraumatic and moist oral mucous membranes HEENT Narrative: Mallampati 2, dentures in place, no thrush Head and Scalp: normocephalic Resp normal respiratory effort, no retractions, no use of accessory muscles and clear to auscultation bilaterally Resp Narrative: Mildly diminished but clear Auscultation: Negative for crackles, rales, rhonchi or wheezes Cardio regular rate, regular rhythm, S1 normal heart sound, S2 normal heart sound, no murmurs, no rub, no gallops, no clicks and no JVD GI normal to inspection, nondistended, normoactive bowel sounds, soft to palpation, non-tender and non-distended; Negative for hepatosplenomegaly Extremity no clubbing, cyanosis or edema Peripheral Pulses: Yes pulses 2+ throughout Neuro oriented x3, moves all extremities and no focal motor deficits Neuro Narrative: No tremor noted on exam Sensorium / Orientation: awake and alert Speech: speech normal Assessment & Plan Assessment/Plan (1) Alcohol dependence: (2) Pancytopenia: (3) Alcohol withdrawal: (4) Alcoholic hepatitis: (5) Marijuana use: PLAN: Assessment: Acute alcohol withdrawal Alcohol dependence Pancytopenia Alcoholic hepatitis Marijuana use Iron deficiency anemia Peripheral neuropathy Depression/anxiety Hypertension Plan: -Continue phenobarbital taper -Continue thiamine folate -Continue supportive medications -Repeat CMP in the a.m. to reevaluate liver enzymes -Suspect pancytopenia related to marrow toxicity from chronic alcohol use -[facility] to evaluate the patient -Patient would like outpatient follow-up after discharge -Anticipate discharge likely on Tuesday if patient continues to do well clinically -Continue home medications -Nicotine patch for tobacco abuse Charges/Coding Visit Charges Inpatient E&M: 05032 Subs Hosp L2
[2021-11-14] MEDS: Ferrous Sulfate 325 MG Tablet PO (12:45)
[2021-11-14] MEDS: Dicyclomine 10 MG Capsule 20 MG PO (12:45)
[2021-11-14 12:49] VITALS: BP 107/75; PULSE 66; RESP 16; TEMP 36.7; O2SAT 95
[2021-11-14 16:54] VITALS: BP 114/74; PULSE 65; RESP 16; TEMP 36.8; O2SAT 96
[2021-11-14 19:34] VITALS: BP 110/71; PULSE 68; RESP 18; TEMP 37; O2SAT 94
[2021-11-14] MEDS: MELATONIN 10 MG TABLET 5 MG PO (22:04)
[2021-11-15] MEDS: Phenobarbital 32.4 MG Tablet PO ×5 (00:57→21:29)
[2021-11-15 01:30] VITALS: BP 109/73; PULSE 72; RESP 18; TEMP 36.9; O2SAT 92
[2021-11-15] MEDS: hydrOXYzine PAM 25 MG Capsule 50 MG PO ×2 (03:30→18:08)
[2021-11-15] MEDS: Gabapentin 300 MG Capsule PO ×2 (03:31→23:39)
--- NOTE | 2021-11-15 04:44 | NURSING ---
LATE ENTRY - PT SET OFF BED ALARM, UPON ENTERING ROOM, PT STANDING @ FOOT OF BED STATING HE IS LOOKING FOR HIS PHONE. STATES THE GHOST TOOK HIS PHONE & HE DOESN'T KNOW WHERE HE PUT IT. ATTEMPT TO REORIENT PT & RETURN TO BED. PT STATING I'M NOT CRAZY.
[2021-11-15 06:00] LABS: Absolute Neutrophil Count 2.6 X10^3/uL (2.0-7.7); Basophil# 0.01 X10^3/uL; Basophil% 0.3 % (0-1); Eosinophil# 0.04 X10^3/uL; Eosinophils% 1.3 % (0-5); Hematocrit 31.3 % (40-54); Lymphocyte % 12.6 % (19-41); Mean Corp Hgb Conc 35.1 g/dL (32-36); Mean Corpuscular Hgb 32.9 pg (27.0-32.0); Mean Corpuscular Volume 93.7 fL (80-94); Monocyte# 0.14 X10^3/uL; Monocyte% 4.4 % (0-10); NRBC Flagged by Analyzer 0 % (0-5); Neutrophil # 2.56 X10^3/uL (2.7-7.7); Neutrophil % 80.5 % (47-70); POSITIVE COUNT YES; POSITIVE DIFFERENTIAL YES; Platelet Count 62 K/mm3 (150-450); RBC Distribution Width CV 16.4 % (11.6-14.6); RBC Distribution Width SD 56.4 fl (35.1-43.9); Red Blood Count 3.34 M/mm3 (4.6-6.2); White Blood Count 3.2 K/mm3 (4.4-11.0)
[2021-11-15 06:22] LABS: Differential Indicated SCAN CRITERIA MET
[2021-11-15 06:27] LABS: Anion Gap 6 (5-15); BUN 10 mg/dL (7-18); BUN/Creat Ratio 16.8 RATIO (10-20); Calcium,Total 8.4 mg/dL (8.5-10.1); Chloride 98 mmol/L (98-107); EST Glomerular Filtration Rate 148 mL/min (>60); Est Glom Filt Rate - Afr Amer 179 mL/min (>60); Estimated Creatinine Clearance 132.38 ml/min; Glucose 94 mg/dL (74-106); Potassium 3.7 mmol/L (3.5-5.1); Sodium Level 130 mmol/L (136-145)
[2021-11-15 06:37] LABS: Anisocytosis 1+
[2021-11-15 06:38] LABS: Platelet Estimate MOD DEC (ADEQ)
[2021-11-15 06:39] LABS: Differential Comment SCANNED
[2021-11-15] MEDS: LORazepam 2 MG/ML Syringe IV (07:26)
[2021-11-15 08:15] VITALS: BP 92/63; PULSE 68; RESP 16; TEMP 36.6; O2SAT 93
--- NOTE | 2021-11-15 10:24 | PN.HOSP_ITS ---
Documented by User: Raghav SHAH 11/15/21 10:31 Subjective Subjective Patient is a 56-year-old male comfortably resting in bed, alert and oriented to person and place. Patient was observed having hallucinations this morning, for which he was given Ativan, and was somnolent on my evaluation. Did not appear in acute distress. Objective Data Objective Data Vital Signs: Vital Signs Temp Pulse Resp BP Pulse Ox 98 F 68 16 92/63 93 11/15/21 08:15 11/15/21 08:15 11/15/21 08:15 11/15/21 08:15 11/15/21 08:15 Oxygen Delivery Method Room Air Weight: 151 lb 14.376 oz Body Mass Index (BMI) 20.6 Intake & Output: Intake and Output for Last 24 Hours 11/13/21 11/14/21 11/15/21 23:59 23:59 23:59 Intake Total 1780 / 2020 360 / 360 Output Total 300 / 550 1550 / 1950 400 / 400 Balance -300 / -550 230 / 70 -40 / -40 Lab / Micro Data Result Diagrams: 11/15/21 04:52 11/15/21 04:52 Labs: Laboratory Results - last 24 hr 11/15/21 04:52: WBC 3.2 L, RBC 3.34 L, Hgb 11.0 L, Hct 31.3 L, MCV 93.7, MCH 32.9 H, MCHC 35.1, RDW Std Deviation 56.4 H, RDW Coeff of Violette 16.4 H, Plt Count 62 L, MPV 11.0, Immature Gran % (Auto) 0.900, Neut % (Auto) 80.5 H, Lymph % (Auto) 12.6 L, [place] % (Auto) 4.4, Eos % (Auto) 1.3, Baso % (Auto) 0.3, Absolute Neuts (auto) 2.6, Absolute Lymphs (auto) 0.40 L, Nucleated RBC % 0, Differential Comment SCANNED, Diff Path Review May kiel, Platelet Estimate MOD DEC, Anisocytosis 1+ 11/15/21 04:52: Sodium 130 L, Potassium 3.7, Chloride 98, Carbon Dioxide 26.0, Anion Gap 6, BUN 10, Creatinine 0.60 L, Estim Creat Clear Calc 132.38, Est GFR (MDRD) Af Amer 179, Est GFR (MDRD) Non-Af 148, BUN/Creatinine Ratio 16.8, Glucose 94, Calcium 8.4 L Physical Exam Const alert and no apparent distress HEENT head/scalp atraumatic and moist oral mucous membranes Head and Scalp: normocephalic Eyes PERRL, EOMs intact bilaterally and conjunctivae normal Neck no lymphadenopathy, supple and no JVD Resp normal respiratory effort, no retractions and no use of accessory muscles Cardio regular rate, regular rhythm and no JVD GI normal to inspection, nondistended, normoactive bowel sounds Extremity normal to inspection Skin no rashes or lesions noted, no wounds and no jaundice Neuro Neuro Narrative: Unable to assess due to patient lethargy/somnolence. Psych Psych Narrative: Unable to assess due to patient lethargy/somnolence. Assessment & Plan Assessment/Plan (1) Marijuana use: (2) Alcoholic hepatitis: (3) Alcohol withdrawal: (4) Pancytopenia: PLAN: Day 2 Discharge planning: Current plan is for patient to discharge home when medically ready. 1) alcohol abuse/impending withdrawal Ethyl alcohol 301 on admission. Most recent CIWA-AR scores are 0. Patient was observed having hallucinations this morning, given 1 dose of Ativan. Was somnolent on my evaluation after administration of Ativan, although was able to be aroused. We will continue phenobarbital taper, thiamine and folic acid supplementation, as needed medications and will continue to monitor CIWA scores. 2) polysubstance abuse Urine tox screen positive for cannabinoids, cessation encouraged. 3) Hyponatremia Sodium currently 130, likely due to poor oral intake. Will continue to monitor. 4) tobacco abuse Cessation encouraged, nicotine patch ordered. 5) iron deficiency anemia Stable at baseline, continue oral iron supplementation. 6) nondiabetic peripheral neuropathy Continue gabapentin. DVT prophylaxis - low risk, not indicated. Patient seen by Raghav Rangel PA-C, under the supervision of Dr. Najera. Time spent on patient care: 9 minutes. Documented by User: Dr. Sherry Najera DO 11/15/21 13:15 Subjective Subjective This patient was seen in conjunction with ALYSSA Spicer. The following is representation my independent history and physical examination. Please see below for none the above. Patient with hallucinations and agitation early this morning. Responded well to Ativan however patient is somewhat sedated at this time he does arouse to stimulus both verbal and tactile. No other specific issues overnight. Objective Data Lab / Micro Data Result Diagrams: 11/15/21 04:52 11/15/21 04:52 Physical Exam Const Constitutional Narrative: Middle-aged white male lying in bed sleeping soundly after being medicated with Ativan for agitation and hallucinations, patient is arousable with verbal and tactile stimulus however remains fairly sleepy, nontoxic appearing, appears much older than stated age Exam Limitations: altered mental status HEENT head/scalp atraumatic Head and Scalp: normocephalic Resp normal respiratory effort, no retractions, no use of accessory muscles and clear to auscultation bilaterally Resp Narrative: Diminished but clear Auscultation: Negative for crackles, rales, rhonchi or wheezes Cardio regular rate, regular rhythm, S1 normal heart sound, S2 normal heart sound, no murmurs, no rub, no gallops, no clicks and no JVD GI normal to inspection, nondistended, normoactive bowel sounds, soft to palpation, non-tender and non-distended; Negative for hepatosplenomegaly Extremity no clubbing, cyanosis or edema Peripheral Pulses: Yes pulses 2+ throughout Neuro Neuro Narrative: Limited secondary to sedation from Ativan Assessment & Plan Assessment/Plan (1) Marijuana use: (2) Alcoholic hepatitis: (3) Alcohol withdrawal: (4) Pancytopenia: (5) Delirium: PLAN: Assessment: Acute alcohol withdrawal Alcohol dependence Delirium related to alcohol withdrawal Pancytopenia Hyponatremia Alcoholic hepatitis Marijuana use Iron deficiency anemia Peripheral neuropathy Depression/anxiety Hypertension Plan: -Continue phenobarbital taper -Continue thiamine folate -Continue supportive medications -As needed Ativan as patient has developed hallucinations and marked agitation -2 mg given this morning with significant somnolence after we will reduce the dose to 1 mg -Repeat CMP in the a.m. to reevaluate liver enzymes -Suspect sodium decrease is related to his chronic alcohol use and decreased solute intake with possible beer potomania -Repeat in a.m. -Suspect pancytopenia related to marrow toxicity from chronic alcohol use -Counts are currently stable -180 to evaluate the patient -Patient would like outpatient follow-up after discharge -Continue home medications -Nicotine patch for tobacco abuse Charges/Coding Visit Charges Inpatient E&M: 40228 Subs Hosp L2
[2021-11-15 11:59] VITALS: BP 131/69; PULSE 69; RESP 16; TEMP 37.6; O2SAT 94
[2021-11-15] MEDS: Folic Acid 1 MG Tablet PO (13:31)
[2021-11-15] MEDS: Ferrous Sulfate 325 MG Tablet PO (13:31)
[2021-11-15] MEDS: Thiamine Hydrochloride 100 MG Tablet PO (13:31)
[2021-11-15] MEDS: buPROPion (SR) 150 MG Tablet.SA PO ×2 (13:31→21:29)
[2021-11-15] MEDS: Propranolol 40 MG Tablet PO ×2 (13:31→21:29)
[2021-11-15 17:50] VITALS: BP 125/78; PULSE 72; RESP 18; TEMP 36.7; O2SAT 95
[2021-11-15 20:18] VITALS: BP 114/83; PULSE 73; RESP 16; TEMP 37.1; O2SAT 96
[2021-11-15] MEDS: MELATONIN 10 MG TABLET 5 MG PO (21:29)
[2021-11-15] MEDS: traZODone 100 MG Tablet PO (23:39)
[2021-11-16] MEDS: Phenobarbital 32.4 MG Tablet PO ×4 (01:22→18:02)
[2021-11-16] MEDS: LORazepam 2 MG/ML Syringe 1 MG IV ×2 (02:16→06:14)
[2021-11-16 02:21] VITALS: BP 109/79; PULSE 66; RESP 16; TEMP 37.1; O2SAT 96
[2021-11-16] MEDS: hydrOXYzine PAM 25 MG Capsule 50 MG PO (03:25)
[2021-11-16] MEDS: Haloperidol Lactate 5 MG/ML Vial 4 MG IM (03:41)
--- NOTE | 2021-11-16 03:55 | NURSING ---
This RN was called into patients room via INBOUND CUSTOMER SERVICE AGENT's, when this RN walked in patient very restless, hallucinating, thrashing in the bed, agitated towards staff. Unable to redirect at all. PRN vistaril given. vascular ultrasound technologist notified of situation. notified and new order for x1 IM haldol received and given. CIWA during this time was a 22
--- NOTE | 2021-11-16 06:02 | NURSING ---
Patient now sleeping in the after haldol given, not awakened at this time.
[2021-11-16] MEDS: 0.9% Saline Lock 10 ML Syringe IV (06:14)
[2021-11-16 06:31] LABS: AST(SGOT) 477 U/L (15-37); Alanine Aminotransfer ALT/SGPT 275 U/L (16-61); Albumin, Serum 2.9 g/dL (3.2-5.0); Alkaline Phosphatase 142 U/L (45-117); Anion Gap 6 (5-15); BUN 11 mg/dL (7-18); BUN/Creat Ratio 16.6 RATIO (10-20); Bilirubin, Direct 0.28 mg/dL (0.00-0.30); Calcium,Total 8.5 mg/dL (8.5-10.1); Chloride 98 mmol/L (98-107); Creatinine, Serum 0.66 mg/dL (0.70-1.30); EST Glomerular Filtration Rate 131 mL/min (>60); Est Glom Filt Rate - Afr Amer 159 mL/min (>60); Estimated Creatinine Clearance 120.34 ml/min; Globulin 4.5 g/dL (2.2-4.2); Glucose 97 mg/dL (74-106); Potassium 3.8 mmol/L (3.5-5.1); Protein, Total 7.4 g/dL (6.4-8.2); Sodium Level 130 mmol/L (136-145)
--- NOTE | 2021-11-16 07:45 | PN.HOSP_ITS ---
Subjective Subjective Patient having hallucinations. CIWA total score 13. Patient having tremors and shakiness Objective Data Objective Data Vital Signs: Vital Signs Temp Pulse Resp BP Pulse Ox 98.7 F 66 16 109/79 96 11/16/21 02:21 11/16/21 02:21 11/16/21 02:21 11/16/21 02:21 11/16/21 02:21 Oxygen Delivery Method Room Air Weight: 151 lb 14.376 oz Body Mass Index (BMI) 20.6 Intake & Output: Intake and Output for Last 24 Hours 11/14/21 11/15/21 11/16/21 23:59 23:59 23:59 Intake Total 1780 / 2020 1110 / 1110 Output Total 1550 / 1950 950 / 950 200 / 200 Balance 230 / 70 160 / 160 -200 / -200 Lab / Micro Data Result Diagrams: 11/15/21 04:52 11/16/21 05:22 Labs: Laboratory Results - last 24 hr 11/16/21 05:22: Sodium 130 L, Potassium 3.8, Chloride 98, Carbon Dioxide 26.0, Anion Gap 6, BUN 11, Creatinine 0.66 L, Estim Creat Clear Calc 120.34, Est GFR (MDRD) Af Amer 159, Est GFR (MDRD) Non-Af 131, BUN/Creatinine Ratio 16.6, Glucose 97, Calcium 8.5, Total Bilirubin 0.60, Direct Bilirubin 0.28, AST 477 H, ALT 275 H, Alkaline Phosphatase 142 H, Total Protein 7.4, Albumin 2.9 L, Globulin 4.5 H Physical Exam Narrative General: Awake, disoriented. HEENT: Atraumatic, PERRLA, EOMI, Normocephalic Oral: No Gingival or Mucosal Lesions/ Ulcerations Neck: Supple, No JVD, Negative Carotid Bruits Lungs: Air entry diminished in bilateral lung bases. No crepitation/rhonchi Cardiovascular: Regular rate, Regular Rhythm, Normal S1, Normal S2, No murmurs Abdomen: Bowel Sounds Present, Soft, Non Tender, Non-Distended : No renal angle tenderness. No suprapubic tenderness. Extremities: No edema, Capillary Refill Less than 3 Seconds Skin: No rashes, No breakdown Musculoskeletal: No Tenderness to Palpation of Joints or Extremities Neurological: Cranial nerves II-XII grossly intact, DTR 2+/4 and Symmetrical, GCS 14 Psych/Mental Status: Hallucinations. Tremors. Flat affect. Assessment & Plan Assessment/Plan (1) Marijuana use: (2) Alcoholic hepatitis: (3) Alcohol withdrawal: (4) Pancytopenia: (5) Delirium: PLAN: Assessment: Acute alcohol withdrawal Alcohol dependence Delirium related to alcohol withdrawal Pancytopenia Hyponatremia Alcoholic hepatitis Marijuana use Iron deficiency anemia Peripheral neuropathy Depression/anxiety Hypertension Acute alcohol withdrawal syndrome with history of chronic alcohol use and dependence: Patient is on phenobarbital scheduled and then taper. Thiamine folic acid and other adjunctive supportive medications. On as needed Ativan as per CIWA score. CIWA score is 13 which is moderate withdrawal. Advised 1 AT case resource manager counseling and possible needs inpatient rehab. Patient has pancytopenia probably alcohol induced marrow suppression. The patient has acute on chronic alcoholic hepatitis. Transaminases are elevated. Hypoalbuminemia Continue nicotine patch. Continue home medications. Charges/Coding Visit Charges Inpatient E&M: 58675 Subs Hosp L2
[2021-11-16 08:20] VITALS: BP 123/83; PULSE 68; RESP 18; TEMP 37; O2SAT 97
[2021-11-16] MEDS: buPROPion (SR) 150 MG Tablet.SA PO ×2 (10:46→21:54)
[2021-11-16] MEDS: Propranolol 40 MG Tablet PO ×2 (10:46→21:54)
[2021-11-16] MEDS: Folic Acid 1 MG Tablet PO (10:46)
[2021-11-16] MEDS: Thiamine Hydrochloride 100 MG Tablet PO (10:46)
--- NOTE | 2021-11-16 11:17 | ADDICTION ---
TW attempted to meet with pt twice on Tuesday11/16/21. Both times pt was not responding to audio cues of his name. His ASAM, AUDIT, DUDIT, MSE, and D/C plan were completed on paper over the weekend by the treatment navigator and are in his physical chart.
[2021-11-16 12:32] VITALS: BP 103/67; PULSE 63; RESP 18; TEMP 36.7; O2SAT 98
[2021-11-16] MEDS: Ferrous Sulfate 325 MG Tablet PO (12:36)
[2021-11-16 12:48] LABS: Pathologist Review Reviewed
[2021-11-16 17:59] VITALS: BP 102/74; PULSE 88; RESP 18; TEMP 37.3; O2SAT 92
[2021-11-16 21:48] VITALS: BP 117/78; PULSE 70; RESP 16; TEMP 37.2; O2SAT 93
[2021-11-16] MEDS: MELATONIN 10 MG TABLET 5 MG PO (21:54)
[2021-11-17 00:38] VITALS: BP 108/71; PULSE 65; RESP 16; TEMP 37.1; O2SAT 93
[2021-11-17] MEDS: Phenobarbital 32.4 MG Tablet PO ×3 (00:40→12:22)
[2021-11-17 06:00] VITALS: BP 113/78; PULSE 62; RESP 16; TEMP 36.4; O2SAT 95
[2021-11-17 09:00] VITALS: BP 110/80; PULSE 63; RESP 18; TEMP 36.6; O2SAT 93
[2021-11-17] MEDS: Thiamine Hydrochloride 100 MG Tablet PO (09:07)
[2021-11-17] MEDS: Folic Acid 1 MG Tablet PO (09:07)
[2021-11-17] MEDS: buPROPion (SR) 150 MG Tablet.SA PO (09:07)
[2021-11-17] MEDS: Propranolol 40 MG Tablet PO (09:07)
--- NOTE | 2021-11-17 09:54 | PCM.DC ---
Discharge Instructions Follow Up Care Test Results: Test results from this visit will be discussed in further detail at your follow-up appointment, if applicable. Discharge Plan Admission Admit Date/Time: 11/13/21 15:13 Attending Provider: Olu Esteban Primary Care Provider: Rickey Foley Instructions Additional Instructions / Restrictions: Outpatient alcohol/substance use rehab on 11/19/21 through 118 Discharge Orders/Prescriptions Prescriptions: New folic acid 1 mg Tablet 1 mg PO DAILY@0800 Qty: 30 RF: 0 Continued albuterol sulfate [ProAir HFA] 90 mcg/actuation HFA aerosol inhaler 1 - 2 puff INHALATION Q6H PRN (Reason: shortness of breath or wheezing) Qty: 8.5 RF: 3 (DME) compress.stocking,knee,reg,med Misc See Rx Instructions .ROUTE .MEDSUPPLY Qty: 2 RF: 1 gabapentin 300 mg capsule 300 mg PO BID PRN (Reason: pain) Qty: 90 RF: 0 bupropion HCl [Wellbutrin SR] 150 mg tablet sustained-release 12 hr 150 mg PO BID RF: 0 propranolol 40 mg tablet 40 mg PO BID RF: 0 magnesium oxide 400 mg (241.3 mg magnesium) tablet 400 mg PO TID RF: 0 melatonin 5 mg capsule 5 mg PO QHS RF: 0 thiamine HCl (vitamin B1) 100 mg tablet 100 mg PO DAILYCM Qty: 30 RF: 2 Changed ferrous sulfate 325 mg (65 mg iron) tablet 325 mg PO QODAY Qty: 30 RF: 0 Referrals / Follow Up: Rickey Foley MD [Primary Care Provider] - Within 2 Weeks Disposition Disposition (needs filled in before D/C Order can be placed): Home, Self Care
--- NOTE | 2021-11-17 09:58 | PCM.DC.SUM ---
Providers Date of Admission: 11/13/21 Date of Discharge: 11/17/21 Primary Care Physician: Dr. Rickey Foley MD Reason For Visit: ETOH WITHDRAWAL Diagnosis Discharge Diagnosis (1) Marijuana use: Status: Acute Code(s): F12.90 - Cannabis use, unspecified, uncomplicated (2) Alcoholic hepatitis: Status: Acute Code(s): K70.10 - Alcoholic hepatitis without ascites (3) Alcohol withdrawal: Status: Acute Code(s): F10.239 - Alcohol dependence with withdrawal, unspecified (4) Pancytopenia: Status: Acute Code(s): D61.818 - Other pancytopenia (5) Delirium: Status: Acute Code(s): R41.0 - Disorientation, unspecified Medications at Discharge Home Medications albuterol sulfate 90 mcg/actuation aerosol inhaler 1 - 2 puff INHALATION Q6H PRN #8.5 g 07/18/20 compress.stocking,knee,reg,med #2 ea 09/01/21 gabapentin 300 mg capsule 300 mg PO BID PRN #90 cap 10/26/21 bupropion HCl [Wellbutrin SR] 150 mg PO BID 11/13/21 magnesium oxide 400 mg PO TID 11/13/21 melatonin 5 mg PO QHS 11/13/21 propranolol 40 mg PO BID 11/13/21 ferrous sulfate 325 mg PO QODAY #30 tab 11/17/21 folic acid 1 mg PO DAILY@0800 #30 tab 11/17/21 thiamine HCl (vitamin B1) 100 mg PO DAILYCM #30 tab 11/17/21 Hospital Course Summary of Care Provided Hospital Course: This is 56-year-old gentleman was admitted through ER for medical stabilization for chronic alcohol dependence. He does not have history of withdrawal seizure but tremors. History of multiple relapses and remissions and alcohol rehab in the past. The patient was admitted on MedSurg floor. Started on phenobarbital and scheduled and taper as per schedule as per alcohol stabilization program order set. CIWA score was 13 consistent with moderate withdrawal. Transaminases are elevated consistent with acute on chronic alcoholic hepatitis. Hypoalbuminemia. Patient was treated with nicotine patch, thiamine and folic acid along with other supportive medications for withdrawal. Symptoms got better. Seen by case preparer and liner 180. Outpatient alcohol rehab program on 11/19 Discharge medication reconciliation done. Discharge follow-up instructions completed. Discharge process discussed with the patient and all questions were answered to patient's satisfaction. Total time spent, exact 35 minutes on discharge meds reconciliation, examination, coordination of care with nurses and ancillary staff, review of imaging and blood test and discussion with the patient on follow-up instructions. Physical Exam Narrative Seen and examined. Patient is awake and alert. No tremors. Denies delusion, hallucination or illusion. No abnormal dreams or suicidal ideation. He wants to go home General: Alert, awake and oriented x3 HEENT: Atraumatic, PERRLA, EOMI, Normocephalic Oral: No Gingival or Mucosal Lesions/ Ulcerations Neck: Supple, No JVD, Negative Carotid Bruits Lungs: Air entry equal in bilateral lung bases. No crepitation/rhonchi Cardiovascular: Regular rate, Regular Rhythm, Normal S1, Normal S2, No murmurs Abdomen: Bowel Sounds Present, Soft, Non Tender, Non-Distended : No renal angle tenderness. No suprapubic tenderness. Extremities: No edema, Capillary Refill Less than 3 Seconds Skin: No rashes, No breakdown Musculoskeletal: No Tenderness to Palpation of Joints or Extremities Neurological: Cranial nerves II-XII grossly intact, DTR 2+/4 and Symmetrical, GCS 14 Psych/Mental Status: Flat affect. Weight / BMI Weight Weight: 151 lb 14.376 oz Body Mass Index (BMI) 20.6 ABG / Lab / Microbiology Data Result Diagrams: 11/15/21 04:52 11/16/21 05:22 Laboratory: Laboratory Results - last 24 hr 11/15/21 04:52: Diff Path Review Reviewed Meaningful Use Info Meaningful Use Diagnoses (Choose all that apply): None applicable Discharge Plan Admission Admit Date/Time: 11/13/21 15:13 Attending Provider: Olu Esteban Primary Care Provider: Rickey Foley Instructions Additional Instructions / Restrictions: Outpatient alcohol/substance use rehab on 11/19/21 through 118 Discharge Orders/Prescriptions Prescriptions: New folic acid 1 mg Tablet 1 mg PO DAILY@0800 Qty: 30 RF: 0 Continued albuterol sulfate [ProAir HFA] 90 mcg/actuation HFA aerosol inhaler 1 - 2 puff INHALATION Q6H PRN (Reason: shortness of breath or wheezing) Qty: 8.5 RF: 3 (DME) compress.stocking,knee,reg,med Misc See Rx Instructions .ROUTE .MEDSUPPLY Qty: 2 RF: 1 gabapentin 300 mg capsule 300 mg PO BID PRN (Reason: pain) Qty: 90 RF: 0 bupropion HCl [Wellbutrin SR] 150 mg tablet sustained-release 12 hr 150 mg PO BID RF: 0 propranolol 40 mg tablet 40 mg PO BID RF: 0 magnesium oxide 400 mg (241.3 mg magnesium) tablet 400 mg PO TID RF: 0 melatonin 5 mg capsule 5 mg PO QHS RF: 0 thiamine HCl (vitamin B1) 100 mg tablet 100 mg PO DAILYCM Qty: 30 RF: 2 Changed ferrous sulfate 325 mg (65 mg iron) tablet 325 mg PO QODAY Qty: 30 RF: 0 Referrals / Follow Up: Rickey Foley MD [Primary Care Provider] - Within 2 Weeks Disposition Disposition (needs filled in before D/C Order can be placed): Home, Self Care Charges/Coding Visit Charges Inpatient E&M: 84755 Disch Hosp
[2021-11-17 11:40] VITALS: BP 119/85; PULSE 66; RESP 18; TEMP 36.6; O2SAT 94
--- NOTE | 2021-11-17 11:46 | PHA.DC.MR ---
Pharmacy Service has performed discharge medication reconciliation for this patient. The patient's discharge medication list was reviewed for discrepancies and discrepancies were resolved. Home Medications albuterol sulfate 90 mcg/actuation aerosol inhaler 1 - 2 puff INHALATION Q6H PRN #8.5 g 07/18/20 compress.stocking,knee,reg,med #2 ea 09/01/21 gabapentin 300 mg capsule 300 mg PO BID PRN #90 cap 10/26/21 bupropion HCl [Wellbutrin SR] 150 mg PO BID 11/13/21 magnesium oxide 400 mg PO TID 11/13/21 melatonin 5 mg PO QHS 11/13/21 propranolol 40 mg PO BID 11/13/21 ferrous sulfate 325 mg PO QODAY #30 tab 11/17/21 folic acid 1 mg PO DAILY@0800 #30 tab 11/17/21 thiamine HCl (vitamin B1) 100 mg PO DAILYCM #30 tab 11/17/21
--- NOTE | 2021-11-17 11:51 | CHAPLAIN ---
Type of Pastoral Visit _x__ Initial Visit ___ Follow-up Visit ___ On-call Visit ___ General Patient Visit ___ Spiritual Assessment ___ Family Conference ___ Bereavement ___ Rapid Response ___ Code Blue ___ Other (describe below) Pastoral Care Referral From _x__ Patient ___ Family ___ Nurse ___ Physician ___ Team Primary Care Physician ___ Engine Dynamometer Tester ___ Other (describe below) Sacrament/Intervention _x__ Active listening ___ Anointing ___ Yarsani ___ Bereavement ___ Communion _x__ Shanna exploration ___ ___ Life review ___ Prayer ___ Reconciliation ___ Sacrament of Sick _x__ Supportive presence ___ Wedding ___ Other (describe below) Pastoral Comments patient is willing to talk and speaks of desire to 'do better in life and not repeat this'; pt speaks of his understanding of how to stop addiction to drinking through meaningful activity, finding supportive people, staying connected to 180, praying to his god, and eating better; affirm patient is his knowledge of coping mechanism and for follow through;
[2021-11-17] MEDS: Ferrous Sulfate 325 MG Tablet PO (12:22)
== END 2021-11-17 13:45 | disposition home or self-care (01) | DRG 775 ==
LOC: ED 14:57 → MS3 15:57
PROVIDERS: Physician Assistant; Admitting Provider Family Medicine; Emergency Provider Emergency Medicine; PCP Internal Medicine; Visit Provider Internal Medicine
DX: F10.229 Alcohol dependence with intoxication, unspecified (principal); D61.818 Other pancytopenia; D50.9 Iron deficiency anemia, unspecified; E87.1 Hypo-osmolality and hyponatremia; F17.210 Nicotine dependence, cigarettes, uncomplicated; K70.10 Alcoholic hepatitis without ascites; J44.9 Chronic obstructive pulmonary disease, unspecified; F10.231 Alcohol dependence with withdrawal delirium; G62.9 Polyneuropathy, unspecified; I87.2 Venous insufficiency (chronic) (peripheral); I10 Essential (primary) hypertension; F41.9 Anxiety disorder, unspecified; F32.A Depression, unspecified; Z79.899 Other long term (current) drug therapy; Y90.8 Blood alcohol level of 240 mg/100 ml or more
CPT/HCPCS: 36415; 80048; 80053; 80076; 80307; 82077; 85025; 85610; 97802; 99283; 99406; A4216

== ENCOUNTER 2021-11-24 08:59 | Outpatient (CLI) | payer MEDICAID, SELFPAY ==
[2021-11-24 12:14] LABS: Absolute Lymphocyte Count 0.86 X10^3/uL (0.83-4.51); Absolute Neutrophil Count 2.3 X10^3/uL (2.0-7.7); Basophil# 0.04 X10^3/uL; Basophil% 1.1 % (0-1); Eosinophil# 0.07 X10^3/uL; Eosinophils% 1.9 % (0-5); Hematocrit 37.5 % (40-54); Hemoglobin 11.7 g/dL (13.0-16.5); Lymphocyte # 0.86 X10^3/ul (0.83-4.51); Lymphocyte % 22.8 % (19-41); Mean Corp Hgb Conc 31.2 g/dL (32-36); Mean Corpuscular Hgb 32.1 pg (27.0-32.0); Mean Platelet Vol. 10.9 fl (6.2-12.0); Monocyte# 0.46 X10^3/uL; Monocyte% 12.2 % (0-10); NRBC Flagged by Analyzer 0 % (0-5); Neutrophil # 2.32 X10^3/uL (2.7-7.7); Neutrophil % 61.2 % (47-70); Platelet Count 352 K/mm3 (150-450); RBC Distribution Width CV 15.9 % (11.6-14.6); RBC Distribution Width SD 61.1 fl (35.1-43.9); Red Blood Count 3.64 M/mm3 (4.6-6.2); White Blood Count 3.8 K/mm3 (4.4-11.0)
[2021-11-24 12:30] LABS: ALB/GLOB Ratio 0.7 RATIO (0.9-2.4); AST(SGOT) 67 U/L (15-37); Alanine Aminotransfer ALT/SGPT 108 U/L (16-61); Albumin, Serum 3.5 g/dL (3.2-5.0); Alkaline Phosphatase 140 U/L (45-117); Anion Gap 5 (5-15); BUN 9 mg/dL (7-18); BUN/Creat Ratio 14.1 RATIO (10-20); Calcium,Total 9.4 mg/dL (8.5-10.1); Chloride 103 mmol/L (98-107); Creatinine, Serum 0.64 mg/dL (0.70-1.30); EST Glomerular Filtration Rate 137 mL/min (>60); Est Glom Filt Rate - Afr Amer 166 mL/min (>60); Glucose 89 mg/dL (74-106); Potassium 4.1 mmol/L (3.5-5.1); Protein, Total 8.5 g/dL (6.4-8.2); Sodium Level 135 mmol/L (136-145)
== END 2021-11-24 23:59 | disposition home or self-care (01) ==
LOC: BIMLAB 08:59
PROVIDERS: PCP Internal Medicine; Referring Provider Internal Medicine; Visit Provider Internal Medicine
DX: K70.10 Alcoholic hepatitis without ascites (principal); R19.5 Other fecal abnormalities
CPT/HCPCS: 36415; 80053; 85025

== ENCOUNTER → 2021-11-26 | Outpatient (CLI) | payer MEDICAID, SELFPAY | END | disposition home or self-care (01) | LOC: LABSPEC 10:56 | PROVIDERS: PCP Internal Medicine; Referring Provider Internal Medicine; Visit Provider Internal Medicine | DX: R19.5 Other fecal abnormalities (principal) | CPT/HCPCS: 82274 ==

== ENCOUNTER → 2022-05-21 | Outpatient (CLI) | payer MEDICAID, SELFPAY ==
[2022-05-21 12:26] LABS: Absolute Lymphocyte Count 0.56 X10^3/uL (0.83-4.51); Absolute Neutrophil Count 1.7 X10^3/uL (2.0-7.7); Basophil# 0.02 X10^3/uL; Basophil% 0.7 % (0-1); Eosinophil# 0.09 X10^3/uL; Eosinophils% 3.1 % (0-5); Hematocrit 35.4 % (40-54); Hemoglobin 11.5 g/dL (13.0-16.5); Lymphocyte # 0.56 X10^3/ul (0.83-4.51); Lymphocyte % 19.6 % (19-41); Mean Corp Hgb Conc 32.5 g/dL (32-36); Mean Corpuscular Hgb 34.6 pg (27.0-32.0); Mean Corpuscular Volume 106.6 fL (80-94); Mean Platelet Vol. 10.5 fl (6.2-12.0); Monocyte# 0.45 X10^3/uL; Monocyte% 15.7 % (0-10); NRBC Flagged by Analyzer 0 % (0-5); Neutrophil # 1.73 X10^3/uL (2.7-7.7); Neutrophil % 60.6 % (47-70); POSITIVE DIFFERENTIAL YES; Platelet Count 211 K/mm3 (150-450); RBC Distribution Width CV 15.2 % (11.6-14.6); RBC Distribution Width SD 59.9 fl (35.1-43.9); Red Blood Count 3.32 M/mm3 (4.6-6.2); White Blood Count 2.9 K/mm3 (4.4-11.0)
[2022-05-21 12:41] LABS: Differential Indicated SCAN CRITERIA MET
[2022-05-21 12:52] LABS: ALB/GLOB Ratio 0.8 RATIO (0.9-2.4); AST(SGOT) 88 U/L (15-37); Alanine Aminotransfer ALT/SGPT 92 U/L (16-61); Albumin, Serum 3.4 g/dL (3.2-5.0); Alkaline Phosphatase 125 U/L (45-117); Anion Gap 7 (5-15); BUN 12 mg/dL (7-18); BUN/Creat Ratio 13.3 RATIO (10-20); Chloride 108 mmol/L (98-107); EST Glomerular Filtration Rate 92 mL/min (>60); Est Glom Filt Rate - Afr Amer 111 mL/min (>60); Globulin 4.5 g/dL (2.2-4.2); Glucose 105 mg/dL (74-106); Potassium 3.5 mmol/L (3.5-5.1); Protein, Total 7.9 g/dL (6.4-8.2); Sodium Level 140 mmol/L (136-145)
[2022-05-24 09:30] LABS: Vitamin B12 456 pg/mL (211-911)
[2022-05-24 11:36] LABS: Pathologist Review Reviewed
== END | disposition home or self-care (01) ==
LOC: BIMLAB 08:52
PROVIDERS: PCP Internal Medicine; Referring Provider Internal Medicine; Visit Provider Internal Medicine
DX: I10 Essential (primary) hypertension (principal); R29.898 Other symptoms and signs involving the musculoskeletal system
CPT/HCPCS: 36415; 80053; 82607; 85025

== ENCOUNTER → 2022-06-30 | Outpatient (CLI) | payer MEDICAID, SELFPAY ==
[2022-06-30 10:34] LABS: Bacteria 0 SEEN /hpf (None Seen); Mucous, Urine 0 SEEN /hpf (<or=2+); Red Blood Cells-Urine 0 SEEN /hpf (0-5); Squamous Epithelial Cells - UA 0 SEEN /hpf (0-5); White Blood Cells 0 SEEN /hpf (0-5)
[2022-06-30 12:16] LABS: Color, Urine Amber (Yellow); Glucose, Dipstick Normal (Normal); Ketone-Dipstick 5 mg/dl (Negative); Leukocyte Esterase-Dipstick 25 /ul (Negative); Nitrite-Dipstick Negative (Negative); Occult Blood-Urine Negative /ul (Negative); Protein-Dipstick 30 mg/dl (Negative); Specific Gravity, Urine 1.025 (1.002-1.030); Urine Clarity Clear (Clear); Urine Urobilinogen 4 mg/dl (Normal)
[2022-06-30 12:22] LABS: Urine Bilirubin Dipstick 1 mg/dL (Negative)
[2022-06-30 12:26] LABS: Absolute Lymphocyte Count 0.76 X10^3/uL (0.83-4.51); Absolute Neutrophil Count 3.7 X10^3/uL (2.0-7.7); Basophil# 0.02 X10^3/uL; Basophil% 0.4 % (0-1); Eosinophil# 0.04 X10^3/uL; Eosinophils% 0.8 % (0-5); Hematocrit 35.8 % (40-54); Hemoglobin 12.4 g/dL (13.0-16.5); Lymphocyte # 0.76 X10^3/ul (0.83-4.51); Lymphocyte % 15.1 % (19-41); Mean Corp Hgb Conc 34.6 g/dL (32-36); Mean Corpuscular Hgb 32.5 pg (27.0-32.0); Mean Platelet Vol. 10.9 fl (6.2-12.0); Monocyte# 0.52 X10^3/uL; Monocyte% 10.3 % (0-10); NRBC Flagged by Analyzer 0 % (0-5); Neutrophil # 3.66 X10^3/uL (2.7-7.7); Neutrophil % 72.8 % (47-70); Platelet Count 258 K/mm3 (150-450); RBC Distribution Width SD 44.6 fl (35.1-43.9); Red Blood Count 3.81 M/mm3 (4.6-6.2)
[2022-06-30 12:52] LABS: ALB/GLOB Ratio 0.7 RATIO (0.9-2.4); AST(SGOT) 23 U/L (15-37); Alanine Aminotransfer ALT/SGPT 31 U/L (16-61); Albumin, Serum 3.4 g/dL (3.2-5.0); Alkaline Phosphatase 107 U/L (45-117); Anion Gap 8 (5-15); BUN 5 mg/dL (7-18); BUN/Creat Ratio 6.4 RATIO (10-20); Calcium,Total 9.5 mg/dL (8.5-10.1); Chloride 95 mmol/L (98-107); Creatinine, Serum 0.78 mg/dL (0.70-1.30); EST Glomerular Filtration Rate 108 mL/min (>60); Est Glom Filt Rate - Afr Amer 130 mL/min (>60); Globulin 4.7 g/dL (2.2-4.2); Glucose 98 mg/dL (74-106); PSA,Total- Diagnostic 0.75 ng/mL (0.0-4.0); Potassium 4.7 mmol/L (3.5-5.1); Protein, Total 8.1 g/dL (6.4-8.2); Sodium Level 128 mmol/L (136-145)
== END | disposition home or self-care (01) ==
LOC: BIMLAB 10:27
PROVIDERS: PCP Internal Medicine; Referring Provider Internal Medicine; Visit Provider Internal Medicine
DX: R10.31 Right lower quadrant pain (principal); R35.0 Frequency of micturition
CPT/HCPCS: 36415; 80053; 81001; 84153; 85025

== ENCOUNTER 2022-07-12 11:30 | Outpatient (RCR) | payer MEDICAID, SELFPAY ==
--- NOTE | 2022-05-28 10:22 | HP.PTEVAL ---
Patient's Visit Information MATTY WAGNER is a 57 year old M referred to Physical Therapy by Dr. Rickey Foley MD with a diagnosis of LE Weakness. Date of Evaluation: 05/28/22 Physical Therapist: Jessie Arguelles DPT - Visit Plan Frequency: 2x /Week Duration: 6 Weeks Plan: Focus on core and LE strength/stabilization, balance and functional mobility. HEP Given IE: Standing Kitchen Sink: Marching, Hip Abd, Hip Exnt, HR/TR, weight shifting - Subjective Patient reports that he started drinking again- and it made his legs worse. He went to detox- he got out 05/19- at [facility]- he is in intensive outpatient. Was using a FWW in Detox and has decided that he is not going to continue to use it. He feels that he needs some strength and balance. He doesn't have any pain just has neuropathy so he has some nerve pain but uses Gabapentin. The last fall was prior to detox- no falls since he has been home. He has a walker but does not have a cane. He lives alone with no stairs inside. He has a single step to enter with a railing. Does not drive but is fully I with all ADL's. He is okay around stores if he is pushing a cart. Sleep: not disturbed. Work: not currently working. Goes to [facility]- Tuesday, Tuesday and - will like to come here Tue/Tuesday- he would to use the van. PMHx/Meds: see list in chart from 05/22 - Objective Posture: FH, RS- can correct but is unable to maintain. Gait: severely ataxic- posterior lean- cane improves pattern but still requires SBA for safety. Stairs: asc/desc 8 recip with 2 HR and SBA for safety. HR/TR: able with UE A. SLS: weight shift but unable to SLS. ROM: WFL in all planes. Strength: LE: 4+/5 throughout Core: poor. Sensation: diminished in LE due to neuropathy - Balance/Special Test Scores Functional Gait Assessment Score: 2 % Disability: 93.3400 Lower Extremity Functional Score: 21 TUG Test Time Seconds: 25 - Goals Goal 1:: Patient will be I with HEP and progression Goal Time Frame: 4-6 Weeks Goal 2:: Patient will ambulate >300 feet with LRD and no loss of balance Goal Time Frame: 4-6 Weeks Goal 3:: Patient will asc/desc 8 stairs recip with 1 HR safely Goal Time Frame: 4-6 Weeks Goal 4:: Patient will improve his TUG score to <10 with LRD Goal Time Frame: 4-6 Weeks Goal 5:: Patient will report 80% improvement Goal Time Frame: 4-6 Weeks - Rehabilitation Potential Physical Therapy Diagnosis: Patient presents with hypomobility- he has decreased LE and core strength/stabilization, flex, proprioception and muscular endurance leading to poor balance, abnormal gait and decreased ability to participate in ADL's Rehabilitation Potential: Good - Anticipated Interventions Patient/Client Instruction: Educate patient on: Benefits of Fitness Program Therapeutic Exercise to Include: Strength training, Endurance training, Balance training, Coordination, Agility training, Body mechanics, Postural training, Flexibilty training, Gait and locomotor training, Dynamic Lumbar Stabilization, Scapular Strength/Stabilization For the Purpose of:: To improve muscle performance and motor function Thank you for the opportunity to evaluate your patient. For Medicare and Medicare HMO plans, please review the plan of care and approve it. It will need to be FAXED BACK to us at [phone] for Medicare purposes. For Medicare only, by signing this I certify the plan of care. Please let me know if there are questions or concerns regarding this plan of care. Physician Signature: Date:
--- NOTE | 2022-07-12 11:46 | HP.PTREVAL_ITS ---
Dr. Rickey Foley MD, It has been my pleasure to treat MATTY WAGNER over the last 11 visits for LE Weakness. Please see the progress note below for an update on the physical therapy plan of care! Subjective: Patient reports that he is having lower belly pain- goes for a CT on Tuesday- He still feels that he is still weak in the legs. He has not had any falls since starting PT. His goals are to walk better Objective/Function: Posture: improved- can maintain for longer periods of time. Gait: severely ataxic- posterior lean- no loss of balance Stairs: asc/desc 8 recip with 2 HR CGA but does report its hard to progress forwards HR/TR: able with UE A. SLS: weight shift but unable to SLS. ROM: WFL in all planes. Stre ngth: LE: Ankle: 5/5 Knee: 5/5 Hip: 4+/5 throughout Core: poor. Sensation: diminished in LE due to neuropathy Plan Plan: 07/12/22: HEP for strength then balance and functional mobility (stairs and endurance walking). IE: Focus on core and LE strength/stabilization, balance and functional mobility Balance/Gait/Functional tests - Balance/Special Test Scores Functional Gait Assessment Score: 11 % Disability: 63.3400 Lower Extremity Functional Score: 35 TUG Test Time Seconds: 11.4 Tug Test: <20 sec.=mostly independent Goals Goal 1:: Patient will be I with HEP and progression Goal Time Frame: 4-6 Weeks Goal Progress: Progressing Goal 2:: Patient will ambulate >300 feet with LRD and no loss of balance Goal Time Frame: 4-6 Weeks Goal Progress: Progressing Goal 3:: Patient will asc/desc 8 stairs recip with 1 HR safely Goal Time Frame: 4-6 Weeks Goal Progress: Progressing Goal 4:: Patient will improve his TUG score to <10 with LRD Goal Time Frame: 4-6 Weeks Goal Progress: Progressing Goal 5:: Patient will report 80% improvement Goal Time Frame: 4-6 Weeks Goal Progress: Progressing Anticipated Interventions Patient/Client Instruction: Educate patient on: Benefits of Fitness Program Therapeutic Exercise to Include: Strength training, Endurance training, Balance training, Coordination, Agility training, Body mechanics, Postural training, Flexibilty training, Gait and locomotor training, Dynamic Lumbar Stabilization, Scapular Strength/Stabilization For the Purpose of:: To improve muscle performance and motor function Please do not hesitate to contact me at [phone] by phone or if you have questions or concerns regarding this new plan of care! Sincerely, OMRAI FitchT
--- NOTE | 2022-10-25 07:28 | HP.PT.NRP ---
MATTY WAGNER was seen in my office for initial evaluation on 05/28/22. The following Plan of Care was established for this patient: Initial Frequency: 2x /Week Initial Duration: 6 Weeks Patient/Client Instruction: Educate patient on: Benefits of Fitness Program Therapeutic Exercise to Include: Strength training, Endurance training, Balance training, Coordination, Agility training, Body mechanics, Postural training, Flexibilty training, Gait and locomotor training, Dynamic Lumbar Stabilization, Scapular Strength/Stabilization For the Purpose of:: To improve muscle performance and motor function This patient was last seen in our office . Pertinent comments regarding their Physical therapy will appear below: Patient has not attended PT in over 30 days- appropriate to be d/c from PT and return to MD as appropriate At this point I will be discontinuing this patient from physical therapy. I would be happy to see this patient again in the future if found appropriate by the physician. Thank you! OMARI FitchT Balance/Gait/Functional tests - Balance/Special Test Scores Functional Gait Assessment Score: 11 % Disability: 63.3400 Lower Extremity Functional Score: 35 TUG Test Time Seconds: 11.4 Tug Test: <20 sec.=mostly independent
== END 2022-07-12 19:00 | disposition home or self-care (01) ==
LOC: PT 11:30
PROVIDERS: PCP Internal Medicine; Referring Provider Internal Medicine; Visit Provider Internal Medicine
DX: M62.81 Muscle weakness (generalized) (principal)
CPT/HCPCS: 97110; 97164

== ENCOUNTER → 2022-07-16 | Outpatient (CLI) | payer MEDICAID, SELFPAY ==
--- NOTE | 2022-07-16 07:39 | CT_ITS ---
STUDY: CT ABDOMEN AND PELVIS WITH CONTRAST REASON FOR EXAM: Male, 57 years old. 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 Oral and amp; IV Gastrografin and amp; 100mL Isovue-300 was administered. Sagittal and coronal images were reconstructed. Individualized dose optimization techniques were used for this CT. COMPARISON: None. FINDINGS: The visualized lung bases are unremarkable. Coronary artery calcification. Diffuse ascites. Increased markings in the mesenteric fat anteriorly. Possible omental metastasis should be ruled out. There is decreased attenuation of the liver consistent with steatosis. There are multiple small gallstones. There are multiple benign calcified granulomata of the spleen. Normal pancreas. Normal bilateral adrenal glands. Normal right kidney. Normal left kidney. Normal visualized stomach. Normal small intestine. Normal colon. The appendix is visualized and appears normal. There is diffuse atherosclerotic calcification of the abdominal aorta and its major visceral branches, without a demonstrated aneurysm. Normal inferior vena cava. Normal retroperitoneum. Normal urinary bladder. There are prostatic calcifications. There is a right-sided inguinal hernia containing adipose tissue. There are degenerative changes of the visualized lumbar spine. Straightening of the normal lumbar lordosis. CT/Abdomen/Pelvis WITH Contrast IMPRESSION: Fatty infiltration of the liver. Diffuse ascites. Increased markings in the anterior omental fat. Metastatic deposit should be ruled out. Multiple small gallstones. Electronically Signed: Esau Scott MD at 10:37 EST ,
== END | disposition home or self-care (01) ==
LOC: CT 07:38
PROVIDERS: PCP Internal Medicine; Visit Provider Internal Medicine
DX: R10.31 Right lower quadrant pain (principal)
CPT/HCPCS: 74177; Q9967

== ENCOUNTER 2022-07-21 12:06 | Outpatient (CLI) | payer MEDICAID, SELFPAY ==
--- NOTE | 2022-07-21 | IMM_PTH ---
PATIENT: MATTY WAGNER LOC: U#:[id number] AGE/SX: 57/M ROOM: RE07/21/[address]: Dr. Francisco Levine MD : 1965 BED: DIS: 07/21/2022 SPEC #: [id number] RECD: 07/23/22 13:18 STATUS: RK REQ #: [id number] ELKE: 07/21/22 00:[address]: Francisco Levine DEPT: IMMUNOHISTOCHEMISTRY RECD BY: Keesha Huff ENTERED: 07/23/22 13:20 SP TYPE: IMMUNO OTHR DR: Dr. Rickey Foley MD Tissues: PARACENTESIS FLUID Procedures: RCC (add) NAPSIN A (add) Johan Ret (add) CK20 (add) CK5-6 (add) CK7 (add) CK8 (add) PEREIRA-2 (add) HEP PAR (add) MACRO (add) TTF1 (add) Vimentin (add) Pankeratin (initial) P40 (add) CDX2 (add) PSAP (add) PHYSICIAN & INSTITUTION [place] [id number] SPECIMEN INFORMATION: Tissue Source: Paracentesis fluid Clinical Info: Ascites Specimen Number: [id number] CPT code: 04061, 51159 x15 METHODOLOGY: Deparaffinized sections of prefer/formalin-fixed tissue or PAP/DQ stained slides are incubated with monoclonal/polyclonal antibodies/oligonucleotide probes. Localization is made via biotin free immunoperoxidase method. Appropriate controls are performed and reacted as expected. Results on target cell population are indicated in the following table: RESULTS: ANTIBODY / CLONE RESULT AE1-3 (AE1/AE3/PCK26) positive CK7 (OV-TL12/30) negative CK8 (97ccwsA11) positive CK20 (KS20.8) positive Vimentin (V9) negative Macro (HAM-56) negative TTF-1 (8G7G3/1) negative Napsin A (Rabbit Polyclonal) positive HepPar (OCh1E5) negative RCC (PN-15) negative PSAP (PASE/4LJ) negative CALRET (polyclonal) negative CK5-6 (D5 & 1684) negative P40 (BC28) negative CDX2 (OBC6910Q) positive PEREIRA-2 (SP21) positive These tests were developed and their performance characteristics determined by [facility]. They may not have been cleared or approved by the U.S. Food and Drug Administration. The FDA has determined that such clearance or approval is not necessary. The above immunohistochemical/dualISH markers are ordered and reviewed by the Pathologist. INTERPRETATION: Paracentesis fluid (cell block): Malignant cells present derived from metastatic adenocarcinoma, favor colonic primary. See comment. [email or web address] 07/27/2022 Comment: Clinical correlation is necessary.
--- NOTE | 2022-07-21 | FLU_PTH ---
PATIENT: MATTY WAGNER LOC: [facility]#:[id number] AGE/SX: 57/M ROOM: RE07/21/[address]: Dr. Francisco Levine MD : 1965 BED: DIS: 07/21/2022 SPEC #: [id number] RECD: 07/22/22 12:26 STATUS: RK LABA #: [id number] ELKE: 07/21/22 00:[address]: Francisco Levine DEPT: CYTOLOGY RECD BY: Shayna Steiner ENTERED: 07/22/22 12:27 SP TYPE: Fluid OTHR DR: Dr. Rickey Foley MD Tissues: PARACENTESIS FLUID Procedures: Special Stain Group II Mucicarmine Stain (control) Surgery Specimen Level IV Cytospin Fluid HEADER OPERATION: Ultrasound-guided paracentesis PRE-OP DIAGNOSIS: Ascites TISSUE SUBMITTED: Paracentesis fluid for cytology DIAGNOSIS CYTOLOGY Paracentesis fluid for cytology (cytospin and cell block): Malignant cells present derived from metastatic adenocarcinoma, favor colonic primary. See comment. SJ:[email or web address] 07/27/2022 COMMENT Immunohistochemistry ([id number]) supports the above diagnosis. Mucin stain with matched control is used in evaluation, the tumor cells are positive for mucin. Correlation with clinical findings and appropriate follow up are necessary. CYTOLOGY STUDY Slides are reviewed. CYTOLOGY GROSS Received is 50 ml of yellow cloudy fluid labeled with the patient's name and and designated per the requisition as paracentesis. Submitted for cytology preparation including cell block. / [email or web address] 07/22/2022 TC:0 CPT: 05914, 77225, 00479 ADDENDUM ADDENDUM ADDENDUM ADDENDUM ADDENDUM ADDENDUM ADDENDUM ADDENDUM ADDENDUM ADDENDUM ADDENDUM ADDENDUM ADDENDUM ADDENDUM ADDENDUM ADDENDUM ADDENDUM ADDENDUM ADDENDUM ADDENDUM ADDENDUM 08/16/2022 10:03 ADDENDUM 08/16/2022 10:03 ADDENDUM 08/16/2022 10:03 ADDENDUM 08/16/2022 10:03 ADDENDUM 08/16/2022 10:03 PD-L1 (KEYTRUDA) IMMUNOHISTOCHEMICAL ANALYSIS FROM [employer] RESULTS: Tumor proportion score: <1% / Negative ONKOCAPE [facility]ED COLORECTAL CANCER NGS REPORT FROM [employer] RESULT SUMMARY: Normal Immunotherapy Biomarkers: Tumor Mutation Almo: Low (0.8 Mutations / MB) Microsatellite Instability: MSI Negative (4.0 %) PERTINENT NEGATIVE RESULTS: The following genes are NEGATIVE for clinically relevant mutations. Mutational hotspots and surrounding exonic regions were interrogated for DNA level point mutations and indels (fusions not assayed). AKT1, APC, ATR, BRAF, CHEK1, EGFR, EPCAM, ERBB2, ERBB3, ERBB4, FGFR1, FGFR2, FGFR3, FGFR4, HRAS, KRAS, MAP2K1, MET, MLH1, MSH2, MSH6, NRAS, NTRK1, PIK3CA, PMS2, POLD1, POLE, PTEN, SMAD4, STK11, TERT, TP53 Please see complete report in e-chart or EMR
--- NOTE | 2022-07-21 12:07 | US_ITS ---
PROCEDURE: Ultrasound guided paracentesis. DATE OF EXAMINATION: 07/21/2022. INDICATION: Male, 57 years old. Ascites. PHYSICIAN: Esau Scott M.D. TECHNIQUE: The risks, benefits, and alternatives to the procedure were explained to the patient. The specific risks of bleeding, infection, and damage to bowel were detailed and accepted. Witnessed informed consent was obtained. The abdomen was ultrasonographically surveyed. An appropriate pocket of fluid was identified at the right lower quadrant. The skin were cleaned and prepped in the usual sterile fashion. Using ultrasound guidance, the peritoneal cavity was accessed with a 5-Indian paracentesis needle/catheter system. The trocar was removed. A total of 3400 ml of bebeto colored fluid were removed from the peritoneal cavity. A 100 mL sample was sent to the lumbar tube for analysis. The catheter was removed and a sterile dressing was applied. The procedure was well tolerated. US/Paracentesis with US IMPRESSION: Ultrasound guided paracentesis. Electronically Signed: Esau Scott MD at 14:23 EST ,
--- NOTE | 2022-07-21 12:10 | RAD_ITS ---
STUDY: X-RAY CHEST REASON FOR EXAM: Male, 57 years old. CHEST PAIN ABDOMINAL ASCITES TECHNIQUE: XR Chest 2 Views COMPARISON: 11/02/2020 FINDINGS: There is no demonstrated pleural abnormality. Normal size heart. Normal mediastinum and christi. Normal visualized pulmonary arteries. Normal visualized aortic arch and descending thoracic aorta. Normal visualized thoracic spine. Normal visualized ribs, clavicles, and shoulders. There is no demonstrated abnormality of the visualized soft tissue structures of the upper abdomen. RAD/Chest PA and Lateral IMPRESSION: There are no acute findings. Electronically Signed: Blaise Pace MD at 17:41 EST ,
[2022-07-21] MEDS: Lidocaine 1% (20 ml mdv) 20 ML Vial INFILT (13:10)
[2022-07-21 13:15] VITALS: BP 118/75; BP 123/79; PULSE 70; PULSE 74; RESP 16; RESP 18; O2SAT 99
[2022-07-21 13:48] LABS: Cytology, Body Fluid / CSF SEE PATHOLOGY REPORT
== END 2022-07-21 23:59 | disposition home or self-care (01) ==
LOC: US 12:06
PROVIDERS: PCP Internal Medicine; Visit Provider Internal Medicine Medical Oncology
DX: R18.0 Malignant ascites (principal); K76.0 Fatty (change of) liver, not elsewhere classified
CPT/HCPCS: 49083; 36415; 71046; 80053; 82140; 82977; 83615; 85025; 85610; 85652; 85730; 86704; 86705; 86706; 86707; 86803; 87340; 87350; 88108; 88305; 88313; 88341; 88342

== ENCOUNTER 2022-07-29 13:56 | Outpatient (CLI) | payer MEDICAID, SELFPAY ==
--- NOTE | 2022-07-29 13:58 | US_ITS ---
PROCEDURE: Ultrasound guided paracentesis. DATE OF EXAMINATION: 07/29/2022. INDICATION: Male, 57 years old. Ascites. PHYSICIAN: Rick Ibanez DO TECHNIQUE: The risks, benefits, and alternatives to the procedure were explained to the patient. The specific risks of bleeding, infection, and damage to bowel were detailed and accepted. Witnessed informed consent was obtained. The abdomen was ultrasonographically surveyed. An appropriate pocket of fluid was identified at the right lower quadrant. The skin were cleaned and prepped in the usual sterile fashion. Using ultrasound guidance, the peritoneal cavity was accessed with a 5-Icelandic paracentesis needle/catheter system. The trocar was removed. A total of 4250 ml of clear straw-colored ascites fluid was removed from the peritoneal cavity. The catheter was removed and a sterile dressing was applied. The procedure was well tolerated. The patient was discharged in stable condition. US/Paracentesis with US IMPRESSION: Ultrasound guided therapeutic paracentesis. Electronically Signed: Rick Ibanez, at 16:11 EST ,
[2022-07-29 14:22] VITALS: BP 114/78; BP 124/85; PULSE 61; PULSE 73; RESP 16; RESP 20; TEMP 36.7; O2SAT 97; O2SAT 98
[2022-07-29] MEDS: Lidocaine 1% (20 ml mdv) 20 ML Vial INFILT (14:24)
== END 2022-07-29 23:59 | disposition home or self-care (01) ==
LOC: US 13:56
PROVIDERS: PCP Internal Medicine; Referring Provider Internal Medicine Medical Oncology; Visit Provider Internal Medicine Medical Oncology
DX: C76.8 Malignant neoplasm of other specified ill-defined sites (principal); R18.8 Other ascites
CPT/HCPCS: 49083; 36415; 82378

== ENCOUNTER 2022-08-04 14:10 | Outpatient (CLI) | payer MEDICAID, SELFPAY ==
--- NOTE | 2022-08-04 | IMM_PTH ---
PATIENT: MATTY WAGNER LOC: U#:[id number] AGE/SX: 57/M ROOM: RE08/04/[address]: Dr. Francisco Levine MD : 1965 BED: DIS: 08/04/2022 SPEC #: [id number] RECD: 08/06/22 13:59 STATUS: RK REQ #: [id number] ELKE: 08/04/22 00:[address]: Francisco Levine DEPT: IMMUNOHISTOCHEMISTRY RECD BY: Keesha Huff ENTERED: 08/06/22 14:01 SP TYPE: IMMUNO OTHR DR: Dr. Rickey Foley MD Tissues: PARACENTESIS FLUID Procedures: RCC (add) NAPSIN A (add) Johan Ret (add) CEA (add) CK20 (add) CK7 (add) CK8 (add) PEREIRA-2 (add) KI-67 (add) P53 (add) TTF1 (add) Pankeratin (initial) P40 (add) CDX2 (add) PSAP (add) S-100 (add) PHYSICIAN & [address] [id number] SPECIMEN INFORMATION: Tissue Source: Paracentesis fluid Clinical Info: Cirrhosis, ascites Specimen Number: [id number] CPT code: 59281, 89300 x15 METHODOLOGY: Deparaffinized sections of prefer/formalin-fixed tissue or PAP/DQ stained slides are incubated with monoclonal/polyclonal antibodies/oligonucleotide probes. Localization is made via biotin free immunoperoxidase method. Appropriate controls are performed and reacted as expected. Results on target cell population are indicated in the following table: RESULTS: ANTIBODY / CLONE RESULT AE1-3 (AE1/AE3/PCK26) positive CK7 (OV-TL12/30) positive CK8 (90lclnZ17) positive CK20 (KS20.8) positive PEREIRA-2 (SP21) positive CDX2 ([id number]) positive S-100 (4C4.9) negative TTF-1 (8G7G3/1) negative Napsin A (Rabbit Polyclonal) positive RCC (PN-15) negative PSAP (PASE/4LJ) negative CALRET (polyclonal) negative P40 (BC28) negative CEA (11-7/TF-3HB-1) positive P53 (DO-7) positive, rare Ki-67 (30-9) positive, low These tests were developed and their performance characteristics determined by [facility]. They may not have been cleared or approved by the U.S. Food and Drug Administration. The FDA has determined that such clearance or approval is not necessary. The above immunohistochemical/dualISH markers are ordered and reviewed by the Pathologist. INTERPRETATION: Paracentesis fluid (cell block): Consistent with metastatic non-small cell carcinoma. See comment. AM:katarzyna 08/09/2022 Comment: The IHC profile favors a colonic primary. Case has been reviewed in consultation with Dr. Richards who concurs with the above diagnosis. IDC:SJ
--- NOTE | 2022-08-04 14:11 | US_ITS ---
PROCEDURE: Ultrasound guided paracentesis. DATE OF EXAMINATION: 08/04/2022. INDICATION: Male, 57 years old. Ascites. PHYSICIAN: Esau Scott M.D. TECHNIQUE: The risks, benefits, and alternatives to the procedure were explained to the patient. The specific risks of bleeding, infection, and damage to bowel were detailed and accepted. Witnessed informed consent was obtained. The abdomen was ultrasonographically surveyed. An appropriate pocket of fluid was identified at the right lower quadrant. The skin were cleaned and prepped in the usual sterile fashion. Using ultrasound guidance, the peritoneal cavity was accessed with a 5-[place]izen [place] paracentesis needle/catheter system. The trocar was removed. A total of 3000 ml of bebeto-colored fluid were removed from the peritoneal cavity. A 100 mL sample was sent to laboratory for testing. The catheter was removed and a sterile dressing was applied. The procedure was well tolerated. US/Paracentesis with US IMPRESSION: Ultrasound guided paracentesis. Electronically Signed: Esau Scott MD at 15:13 EST ,
[2022-08-04 14:21] VITALS: BP 113/85; BP 139/87; BP 99/75; PULSE 84; PULSE 90; PULSE 96; RESP 18; TEMP 36.7; O2SAT 95; O2SAT 96
[2022-08-04] MEDS: Lidocaine 1% (20 ml mdv) 20 ML Vial INFILT (14:30)
--- NOTE | 2022-08-04 14:30 | FLU_PTH ---
PATIENT: MATTY WAGNER LOC: U#:[id number] AGE/SX: 57/M ROOM: RE08/04/[address]: Dr. Francisco Levine MD : 1965 BED: DIS: 08/04/2022 SPEC #: [id number] RECD: 08/04/22 14:50 STATUS: RK REMargy #: [id number] ELKE: 08/04/22 14:[address]: Francisco Levine DEPT: CYTOLOGY RECD BY: Shayna Steiner ENTERED: 08/05/22 08:48 SP TYPE: Fluid OTHR DR: Dr. Rickey Foley MD Tissues: PARACENTESIS FLUID Procedures: Special Stain Group II Surgery Specimen Level IV Cytospin Fluid HEADER OPERATION: Paracentesis PRE-OP DIAGNOSIS: Cirrhosis - ascites TISSUE SUBMITTED: Paracentesis fluid for cytology DIAGNOSIS CYTOLOGY Paracentesis fluid for cytology (cytospin and cell block): Positive for malignant cells consistent with metastatic adenocarcinoma. See comment. AM:katarzyna 08/06/2022 COMMENT Immunohistochemistry ([id number]) supports the above diagnosis and supports a GI primary. Mucin stain with matched control is positive. Reference is made to the patient's previous paracentesis fluid for cytology ([id number]) in which malignant cells derived from metastatic adenocarcinoma favoring GI primary were identified. Case has been reviewed in consultation with Dr. Richards who concurs with the above diagnosis. IDC:SJ CYTOLOGY STUDY Slides are reviewed. CYTOLOGY GROSS Received is 85 ml of bebeto cloudy fluid labeled with the patient's name and and designated per the requisition as paracentesis. Submitted for cytology preparation including cell block. / [email or web address] 08/05/2022 TC:0 CPT: 04140, 37528
== END 2022-08-04 23:59 | disposition home or self-care (01) ==
LOC: US 14:10
PROVIDERS: PCP Internal Medicine; Visit Provider Internal Medicine Medical Oncology
DX: R18.8 Other ascites (principal); C76.8 Malignant neoplasm of other specified ill-defined sites
CPT/HCPCS: 49083; 78815; 88108; 88305; 88313; 88341; 88342; A9552

== ENCOUNTER 2022-08-09 12:46 | Day surgery (SDC) | payer MEDICAID, SELFPAY ==
--- NOTE | 2022-08-06 11:36 | EKG12_ITS ---
Test Reason : PREOP Blood Pressure : / mmHG Vent. Rate : 077 BPM Atrial Rate : 077 BPM P-R Int : 120 ms QRS Dur : 066 ms QT Int : 348 ms P-R-T Axes : 000 014 028 degrees QTc Int : 393 ms Normal sinus rhythm Septal infarct , age undetermined Abnormal ECG Confirmed by DEANGELO REYSE, GLEN ([id number]), graphics editor ANI RUBIN ([id number]) on 08/09/2022 10:53:32 AM Referred By: LEVI Confirmed By:BONITA BRIGHT MD
[2022-08-09] VITALS (8 sets, daily range): BP systolic 114–133; BP diastolic 87–98; PULSE 77–93; RESP 16–18; TEMP 36.6–36.9; O2SAT 95–100; BMI 22.1
[2022-08-09] MEDS: Lactated Ringers 1,000 ML 15 ML IV (13:29)
--- NOTE | 2022-08-09 14:01 | PCM.HP.BLA ---
History and Physical Date of Admission: 08/09/22 Intake Vital Signs ? 07/29/2213:03 08/05/2308:51 Height 6 ft 6 ft Weight: ? 155 lb 6 oz BMI ? 21.0 BP ? 108/76 Blood Pressure Location ? Rt brachial Position ? Sitting Respiration ? 17 Pulse ? 84 Pulse Source ? Monitor Temp ? 978 F H Temp Source ? Temporal Pulse Oximetry (%) ? 96 Oxygen Delivery Method ? room air Intake Visit Reasons:?UPPER & LOWER - MALIGNANT ASCITES Chief Complaint: upper and lower--malignant ascites Is patient in pain?: No Allergies erythromycin base Allergy (Unknown, Verified 08/05/22 09:53) Hives Medications compress.stocking,knee,reg,med #2 ea 09/01/21 [Rx Confirmed 08/05/22] albuterol sulfate 90 mcg/actuation aerosol inhaler (ProAir HFA) 1 - 2 puff inhalation Q6H PRN shortness of breath or wheezing #8.5 grams 11/23/21 [Rx Confirmed 08/05/22] melatonin 5 mg capsule 5 mg PO QHS sleep #90 caps 11/23/21 [Rx Confirmed 08/05/22] acamprosate 333 mg tablet,delayed release 333 mg PO BID 05/21/22 [History Confirmed 08/05/22] clonidine HCl 0.1 mg tablet 0.1 mg PO BID 05/21/22 [History Confirmed 08/05/22] fluticasone 100 mcg-salmeterol 50 mcg/dose blistr powdr for inhalation (Advair Diskus) 1 inh inhalation BID 05/21/22 [History Confirmed 08/05/22] hydroxyzine HCl 25 mg tablet 25 mg PO TID PRN 05/21/22 [History Confirmed 08/05/22] multivitamin 1 tab PO DAILY 05/21/22 [History Confirmed 08/05/22] naltrexone microspheres 380 mg intramuscular suspension,extended release (Vivitrol) 380 mg IM QMONTH 05/21/22 [History Confirmed 08/05/22] topiramate 25 mg tablet 25 mg PO BID 05/21/22 [History Confirmed 08/05/22] trazodone 50 mg tablet 50 mg PO QHS PRN 05/21/22 [History Confirmed 08/05/22] thiamine HCl (vitamin B1) 100 mg tablet 100 mg PO DAILY #90 tabs 05/24/22 [Rx Confirmed 08/05/22] amlodipine 5 mg tablet 5 mg PO DAILY #90 tabs 06/30/22 [Rx Confirmed 08/05/22] gabapentin 300 mg capsule 300 mg PO BID #60 caps 07/06/22 [Rx Confirmed 08/05/22] ferrous sulfate 325 mg (65 mg iron) tablet (FeroSul) ea PO 07/21/22 [History Confirmed 08/05/22] folic acid 1 mg tablet 1 mg PO DAILY 07/21/22 [History Confirmed 08/05/22] magnesium oxide 400 mg (241.3 mg magnesium) tablet 400 mg PO DAILY 07/21/22 [History Confirmed 08/05/22] propranolol 60 mg capsule,24 hr,extended release 60 mg PO 07/21/22 [History Confirmed 08/05/22] spironolactone 50 mg tablet (Aldactone) 50 mg PO BID 30 days #60 tabs 07/29/22 [Rx Confirmed 08/05/22] Nurse's Note: Patient states he has not been taking meds past week d/t stomach issues. PFSH Medical History? Abdominal ascites Acute right lower quadrant pain Alcohol abuse Alcohol dependence Alcoholic hepatitis Anemia COPD (chronic obstructive pulmonary disease) Dark stools Drug abuse Erectile dysfunction Flu vaccine need H/O: pneumonia History of fractured rib Hyponatremia Left shoulder pain Liver disease Lower extremity weakness Marijuana use Neuropathy Neuropathy Omental mass Pancytopenia Seasonal allergies Smoker Tobacco abuse Urinary frequency Venous insufficiency Surgical History? H/O colonoscopy Family History? Mother Cancer ?? ? lung/brain ?? ? Alcohol abuseFather Alcohol abuse Social History? Smoking Status:? Current every day smoker tobacco type: cigarettes Tobacco: How many years used:? 43 second hand exposure:? Yes quit status:? has quit before counseling given:? provider counseling alcohol intake:? former substance use type:? marijuana what type of physical activity do you participate in:? none HPI HPI HPI: Patient is a 57-year-old male here with malignant ascites.? Patient reports he had colonoscopy about 2 years ago.? Patient had ascites and work-up showed malignancy with adenocarcinoma likely colon etiology. ROS General General: No weight change, appetite, fatigue, colon cancer, breast cancer or weakness HEENT HEENT: No difficulty swallowing, eye injury, eye surgery, swollen glands or hoarseness Endo Endocrine: No thyroid disease, diabetes mellitus, thyroid cancer, Hair loss, heat intolerance or cold intolerance Skin Skin: No rash or changing moles Musc Musculoskeletal: No back problems, arthritis, rheumatoid arthritis, gout or joint pain Cardio Cardiovascular: No murmur, pacemaker, heart disease, atrial fibrillation, high blood pressure, heart attack, heart stent, palpitations, shortness of breat with exertion or chest pain Psych Psychiatric: No depression, anxiety or hearing voices Resp Respiratory: Yes shortness of breath, No sleep apnea, No cough, Yes COPD, No asthma, Yes emphysema and No wheezing Gastro Gastrointestinal: Yes abdominal pain, Yes nausea or vomiting, Yes diarrhea, No constipation, No blood in stool, Yes acid reflux, No hemorrhoids, No ulcers, No gallbladder problem and No black,tarry stools Cristiano Hematologic: No blood thinners, No blood disorders, No bleeding, No anemia and No blood clots Neuro Neurologic: No system reviewed and no additional complaints, except as documented, No as per HPI, No abnormal gait, No abnormal hearing, No abnormal movements, No abnormal speech, No behavioral changes, No burning sensations, No confusion, No convulsions, No disequilibrium, No dizziness, No localized weakness, No frequent falls, No headache(s), No lack of coordination, No loss of vision, No memory loss, Yes numbness, No other visual disturbances, No radicular pain, No restless legs, No sensory deficit, No syncope, Yes tingling, No tremor(s), No weakness and No other Exam Const General: cooperative Orientation: alert and oriented x3 HENTX Head: normal to inspection Neck Neck: normal visual inspection and full ROM Chest Chest palpation & inspection: normal inspection of the chest Resp Effort & Inspection: normal respiratory effort Auscultation: clear to auscultation bilaterally Cardio Rate: regular rate Rhythm: regular rhythm GI Inspection: non-distended Palpation: soft and nontender Skin General: no rashes or lesions noted Neuro General: patient alert and patient oriented x3 Extrem General: full ROM Psych Appearance: grossly normal Mental Status: mental status grossly normal Assessment and Plan Assessment and Plan (1) Malignant ascites: ?Status:?Acute ?Comment: Ascitic fluid showed Malignant cells favor colonic origin. Discussed findings, further work up with PET/CT, Endoscopy, molecular markers then decide on therapy. Pt wants to proceed with further work up. ?Plan: Patient had malignant ascites and cells showed adenocarcinoma with possible colonic origin.? Patient had colonoscopy about a year and a half ago.? I will plan for EGD and colonoscopy to evaluate.? I will hope to plan this at the beginning of the week as he gets his paracentesis scheduled on Fridays. I explained endoscopy in detail to the patient.? I explained the risks including but not limited to stroke or heart attack with anesthesia, perforation of the GI tract, bleeding, infection.? I explained that any of these could necessitate further emergency surgery.? The patient understands and all questions were answered sufficiently.? The patient wishes to proceed with procedure. Chapito Kim MD Pager: [facility] [address] [place] [address], [address] [place] [address] Office: I have examined the patient and the H&P has been reviewed. There are no clinical changes since date of exam.
--- NOTE | 2022-08-09 15:11 | OP.EGD_ITS ---
Patient Name: Efrain Quiñonez Procedure Date: 08/09/2022 2:22 PM Date of : 1965 Age: 57 Procedure: Upper GI endoscopy Indications: Suspected tumor of the GI tract Providers: Chapito Kim MD Medicines: Monitored Anesthesia Care Patient Profile: This is a 57 year old male. Refer to note in patient chart for documentation of history and physical. Complications: No immediate complications. Estimated blood loss: Minimal. Procedure: Pre-Anesthesia Assessment: - Prior to the procedure, a History and Physical was performed, and patient medications and allergies were reviewed. The patient's tolerance of previous anesthesia was also reviewed. The risks and benefits of the procedure and the sedation options and risks were discussed with the patient. All questions were answered, and informed consent was obtained. Prior Anticoagulants: The patient has taken no previous anticoagulant or antiplatelet agents. After reviewing the risks and benefits, the patient was deemed in satisfactory condition to undergo the procedure. After obtaining informed consent, the endoscope was passed under direct vision. Throughout the procedure, the patient's blood pressure, pulse, and oxygen saturations were monitored continuously. The gastroscope was introduced through the mouth, and advanced to the fourth part of duodenum. The upper GI endoscopy was accomplished without difficulty. The patient tolerated the procedure well. Scope In: 2:38:06 PM Scope Out: 2:42:55 PM Total Procedure Duration Time 0 hours 4 minutes 49 seconds Findings: A medium-sized hiatal hernia was present. Scattered mild inflammation with hemorrhage characterized by adherent blood was found in the entire examined stomach. The examined duodenum was normal. Impression: - Medium-sized hiatal hernia. - Gastritis with hemorrhage. - Normal examined duodenum. - No specimens collected. Recommendation: - Discharge patient to home. - Resume previous diet. - Continue present medications. - Use Prilosec (omeprazole) 40 mg PO daily. Procedure Code(s): --- Professional --- 29252, Esophagogastroduodenoscopy, flexible, transoral; diagnostic, including collection of specimen(s) by brushing or washing, when performed (separate procedure) Diagnosis Code(s): --- Professional --- K44.9, Diaphragmatic hernia without obstruction or gangrene K29.71, Gastritis, unspecified, with bleeding CPT copyright 2017 [employer]. All rights reserved. The codes documented in this report are preliminary and upon spring assembler supervisor review may be revised to meet current compliance requirements. Chapito Kim MD 08/09/2022 3:11:16 PM This report has been signed electronically. Number of Addenda: 0 Note Initiated On: 08/09/2022 2:22 PM
--- NOTE | 2022-08-09 15:14 | OP.CCLET_ITS ---
08/09/2022 Rickey Foley MD [address] [place] [address] [place] [address] Re : Upper GI endoscopy procedure for Efrain Quiñonez Dear Dr. Foley This procedure was performed on Tuesday, August 09, 2022. My impressions and recommendations are as follows: Impressions : - Medium-sized hiatal hernia. - Gastritis with hemorrhage. - Normal examined duodenum. - No specimens collected. Recommendations : - Discharge patient to home. - Resume previous diet. - Continue present medications. - Use Prilosec (omeprazole) 40 mg PO daily. My findings are described in the full procedure note, which is enclosed. If I can be of further assistance, please feel free to contact me at Doctor phone number(s): , Work: . Sincerely, Chapito Kim MD 08/09/2022 3:11:16 PM This report has been signed electronically.
--- NOTE | 2022-08-09 15:19 | OP.COLON_ITS ---
Patient Name: Efrain Quiñonez Procedure Date: 08/09/2022 2:45 PM Date of : 1965 Age: 57 Procedure: Colonoscopy Indications: Suspected colon cancer, Abnormal PET scan of the GI tract Providers: Chapito Kim MD Medicines: Monitored Anesthesia Care Patient Profile: This is a 57 year old male. Refer to note in patient chart for documentation of history and physical. Last Colonoscopy: within the past 3 years. Complications: No immediate complications. Procedure: Pre-Anesthesia Assessment: - Prior to the procedure, a History and Physical was performed, and patient medications and allergies were reviewed. The patient's tolerance of previous anesthesia was also reviewed. The risks and benefits of the procedure and the sedation options and risks were discussed with the patient. All questions were answered, and informed consent was obtained. Prior Anticoagulants: The patient has taken no previous anticoagulant or antiplatelet agents. After reviewing the risks and benefits, the patient was deemed in satisfactory condition to undergo the procedure. After I obtained informed consent, the scope was passed under direct vision. Throughout the procedure, the patient's blood pressure, pulse, and oxygen saturations were monitored continuously. The colonoscope was introduced through the anus and advanced to the cecum, identified by appendiceal orifice and ileocecal valve. The colonoscopy was performed without difficulty. The patient tolerated the procedure well. The quality of the bowel preparation was good. Scope In: 2:46:38 PM Scope Withdrawal Time 0 hours 5 minutes 18 seconds Scope Out: 2:59:30 PM Total Procedure Duration Time 0 hours 12 minutes 52 seconds Findings: The entire examined colon appeared normal on direct and retroflexion views. The entire examined colon appeared normal on direct and retroflexion views. Impression: - The entire examined colon is normal on direct and retroflexion views. - No specimens collected. Recommendation: - Discharge patient to home. - Resume previous diet. - Continue present medications. - Repeat colonoscopy in 5 years for screening purposes. Procedure Code(s): --- Professional --- 18811, Colonoscopy, flexible; diagnostic, including collection of specimen(s) by brushing or washing, when performed (separate procedure) Diagnosis Code(s): --- Professional --- R93.3, Abnormal findings on diagnostic imaging of other parts of digestive tract CPT copyright 2017 [employer]. All rights reserved. The codes documented in this report are preliminary and upon master control technician review may be revised to meet current compliance requirements. Chapito Kim MD 08/09/2022 3:19:19 PM This report has been signed electronically. Number of Addenda: 0 Note Initiated On: 08/09/2022 2:45 PM
--- NOTE | 2022-08-09 15:20 | OP.CCLET_ITS ---
08/09/2022 Rickey Foley MD [address] [place] [address] [place] [address] Re : Colonoscopy procedure for Efrain Quiñonez Dear Dr. Foley This procedure was performed on Tuesday, August 09, 2022. My impressions and recommendations are as follows: Impressions : - The entire examined colon is normal on direct and retroflexion views. - No specimens collected. Recommendations : - Discharge patient to home. - Resume previous diet. - Continue present medications. - Repeat colonoscopy in 5 years for screening purposes. My findings are described in the full procedure note, which is enclosed. If I can be of further assistance, please feel free to contact me at Doctor phone number(s): , Work: . Sincerely, Chapito Kim MD 08/09/2022 3:19:19 PM This report has been signed electronically.
== END 2022-08-09 16:24 | disposition home or self-care (01) ==
LOC: EN 12:46 → AC 12:48
PROVIDERS: PCP Internal Medicine; Referring Provider Surgery; Visit Provider Surgery
PROC: 0DJD8ZZ Inspection of Lower Intestinal Tract, Via Natural or Artificial Opening Endoscopic (ICD-10-PCS; CPT 45378; principal; 2022-08-09 13:55)
DX: C80.1 Malignant (primary) neoplasm, unspecified (principal); J44.9 Chronic obstructive pulmonary disease, unspecified; R18.0 Malignant ascites; K29.71 Gastritis, unspecified, with bleeding; K44.9 Diaphragmatic hernia without obstruction or gangrene; F17.210 Nicotine dependence, cigarettes, uncomplicated; Z79.899 Other long term (current) drug therapy
CPT/HCPCS: 43235; 45378; 93005; J7120; J2405

== ENCOUNTER → 2022-08-10 | Outpatient (CLI) | payer MEDICAID, SELFPAY ==
--- NOTE | 2022-08-10 11:32 | US_ITS ---
PROCEDURE: Ultrasound guided paracentesis. DATE OF EXAMINATION: 08/10/2022. INDICATION: Male, 57 years old. Ascites. PHYSICIAN: Esau Scott M.D. TECHNIQUE: The risks, benefits, and alternatives to the procedure were explained to the patient. The specific risks of bleeding, infection, and damage to bowel were detailed and accepted. Witnessed informed consent was obtained. The abdomen was ultrasonographically surveyed. An appropriate pocket of fluid was identified at the right lower quadrant. The skin were cleaned and prepped in the usual sterile fashion. Using ultrasound guidance, the peritoneal cavity was accessed with a 5-Icelandic paracentesis needle/catheter system. The trocar was removed. A total of 4700 ml of bebeto-colored fluid were removed from the peritoneal cavity. The catheter was removed and a sterile dressing was applied. The procedure was well tolerated. US/Paracentesis with US IMPRESSION: Ultrasound guided paracentesis. Electronically Signed: Esau Scott MD at 13:42 EST ,
[2022-08-10 12:20] VITALS: BP 111/80; BP 125/100; BP 127/89; PULSE 76; PULSE 82; PULSE 83; RESP 18; TEMP 37.2; O2SAT 98; O2SAT 99
[2022-08-10] MEDS: Lidocaine 1% (20 ml mdv) 20 ML Vial INFILT (12:25)
== END | disposition home or self-care (01) ==
LOC: US 11:31
PROVIDERS: PCP Internal Medicine; Referring Provider Internal Medicine Medical Oncology; Visit Provider Internal Medicine Medical Oncology
DX: R18.0 Malignant ascites (principal)
CPT/HCPCS: 49083

== ENCOUNTER 2022-08-16 02:38 | Emergency (ER) | payer MEDICAID, SELFPAY ==
[2022-08-16 02:39] VITALS: BP 127/92; PULSE 79; RESP 18; TEMP 36.2; O2SAT 100; BMI 23.8
--- NOTE | 2022-08-16 03:26 | CT_ITS ---
STUDY: CT ABDOMEN AND PELVIS WITHOUT CONTRAST REASON FOR EXAM: Male, 57 years old. Flank pain RADIATION DOSAGE (If Supplied By Facility): CTDIvol = ( 7.00 ) mGy, DLP = ( 386.71 ) mGycm TECHNIQUE: Transaxial images were obtained from the dome of the diaphragm to the symphysis pubis without oral contrast, and without intravenous contrast. Sagittal and coronal images were reconstructed. Individualized dose optimization techniques were used for this CT. COMPARISON: July 16, 2022 CT abdomen and pelvis , PET scan August 04, 2022 FINDINGS: There is a small right effusion and minimal lower lobe atelectasis. There is patchy emphysematous change within the right lower lobe. Calcified granuloma in the right lower lobe. There is coronary artery calcification. There is partial visualization of the ascending thoracic aorta measuring 2.8 x 3.8 cm. Liver is mildly enlarged elongated mildly lobulated. Again noted is a large volume of ascites. There are gallstones in the dependent portion of the gallbladder stable since prior study. There are multiple benign calcified granulomata of the spleen. There is diffuse atrophy of the pancreas. Normal bilateral adrenal glands. Normal right kidney. Normal left kidney. There is a small hiatal hernia. There are fluid distended-appearing bowel loops within the ascites. There is mild to moderate stool within the colon. There is a thickened appearance of the mesentery in the upper abdomen. There is a suggestion of residual contrast or calcification within the appendix. Calcification within the right lower quadrant. The appendix is not seen well seen. It appears to be within the vicinity of the appendix. Aorta is partially calcified. Normal inferior vena cava. Normal retroperitoneum. Normal urinary bladder. There are prostatic calcifications. Normal abdominal wall. There is visualized degenerative changes in the thoracolumbar spine. CT/Abdomen/Pelvis without Cont IMPRESSION: There is renal ureteral bladder calculi. Persistent large volume ascites. Thickened appearance of the omentum within the upper abdomen which may represent possible atypia omental caking. Enlarged liver with mild lobulation which could represent cirrhosis. Indeterminant appearance of the right lower quadrant with a possible calcification within the appendix. The appendix is not well visualized due to the presence of a large amount of fluid. Recommend correlation with location of pain. Emphysematous change in the right of the left lung base small right effusion. Evidence for granulomatous disease. Cholelithiasis. Electronically Signed: Janice Mills MD at 4:17 EST ,
[2022-08-16] MEDS: Morphine 4 MG/ML Syringe IV (03:38)
[2022-08-16] MEDS: Orphenadrine 60 MG/2 ML Ampul IV (03:38)
[2022-08-16] MEDS: Ondansetron 4 MG/2 ML Vial IV (03:38)
[2022-08-16 03:49] LABS: Absolute Lymphocyte Count 0.94 X10^3/uL (0.83-4.51); Absolute Neutrophil Count 6.8 X10^3/uL (2.0-7.7); Basophil# 0.06 X10^3/uL; Basophil% 0.7 % (0-1); Eosinophil# 0.19 X10^3/uL; Eosinophils% 2.2 % (0-5); Hematocrit 39.3 % (40-54); Hemoglobin 13.1 g/dL (13.0-16.5); Lymphocyte # 0.94 X10^3/ul (0.83-4.51); Lymphocyte % 10.8 % (19-41); Mean Corp Hgb Conc 33.3 g/dL (32-36); Mean Corpuscular Hgb 29.4 pg (27.0-32.0); Mean Corpuscular Volume 88.3 fL (80-94); Mean Platelet Vol. 9.7 fl (6.2-12.0); Monocyte# 0.66 X10^3/uL; Monocyte% 7.6 % (0-10); NRBC Flagged by Analyzer 0 % (0-5); Neutrophil # 6.77 X10^3/uL (2.7-7.7); Neutrophil % 77.3 % (47-70); Platelet Count 422 K/mm3 (150-450); RBC Distribution Width CV 14.5 % (11.6-14.6); RBC Distribution Width SD 46.3 fl (35.1-43.9); Red Blood Count 4.45 M/mm3 (4.6-6.2); White Blood Count 8.7 K/mm3 (4.4-11.0)
[2022-08-16 04:13] LABS: AST(SGOT) 21 U/L (15-37); Alanine Aminotransfer ALT/SGPT 23 U/L (16-61); Alkaline Phosphatase 79 U/L (45-117); Anion Gap 7 (5-15); BUN 15 mg/dL (7-18); BUN/Creat Ratio 15.8 RATIO (10-20); Bilirubin, Direct 0.13 mg/dL (0.00-0.30); Calcium,Total 8.6 mg/dL (8.5-10.1); Chloride 99 mmol/L (98-107); Creatinine, Serum 0.95 mg/dL (0.70-1.30); EST Glomerular Filtration Rate 86 mL/min (>60); Est Glom Filt Rate - Afr Amer 105 mL/min (>60); Estimated Creatinine Clearance 93.03 ml/min; Globulin 4.7 g/dL (2.2-4.2); Glucose 110 mg/dL (74-106); Lipase 106 U/L (73-393); Potassium 4.4 mmol/L (3.5-5.1); Protein, Total 6.7 g/dL (6.4-8.2); Sodium Level 132 mmol/L (136-145)
[2022-08-16 04:32] LABS: Red Blood Cells-Urine 0 SEEN /hpf (0-5)
[2022-08-16 04:34] LABS: Color, Urine Yellow (Yellow); Glucose, Dipstick Normal (Normal); Ketone-Dipstick 5 mg/dl (Negative); Leukocyte Esterase-Dipstick 25 /ul (Negative); Nitrite-Dipstick Negative (Negative); Occult Blood-Urine Negative /ul (Negative); Protein-Dipstick 30 mg/dl (Negative); Specific Gravity, Urine 1.015 (1.002-1.030); Urine Bilirubin Dipstick Negative (Negative); Urine Clarity Clear (Clear); Urine Urobilinogen 4 mg/dl (Normal); Urine pH 6.5 (5.0 - 8.0)
[2022-08-16 05:05] LABS: Bacteria RARE /hpf (None Seen); Mucous, Urine 1+ /hpf (<or=2+); Squamous Epithelial Cells - UA 0-5 SEEN /hpf (0-5); White Blood Cells 0-5 SEEN /hpf (0-5)
--- NOTE | 2022-08-16 05:29 | EX.ED.DYSGE1 ---
HPI History of Present Illness Chief Complaint: Chest Other Narrative Narrative: Patient is a 57-year-old male with past medical history of malignant abdominal ascites and hypertension. He states that today he was sitting on the couch when he turned and after doing so felt pain in his right lower chest/rib region. He states that otherwise there is been no trauma and he denies any excessive activity. He denies any fevers or chills or abdominal pain. He denies any nausea vomiting diarrhea dysuria or hematuria. He states that he has been trying vent-[id number]-ojukzhu medications with no symptom improvement and he is unsure why he is having increased pain and therefore he comes in for evaluation. [facility] Medical History Abdominal ascites Acute right lower quadrant pain Alcohol abuse Alcohol dependence Alcoholic hepatitis Anemia Cirrhosis COPD (chronic obstructive pulmonary disease) Dark stools Drug abuse Emphysema, unspecified Erectile dysfunction Flu vaccine need Gastric reflux H/O: pneumonia History of echocardiogram History of fractured rib Hyponatremia Left shoulder pain Liver disease Lower extremity weakness Marijuana use Neuropathy Neuropathy Omental mass Pancytopenia Seasonal allergies Smoker Tobacco abuse Urinary frequency Venous insufficiency Wears dentures Wears glasses Home Medications compress.stocking,knee,reg,med #2 ea 09/01/21 [Rx Last Taken Unknown] bupropion HCl 150 mg tablet,12 hr sustained-release 150 mg PO DAILY 08/16/22 [History Last Taken Unknown] magnesium oxide 400 mg (241.3 mg magnesium) tablet 400 mg PO DAILY 08/16/22 [History Last Taken Unknown] melatonin 5 mg tablet 5 mg PO QHS 08/16/22 [History Last Taken Unknown] methocarbamol 500 mg tablet 1,000 mg PO 4X/DAY PRN PRN Muscle pain/spasm #56 tabs 08/16/22 [Rx Last Taken Unknown] oxycodone 5 mg tablet 5 mg PO Q6H PRN PRN pain 3 days #12 tabs 08/16/22 [Rx Last Taken Unknown] propranolol 40 mg tablet 40 mg PO DAILY 08/16/22 [History Last Taken Unknown] spironolactone 100 mg tablet (Aldactone) 50 mg PO BID 08/16/22 [History Last Taken Unknown] Allergy/AdvReac Type Severity Reaction Status Date / Time erythromycin base Allergy Unknown Hives Verified 08/09/22 13:26 Family History Mother Cancer lung/brain Alcohol abuse Father Alcohol abuse Surgical History H/O colonoscopy Social History Smoking Status: Current every day smoker tobacco type: cigarettes Tobacco: How many years used: 43 second hand exposure: Yes quit status: has quit before counseling given: provider counseling alcohol intake: former substance use type: marijuana what type of physical activity do you participate in: none ROS ROS ED Constitutional Constitutional ED: Denies chills or fever(s) ENT ENT ED: Denies sore throat Cardiovascular Cardiovascular: Reports chest pain and other Details: Positive chest/rib pain Respiratory/Chest Respiratory/Chest: Denies cough or dyspnea Gastrointestinal Gastrointestinal: Denies abdominal pain, diarrhea, nausea or vomiting Genitourinary Genitourinary ED: Denies dysuria or hematuria Musculoskeletal Musculoskeletal: Denies back pain or myalgias Integumentary Denies Abrasions or rash Neurologic Neurologic: Denies headache(s) Hematologic/Lymphatic Hematologic/Lymphatic: Reports easy bleeding and easy bruising EXAM Physical Exam Const Vital Signs: 08/16/22 02:39 08/16/22 02:39 08/16/22 05:40 Temperature 97.2 F L Temperature Source Temporal Pulse Rate 79 77 Respiratory Rate 18 15 Respiratory Effort Short of Breath Blood Pressure 127/92 H 117/90 H Blood Pressure Mean 103 99 Pulse Ox 100 99 Oxygen Delivery Method Room Air Room Air Positive cachectic General Appearance ED: cachectic Nutritional Appearance: cachectic HEENT Reports dry mucous membranes Mouth ED: Yes dry mucous membranes Mouth: dry mucous membranes Eyes PERRL and EOMs intact bilaterally General Eye ED: Negative for scleral icterus Neck supple Chest Wall Chest Narrative: Patient has reproducible pain with palpation along the anterior lateral rib regions 10-12. There is no bony deformity or crepitance noted. Patient states that the pain that is reproduced with palpation is the same pain has been experiencing. Pain also worsens with motion. Resp normal respiratory effort and clear to auscultation bilaterally Cardio regular rate and regular rhythm Rate: other Other Details: Radial pulses are plus 2 out of 4 bilaterally are equal and Carotid pulses equal and symmetric as well GI non-tender GI Narrative: Abdomen is distended with ascitic fluid consistent with his history of malignant ascites and there is positive fluid wave. However there is no pain with palpation no rigidity or guarding. No pulsatile mass. Auscultation: normoactive bowel sounds Palpation: soft Back/Spine no CVA tenderness Extremity normal to inspection Neuro oriented x3 and CN's II-XII intact bilaterally Sensorium / Orientation: alert Psych mental status grossly normal Skin no rashes or lesions noted Skin Narrative: No overlying abrasions or ecchymosis to suggest trauma no erythema to suggest infection and no rash changes to suggest herpes zoster General Skin Exam: Negative for jaundice MDM MDM MDM Narrative Medical decision making narrative: Patient presented to the ER afebrile with stable vitals. He reported that he developed right anterior lateral chest wall pain with motion on the couch. There is no bony deformity or crepitance present he does not have acute CVA pain he is not tachycardic or tachypneic he is not hypoxic or having pleuritic chest pain. Therefore my concern for PE or infection is low. There is a possibility he has a atypical presentation for kidney stone or has developed a pathologic fracture secondary to his abdominal malignancies. Therefore elected perform a noncontrast CAT scan and basic blood work. The CT scan showed a large volume ascites consistent with his history and exam. However there was no obvious pneumothorax or lung infection no obvious pathologic fracture and no stones noted. He is afebrile and does not have a white count and no abdominal pain to my concern for spontaneous bacterial peritonitis is low. Urine does not show signs of infection or blood which also go against kidney stone or acute pyelonephritis. Patient was given Norflex and morphine and did have improvement of his pain. At this time as his exam and vitals do not suggest spontaneous bacterial peritonitis or underlying infectious process and CT scan does not show obvious kidney stone or pathologic fracture I feel his symptoms are related to an intercostal strain. Therefore he will be given symptomatic medications but this does not require admission and is otherwise safe for discharge Lab Data Attestation: I reviewed the patient's lab results. Labs: Laboratory Results - last 24 hr 08/16/22 08/16/22 08/16/22 03:40 03:40 04:26 WBC 8.7 RBC 4.45 L Hgb 13.1 Hct 39.3 L MCV 88.3 MCH 29.4 MCHC 33.3 RDW Std Deviation 46.3 H RDW Coeff of Violette 14.5 Plt Count 422 MPV 9.7 Immature Gran % (Auto) 1.400 H Neut % (Auto) 77.3 H Lymph % (Auto) 10.8 L [place] % (Auto) 7.6 Eos % (Auto) 2.2 Baso % (Auto) 0.7 Absolute Neuts (auto) 6.8 Absolute Lymphs (auto) 0.94 Nucleated RBC % 0 Sodium 132 L Potassium 4.4 Chloride 99 Carbon Dioxide 26.0 Anion Gap 7 BUN 15 Creatinine 0.95 Estim Creat Clear Calc 93.03 Est GFR (MDRD) Af Amer 105 Est GFR (MDRD) Non-Af 86 BUN/Creatinine Ratio 15.8 Glucose 110 H Calcium 8.6 Total Bilirubin 0.30 Direct Bilirubin 0.13 AST 21 ALT 23 Alkaline Phosphatase 79 Total Protein 6.7 Albumin 2.0 L Globulin 4.7 H Lipase 106 Urine Color Yellow Urine Clarity Clear Urine pH 6.5 Ur Specific Coram 1.015 Urine Protein 30 H Urine Glucose (UA) Normal Urine Ketones 5 H Urine Occult Blood Negative Urine Nitrite Negative Urine Bilirubin Negative Urine Urobilinogen 4 H Ur Leukocyte Esterase 25 H Urine RBC 0 SEEN Urine WBC 0-5 SEEN Ur Squamous Epith Cells 0-5 SEEN Urine Bacteria RARE Urine Mucus 1+ Radiography Diagnostic Testing: Clinical Impression(s) from Imaging Studies Abdomen/Pelvis CT 08/16/22 03:26 IMPRESSION: There is renal ureteral bladder calculi. Persistent large volume ascites. Thickened appearance of the omentum within the upper abdomen which may represent possible atypia omental caking. Enlarged liver with mild lobulation which could represent cirrhosis. Indeterminant appearance of the right lower quadrant with a possible calcification within the appendix. The appendix is not well visualized due to the presence of a large amount of fluid. Recommend correlation with location of pain. Emphysematous change in the right of the left lung base small right effusion. Evidence for granulomatous disease. Cholelithiasis. Electronically Signed: Janice Mills MD at 4:17 EST , ADDENDUM: 08/16/22 0535 IMPRESSION: undefined Discharge Plan Triage Chief Complaint: Chest Other ED Provider: Carlos Krishnamurthy Dx/Rx/DC Orders Clinical Impression: Intercostal muscle strain, Abdominal ascites Instructions: ED Ascites, ED Chest Wall Strain Prescriptions: New methocarbamol 500 mg tablet 1,000 mg PO 4X/DAY PRN PRN (Reason: Muscle pain/spasm) Qty: 56 1RF oxycodone 5 mg tablet 5 mg PO Q6H PRN PRN (Reason: pain) 3 Days Qty: 12 0RF No Action (DME) compress.stocking,knee,reg,med Misc See Rx Instructions .ROUTE .MEDSUPPLY Qty: 2 1RF Rx Instructions: wear daily for venous insufficiency 20-30 mmhg bupropion HCl 150 mg tablet sustained-release 12 hr 150 mg PO DAILY Label Comments: TAKE 1 TABLET BY MOUTH DAILY FOR 3 DAYS THEN INCREASE TO TAKE 1 TABLET BY MOUTH TWICE DAILY propranolol 40 mg tablet 40 mg PO DAILY Label Comments: TAKE 1 TABLET BY MOUTH TWICE DAILY FOR ACID magnesium oxide 400 mg (241.3 mg magnesium) tablet 400 mg PO DAILY Label Comments: TAKE 1 TABLET BY MOUTH THREE TIMES DAILY FOR SUPPLEMENT melatonin 5 mg tablet 5 mg PO QHS Label Comments: Take 1 tablet by mouth at bedtime as directed spironolactone [Aldactone] 100 mg tablet 50 mg PO BID Primary Care Provider: Rickey Foley Referrals: Rickey Foley MD [Primary Care Provider] - Activity Restrictions/Additional Instructions: Your work-up today indicates that your pain is most likely a strain to the muscles in between the ribs. Use vtih-aec-ihqhlax medication such as [place] balm or Salonpas or Bengay to help with this. Also take the muscle relaxer and pain pill as prescribed help control your symptoms over the next few days. If he had any worsening symptoms or further concerns please return to the ER for repeat evaluation Disposition Disposition: Home, Self Care
[2022-08-16] MEDS: oxyCODONE 5 MG Tablet 10 MG PO (05:37)
[2022-08-16 05:40] VITALS: BP 117/90; PULSE 77; RESP 15; O2SAT 99
[2022-08-16 05:49] VITALS: BP 117/90; PULSE 77; RESP 15; O2SAT 99
== END 2022-08-16 05:50 | disposition home or self-care (01) ==
PROVIDERS: Emergency Provider Emergency Medicine; PCP Internal Medicine; Visit Provider Emergency Medicine
DX: S29.011A Strain of muscle and tendon of front wall of thorax, initial encounter (principal); J44.9 Chronic obstructive pulmonary disease, unspecified; R18.8 Other ascites; F17.210 Nicotine dependence, cigarettes, uncomplicated; I10 Essential (primary) hypertension; R07.9 Chest pain, unspecified; X50.9XXA Other and unspecified overexertion or strenuous movements or postures, initial encounter
CPT/HCPCS: 74176; 80048; 80076; 81001; 83690; 85025; 96374; 96375; 99284; A4216; J2405

== ENCOUNTER → 2022-08-17 | Outpatient (CLI) | payer MEDICAID, SELFPAY ==
--- NOTE | 2022-08-17 14:21 | US_ITS ---
PROCEDURE: Ultrasound guided paracentesis. DATE OF EXAMINATION: 08/17/2022.. INDICATION: Male, 57 years old. Ascites. PHYSICIAN: Esau Scott M.D. TECHNIQUE: The risks, benefits, and alternatives to the procedure were explained to the patient. The specific risks of bleeding, infection, and damage to bowel were detailed and accepted. Witnessed informed consent was obtained. The abdomen was ultrasonographically surveyed. An appropriate pocket of fluid was identified at the left lower quadrant. The skin were cleaned and prepped in the usual sterile fashion. Using ultrasound guidance, the peritoneal cavity was accessed with a 5-Israeli paracentesis needle/catheter system. The trocar was removed. A total of 3350 ml of bebeto-colored fluid were removed from the peritoneal cavity. The catheter was removed and a sterile dressing was applied. The procedure was well tolerated. US/Paracentesis with US IMPRESSION: Ultrasound guided paracentesis. Electronically Signed: Esau Scott MD at 15:24 EST ,
[2022-08-17 14:33] VITALS: BP 129/88; BP 133/97; BP 134/95; PULSE 103; PULSE 94; PULSE 96; RESP 18; TEMP 36.6; O2SAT 97; O2SAT 98
[2022-08-17] MEDS: Lidocaine 2% (20 ml mdv) 20 ML Vial INFILT (14:43)
--- NOTE | 2022-08-18 10:51 | CASEMGMT ---
Social Work Note Sites of visit: outpatient oncology and outpatient radiology departments. Date of visits: 08.17.2022 (duplicate note, also placed into ONC visit V#[id number]) Consult received for possible assistance with resources, including potential future need for residential placement. Patient is a 57 year old single male, lives alone, with limited support. Patient's cancer is reportedly limited regarding treatment. 0930 - Presented down to oncology department and met with patient and friend Nathan Jones in consult room. Patient is sitting in wheelchair, tense stare and body posture. Patient expressed that feels overwhelmed with information that has been given, that needs to get out of the hospital setting and to own home. Patient was willing to speak with this rewriter, but it was clear patient was irritable and overwhelmed. Through conversation found that patient returning at 1430 for paracentesis for ascites. This rewriter offered to talk with patient at 1430, and patient agreeable. During conversation however, it was reported by patient and Nathan that support is limited, patient does live alone. Nathan works at a local residential, so is unable to quit job to care for patient if needed in the future. 1500 - Met with patient in the outpatient radiology department after paracentesis. Patient calm, less tense, and focused in conversation. Patient reports going home helped. Patient apologetic for response earlier in the day and voiced that may not have been nice to the doctor. Patient voiced interest in talking with someone from oncology, to make sure that understands treatment options, if any. Patient states does not want to do treatment if it will be a waste of time. Patient admits to having pain all over, including in abdominal area. Patient aware this is not something to go away in light of multiple medical concerns. DXs: Disseminated cancer, Malignant Ascites, mediastinal lymphadenopathy, hepatic steatosis PCP: Dr. Foley Specialist: Dr. Levine Other diagnoses/health issues: Patient reports to smoke a pack and a half of cigarettes a day. Patient reports history of alcohol abuse issues, but reports quit 6 months ago due to the alcohol ruining patient's life. Patient reports regular marijuana use, but denies any other illicit substance use at this time (record indicates history of other substance use in the past). History of depression. Insurance: [employer]; Reports to have a heel caser named Olimpia. Financial Status: SSI disability for non diabetic peripheral neuropathy for the last 1.5 years. Living Will/POAHC: Does not have; LNOK: Patient is not . Reports to have 2 sons: Raghav Oliveira and Jewel Jorge Khang. Patient reports has had recent contact with Raghav and Raghav reportedly wants to reconnect with patient. Patient reports no real involvement with Jewel. No other biological family identified, though siblings/parents not discussed. Patient reports primary support person is long time friend Nathan Jones. Patient reports Nathan helps whenever she can, and is the person patient trusts to help with decision making if needed. Living Arrangements: Alone in an apartment. One step to enter. Takes care of own ADL's but reports is sometimes wobbly. Reports to have plenty of food at home, denies any concerns about housing/utilities/food/living environment at this time. Transportation: Depends on Nathan. Has access to help through insurance. DME: Walker, cane, grab bars, shower chair. Admits does not always use the DME available to him. SNF: History of [facility]. HHC: None reported. Resources provided/Planning: Educated patient to advanced directives and patient will consider completing at a future hospital visit. Educated patient to palliative care services for pain management and in light of multiple medical issues, including cancer which is potentially not treatable. Educated that palliative services can transition to hospice when appropriate. Patient expressed interest. Provided handouts on 5 different services: [facility], [facility], [facility], [facility], [facility]. Patient will take this information home to look at. Educated that can call one of these services for a consult if so desires. This rewriter also agreed to call Dr. Levine's office about potential phone call from the office to revisit and review prognosis and treatment options if any. Patient expressed appreciation. Patient currently not interested in a NF, but took a list from this rewriter on local options. 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 -ANDREWS Juan, LAVERNE
== END | disposition home or self-care (01) ==
PROVIDERS: PCP Internal Medicine; Referring Provider Internal Medicine Medical Oncology; Visit Provider Internal Medicine Medical Oncology
DX: R18.8 Other ascites (principal)
CPT/HCPCS: 49083

== ENCOUNTER → 2022-08-26 | Outpatient (CLI) | payer MEDICAID, SELFPAY ==
--- NOTE | 2022-08-26 07:55 | US_ITS ---
PROCEDURE: Ultrasound guided paracentesis. DATE OF EXAMINATION: 08/26/2022. INDICATION: Male, 57 years old. Ascites. PHYSICIAN: Esau Scott M.D. TECHNIQUE: The risks, benefits, and alternatives to the procedure were explained to the patient. The specific risks of bleeding, infection, and damage to bowel were detailed and accepted. Witnessed informed consent was obtained. The abdomen was ultrasonographically surveyed. An appropriate pocket of fluid was identified at the right lower quadrant. The skin were cleaned and prepped in the usual sterile fashion. Using ultrasound guidance, the peritoneal cavity was accessed with a 5-Chinese paracentesis needle/catheter system. The trocar was removed. A total of 4300 ml of bebeto-colored fluid were removed from the peritoneal cavity. The catheter was removed and a sterile dressing was applied. The procedure was well tolerated. US/Paracentesis with US IMPRESSION: Ultrasound guided paracentesis. Electronically Signed: Esau Scott MD at 8:58 EST ,
[2022-08-26] MEDS: Lidocaine 2% (20 ml mdv) 20 ML Vial INFILT (08:20)
[2022-08-26 08:45] VITALS: BP 131/91; BP 134/94; BP 138/96; BP 139/98; PULSE 104; PULSE 111; PULSE 116; RESP 16; TEMP 36.5; O2SAT 95; O2SAT 97; O2SAT 98
--- NOTE | 2022-08-26 09:06 | NURSING ---
LACY Rose spoke with [facility] regarding plan for patient's future care. Soren was unsure of plans for patient's future paracentesis orders or if he would be getting a pleurx catheter. Soren is to talk with his boss and let [facility] know their plan for this patient.
== END | disposition home or self-care (01) ==
LOC: US 07:53
PROVIDERS: PCP Internal Medicine; Referring Provider Internal Medicine Medical Oncology; Visit Provider Internal Medicine Medical Oncology
DX: C80.1 Malignant (primary) neoplasm, unspecified (principal); R18.0 Malignant ascites; K66.8 Other specified disorders of peritoneum
CPT/HCPCS: 49083